=== PATIENT | female | born 1940 | race Caucasian/White ===

== ENCOUNTER 2022-08-25 04:50 | Outpatient (CLI) | payer MEDICARE, BC, SELFPAY | END 2022-08-25 04:51 | disposition home or self-care (01) | LOC: AMB 08-26 11:23 | PROVIDERS: PCP Family Medicine; Visit Provider Family Medicine | DX: R42 Dizziness and giddiness (principal) | CPT/HCPCS: A0425; A0429 ==

== ENCOUNTER 2022-08-25 05:11 | Emergency (ER) | payer MEDICARE, BC, SELFPAY ==
[2022-08-25 05:18] VITALS: BP 188/80; PULSE 89; RESP 18; TEMP 36.7; O2SAT 99; BMI 33.3
--- NOTE | 2022-08-25 05:45 | ED.GENADULT ---
HPI - General Adult General Chief complaint: Anxiety Stated complaint: Dizziness Time Seen by Provider: 08/25/22 05:18 Source: patient and EMS Mode of arrival: EMS History of Present Illness HPI narrative: 82-year-old female that lives in the [facility] area presents to the emergency department via EMS for nonspecific reasons. She reports that she had a tooth pulled on the 3rd which is 2 weeks ago. Since that time, she has been using ibuprofen 2-3 times per day per their instructions for dental pain. She is worried that because of this she could be dehydrated. For unknown reasons, this evening she started drinking lots of fluid, worried that she could be dehydrated. She has been having urinary frequency since that time and did notice a little spot of blood in her urine. She is confident that this is not vaginal nor rectal. As notes some burning on urination specifically when I asked but had not really thought about a bladder infection prior to this. There is no nausea, no vomiting, no back or abdominal pain. She says that she did feel slightly lightheaded at 1 point this evening but that has flea did. There was no chest pain, palpitations or other systemic symptoms. Certainly no fever. She does admit that she was very worried when seeing the little bit of blood in her urine and called 911. She does admit that she has memory issues though she denies being diagnosed with dementia or having this formally worked up. She has a lot of difficulty remembering names. She did not want to call her family as they have to work in the morning and that would be inconvenient for them. She did not try calling a nurse triage line or any other type of advice before calling EMS. Eyes any falls, injury or trauma. No syncope, no chest pain. She admits to me that she has really issues, has never brought this up with her primary care doctor. It sounds like she does not go into the doctor regularly. She denies taking any medications but I do see that she has been prescribed lisinopril at some point though I cannot follow the rationale as to why patient is either not taking it or it was discontinued. I suspect that she ran out and never refilled it, therefore not treating ongoing hypertension. She states that she has no long-term health problems and takes no prescription medications. She denies any allergies. Socially, she states that she lives at the [facility] and has no alcohol or illicit drug use. Her son lives in [place] and she has a nephew that works at the facility as well that can help her run errands from time to time. Denies any sick contacts. ROS is notable for the generalized and urinary symptoms as above, otherwise denies times 12 systems. Related Data Home Medications Medication Instructions Recorded Confirmed lisinopril 20 mg tablet 20 mg PO DAILY 08/25/22 08/25/22 Previous Rx's Medication Instructions Recorded ciprofloxacin HCl 250 mg tablet 250 mg PO BID #10 tabs 08/25/22 (Cipro) Allergies Allergy/AdvReac Type Severity Reaction Status Date / Time sertraline AdvReac Intermediate Nightmares Verified 08/25/22 05:47 PFSH COUNTS INCLUDE 234 BEDS AT THE [facility] Medical History (Updated 08/25/22 @ 06:08 by Kathryn Poe MD) Diverticulosis of colon (without mention of hemorrhage) GERD with esophagitis Hemorrhoids Iron deficiency anemia due to chronic blood loss Osteopenia Rotator cuff injury Vitamin D deficiency Surgical History History of colonoscopy History of esophagogastroduodenoscopy Social History Smoking Status: Never smoker Do you use any of these nicotine containing products: None Second hand tobacco smoke exposure: No How often do you have a drink containing alcohol: never How often do you have six or more drinks on one occasion: Never AUDIT-C Alcohol total score: 0 Non-prescribed substance use: denies use Exam Const: Vital Signs, click to edit/add: Vital Signs - 24 hr 08/25/22 05:18 Temperature 98.0 F Pulse Rate [Right Pulse Oximeter] 89 Respiratory Rate 18 Blood Pressure [Ri ght Upper Arm] 188/80 H Pulse Oximetry 99 Oxygen Delivery Me thod Room Air Documenting provider has reviewed patient's vital signs: yes Common normals: no apparent distress General appearance: well kempt Other: Anxious with mild cognitive impairment. HENMT: Common normals: normocephalic Head and scalp: normocephalic Mouth: oral and palatal mucosa normal Throat: posterior oropharynx normal Eye: Common normals: PERRL and conjunctivae normal Conjunctiva: conjunctiva(e) normal Pupil: PERRL Neck & C-Spine: Common normals: full ROM and no lymphadenopathy Resp: Common normals: normal respiratory effort, no use of accessory muscles and clear to auscultation bilaterally Effort & inspection: able to speak in complete sentences Auscultation: clear to auscultation bilaterally Cardio: Common normals: regular rate, regular rhythm, S1 normal heart sound, S2 normal heart sound and no murmurs Rate: regular rate Rhythm: regular rhythm Heart sounds: S1 normal and S2 normal GI: Common normals: Normal to inspection, nondistended, normoactive bowel sounds present, soft to palpation, non-tender, no hepatosplenomegaly and no masses Palpation: soft and no hepatosplenomegaly Extremity: Common normals: normal to inspection, full ROM, normal capillary refill and no pedal edema Neuro: Speech: speech normal Motor exam: strength 5/5 throughout, no tremor noted and no movement abnormalities noted Psych: Appearance: well kempt Activity/motor behavior: appropriate eye contact and disorganized Mood and affect: anxious Insight: fair Judgement: fair Other: Mild memory impairment noted. Cannot remember primary care provider name, other details that would typically be in the realm of normal for an 82-year-old Skin: Common normals: no rashes or lesions noted Narrative: No bruising, signs of any trauma General skin exam: no rashes or lesions noted Course Vital Signs Vital signs: Initial Vital Signs Temperature 98.0 F 08/25/22 05:18 Temperature Source Temporal Artery Scan 08/25/22 05:18 Pulse Rate 89 08/25/22 05:18 Respiratory Rate 18 08/25/22 05:18 Respiratory Effort Spontaneous 08/25/22 05:18 Respiratory Depth Normal 08/25/22 05:18 Respiratory Pattern 08/25/22 05:18 Blood Pressure 188/80 H 08/25/22 05:18 Blood Pressure Mean 116 08/25/22 05:18 Blood Pressure Position Sitting 08/25/22 05:18 Pulse Oximetry 99 08/25/22 05:18 Oxygen Delivery Method 08/25/22 05:18 Vital Signs Temperature 98.0 F 08/25/22 05:18 Pulse Rate 89 08/25/22 05:18 Respiratory Rate 18 08/25/22 05:18 Blood Pressure 188/80 H 08/25/22 05:18 Pulse Oximetry 99 08/25/22 05:18 Oxygen Delivery Method 08/25/22 05:18 Temperature 98.0 F 08/25/22 05:18 Pulse Rate 89 08/25/22 05:18 Respiratory Rate 18 08/25/22 05:18 Blood Pressure 188/80 H 08/25/22 05:18 Pulse Oximetry 99 08/25/22 05:18 Oxygen Delivery Method 08/25/22 05:18 Medical Decision Making MDM Narrative Medical decision making narrative: Vital signs are stable, no localizing severe threats to health. I do suspect that her cognitive impairment and anxiety are the main root of her issues today. Concerns there could be an underlying bladder infection and this made her feel overwhelmed contributing to anxiety in the setting of underlying cognitive impairment and will check a UA. Based on this single episode of fleeting dizziness, I would like to check an EKG is I do not trust her memory and insight appropriately. Awaiting these results. Do not recommend significant further workup as her exam is completely benign. Update: UA reviewed, suspicious for infection. EKG performed there were some very mild subtle anteriorly changes but these are completely unchanged from 12/06/2020. No signs of any arrhythmia or other underlying cardiac disease. Discussed the bladder infection with patient. Spent some time also discussing my concerns for ongoing memory impairment especially since it was so difficult for her to figure out what to do in the setting of a mild illness. She does agree that she should look into this further. Alarm symptoms reviewed with her regarding her bladder infection. Cipro and Pyridium given in ED. additional Cipro sent to [facility] Lab Data Lab results reviewed: Yes I reviewed the patient's lab results Labs: Lab Results 08/25/22 Range/Units 05:35 Urine Color Yellow (Yellow) Urine Appearance Cloudy A (Clear) Urine pH 6.5 (5.0-8.5) Ur Specific [place] 1.010 (1.000-1.030) Urine Protein Trace A (Negative) Urine Glucose (UA) Negative (Negative) Urine Ketones Negative (Negative) Urine Blood 3+ A (Negative) Urine Nitrite Negative (Negative) Urine Bilirubin Negative (Negative) Urine Urobilinogen 0.2 (0.2-1.0) Ur Leukocyte Esterase 3+ A (Negative) Urine RBC 10-25 A (0-2) Urine WBC 25-50 A (0-5) Ur Squamous Epith Cells Few (None-Few) Urine Bacteria Moderate A (None) ECG Data Attestation: I personally reviewed and interpreted this ECG as follows: Prior ECG tracings: available for review Interpretation: Normal sinus rhythm, rate of 76. Reviewed from 12/06/2020 also showing no changes from that date. There are some nonspecific inferior and anterior leads changes which are consistent with this previous value. Normal axis, no LVH. Discharge Plan Discharge Clinical Impression: Urinary tract infection, Impaired memory Patient Disposition: Home w/ Parent or Adult Condition: Improved Instructions: Urinary Tract Infection in Women (DC) Additional Instructions: As we discussed, your urine shows signs of a bladder infection. We have started you on an antibiotic for this. He will need to molded goods spot picker the additional supply of antibiotic at your local pharmacy. I have sent a prescription. You were also given a medication in the emergency room to help with the bladder tenderness, please remember that it will turn your urine dark orange. This is not blood. It is common to have blood in your urine with a bladder infection but this should clear within a few days. If it does not, make a follow-up appointment to discuss that with your primary care doctor. I do have concerns about your memory based on how hard it was for you to figure out what to do when you had some mild burning in your bladder. These are typically not reasons someone would call 911. I think that this is a sign that your memory might be failing to the point where it needs more attention. I would recommend that you specifically make an appointment with your primary care doctor to discuss memory testing. You should also have your blood pressure rechecked as it was high in the emergency department. It looks like right medications for this in the past though you deny use of any of these. There are treatment options including medications that may be right for you that can help slow the progression of dementia. Please bring this paperwork to your follow-up visit. Activity Level: No Restrictions Discharge Diet: Regular Prescriptions: New ciprofloxacin HCl [Cipro] 250 mg tablet 250 mg PO BID Qty: 10 0RF No Action lisinopril 20 mg tablet 20 mg PO DAILY Label Comments: Take 1 Tablet (20 mg) by mouth once daily. Follow Up/Referrals: Emmy Harley MD [Primary Care Provider] - 7 Days Stand Alone Forms: [employer] Info Instructions
[2022-08-25 05:46] LABS: Appearance Urine Cloudy (Clear); Bilirubin Urine Negative (Negative); Blood Urine 3+ (Negative); Color Urine Yellow (Yellow); Glucose Urine Negative (Negative); Ketones Urine Negative (Negative); Leukocyte Esterase Urine 3+ (Negative); Nitrite Urine Negative (Negative); Protein Urine Trace (Negative); Urobilinogen Urine 0.2 (0.2-1.0); pH Urine 6.5 (5.0-8.5)
[2022-08-25 05:56] LABS: Bacteria Urine Moderate; Squamous Epithelial Cell Urine Few (None-Few); WBC Urine 25-50 (0-5)
[2022-08-25] MEDS: CIPROFLOXACIN 500 MG TABLET PO (06:15)
[2022-08-25] MEDS: PHENAZOPYRIDINE HCL 200 MG TABLET PO (06:15)
[2022-08-25 06:22] VITALS: BP 174/78; PULSE 84; RESP 18; TEMP 36.9; O2SAT 99
[2022-08-25 06:24] VITALS: BP 174/78; PULSE 84; RESP 18; TEMP 36.9
== END 2022-08-25 06:24 | disposition home or self-care (01) ==
PROVIDERS: Emergency Provider Family Medicine; PCP Family Medicine
DX: R41.82 Altered mental status, unspecified (principal)
CPT/HCPCS: 81003; 81015; 87086; 87186; 93005; 99283; A9270

== ENCOUNTER 2022-08-25 14:03 | Outpatient (CLI) | payer MEDICARE, BC, SELFPAY | END 2022-08-25 14:04 | disposition home or self-care (01) | LOC: AMB 08-26 12:44 | PROVIDERS: PCP Family Medicine; Visit Provider Family Medicine | DX: R41.82 Altered mental status, unspecified (principal) | CPT/HCPCS: A0425; A0427; A0429 ==

== ENCOUNTER 2022-08-25 14:36 | Emergency (ER) | payer MEDICARE, BC, SELFPAY ==
--- NOTE | 2022-08-25 14:43 | CRLHL7_ITS ---
For Patients: As a result of the Century Cures Act, medical imaging exams and procedure reports are released immediately into your electronic medical record. You may view this report before your referring provider. If you have questions, please contact your health care provider. INDICATION: Confusion. TECHNIQUE: CT of the head without contrast. Coronal and sagittal reformats are included. COMPARISON: Brain MRI from 12/06/2020. Head CT from 11/30/2020. FINDINGS: No CT evidence of acute cortical infarct. Moderately extensive hypoattenuation throughout the supratentorial white matter, typical for chronic microvascular ischemic changes. No hyperdense vessels to suggest intracranial thrombus. No acute intracranial hemorrhage. No mass effect or midline shift. No hydrocephalus or extra-axial collections. Vascular calcifications carotid siphons. No acute osseous abnormalities. Mastoid air cells and paranasal sinuses are clear. Normal soft tissues. IMPRESSION: IMPRESSION:1. No CT evidence of acute cortical infarct. No acute intracranial hemorrhage. No other acute intracranial findings. Moderately extensive chronic microvascular ischemic changes, also present on comparison exams. Please note that all CT scans at this facility use dose modulation, iterative reconstruction, and/or weight-based dosing when appropriate to reduce radiation dose to as low as reasonably achievable. Dictated by Rafael Morris MD @ 08/25/2022 3:46:05 PM (Electronically Signed)
[2022-08-25 14:50] VITALS: BP 183/87; PULSE 93; RESP 18; TEMP 36.5; O2SAT 100
[2022-08-25 15:14] LABS: Lactate* 0.8 mmol/L (0.5-1.9)
[2022-08-25 15:23] LABS: Troponin, Point-of-Care* 0.02 ng/ml (0.01-0.04)
[2022-08-25 15:27] LABS: Basophils Absolute Auto 0.03 K/uL (0.00-0.30); Basophils Percent Auto 0.3 % (0.0-3.0); Hematocrit 32.9 % (33.0-51.0); Immature Granulocytes Abs Auto 0.01 K/uL (0.00-0.30); Immature Granulocytes Pct Auto 0.1 %; Lymphocytes Percent Auto 7.3 % (20-44); Mean Corpuscular HGB Conc 33 gm/dL (32-36); Mean Corpuscular Hemoglobin 31 pg (26-34); Mean Corpuscular Volume 91 fL (80-100); Monocytes Percent Auto 9.5 % (0.0-11.0); Neutrophils Percent Auto 81.8 % (42.0-72.0); Platelet Count* 261 K/uL (140-440); RDW Coefficient of Variation % 14.2 % (11.5-15.5)
[2022-08-25 15:32] LABS: Slide Review Reflex No
[2022-08-25 15:36] LABS: Amphetamine Screen Urine Negative (Negative); Barbiturate Screen Urine Negative (Negative); Benzodiazepines Screen Urine Negative (Negative); Cannabinoid Screen Urine Negative (Negative); Cocaine Screen Urine Negative (Negative); Methadone Screen Urine Negative (Negative); Methamphetamines Screen Urine Negative (Negative); Opiate Screen Urine Negative (Negative); Oxycodone Screen Urine Negative (Negative); Phencyclidine Screen Urine Negative (Negative); Tricyclic Antidepressant Urine Negative (Negative)
[2022-08-25 15:39] LABS: Albumin* 3.9 g/dL (3.3-5.0); Chloride* 103 mmol/L (96-114)
[2022-08-25 15:40] LABS: Potassium* 4.3 mmol/L (3.6-5.1); Sodium* 131 mmol/L (135-149)
[2022-08-25 15:42] LABS: Alkaline Phosphatase* 76 U/L (40-150); Aspartate Amino Transferase* 20 U/L (12-35); Bilirubin Direct* 0.1 mg/dL (0.0-0.5); Bilirubin Total* 0.3 mg/dL (0.1-1.5); Carbon Dioxide* 23 mmol/L (20-32); Creatinine* 0.6 mg/dL (0.5-1.5); Estimated Glomerular Filt Rate 89 ml/min; Total Protein* 6.8 g/dL (6.0-8.3)
[2022-08-25 15:43] LABS: Alanine Aminotransferase* 17 U/L (4-35); Blood Urea Nitrogen* 14 mg/dL (7-30); Calcium* 9.1 mg/dL (8.4-10.6); Glucose* 109 mg/dL (60-115)
[2022-08-25 15:45] LABS: Ethanol* < 0.01 % (0.01-0.03)
--- NOTE | 2022-08-25 18:15 | ED.NURSE ---
pt's son is talking with Dr. Austin
[2022-08-25 18:19] VITALS: BP 180/80; PULSE 75; RESP 18; O2SAT 98
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
== END 2022-08-25 18:46 | disposition home or self-care (01) ==
PROVIDERS: Emergency Provider Emergency Medicine; PCP Family Medicine
DX: R41.3 Other amnesia (principal); N39.0 Urinary tract infection, site not specified
CPT/HCPCS: 36415; 70450; 80048; 80076; 80306; 81003; 81015; 82077; 83605; 84484; 85025; 86140; 87086; 87186; 93005; 99283; 99284; 99285; A9270

== ENCOUNTER 2024-03-14 04:43 | Outpatient (CLI) | payer MEDICARE, BC, SELFPAY ==
--- OUTSIDE RECORDS SUMMARY | 2024-03-17 17:41 | XMS_ITS | Clinical Summary ---
Author Organization [employer] [facility] Address [place], [place] [address] Care Team Providers Care Window Machine Operator Name Role Phone Chitra Manuel DO Primary Care Provider [phone] Allergies Active Allergy Reactions Criticality Noted Date Comments Sertraline Nightmares 10/22/2021 may be dose dependant ok on 50mg. 100mg more dreams. Medications Medication Sig Dispensed Refills Start Date End Date Status multivitamin (MVI) tablet Take 1 tablet by mouth once daily. 0 07/23/2017 Active vit C,U-Cu-uvhxb-lutein-z eaxan (PreserVision AREDS-2) capsule Take 1 Capsule [...] Description 02/21/2024 11:05 AM CDT Office Visit [facility] [address] [place] [address] Chitra Manuel, Blood Pressure; Dizziness (gets dizzy [...] st Contact Info) Description 09/13/2024 8:30 AM BLADE ALIGNER Office Visit [facility] [address] [facility] [address] [place] [address] Edwin Oviedo, PhD, [address] [place] [address] Health Maintenance Due Date Last Done Comments [...] Completed 12/24/2015 Medical Devices Implanted Type Area Hydrogen Treater Device Identifier Shelf Expiration Date Model / Serial / Lot Eye Intraocular Lens - [id number] Implanted:Qty: 1 on 05/13/2017 [facility] Right: Eye 08/08/2019 / [id number] / Eye Intraocular Lens - [id number] Implanted:Qty: 1 on 06/10/2017 [facility] Left: Eye [employer] 10/07/2019 250 / [id number] / Procedures Procedure Name Priority Date/Time Associated [...] mineral density study was performed using the [employer]. The results of the study expressed as [...] 12:50 PM 04/04/2015 3:34 PM Care Teams Window Machine Operator Relationship Specialty Start Date End Date Chitra Manuel DO [address] [place] [address] PCP - General Family Practice 12/09/20
== END 2024-03-14 04:44 | disposition home or self-care (01) ==
LOC: AMB 03-17 17:39
PROVIDERS: PCP Family Medicine; Visit Provider Family Medicine
DX: R06.09 Other forms of dyspnea (principal); R42 Dizziness and giddiness
CPT/HCPCS: A0425; A0429

== ENCOUNTER 2024-03-14 04:55 | Emergency (ER) | payer MEDICARE, BC, SELFPAY ==
[2024-03-14 05:03] VITALS: BP 171/80; PULSE 78; RESP 16; TEMP 36.8; O2SAT 96; BMI 29.2
--- NOTE | 2024-03-14 05:33 | ED_ITS ---
HPI - General Adult General Chief complaint: Anxiety Stated complaint: Panic attack Time Seen by Provider: 03/14/24 05:16 Source: patient and EMS Mode of arrival: EMS History of Present Illness HPI narrative: 84-year-old female reports that she was in her assisted living facility this morning when she started to feel a little dizzy and anxious. Reports that dizziness is common for her but intermittent. She has been evaluated in our ED for this about a year and half ago and reports that she has also had several evaluations in her primary care office for this as well. She reports that no cause has been found but it sounds as though instead there was no reversible cause or dangerous etiology found. She has not had any fainting or falls. She notes no chest pain or significant shortness of breath. She denies any recent myalgias, fevers or illness. She says that she took her blood pressure medicine this morning as prescribed. She states that the symptoms are not terribly out of character for her and that her symptoms had fully resolved by the time of EMS arrival. EMS confirming this story. They noticed a few PACs but no significant other abnormalities. They did check a blood sugar and it was 116. They brought her in for further evaluation. Here in the ED, she continues to be asymptomatic. She denies any recent stroke-like symptoms, neurological changes, falls, signs of illness, vomiting, diarrhea, skin injuries, dysuria. She reports that her appetite has been good. She does admit to some memory impairment which is ongoing. She continues to use her walker. She no longer drives. She has family in the [place] area that she speaks with frequently. Past medical history is notable for hypertension. It sounds like she has been prescribed an anti anxiety medicine in the past but it caused side effects, reports a sertraline allergy. Only home medication is lisinopril 20 mg once daily. Did denies alcohol or illicit drug use. No prior stroke or heart attack. ROS is notable for the anxiety as above and some chronic intermittent ongoing dizziness which is not currently present. Otherwise denies times 12 systems. Related Data Home Medications ?Medication ?Instructions ?Recorded ?Confirmed lisinopril 20 mg tablet 20 mg PO DAILY 08/25/22 08/25/22 Previous Rx's ?Medication ?Instructions ?Recorded ciprofloxacin HCl 250 mg tablet 250 mg PO BID #10 tabs 08/25/22 (Cipro) Allergies Allergy/AdvReac Type Severity Reaction Status Date / Time sertraline AdvReac Intermediate Nightmares Verified 08/25/22 05:47 [facility] Medical History Rotator cuff injury ?S46.009A - Unspecified injury of muscle(s) and tendon(s) of the rotator cuff of unspecified shoulder, initial encounter (ICD-10) Vitamin D deficiency ?E55.9 - Vitamin D deficiency, unspecified (ICD-10) GERD with esophagitis ?K21.00 - Gastro-esophageal reflux disease with esophagitis, without bleeding (ICD-10) 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.0 - Iron deficiency anemia secondary to blood loss (chronic) (ICD-10) Hemorrhoids ?K64.9 - Unspecified hemorrhoids (ICD-10) Osteopenia ?M85.80 - Other specified disorders of bone density and structure, unspecified site (ICD-10) Diverticulosis of colon (without mention of hemorrhage) ?K57.30 - Diverticulosis of large intestine without perforation or abscess without bleeding (ICD-10) Surgical History History of colonoscopy ?Z98.890 - Other specified postprocedural states (ICD-10) History of esophagogastroduodenoscopy ?Z98.890 - Other specified postprocedural states (ICD-10) Social History Smoking Status: Never smoker Do you use any of these nicotine containing products: None Second hand tobacco smoke exposure: No How often do you have a drink containing alcohol: never How often do you have six or more drinks on one occasion: Never AUDIT-C Alcohol total score: 0 Non-prescribed substance use: denies use Exam Const: Vital Signs, click to edit/add: Vital Signs - 24 hr 03/14/24 05:03 Temperature 98.3 F Pulse Rate [Pulse Oximeter] 78 Respiratory Rate 16 Blood Pressure [Ri ght Upper Arm] 171/80 H Pulse Oximetry 96 Oxygen Delivery Me thod Room Air Documenting provider has reviewed patient's vital signs: yes Common normals: no apparent distress, oriented x3 and alert Orientation/consciousness: Yes awake Other: Mild memory impairment but appropriate for medical decision making. Alert, cooperative, conversational, very well groomed. Answers questions appropriately . HENMT: Common normals: normocephalic, head/scalp atraumatic and oropharynx normal Head and scalp: normocephalic and atraumatic Face and sinus: normal facial exam Mouth: oral and palatal mucosa normal Eye: Common normals: PERRL, EOMs intact bilaterally and conjunctivae normal General eye: normal appearance of both eyes Conjunctiva: conjunctiva(e) normal Pupil: PERRL Neck & C-Spine: Common normals: full ROM and no lymphadenopathy Resp: Common normals: normal respiratory effort, no use of accessory muscles and clear to auscultation bilaterally Effort & inspection: able to speak in complete sentences Auscultation: clear to auscultation bilaterally Cardio: Common normals: regular rate, regular rhythm, S1 normal heart sound, S2 normal heart sound and no murmurs Rate: regular rate Rhythm: regular rhythm Heart sounds: S1 normal and S2 normal GI: Common normals: Normal to inspection, nondistended, normoactive bowel sounds present, soft to palpation, non-tender, no hepatosplenomegaly and no masses Palpation: soft and no hepatosplenomegaly Extremity: Common normals: normal to inspection, normal capillary refill and no pedal edema Neuro: Common normals: oriented x3, CN's II-XII intact bilaterally, moves all extremities and no focal motor deficits Sensorium/orientation: awake and alert Speech: speech normal Psych: Other: Mildly anxious with very mild memory impairment. Skin: Common normals: no rashes or lesions noted General skin exam: no rashes or lesions noted Course Course ED Course: Records reviewed from early , signs of similar mild cognitive impairment present then. It looks like family alludes that this is normal for her based on Dr. Austin note. Patient was symptomatic for only a brief period of time and asymptomatic at the time of EMS arrival and here in the emergency department. I offered more comprehensive blood work and urinalysis to look for underlying medical etiology, she does not believe that this is necessary today. She feels reassured that her blood sugar was normal, her vitals are reasonable, her oxygen levels are good. I do not see any strong indication to go against her wishes and perform a more thorough workup. We will call her son and confirmed that there have not been any major changes recently and if he is in agreement, we will have him take her back to her assisted living. Reevaluation(s) Reevaluation #1: Update: Nursing team reports that they spoke with the patient's son and he had no additional concerns. Patient started to feel little anxious again, stated that she would like to wait for her son out in the lobby where she could see out the window and read the paper. This is done and we continued to observe her from the check-in window and this certainly seem to help her. Family is on the way to pick her up and has no additional concerns. Vital Signs Vital signs: Initial Vital Signs Temperature 98.3 F 03/14/24 05:03 Temperature Source Temporal Artery Scan 03/14/24 05:03 Pulse Rate 78 03/14/24 05:03 Respiratory Rate 16 03/14/24 05:03 Blood Pressure 171/80 H 03/14/24 05:03 Blood Pressure Mean 110 H 03/14/24 05:03 Blood Pressure Position Sitting 03/14/24 05:03 Pulse Oximetry 96 03/14/24 05:03 Oxygen Delivery Method Room Air 03/14/24 05:03 Vital Signs Temperature 98.3 F 03/14/24 05:03 Pulse Rate 78 03/14/24 05:03 Respiratory Rate 16 03/14/24 05:03 Blood Pressure 171/80 H 03/14/24 05:03 Pulse Oximetry 96 03/14/24 05:03 Oxygen Delivery Method Room Air 03/14/24 05:03 Temperature 98.3 F 03/14/24 05:03 Pulse Rate 78 03/14/24 05:03 Respiratory Rate 16 03/14/24 05:03 Blood Pressure 171/80 H 03/14/24 05:03 Pulse Oximetry 96 03/14/24 05:03 Oxygen Delivery Method Room Air 03/14/24 05:03 Discharge Plan Discharge Clinical Impression: Acute anxiety Patient Disposition: Home w/ Parent or Adult Condition: Improved Instructions: Anxiety (ED) Additional Instructions: As we discussed, your breathing and heart seem fine today. Dizzy spells are very common at your age in it sounds like you have had a very thorough workup regarding this. You have been evaluated in our emergency department about a year and a half ago for similar complaints as well. I do think that you do have some underlying lifelong anxiety and this got the best view tonight. As our Brain ages, it is not uncommon for those that struggle with some anxiety to have difficulty sorting out mild verses worrisome physical symptoms. Since her symptoms resolved even prior to the ambulance coming, this is good news. Your physical exam here is reassuring. Your oxygen and blood sugar levels are normal. You declined further blood work and urine tests which is of course reasonable. Continue taking your medications as prescribed and follow up with her primary care provider if you continue to struggle with anxiety to discuss more long-term management. As we discussed, the dizziness is likely to continue to come and go, especially when you are feeling anxious. Activity Level: No Restrictions Discharge Diet: Regular Prescriptions: No Action lisinopril 20 mg tablet 20 mg PO DAILY Patient Comments: Take 1 Tablet (20 mg) by mouth once daily. ciprofloxacin HCl [Cipro] 250 mg tablet 250 mg PO BID Qty: 10 0RF Follow Up/Referrals: Emmy Harley MD [Primary Care Provider] - Stand Alone Forms: [employer] Info Instructions
[2024-03-14 06:01] VITALS: BP 164/90; RESP 16
--- OUTSIDE RECORDS SUMMARY | 2024-03-14 06:02 | XMS_ITS | Clinical Summary ---
Author Organization [facility] [facility] Address [place], [place] [address] Care Team Providers Care Portrait Photographer Name Role Phone Chitra Manuel DO Primary Care Provider Allergies Active Allergy Reactions Criticality Noted Date Comments Sertraline Nightmares 10/22/2021 may be dose dependant ok on 50mg. 100mg more dreams. Medications Medication Sig Dispensed Refills Start Date End Date Status multivitamin (MVI) tablet Take 1 tablet by mouth once daily. 0 07/23/2017 Active vit C,H-Ly-elsme-lutein-z eaxan (PreserVision AREDS-2) capsule Take 1 Capsule by mouth two times daily. 0 02/08/2023 Active lisinopriL (PRINIVIL; ZESTRIL) 20 mg tabletIndications:Hyp ertension, unspecified type Take 1 Tablet (20 mg) by mouth once daily. 90 Tablet 2 08/20/2023 Active Active Problems Problem Noted Date Diagnosed Date Iron deficiency anemia due to chronic blood loss 07/23/2017 Overview: Likely d/t Gastric erosions noted on EGD 2014. Responds very well to IV iron replacement. Gastroesophageal reflux disease with esophagitis 07/23/2017 Primary insomnia 01/11/2017 Osteopenia 12/08/2015 Overview: hip % 3.9, fosamax encouraged via letter Rotator cuff injury 12/24/2011 Vitamin D deficiency 07/24/2010 Resolved Problems Problem Noted Date Diagnosed Date Resolved Date Guaiac + stool 04/04/2015 05/09/2015 Fecal occult blood test positive 03/26/2015 12/22/2015 Anxiety state, unspecified 07/14/2010 1 Encounters Date Type Department Care Team Description 02/21/2024 11:05 AM CDT Office Visit [facility] [address] [place] [address] Chitra Manuel, Blood Pressure; Dizziness (gets dizzy when hungry, eats, then gets better) 02/21/2024 Travel from Last 3 Months Immunizations Name Administration Dates Next Due COVID-19 vaccine (Moderna 100mcg/0.5mL) PF, MDV 10/02/2020,09/04/2020 DTaP 04/28/2006 Pneumococcal Poly,23-Valent (Pneumovax) 04/28/20 06 Family History Medical History Relation Name Comments Cancer-breast Sister 50's Relation Name Status Comments Sister Social History Tobacco Use Types Packs/Day Years Used Date Smoking Tobacco: Former Cigarettes 0.5 45 0 08/09/1944 - 08/09/1988 Smokeless Tobacco: Never Tobacco Cessation:Counseling Given: Yes Alcohol Use Standard Drinks/Week Comments Not Currently 0 (1 standard drink = 0.6 oz pur e alcohol) rare 1 beer a year PHQ-2 Answer Date Recorded PHQ-2 TOTAL SCORE 0 02/08/2023 Social Connections Answer Date Recorded Frequency of Communication with Friends and Fami ly Not on file 11/25/2022 Financial Resource Strain Answer Date R ecorded Difficulty of Paying Living Expenses 3 11/24/2021 Difficulty of Paying Living Expenses Not on file 11/24/2021 Food Insecurity Answer Date Recorded Worried About Running Out of Food in the Last Ye ar 1 11/24/2021 Transportation Needs Answer Date Record ed Lack of Transportation (Medical) 1 11/24/2021 Housing Stability Answer Date Recorded Unable to Pay for Housing in the Last Year 1 11/24/2021 Sex and Gender Information Value Date Recorded Sex Assigned at Not on file Gender Identity Not on file Sexual Orientation Not on file Obstetrics History Para Term AB IAB SAB Ectopic Multiple Livin g Live Births 2 2 2 2 Date Outcome GA Total Labor Labor/2nd/3rd Weight Sex Type Anes PTL Monet A1 A5 Name Clin Term Term Last Filed Vital Signs Vital Sign Reading Time Taken Comments Blood Pressure 136/66 02/21/2024 11:30 AM CDT Pulse 68 02/21/2024 11:09 AM CDT Temperature 37.2 ??C (99 ??F) 12/22/2021 11:10 AM CDT Respiratory Rate 16 04/02/2018 11:52 AM CDT Oxygen Saturation 98% 02/21/2024 11:09 AM CDT Inhaled Oxygen Concentration - - Weight 76.7 kg (169 lb) 02/21/2024 11:09 AM CDT Height 154.9 cm (5' 1) 02/08/2023 4:05 PM CDT Body Mass Index 31.93 02/08/2023 4:05 PM CDT Plan of Treatment Upcoming Encounters Date Type Department Care Team (Late st Contact Info) Description 09/13/2024 8:30 AM LOAN SERVICING REPRESENTATIVE Office Visit [facility] [address] [facility] [address] [place] [address] Edwin Oviedo, PhD, [address] [place] [address] Health Maintenance Due Date Last Done Comments Tdap 1950 Zoster (shingles) series for age 50+ (1 of 2) 1989 Pneumococcal series for age 65+ (2 of 2 - PCV) 04/28/2007 04/28/2006 Tetanus booster 04/28/2016 04/28/2006 COVID-19 vaccine series ( season) 2023 12/08/2021, 07/10/2021, 10/02/2020, Additional history exists BMI (ht and wt on same day) for age 18+ 02/09/2024 02/08/2023, 08/31/2022, 10/22/2021, Additional history exists Medicare Wellness for age 65+ 02/09/2024, 10/22/2021, 06/08/2018, Additional history exists Depression screening for age 12+ 02/11/2024 02/10/2023, 02/10/2023, 02/08/2023, Additional history exists Influenza for age 65+ 04/09/2024 DEXA/DXA scan for age 65+ Completed 12/24/2015 Medical Devices Implanted Type Area Core Composer Machine Tender Device Identifier Shelf Expiration Date Model / Serial / Lot Eye Intraocular Lens - [id number] Implanted:Qty: 1 [facility]13/[facility] Right: Eye 08/08/2019 / [id number] / Eye Intraocular Lens - [id number] Implanted:Qty: 1 on 06/10/2017 [facility] Left: Eye [employer] 10/07/2019 250 / [id number] / Procedures Procedure Name Priority Date/Time Associated Diagnosis Comments XR DXA BONE DENSITY 2 SITES AXIAL Routine 12/24/2015 2:26 PM CDT Other specified menopausal and perimenopausal disorders At risk for bone density loss from Last 3 Months or Most Recently Relevant to Health Maintenance Results * XR DXA BONE DENSITY 2 SITES AXIAL (12/24/2015 2:26 PM CDT) Anatomical Region Laterality Modality Spine, HIPS, HIPL, HIPR Bone Den sitometry Narrative 12/30/2015 6:25 PM CDT DXA BONE MINERAL DENSITY STUDY CLINICAL INDICATIONS: The patient is a 75-year-old female with Other Screening - V82.81 FINDINGS Bone mineral density study was performed using the wripl. The results of the study expressed as bone mineral density (BMD) are as follows: ??BMD T-Score Z-Score Lumbar Spine (L1 to L3) ??1.124 g/cm2 ??-0.4 ?? 1.4 ?? Hip ?? 0.737 g/cm2 ??-2.2 ?? -0.2 ?? Radius ??g/cm2 ?? DEFINITION OF TERMS AND VALUES Values according to the World Health Organization (1994): Normal: T-score greater than or equal to -1.0 LOW BONE MASS: T-score between -1.1 and -2.49 OSTEOPOROSIS: T-score -2.5 or below, OR a fragility fracture present SEVERE OSTEOPOROSIS: ??T-score -2.5 or below, WITH a fragility fracture present CONCLUSIONS 1. Findings are consistent with Low bone mass by WHO criteria. 2. FRAX scores reveal a 10 year risk of major osteoporotic fracture of 14.0 % and 3.9 % for the hip. 3. Recommend optimizing calcium and vitamin D. Miranda Vu NP DEXA from Last 3 Months or Most Recently Relevant to Health Maintenance Advance Directives * Full Code (Latest Code Status on File) Date Activated Date Inactivated Comments 06/10/2017 8:51 AM 06/10/2017 1:39 PM * Full Code Date Activated Date Inactivated Comments 06/10/2017 6:55 AM 06/10/2017 8:51 AM * Full Code Date Activated Date Inactivated Comments 05/13/2017 9:24 AM 05/13/2017 1:37 PM * Full Code Date Activated Date Inactivated Comments 04/04/2015 12:50 PM 04/04/2015 3:34 PM Care Teams Portrait Photographer Relationship Specialty Start Date End Date Chitra Manuel DO [address] [place] [address] PCP - General Family Practice 12/09/20
== END 2024-03-14 06:40 | disposition home or self-care (01) ==
LOC: ED 06:00
PROVIDERS: Emergency Provider Family Medicine; PCP Family Medicine
DX: F41.9 Anxiety disorder, unspecified (principal)
CPT/HCPCS: 99282; 99283

== ENCOUNTER 2024-07-17 07:29 | Emergency (ER) | payer MEDICARE, BC, SELFPAY ==
[2024-07-17] VITALS (12 sets, daily range): BP systolic 113–183; BP diastolic 77–92; PULSE 71–86; RESP 24; TEMP 36.6; O2SAT 88–99; BMI 28.3
--- NOTE | 2024-07-17 07:57 | ED.SOB ---
HPI - SOB/Dyspnea General Time Seen by Provider: 07:58 Date Seen: 07/17/24 Chief Complaint: Shortness of Breath/Dyspnea Stated Complaint: SOB and dizziness Time Seen by Provider: 07/17/24 08:16 Source: patient Mode of arrival: ambulatory Limitations: no limitations History of Present Illness HPI Narrative: Audra is a very pleasant 84-year-old female with a remote history of tobacco use stating that she only currently takes a blood pressure medicine and is otherwise healthy comes to the [facility] with dizziness and shortness of breath. Patient notes that she has had dizziness for quite some time. She states that she often wakes in the morning with dizziness that is described as unsteadiness and a fullness in her head. She notes resolution of the symptoms if she eats. She states that she eats quite healthy. Unfortunately the dizziness will recur if she does not eat every 2 hours. Today she stated that she experience this dizziness and it made her scared and then she got very short of breath. At this very moment in the ER she has none of the symptoms. She has not been ill with cough cold or congestion. She denies weight loss or weight gain. She has not had any heart problems in the past. She currently resides at [facility] and states that she does not have a very good memory because she is old but then tells me that she has no dementia. Audra states that she uses a walker because she is so afraid of falling. She does not have any knee hip or leg pain. She has not had a recent fall or trauma. No ear pain or neck pain. Audra states that she has been here in the ER for this in the past but never had any blood work done. I do note a recent note from our night physician who states that patient did come in and did declined any further blood work after she found out that her blood sugar was okay. I do ask her about visits to her primary and she states that it is hard to get in to see her primary. She normally goes to the [facility]. Related Data Home Medications ?Medication ?Instructions ?Recorded ?Confirmed lisinopril 20 mg tablet 20 mg PO DAILY 08/25/22 07/17/24 Previous Rx's ?Medication ?Instructions ?Recorded amoxicillin 500 mg tablet 500 mg PO TID #21 tabs 07/17/24 azithromycin 250 mg tablet See Rx Instructions PO .COMPLEX #6 07/17/24 (Zithromax Z-Ignacio) tabs omeprazole 40 mg capsule,delayed 40 mg PO DAILY #14 caps 07/17/24 release Allergies Allergy/AdvReac Type Severity Reaction Status Date / Time sertraline AdvReac Intermediate Nightmares Verified 07/17/24 07:43 Review of Systems Status of ROS: Reports: 10 or more systems reviewed and unremarkable except as noted in History and below Const: Denies: fever, chills, change in weight or fatigue Eyes: Reports: other (eye pressure when she is dizzy); Denies: change in vision ENMT: Denies: throat pain, neck pain, throat swelling, nasal congestion or nose bleeds Cardio: Reports: shortness of breath with exertion; Denies: chest pain, palpitations, edema or swelling of feet/ankles Resp: Reports: shortness of breath; Denies: cough GI: Denies: abdominal pain, nausea, vomiting, diarrhea, constipation or blood in stool : Denies: painful urination, urinary frequency or urinary urgency Musculo: Denies: back pain, neck pain or extremity pain Neuro: Denies: headache or numbness in extremities Psych: Denies: anxiety Endo: Denies: fatigue Allergy/Immuno: Denies: throat swelling [facility] Medical History Rotator cuff injury ?S46.009A - Unspecified injury of muscle(s) and tendon(s) of the rotator cuff of unspecified shoulder, initial encounter (ICD-10) Vitamin D deficiency ?E55.9 - Vitamin D deficiency, unspecified (ICD-10) GERD with esophagitis ?K21.00 - Gastro-esophageal reflux disease with esophagitis, without bleeding (ICD-10) 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.0 - Iron deficiency anemia secondary to blood loss (chronic) (ICD-10) Hemorrhoids ?K64.9 - Unspecified hemorrhoids (ICD-10) Osteopenia ?M85.80 - Other specified disorders of bone density and structure, unspecified site (ICD-10) Diverticulosis of colon (without mention of hemorrhage) ?K57.30 - Diverticulosis of large intestine without perforation or abscess without bleeding (ICD-10) Surgical History History of colonoscopy ?Z98.890 - Other specified postprocedural states (ICD-10) History of esophagogastroduodenoscopy ?Z98.890 - Other specified postprocedural states (ICD-10) Social History Smoking Status: Never smoker Do you use any of these nicotine containing products: None Second hand tobacco smoke exposure: No How often do you have a drink containing alcohol: never How often do you have six or more drinks on one occasion: Never AUDIT-C Alcohol total score: 0 Non-prescribed substance use: denies use Exam Narrative: Exam Narrative: Audra is alert and oriented. No acute distress. I do sense element of anxiety with mildly pressured speech. EOM is full and pupils are equal round and reactive. Head is atraumatic normocephalic. Neck is supple. Eyebrow raise smile all intact. Tongue is midline. Upper extremity strength and motor is intact as is lower extremity. Heart with regular rate and rhythm and lungs are clear bilaterally. Abdomen soft nontender. Lower extremity show 1+ peripheral edema. Moving all extremities without difficulty. No carotid bruits were auscultated. Const: Vital Signs, click to edit/add: Vital Signs - 24 hr 07/17/24 07:33 07/17/24 08:48 07/17/24 08:49 Temperature 97.8 F Pulse Rate 84 86 Pulse Rate [Pulse Oximeter] 81 Respiratory Rate 24 Blood Pressure 183/88 H Blood Pressure [Ri ght Upper Arm] 160/92 H Pulse Oximetry 99 96 95 Oxygen Delivery Me thod Room Air 07/17/24 09:00 07/17/24 09:03 07/17/24 09:04 Temperature Pulse Rate 84 78 81 Pulse Rate [Pulse Oximeter] Respiratory Rate Blood Pressure 179/89 H Blood Pressure [Ri ght Upper Arm] Pulse Oximetry 98 97 96 Oxygen Delivery Me thod 07/17/24 09:15 07/17/24 09:30 07/17/24 09:33 Temperature Pulse Rate 72 85 Pulse Rate [Pulse Oximeter] Respiratory Rate Blood Pressure 113/77 Blood Pressure [Ri ght Upper Arm] Pulse Oximetry 95 96 Oxygen Delivery Me thod 07/17/24 09:45 07/17/24 10:04 07/17/24 10:15 Temperature Pulse Rate 71 83 77 Pulse Rate [Pulse Oximeter] Respiratory Rate Blood Pressure Blood Pressure [Ri ght Upper Arm] Pulse Oximetry 96 88 96 Oxygen Delivery Me thod Documenting provider has reviewed patient's vital signs: yes Course Course ED Course: Differential diagnosis includes but is not limited to orthostatic hypotension, cardiac arrhythmia, urinary tract infection, thyroid dysregulation, electrolyte imbalance, vitamin deficiency, anxiety. At this time I do speak to 1 need a about her previous visit at which time she had declined further blood draw but told her I am happy to do that today. I did state that I may not be able to accurately diagnose what she is feeling but we should be able to ensure there are no immediate threats to life with her situation. Therefore will order EKG, troponin, assistant press operator, IV placement, CBC, comprehensive panel, CRP, urinalysis, vitamin-D, magnesium, troponin. Will also check a proBNP, chest x-ray, COVID swab. Patient seems happy with this plan. Ultimately however we will need to get her in to see her primary MD for further evaluation. Orthostatic vital signs have also been ordered at this time. Vital Signs Vital signs: Initial Vital Signs Temperature 97.8 F 07/17/24 07:33 Temperature Source Temporal Artery Scan 07/17/24 07:33 Pulse Rate 81 07/17/24 07:33 Respiratory Rate 24 07/17/24 07:33 Blood Pressure 160/92 H 07/17/24 07:33 Blood Pressure Mean 114 H 07/17/24 07:33 Blood Pressure Position Sitting 07/17/24 07:33 Pulse Oximetry 99 07/17/24 07:33 Oxygen Delivery Method Room Air 07/17/24 07:33 Vital Signs Temperature 97.8 F 07/17/24 07:33 Pulse Rate 81 07/17/24 07:33 Respiratory Rate 24 07/17/24 07:33 Blood Pressure 160/92 H 07/17/24 07:33 Pulse Oximetry 99 07/17/24 07:33 Oxygen Delivery Method Room Air 07/17/24 07:33 Temperature 97.8 F 07/17/24 07:33 Pulse Rate 77 07/17/24 10:15 Respiratory Rate 24 07/17/24 07:33 Blood Pressure 113/77 07/17/24 09:33 Pulse Oximetry 96 07/17/24 10:15 Oxygen Delivery Method Room Air 07/17/24 07:33 Medications Administered Medications: Discontinued Medications Generic Name Dose Route Start Last Admin Trade Name Yuliet VENTURA Reason Stop Dose Admin Omeprazole 40 mg 07/17/24 11:34 07/17/24 11:50 Omeprazole [address] PO 07/17/24 11:35 40 mg ONCE ONE Administration MDM - SOB/Dyspnea MDM Narrative Medical decision making narrative: 1. Pneumonia-patient will be treated with amoxicillin 500 t.i.d. for 7 days and a Z-Ignacio. O2 sats reassuring and patient has tested negative for COVID influenza and RSV. Prescription sent to pharmacy. 2. Anemia-hemoglobin 9.3 today which is a change from 11 earlier in the year. Patient denies any abdominal pain or noting blood in her stool but she did have a positive fecal occult test today. She is not orthostatic and I do not think her dizziness is related to this particular finding but will need to be worked up. We are making an appointment with her primary clinic for further evaluation. She does note colonoscopy many years ago that was normal. Patient given omeprazole 40 mg today in the ED. will have her continue this medication for the next 2 weeks. 3. Hypo natremia-sodium today is 127. Patient is advised to salt 2 out of her 3 meals in the day. Recheck with primary MD. 4. Intermittent dizziness-this appears to be a chronic and ongoing problem that is improved with eating. I asked patient to actually plan on eating 3 normal meals but snacks in between meals so that she has something in her stomach every 2 hours. No evidence of cardiac arrhythmia. Troponin is negative x2 an EKG is reassuring. 4. Disposition-home at this time. Follow-up with primary clinic for workup of anemia. Patient had no symptoms of dizziness or shortness of breath well in the ED. vital signs were reassuring. Patient res is anxious to go home. Medical Records Attestation: I reviewed the patient's medical records. Lab Data Attestation: I reviewed the patient's lab results. Labs: Lab Results 07/17/24 07/17/24 07/17/24 Range/Units 08:16 08:31 08:55 WBC 5.73 (4.50-11.00) K/uL RBC 3.87 L (4.00-5.20) m/uL Hgb 9.3 L (12.0-16.0) gm/dL Hct 30.0 L (33.0-51.0) % MCV 78 L (80-100) fL MCH 24 L (26-34) pg MCHC 31 L (32-36) gm/dL RDW Coeff of Afua 18.4 H (11.5-15.5) % Plt Count 241 (140-440) K/uL Neut % (Auto) 71.6 (42.0-72.0) % Lymph % (Auto) 9.8 L (20-44) % Elliott % (Auto) 13.6 H (0.0-11.0) % Eos % (Auto) 3.8 (0.0-7.0) % Baso % (Auto) 1.0 (0.0-3.0) % Neut # (Auto) 4.10 (1.7-7.0) K/uL Lymph # (Auto) 0.60 L (0.90-2.90) K/uL Elliott # (Auto) 0.80 (0.00-0.90) K/UL Eos # (Auto) 0.22 (0.00-0.50) K/uL Baso # (Auto) 0.06 (0.00-0.30) K/uL Abs Immat Gran (auto) 0.01 (0.00-0.30) K/uL Imm/Tot Granulo (auto) 0.2 % Sodium 127 L (135-149) mmol/L Potassium 4.6 (3.6-5.1) mmol/L Chloride 102 (96-114) mmol/L Carbon Dioxide 21 (20-32) mmol/L Anion Gap 4 L (7-15) mEq/L BUN 22 (7-30) mg/dL Creatinine 0.5 (0.5-1.5) mg/dL Estimated Creat Clear 35.52 Estimated GFR 92 ml/min Glucose 95 (60-115) mg/dL Calcium 8.9 (8.4-10.6) mg/dL Magnesium 2.1 (1.5-2.6) mg/dL Total Bilirubin < 0.1 L (0.1-1.5) mg/dL AST 18 (12-35) U/L ALT 12 (4-35) U/L Alkaline Phosphatase 93 (40-150) U/L C-Reactive Protein < 0.5 L (0.5-1.0) mg/dL NT-Pro-B Natriuret Pep 98 pg/mL Total Protein 6.2 (6.0-8.3) g/dL Albumin 3.7 (3.3-5.0) g/dL 25-OH Vitamin D Total 42 (30-80) ng/mL TSH 2.230 (0.270-4.200) uIU/mL Urine Color Yellow (Yellow) Urine Appearance Clear (Clear) Urine pH 7.0 (5.0-8.5) Ur Specific Richmond 1.015 (1.000-1.030) Urine Protein Negative (Negative) Urine Glucose (UA) Negative (Negative) Urine Ketones Negative (Negative) Urine Blood Negative (Negative) Urine Nitrite Negative (Negative) Urine Bilirubin Negative (Negative) Urine Urobilinogen 0.2 (0.2-1.0) Ur Leukocyte Esterase 1+ A (Negative) Urine RBC 0-2 (0-2) Urine WBC 2-5 (0-5) Ur Squamous Epith Cells None (None-Few) Urine Bacteria Few A (None) Stool Occult Blood (Negative) SARS-CoV-2 (PCR) Negative SARS-CoV-2 (Negative) Influenza Type A (PCR) Negative PCR FLU A (Negative) Influenza Type B (PCR) Negative PCR FLU B (Negative) RSV (PCR) Negative PCR RSV (Negative) POC Troponin I 0.00 L (0.01-0.04) ng/ml 07/17/24 07/17/24 Range/Units 09:45 10:40 WBC (4.50-11.00) K/uL RBC (4.00-5.20) m/uL Hgb (12.0-16.0) gm/dL Hct (33.0-51.0) % MCV (80-100) fL MCH (26-34) pg MCHC (32-36) gm/dL RDW Coeff of Afua (11.5-15.5) % Plt Count (140-440) K/uL Neut % (Auto) (42.0-72.0) % Lymph % (Auto) (20-44) % Elliott % (Auto) (0.0-11.0) % Eos % (Auto) (0.0-7.0) % Baso % (Auto) (0.0-3.0) % Neut # (Auto) (1.7-7.0) K/uL Lymph # (Auto) (0.90-2.90) K/uL Elliott # (Auto) (0.00-0.90) K/UL Eos # (Auto) (0.00-0.50) K/uL Baso # (Auto) (0.00-0.30) K/uL Abs Immat Gran (auto) (0.00-0.30) K/uL Imm/Tot Granulo (auto) % Sodium (135-149) mmol/L Potassium (3.6-5.1) mmol/L Chloride (96-114) mmol/L Carbon Dioxide (20-32) mmol/L Anion Gap (7-15) mEq/L BUN (7-30) mg/dL Creatinine (0.5-1.5) mg/dL Estimated Creat Clear Estimated GFR ml/min Glucose (60-115) mg/dL Calcium (8.4-10.6) mg/dL Magnesium (1.5-2.6) mg/dL Total Bilirubin (0.1-1.5) mg/dL AST (12-35) U/L ALT (4-35) U/L Alkaline Phosphatase (40-150) U/L C-Reactive Protein (0.5-1.0) mg/dL NT-Pro-B Natriuret Pep pg/mL Total Protein (6.0-8.3) g/dL Albumin (3.3-5.0) g/dL 25-OH Vitamin D Total (30-80) ng/mL TSH (0.270-4.200) uIU/mL Urine Color (Yellow) Urine Appearance (Clear) Urine pH (5.0-8.5) Ur Specific Richmond (1.000-1.030) Urine Protein (Negative) Urine Glucose (UA) (Negative) Urine Ketones (Negative) Urine Blood (Negative) Urine Nitrite (Negative) Urine Bilirubin (Negative) Urine Urobilinogen (0.2-1.0) Ur Leukocyte Esterase (Negative) Urine RBC (0-2) Urine WBC (0-5) Ur Squamous Epith Cells (None-Few) Urine Bacteria (None) Stool Occult Blood Positive A (Negative) SARS-CoV-2 (PCR) (Negative) Influenza Type A (PCR) (Negative) Influenza Type B (PCR) (Negative) RSV (PCR) (Negative) POC Troponin I 0.01 (0.01-0.04) ng/ml Imaging Data Chest x-ray: Attestation: I have reviewed the pertinent imaging results. My impression: Increased lung markings throughout but in the right lower lobe agree of a small pneumonia Radiologist's impression: NDICATION: Shortness of breath TECHNIQUE: 1 view chest radiograph COMPARISON: 12/06/2020 FINDINGS: Devices: None. Lung volumes are good. Increased opacification in the right inferior parahilar lung. Diffuse peribronchial thickening and interstitial opacities. No pleural effusion. No pneumothorax. Heart size is large but similar to prior. Atherosclerotic vascular calcifications. IMPRESSION: Appearance suggests a focal bronchopneumonia in the right lower lobe on a background of bronchitis or infectious airways disease. ECG Data Attestation: I personally reviewed and interpreted this ECG as follows: ECG interpretation date: 07/17/24 Interpretation: EKG by my read shows sinus rhythm at a rate of 79. I do not note any acute ST or T-wave changes. P.r.n. QT intervals within normal limits. Discharge Plan Discharge Clinical Impression: Fecal occult blood test positive Pneumonia Qualifiers: Pneumonia type: due to unspecified organism Laterality: right Lung location: lower lobe of lung Qualified Code(s): J18.9 - Pneumonia, unspecified organism Anemia Qualifiers: Anemia type: unspecified type Qualified Code(s): D64.9 - Anemia, unspecified Patient Disposition: Home, Self-Care Condition: Unchanged Additional Instructions: 1. There is a small pneumonia on your x-ray. We will treat this with amoxicillin and Zithromax. These are too antibiotics. Amoxicillin will be 500 mg 3 times a day for 7 days and Zithromax is 500 mg on day 1 and 250 mg on days 2 through 5. 2. Your hemoglobin is 9.3 and this is a drop since August. Your stool although not looking like it has blood in it has tested positive for red blood cells. You received omeprazole today which protect your stomach from acid production. I would like you to continue mm saw for the next 2 weeks. A prescription was sent to your pharmacy. Your next dose of omeprazole is tomorrow. We will need to follow-up with your regular doctor for a workup in trying to find out where the blood is coming from in your GI system. Please return to the emergency room for blood in your stool, abdominal pain and as needed. 3. Your sodium is slightly low at 127. Salt your meals 2 times a day. Your thyroid studies and vitamin-D and heart studies were all within normal limits. Your urine sample did not show a bladder infection but will be sent for urine culture. Follow up appointment is scheduled at the [facility] on 07/19 with a 10:40am appointment time. Please check in at 10:30am to complete paperwork. If you have any questions or need to reschedule, please call [phone]. Prescriptions: New amoxicillin 500 mg tablet 500 mg PO TID Qty: 21 0RF azithromycin [Zithromax Z-Ignacio] 250 mg tablet See Rx Instructions .ROUTE .COMPLEX Qty: 6 0RF Rx Instructions: For 250 mg dose pack: take 500 mg today (day 1), then 250 mg for 4 days (days 2-5) omeprazole 40 mg capsule,delayed release(DR/EC) 40 mg PO DAILY Qty: 14 0RF No Action lisinopril 20 mg tablet 20 mg PO DAILY Patient Comments: Take 1 Tablet (20 mg) by mouth once daily. Follow Up/Referrals: Emmy Harley MD [Primary Care Provider] - Stand Alone Forms: MEETiiN Info Instructions
--- NOTE | 2024-07-17 08:29 | CRLHL7_ITS ---
For Patients: As a result of the Century Cures Act, medical imaging exams and procedure reports are released immediately into your electronic medical record. You may view this report before your referring provider. If you have questions, please contact your health care provider. INDICATION: Shortness of breath TECHNIQUE: 1 view chest radiograph COMPARISON: 12/06/2020 FINDINGS: Devices: None. Lung volumes are good. Increased opacification in the right inferior parahilar lung. Diffuse peribronchial thickening and interstitial opacities. No pleural effusion. No pneumothorax. Heart size is large but similar to prior. Atherosclerotic vascular calcifications. IMPRESSION: Appearance suggests a focal bronchopneumonia in the right lower lobe on a background of bronchitis or infectious airways disease. Dictated by Edie Gallardo MD @ 07/17/2024 9:03:42 AM (Electronically Signed)
--- OUTSIDE RECORDS SUMMARY | 2024-07-17 08:33 | XMS_ITS | Clinical Summary ---
Author Organization [facility] Address [place], [place] [address] Care Team Providers Care Sheet Pile Hammer Operator Name Role Phone Chitra Manuel DO Primary Care Provider Allergies Active Allergy Reactions Criticality Noted Date Comments Sertraline Nightmares 10/22/2021 may be dose dependant ok on 50mg. 100mg more dreams. Medications multivitamin (MVI) tablet Take 1 tablet by mouth once daily. 0 07/23/2017 Active vit C,X-Er-hehhf-lut ein-zeaxan (PreserVision AREDS-2) capsule Take 1 Capsule by mouth two times daily. 0 02/08/2023 Active lisinopriL (PRINIVIL; ZESTRIL) 20 mg tabletIndication s:Hypertension, unspecified type Take 1 Tablet (20 mg) by mouth once daily. 90 Tablet 05/17/2024 Active Active Problems Problem Noted Date Diagnosed Date Iron deficiency anemia due to chronic blood loss 07/23/2017 Overview (07/23/2017): Likely d/t Gastric erosions noted on EGD 2014. Responds very well to IV iron replacement. Gastroesophageal reflux disease with esophagitis 07/23/2017 Primary insomnia 01/11/2017 Osteopenia 12/08/2015 Overview (01/03/2016): hip % 3.9, fosamax encouraged via letter Rotator cuff injury 12/24/2011 Vitamin D deficiency 07/24/2010 Resolved Problems Problem Noted Date Diagnosed Date Resolved Date Guaiac + stool 04/04/2015 05/09/2015 Fecal occult blood test positive 03/26/2015 12/22/2015 Anxiety state, unspecified 07/14/2010 1 Encounters Date Type Department Care Team Description 05/12/2024 Refill [facility] [address] [place] [address] Chitra Manuel DO Refill Request (Lisinopril) from Last 3 Months Immunizations Name Administration [...] Housing in the Last Year 1 11/24/2021 Comments No Sex and Gender Information Value Date Recorded Sex Assigned at Not on file Legal Sex Female 5:23 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 Gender Identity Not on file Sexual Orientation Not on file 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 file Not on file Not on file Obstetrics History Para Term AB IAB SAB Ectopic Multiple Livin g Live Births 2 2 2 2 Date Outcome GA Total Labor Labor/2nd/3rd Weight Sex Type Anes PTL Monet A1 A5 Name Clin Term Term Last Filed Vital Signs Vital Sign Reading Time Taken Comments Blood Pressure 136/66 02/21/2024 11:30 AM CDT Pulse 68 02/21/2024 11:09 AM CDT Temperature 37.2 C (99 F) 12/22/2021 11:10 AM CDT Respiratory Rate 16 [...] Care Team (Late st Contact Info) Description 08/16/2024 1:00 PM SAFETY RELIEF VALVE TECHNICIAN Office Visit [facility] [address] [place] [address] Chitra Manuel DO [address] [place] [address] 09/13/2024 8:30 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 Office Visit [facility] [address] [facility] [address] [place] [address] Edwin Oviedo, PhD, [address] [place] [address] Health Maintenance Due Date Last Done Comments Tdap 1951 Zoster (shingles) series for age 50+ (1 of 2) 1989 Pneumococcal series for age 65+ (2 of 2 - PCV) 04/28/2007 04/28/2006 RSV vaccine for adults or (1 - 1-dose 75+ series) 2014 Tetanus booster 04/28/2016 04/28/2006 BMI (ht and wt on same day) for age 18+ 02/09/2024 02/08/2023, 08/31/2022, 10/22/2021, Additional history exists Medicare Wellness for age 65+ 02/09/2024, 10/22/2021, 06/08/2018, Additional history exists Depression screening for age 12+ 02/11/2024 02/10/2023, 02/10/2023, 02/08/2023, Additional history exists COVID-19 vaccine series ( season) 2024 12/08/2021, 07/10/2021, 10/02/2020, Additional history exists Influenza for age 65+ 04/09/2024 DEXA/DXA scan for age 65+ Completed 12/24/2015 Medical Devices Implanted Type Area Carbonation Tester Device Identifier Shelf Expiration Date Model / Serial / Lot Eye Intraocular Lens - [id number] Implanted:Qty: 1 on 05/13/2017 [facility] Right: Eye 08/08/2019 / [id number] / Eye Intraocular Lens - [id number] Implanted:Qty: 1 on 06/10/2017 by [facility] Left: Eye [employer] 10/07/2019 250 / [id number] / Procedures Procedure Name Priority Date/Time Associated [...] mineral density study was performed using the [employer]). The results of the study expressed as bone mineral density (BMD) are as follows: BMD T-Score Z-Score Lumbar Spine (L1 to L3) 1.124 g/cm2 -0.4 1.4 Hip 0.737 g/cm2 -2.2 -0.2 Radius g/cm2 DEFINITION OF TERMS AND VALUES Values according to the World Health Organization (1994): Normal: T-score greater than or equal to -1.0 LOW BONE MASS: T-score between -1.1 and -2.49 OSTEOPOROSIS: T-score -2.5 or below, OR a fragility fracture present SEVERE OSTEOPOROSIS: T-score -2.5 or below, WITH a fragility fracture present CONCLUSIONS 1. Findings are consistent with Low bone mass by WHO criteria. 2. FRAX scores reveal a 10 year risk of major osteoporotic fracture of 14.0 % and 3.9 % for the hip. 3. Recommend optimizing calcium and vitamin D. Miranda Vu NP DEXA Final Result from Last 3 Months or Most Recently Relevant to Health Maintenance Insurance MEDICARE PROVIDER BASED MR GUTIÉRREZ LYTTON MEDICARE PROVIDER BASED BLUE CROSS L[place] BLUE PB ONLY MEDICARE PB ONLY BLUE CROSS OF NON-[employer]-ITS WORKERS COMP MEDICARE PROVIDER BASED Advance Directives * Full Code (Latest Code [...] 12:50 PM 04/04/2015 3:34 PM Care Teams Sheet Pile Hammer Operator Relationship Specialty Start Date End Date Chitra Manuel [place] [address] [address] PCP - General Family Practice 12/09/20
[2024-07-17 08:43] LABS: Basophils Absolute Auto 0.06 K/uL (0.00-0.30); Eosinophils Absolute Auto 0.22 K/uL (0.00-0.50); Eosinophils Percent Auto 3.8 % (0.0-7.0); Hemoglobin* 9.3 gm/dL (12.0-16.0); Immature Granulocytes Abs Auto 0.01 K/uL (0.00-0.30); Immature Granulocytes Pct Auto 0.2 %; Lymphocytes Percent Auto 9.8 % (20-44); Mean Corpuscular HGB Conc 31 gm/dL (32-36); Mean Corpuscular Hemoglobin 24 pg (26-34); Mean Corpuscular Volume 78 fL (80-100); Monocytes Percent Auto 13.6 % (0.0-11.0); Neutrophils Percent Auto 71.6 % (42.0-72.0); Platelet Count* 241 K/uL (140-440); RDW Coefficient of Variation % 18.4 % (11.5-15.5); Red Blood Count 3.87 m/uL (4.00-5.20); White Blood Count* 5.73 K/uL (4.50-11.00)
[2024-07-17 08:45] LABS: Slide Review Reflex No
[2024-07-17 09:02] LABS: Albumin* 3.7 g/dL (3.3-5.0); Chloride* 102 mmol/L (96-114)
[2024-07-17 09:03] LABS: Potassium* 4.6 mmol/L (3.6-5.1); Sodium* 127 mmol/L (135-149)
[2024-07-17 09:05] LABS: Alkaline Phosphatase* 93 U/L (40-150); Anion Gap 4 mEq/L (7-15); Aspartate Amino Transferase* 18 U/L (12-35); Blood Urea Nitrogen* 22 mg/dL (7-30); Carbon Dioxide* 21 mmol/L (20-32); Creatinine* 0.5 mg/dL (0.5-1.5); Est. Creatinine Clearance* 35.52; Estimated Glomerular Filt Rate 92 ml/min; Glucose* 95 mg/dL (60-115); Total Protein* 6.2 g/dL (6.0-8.3)
[2024-07-17 09:06] LABS: Alanine Aminotransferase* 12 U/L (4-35); Calcium* 8.9 mg/dL (8.4-10.6); Magnesium* 2.1 mg/dL (1.5-2.6)
[2024-07-17 09:18] LABS: Bilirubin Total* < 0.1 mg/dL (0.1-1.5)
[2024-07-17 09:19] LABS: C Reactive Protein* < 0.5 mg/dL (0.5-1.0)
[2024-07-17 09:21] LABS: PCR FLU A Negative PCR FLU A (Negative); PCR FLU B Negative PCR FLU B (Negative); PCR RSV Negative PCR RSV (Negative); SARS PCR* Negative SARS-CoV-2 (Negative)
[2024-07-17 09:26] LABS: NT Pro B Type NatriureticPept* 98 pg/mL
[2024-07-17 09:37] LABS: Vitamin D 25 Hydroxy* 42 ng/mL (30-80)
[2024-07-17 09:38] LABS: Appearance Urine Clear (Clear); Bilirubin Urine Negative (Negative); Blood Urine Negative (Negative); Color Urine Yellow (Yellow); Glucose Urine Negative (Negative); Ketones Urine Negative (Negative); Leukocyte Esterase Urine 1+ (Negative); Nitrite Urine Negative (Negative); Protein Urine Negative (Negative); Specific Gravity Urine 1.015 (1.000-1.030); Urobilinogen Urine 0.2 (0.2-1.0)
[2024-07-17 09:56] LABS: RBC Urine 0-2 (0-2)
[2024-07-17 09:57] LABS: Bacteria Urine Few
[2024-07-17 10:55] LABS: Troponin, Point-of-Care* 0.01 ng/ml (0.01-0.04)
[2024-07-17 11:00] LABS: Fecal Occult Blood* Positive (Negative)
[2024-07-17] MEDS: OMEPRAZOLE 20 MG CAPSULE DR 40 MG PO (11:50)
== END 2024-07-17 11:55 | disposition home or self-care (01) ==
PROVIDERS: Emergency Provider Family Medicine; PCP Family Medicine
DX: J18.9 Pneumonia, unspecified organism (principal); D64.9 Anemia, unspecified; R19.5 Other fecal abnormalities
CPT/HCPCS: 36415; 71045; 80053; 81001; 82270; 82306; 82652; 83735; 83880; 84443; 84484; 85025; 86140; 87086; 87631; 93005; 99284; A9270

== ENCOUNTER 2024-09-01 06:36 | Outpatient (CLI) | payer MEDICARE, BC, SELFPAY | END 2024-09-01 06:37 | disposition home or self-care (01) | LOC: AMB 09-10 05:37 | PROVIDERS: PCP Family Medicine; Visit Provider Internal Medicine | DX: R06.02 Shortness of breath (principal) | CPT/HCPCS: A0425; A0427 ==

== ENCOUNTER 2024-09-01 06:57 | Emergency (ER) | payer MEDICARE, BC, SELFPAY ==
--- OUTSIDE RECORDS SUMMARY | 2024-09-01 07:00 | XMS_ITS | Continuity of Care Document ---
Author Organization [facility] Address [address] [place] [address] Phone Care Team Providers Care Account Clerk Name Role Phone Unavailable Unavailable Unavailable Medications Medication Instructions Dosage Effective Dates (start - stop) Status Comments Percocet 5 mg-325 mg Tab Take 1 tablet by mouth up to twice a dayuse only as needed - No Longer Active Naprosyn 500 mg Tab Take one tablet by mouth every twelve hours - No Longer Active Procedures Procedure Date Offic Cons New/estab Mod 40 Mi 05 Advance Directives Directive Yes / No Effective Date File Name No Information Encounters Encounter Description Practice Location Reason(s) For Visit Diagnoses Date Provider Providers Copied on Encounter Offic Cons New/estab Mod 40 Mi [facility], [address], [place], [place], [id number], [place] tel:[phone] [facility] No Information 5 No Information Referring Provider: Clarisa Hoang MD, [address], [address]. tel:[phone] Family History Family Member Type Diagnosis Age At Onset No Information Payers Payer name Insurance type Covered democrat ID Authoriza tigemini(s) Blue Plus BL [id number] Social History Type Description Quantity Date Captured Comments Sex Female Smoking Status No Information Chief Complaint And Reason For Visit No Information Reason For Referral Reason For Referral No Information History Of Present Illness Encounter Date Complaint History Of Prese nt Illness No Information Functional Status Date Functional Assessmen t No Information Instructions Date Instruction Additional Infor mation No Information Assessments Type Assessment Date No Information Patient Care Teams Name Effective Dates (start - stop) Status Members No Information
--- OUTSIDE RECORDS SUMMARY | 2024-09-01 07:00 | XMS_ITS | Clinical Summary ---
Author Organization [facility] Address [place], [place] [address] Care Team Providers Care Surveying Technician Name Role Phone Chitra Manuel DO Primary Care Provider Allergies Active Allergy Reactions Criticality Noted Date Comments Sertraline Nightmares 10/22/2021 may be dose dependant ok on 50mg. 100mg more dreams. Medications multivitamin (MVI) tablet Take 1 tablet by mouth once daily. 0 07/23/20 17 Active vit C,B-Dj-mvwtj-heena tein-zeaxan (PreserVision AREDS-2) capsule Take 1 Capsule by mouth two times daily. 0 02/09/20 23 Active amoxicillin 500 mg capsule Take 1 Tablet by mouth every 8 hours. 07/17/20 24 Active azithromycin (ZITHROMAX) 250 mg tablet TAKE 2 TABLETS BY MOUTH ON DAY 1, THEN 1 TABLET DAILY ON DAYS 2-5.* 07/17/20 24 Active omeprazole (PRILOSEC) 40 mg Delayed-Release capsule Take 1 Capsule by mouth once daily. 07/17/20 24 Active polyethylene glycol-electrol yte (GOLYTELY) 236-22.74-6.74 -5.86 gram suspensionIndic ations:Encounte r for screening colonoscopy Drink 2 liters the day before the procedure and 2 liters 6 hours prior to procedure. 4000 mL 07/28/20 24 Active lisinopriL (PRINIVIL; ZESTRIL) 20 mg tabletIndicatio ns:Hypertension , unspecified type TAKE ONE TABLET BY MOUTH ONE TIME DAILY 90 Tablet 08/16/19 25 Active polyethylene glycol-electrol yte (GOLYTELY) 236-22.74-6.74 -5.86 gram suspensionIndic ations:Encounte r for screening colonoscopy Drink 2 liters the day before the procedure and 2 liters 6 hours prior to procedure. 4000 mL 08/21/19 25 Active lisinopriL (PRINIVIL; ZESTRIL) 20 mg tabletIndicatio ns:Hypertension , unspecified type Take 1 Tablet (20 mg) by mouth once daily. 90 Tablet 05/17/20 24 025 Discontinued Active Problems Problem Noted Date Diagnosed Date [...] Encounters Date Type Department Care Team Description 08/21/[address] [address] Maxwell Salgado MD Appointment (Scheduled at [facility] Colonoscopy ) 08/12/[address] [address] Chitra Manuel DO Refill Request (Lisinopril) 07/19/2024 10:40 AM CERTIFIED RESPIRATORY THERAPIST Office Visit [facility] [address] [place] [address] Chitra Manuel DO Hospital F/U (spot on lung) 07/19/[address] [place] [address] Maxwell Salgado MD 07/19/2024 Travel 07/17/2024 Orders Only [facility] Scanner 1 scan: (1-Ord) [facility], LABS RESULT, 07/17/2024 07/17/2024 Orders Only [facility] Scanner 1 scan: (1-Ord) SINUS RHYTHM W/PREMATURE ATRIAL COMPLEXES and PREMATURE VENTRICULAR COMPLEXES, 07/17/2024 07/17/2024 Orders Only [facility] Scanner 1 scan: (1-Ord) [place] [facility], XR CHEST 1V PORTABLE, 07/17/2024 from Last 3 Months Immunizations Name Administration Dates Next Due COVID-19 vaccine (Moderna 100mcg/0.5mL) LIMA ZARATE 10/02/2020,09/04/2020 DTaP 04/28/2006 Pneumococcal Poly,23-Valent (Pneumovax) 04/28/20 [...] 0 02/08/2023 Social Connections Answer Date Recorded Do you often feel lonely or isolated from those around you? 0 07/19/2024 Financial Resource Strain Answer Date R ecorded Difficulty of Paying Living Expenses 3 07/19/2024 Difficulty of Paying Living Expenses Not on file 07/19/2024 Food Insecurity Answer Date Recorded Do you worry your food will run out before you are able to buy more? 1 07/19/2024 Transportation Needs Answer Date Record ed Does lack of transportation keep you from medica l appointments? 1 07/19/2024 Does lack of transportation keep you from work, meetings or getting things that you need? 1 07/19/2024 Housing Stability Answer Date Recorded What is your housing situation today? 1 07/19/2024 Utilities Answer Date Recorded Do you have trouble paying f or utilities (for example, heat, electricity, water, phone)? 1 07/19/2024 Comments No Sex and Gender Information Value Date Recorded Sex Assigned at Not on file Legal Sex Female 5:23 AM CERTIFIED RESPIRATORY THERAPIST Gender Identity Not on file Sexual Orientation [...] Sign Reading Time Taken Comments Blood Pressure 151/54 07/19/2024 10:43 AM CERTIFIED RESPIRATORY THERAPIST Pulse 92 07/19/2024 10:43 AM CERTIFIED RESPIRATORY THERAPIST Temperature 37.2 C (99 F) 12/22/2021 11:10 AM CDT Respiratory Rate 16 04/02/2018 11:52 AM CDT Oxygen Saturation 98% 07/19/2024 10:43 AM CERTIFIED RESPIRATORY THERAPIST Inhaled Oxygen Concentration - - Weight 83 kg (183 lb) 07/19/2024 10:43 AM CERTIFIED RESPIRATORY THERAPIST Height 154.9 cm (5' 1) 02/08/2023 4:05 PM CDT Body Mass Index 34.58 02/08/2023 4:05 PM CDT Plan of Treatment Upcoming Encounters Date Type Department Care Team (Late st Contact Info) Description 09/11/2024 9:00 AM CERTIFIED RESPIRATORY THERAPIST Office Visit [facility] [address] [place] [address] Chitra Manuel DO [address] [place] [address] 09/13/2024 8:30 AM CERTIFIED RESPIRATORY THERAPIST Office Visit [facility] [address] [place] [address] Edwin Oviedo, PhD, [address] [place] [address] 09/29/2024 12:15 PM CERTIFIED RESPIRATORY THERAPIST Office Visit [facility] at [facility] [address] [place] [address] Maxwell Salgado MD [address] [place] [address] Health Maintenance Due Date Last Done Comments Tdap 1950 Zoster (shingles) series for age 50+ (1 of 2) 1989 Pneumococcal series for age 50+ (2 of 2 - PCV) 04/28/2007 04/28/2006 [...] Completed 12/24/2015 Medical Devices Implanted Type Area Export Coordinator Device Identifier Shelf Expiration Date Model / Serial / Lot Eye Intraocular Lens - [id number] Implanted:Qty: 1 on 05/13/2017 by Michael Peters MD at [facility] Right: Eye 08/08/2019 / [id number] / Eye Intraocular Lens - [id number] Implanted:Qty: 1 on 06/10/2017 by Michael Peters MD at [facility] Left: Eye [employer] 10/07/2019 250 / [id number] / Procedures Procedure Name Priority Date/Time Associated Diagnosis Comments COLONOSCOPY DIAGNOSTIC MENA 8:04 AM CERTIFIED RESPIRATORY THERAPIST Anemia of unknown etiology Positive fecal occult blood test ESOPHAGOGASTRODUODENOSCOPY MENA 08/18 8:04 AM CERTIFIED RESPIRATORY THERAPIST Anemia of unknown etiology Positive fecal occult blood test BASIC METABOLIC PANEL Routine 07/19/2024 11:27 AM CERTIFIED RESPIRATORY THERAPIST Hyponatremia CBC WITH AUTO DIFFERENTIAL Routine 07/19 11:27 AM CERTIFIED RESPIRATORY THERAPIST Anemia of unknown etiology SCAN-ELECTROCARDIOGRAM EKG 07/17 12:00 AM CERTIFIED RESPIRATORY THERAPIST SCAN-LABORATORY REPORT 12:00 AM CERTIFIED RESPIRATORY THERAPIST SCAN-RADIOLOGY REPORT 07/17/2024 12:00 AM CERTIFIED RESPIRATORY THERAPIST XR DXA BONE DENSITY 2 SITES AXIAL Routine 12/24/2015 2:26 PM CDT Other specified menopausal and perimenopausal disorders At risk for bone density loss from Last 3 Months or Most Recently Relevant to Health Maintenance Results * (ABNORMAL) CBC AND DIFFERENTIAL (07/19/2024 11:27 AM CERTIFIED RESPIRATORY THERAPIST) Pathologist [facility] WHITE BLOOD CELL COUNT 5.3 3.8 - 10.8 Thousand/u L [facility] RED BLOOD CELL COUNT 4.04 3.80 - 5.10 Million/uL [facility] HEMOGLOBIN 9.8(L) 11.7 - 15.5 g/dL [facility] HEMATOCRIT 32.1(L) 35.0 - 45.0 % [facility] MCV 79.5(L) 80.0 - 100.0 fL [facility] MCH 24.3(L) 27.0 - 33.0 pg [facility] MCHC 30.5(L) 32.0 - 36.0 g/dL [facility] Comment: For adults, a slight decrease in the calculated MCHC value (in the range of 30 to 32 g/dL) is most likely not clinically significant; however, it should be interpreted with caution in correlation with other red cell parameters and the patient's clinical condition. RDW 16.4(H) 11.0 - 15.0 % [facility] PLATELET COUNT 295 140 - 400 Thousand/u L [facility] MPV 11.1 7.5 - 12.5 fL [facility] ABSOLUTE NEUTROPHILS 3,318 1,500 - 7,800 cells/uL [facility] ABSOLUTE LYMPHOCYTES 827(L) 850 - 3,900 cells/uL [facility] ABSOLUTE MONOCYTES 816 200 - 950 cells/uL [facility] ABSOLUTE EOSINOPHILS 249 15 - 500 cells/uL [facility] ABSOLUTE BASOPHILS 90 0 - 200 cells/uL [facility] NEUTROPHILS 62.6 % [facility] LYMPHOCYTES 15.6 % [facility] MONOCYTES 15.4 % [facility] EOSINOPHILS 4.7 % [facility] BASOPHILS 1.7 % [facility] Blood BLOOD SPECIMEN / Unknown 07/19/2024 11:27 AM CERTIFIED RESPIRATORY THERAPIST 07/19/2024 11:28 AM CERTIFIED RESPIRATORY THERAPIST Chitra Howellt DO HEMATOLOGY Final Resul t [employer] [facility] [address] [place] [address], [address] [address] * (ABNORMAL) BASIC METABOLIC PANEL (07/19/2024 11:27 AM CERTIFIED RESPIRATORY THERAPIST) [facility] GLUCOSE 96 65 - 99 mg/dL [facility] Comment: Fasting reference interval UREA NITROGEN (BUN) 26(H) 7 - 25 mg/dL [facility] CREATININE 0.69 0.60 - 0.95 mg/dL [facility] EGFR 85 > OR = 60 mL/min/1.7 3m2 [facility] BUN/CREATININE RATIO 38(H) 6 - 22 (calc) [facility] SODIUM 132(L) 135 - 146 mmol/L [facility] POTASSIUM 4.6 3.5 - 5.3 mmol/L [facility] CHLORIDE 101 98 - 110 mmol/L [facility] CARBON DIOXIDE 23 20 - 32 mmol/L [facility] ELECTROLYTE BALANCE 8 7 - 17 mmol/L (calc) [facility] CALCIUM 9.2 8.6 - 10.4 mg/dL [facility] Blood BLOOD SPECIMEN / Unknown 07/19/2024 11:27 AM CERTIFIED RESPIRATORY THERAPIST 07/19/2024 11:28 AM CERTIFIED RESPIRATORY THERAPIST us Chitrapriscilla Howellt DO CHEMISTRY Final Resul t [employer] [facility] [address] [place] [address], [facility] [address] [place] [address] * SCAN-RADIOLOGY REPORT (07/17/2024 12:00 AM CERTIFIED RESPIRATORY THERAPIST) Anatomical Region Laterality Modality Other us Scanner OTHER Final Result * SCAN-LABORATORY REPORT (07/17/2024 12:00 AM CERTIFIED RESPIRATORY THERAPIST) us Scanner OTHER Final Result * SCAN-ELECTROCARDIOGRAM EKG (07/17/2024 12:00 AM CERTIFIED RESPIRATORY THERAPIST) us Scanner OTHER Final Result * XR DXA BONE DENSITY 2 SITES AXIAL (12/24/2015 2:26 PM CDT) Anatomical Region Laterality Modality Spine, HIPS, HIPL, HIPR Bone Den sitometry Narrative 12/30/2015 6:25 PM CDT DXA BONE MINERAL DENSITY STUDY CLINICAL INDICATIONS: The patient is a 75-year-old female with Other Screening - V82.81 FINDINGS Bone mineral density study was performed using the [employer]. The results of the study expressed as [...] Maintenance Insurance MEDICARE PROVIDER BASED MR [place] [employer] MEDICARE PROVIDER BASED BLUE [employer]OSS [employer] BLUE PB ONLY MEDICARE [place] ONLY [place] MEDICARE PROVIDER BASED Advance Directives [...] 12:50 PM 04/04/2015 3:34 PM Care Teams Surveying Technician Relationship Specialty Start Date End Date Chitra Manuel [place] [address] PCP - General Family Practice 12/09/20
[2024-09-01 07:01] VITALS: BP 193/76; PULSE 87; RESP 20; TEMP 36.4; O2SAT 97
--- NOTE | 2024-09-01 07:28 | CRLHL7_ITS ---
For Patients: As a result of the Century Cures Act, medical imaging exams and procedure reports are released immediately into your electronic medical record. You may view this report before your referring provider. If you have questions, please contact your health care provider. INDICATION: Shortness of breath. TECHNIQUE: Chest 2 views. COMPARISON: X-ray chest July 17, 2024 FINDINGS/ IMPRESSION: No focal consolidation, effusion or pneumothorax. Stable mild cardiomegaly without pulmonary edema. Dictated by Brett Paul MD @ 09/01/2024 8:03:59 AM (Electronically Signed)
--- NOTE | 2024-09-01 07:30 | ED.GENADULT ---
HPI - General Adult General Chief complaint: Shortness of Breath/Dyspnea <Danis Blair MD - Last Filed: 09/01/24 07:32> Stated complaint: Shortness of breath <Danis Blair MD - Last Filed: 09/01/24 07:32> Time Seen by Provider: 09/01/24 07:10 <Danis Blair MD - Last Filed: 09/01/24 07:32> History of Present Illness HPI narrative: Patient awoke early this morning with shortness of breath. Shortness of breath was often on for several hours before she came in. Patient describes no chest pain no orthopnea no PND no nausea no vomiting. Patient states she has come in it in the past for shortness of breath she is an anxious person. She now feels fine and after calling EMS was found to have oxygen saturation 97% on room air. Patient otherwise has been her usual state of health no recent symptoms and she has otherwise been feeling fine. Patient has no signs of infection such as fevers or chills. She has no cough no sputum production no rashes no stiff neck no headache no change in her vision or hearing. Patient otherwise feels well now again although she does state repeatedly that she is an anxious person. <Danis Blair MD - Last Filed: 09/01/24 07:32> Related Data Home medications: Home Medications ?Medication ?Instructions ?Recorded ?Confirmed lisinopril 20 mg tablet 20 mg PO DAILY 08/25/22 09/01/24 Previous Rx's ?Medication ?Instructions ?Recorded amoxicillin 500 mg tablet 500 mg PO TID #21 tabs 07/17/24 azithromycin 250 mg tablet See Rx Instructions PO .COMPLEX #6 07/17/24 (Zithromax Z-Ignacio) tabs omeprazole 40 mg capsule,delayed 40 mg PO DAILY #14 caps 07/17/24 release iron,carbonyl 65 mg-vitamin C 125 1 tab PO BID #60 tabs 09/01/24 mg tablet,delayed release (Vitron-C) <Danis Blair MD - Last Filed: 09/01/24 07:32> Allergies/adverse reactions: Allergies Allergy/AdvReac Type Severity Reaction Status Date / Time sertraline AdvReac Intermediate Nightmares Verified 07/17/24 07:43 <Danis Blair MD - Last Filed: 09/01/24 07:32> Review of Systems Status of ROS: Reports: 10 or more systems reviewed and unremarkable except as noted in History and below <Danis Blair MD - Last Filed: 09/01/24 07:32> [facility] Medical History: Medical History Rotator cuff injury ?S46.009A - Unspecified injury of muscle(s) and tendon(s) of the rotator cuff of unspecified shoulder, initial encounter (ICD-10) Vitamin D deficiency ?E55.9 - Vitamin D deficiency, unspecified (ICD-10) GERD with esophagitis ?K21.00 - Gastro-esophageal reflux disease with esophagitis, without bleeding (ICD-10) 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.0 - Iron deficiency anemia secondary to blood loss (chronic) (ICD-10) Hemorrhoids ?K64.9 - Unspecified hemorrhoids (ICD-10) Osteopenia ?M85.80 - Other specified disorders of bone density and structure, unspecified site (ICD-10) Diverticulosis of colon (without mention of hemorrhage) ?K57.30 - Diverticulosis of large intestine without perforation or abscess without bleeding (ICD-10) <Danis Blair MD - Last Filed: 09/01/24 07:32> Surgical History: Surgical History History of colonoscopy ?Z98.890 - Other specified postprocedural states (ICD-10) History of esophagogastroduodenoscopy ?Z98.890 - Other specified postprocedural states (ICD-10) <Danis Blair MD - Last Filed: 09/01/24 07:32> Social History: Social History Smoking Status: Never smoker Do you use any of these nicotine containing products: None Second hand tobacco smoke exposure: No How often do you have a drink containing alcohol: never How often do you have six or more drinks on one occasion: Never AUDIT-C Alcohol total score: 0 Non-prescribed substance use: denies use <Danis Blair MD - Last Filed: 09/01/24 07:32> Exam Narrative: Exam Narrative: EXAM GENERAL: Patient appears comfortable and well. EYES: No scleral icterus. LYMPH: No supraclavicular or cervical lymphadenopathy. SKIN: Visible skin seen during exam normal or with benign process only. EXT: No dependent lower extremity pedal edema. HEART: Regular rate and rhythm with no murmurs, rubs, or gallops. LUNGS: Clear to auscultation bilaterally with no crackles or wheezes. ABD: Soft, non tender, non distended. PSYCH: Good eye contact, speech is not pressured. <Danis Blair MD - Last Filed: 09/01/24 07:32> Const: Vital Signs, click to edit/add: Vital Signs - 24 hr 09/01/24 07:01 09/01/24 08:31 09/01/24 10:51 Temperature 97.6 F 96.6 F L Pulse Rate 80 90 Pulse Rate [Pulse Oximeter] 87 Respiratory Rate 20 18 18 Blood Pressure 146/51 H 178/77 H Blood Pressure [Ri ght Upper Arm] 193/76 H Pulse Oximetry 97 97 93 Oxygen Delivery Me thod Room Air Room Air 09/01/24 11:16 09/01/24 11:46 Temperature 97.4 F L 97.2 F L Pulse Rate 87 88 Pulse Rate [Pulse Oximeter] Respiratory Rate 18 20 Blood Pressure 158/67 H 175/73 H Blood Pressure [Ri ght Upper Arm] Pulse Oximetry 98 97 Oxygen Delivery Me thod <Danis Blair MD - Last Filed: 09/01/24 07:32> Vital Signs, click to edit/add: Vital Signs - 24 hr 09/01/24 07:01 09/01/24 08:31 09/01/24 10:51 Temperature 97.6 F 96.6 F L Pulse Rate 80 90 Pulse Rate [Pulse Oximeter] 87 Respiratory Rate 20 18 18 Blood Pressure 146/51 H 178/77 H Blood Pressure [Ri ght Upper Arm] 193/76 H Pulse Oximetry 97 97 93 Oxygen Delivery Me thod Room Air Room Air 09/01/24 11:16 09/01/24 11:46 Temperature 97.4 F L 97.2 F L Pulse Rate 87 88 Pulse Rate [Pulse Oximeter] Respiratory Rate 18 20 Blood Pressure 158/67 H 175/73 H Blood Pressure [Ri ght Upper Arm] Pulse Oximetry 98 97 Oxygen Delivery Me thod <Edwin Cortes DO - Last Filed: 09/01/24 12:37> Course Course ED Course: Patient seen and examined. Chest x-ray D-dimer troponin CBC basic metabolic panel COVID flu and RSV swab collected. <Danis Blair MD - Last Filed: 09/01/24 07:32> Vital Signs Vital signs: Initial Vital Signs Temperature 97.6 F 09/01/24 07:01 Temperature Source Temporal Artery Scan 09/01/24 07:01 Pulse Rate 87 09/01/24 07:01 Respiratory Rate 20 09/01/24 07:01 Blood Pressure 193/76 H 09/01/24 07:01 Blood Pressure Mean 115 H 09/01/24 07:01 Blood Pressure Position Supine 09/01/24 07:01 Pulse Oximetry 97 09/01/24 07:01 Oxygen Delivery Method Room Air 09/01/24 07:01 Vital Signs Temperature 97.6 F 09/01/24 07:01 Pulse Rate 87 09/01/24 07:01 Respiratory Rate 20 09/01/24 07:01 Blood Pressure 193/76 H 09/01/24 07:01 Pulse Oximetry 97 09/01/24 07:01 Oxygen Delivery Method Room Air 09/01/24 07:01 Temperature 97.2 F L 09/01/24 11:46 Pulse Rate 88 09/01/24 11:46 Respiratory Rate 20 09/01/24 11:46 Blood Pressure 175/73 H 09/01/24 11:46 Pulse Oximetry 97 09/01/24 11:46 Oxygen Delivery Method Room Air 09/01/24 08:31 <Danis Blair MD - Last Filed: 09/01/24 07:32> Initial Vital Signs Temperature 97.6 F 09/01/24 07:01 Temperature Source Temporal Artery Scan 09/01/24 07:01 Pulse Rate 87 09/01/24 07:01 Respiratory Rate 20 09/01/24 07:01 Blood Pressure 193/76 H 09/01/24 07:01 Blood Pressure Mean 115 H 09/01/24 07:01 Blood Pressure Position Supine 09/01/24 07:01 Pulse Oximetry 97 09/01/24 07:01 Oxygen Delivery Method Room Air 09/01/24 07:01 Vital Signs Temperature 97.6 F 09/01/24 07:01 Pulse Rate 87 09/01/24 07:01 Respiratory Rate 20 09/01/24 07:01 Blood Pressure 193/76 H 09/01/24 07:01 Pulse Oximetry 97 09/01/24 07:01 Oxygen Delivery Method Room Air 09/01/24 07:01 Temperature 97.2 F L 09/01/24 11:46 Pulse Rate 88 09/01/24 11:46 Respiratory Rate 20 09/01/24 11:46 Blood Pressure 175/73 H 09/01/24 11:46 Pulse Oximetry 97 09/01/24 11:46 Oxygen Delivery Method Room Air 09/01/24 08:31 <Edwin Cortes DO - Last Filed: 09/01/24 12:37> Medical Decision Making MDM Narrative Medical decision making narrative: Patient is a 84-year-old woman who wakes up short of breath but is now feeling fine. She has history of anxiety. Patient underwent thorough workup for etiologies of shortness of breath. <Danis Blair MD - Last Filed: 09/01/24 07:32> This patient was signed out to me pending lab work results. Chest x-ray reviewed by myself and the radiologist shows no acute concerning abnormalities. Lab work shows a hemoglobin of 7.9 and microcytic. Will order iron studies. She is previously known guaiac-positive stool and anemia. Was supposed to get a colonoscopy with getting of this month but was unable to do the prep as when she does not eat for extended period of time she states she gets very dizzy. She did states about 30 minutes after she eats the dizziness resolves. She tried to do the colonoscopy prep been despite taking the sugary Gatorade she continued to have dizziness take only last 13 hours before she quit tried the prep. Initially for his dizziness I concerned maybe should get hypoglycemic episodes but considering the drink she was using for the colonoscopy did not help with symptoms this seems less likely. For her anemia I will give her unit packed red blood cells in his she does not have the colonoscopy until next month. Iron studies show iron deficiency anemia and I will start her on iron pills. She continues to be stool occult positive. I ended up speaking to her primary care provider, Dr. Manuel, and explained to her the situation to make sure she has good follow-up. She states she is agreeable to this plan we talked about maybe starting her on anxiety medication just for the day of the colonoscopy prep. Patient will be discharged now on the iron pills. I spoke to her son who is agreeable to this plan. Patient is asymptomatic and she has been for most of her time in the emergency department. She has been able to ambulate without issues. She will be discharged. <Edwin Cortes, DO - Last Filed: 09/01/24 12:37> Lab Data Labs: Lab Results 09/01/24 09/01/24 09/01/24 Range/Units 07:05 07:43 07:43 WBC 5.31 (4.50-11.00) K/uL RBC 3.73 L (4.00-5.20) m/uL Hgb 7.9 L* (12.0-16.0) gm/dL Hct 26.6 L (33.0-51.0) % MCV 71 L (80-100) fL MCH 21 L (26-34) pg MCHC 30 L (32-36) gm/dL RDW Coeff of Afua 17.3 H (11.5-15.5) % Plt Count 341 (140-440) K/uL Neut % (Auto) 76.5 H (42.0-72.0) % Lymph % (Auto) 8.7 L (20-44) % [place] % (Auto) 12.2 H (0.0-11.0) % Eos % (Auto) 1.5 (0.0-7.0) % Baso % (Auto) 0.9 (0.0-3.0) % Neut # (Auto) 4.10 (1.7-7.0) K/uL Lymph # (Auto) 0.50 L (0.90-2.90) K/uL [place] # (Auto) 0.60 (0.00-0.90) K/UL Eos # (Auto) 0.08 (0.00-0.50) K/uL Baso # (Auto) 0.05 (0.00-0.30) K/uL Abs Immat Gran (auto) 0.01 (0.00-0.30) K/uL Imm/Tot Granulo (auto) 0.2 % Diff Slide Review Acceptable Review (Acceptable) D-Dimer Quant (PE/DVT) 0.57 H (0.00-0.50) ug/ml Sodium 129 L (135-149) mmol/L Potassium 4.4 (3.6-5.1) mmol/L Chloride 98 (96-114) mmol/L Carbon Dioxide 23 (20-32) mmol/L Anion Gap 8 (7-15) mEq/L BUN 21 (7-30) mg/dL Creatinine 0.6 (0.5-1.5) mg/dL Estimated GFR 88 ml/min Glucose 100 (60-115) mg/dL Calcium 9.0 (8.4-10.6) mg/dL Iron 14 L (37-170) ug/dL TIBC 466 (265-497) ug/dL % Saturation 3 L (20-50) % Troponin I < 0.01 L Cancelled (0.01-0.04) ng/mL Stool Occult Blood (Negative) SARS-CoV-2 (PCR) Negative SARS-CoV-2 (Negative) Influenza Type A (PCR) Negative PCR FLU A (Negative) Influenza Type B (PCR) Negative PCR FLU B (Negative) RSV (PCR) Negative PCR RSV (Negative) Lab Acknowledgement Blood Type O Positive Antibody Screen NEGATIVE Crossmatch (AHG) See Detail 09/01/24 09/01/24 Range/Units 08:52 09:15 WBC (4.50-11.00) K/uL RBC (4.00-5.20) m/uL Hgb (12.0-16.0) gm/dL Hct (33.0-51.0) % MCV (80-100) fL MCH (26-34) pg MCHC (32-36) gm/dL RDW Coeff of Afua (11.5-15.5) % Plt Count (140-440) K/uL Neut % (Auto) (42.0-72.0) % Lymph % (Auto) (20-44) % [place] % (Auto) (0.0-11.0) % Eos % (Auto) (0.0-7.0) % Baso % (Auto) (0.0-3.0) % Neut # (Auto) (1.7-7.0) K/uL Lymph # (Auto) (0.90-2.90) K/uL [place] # (Auto) (0.00-0.90) K/UL Eos # (Auto) (0.00-0.50) K/uL Baso # (Auto) (0.00-0.30) K/uL Abs Immat Gran (auto) (0.00-0.30) K/uL Imm/Tot Granulo (auto) % Diff Slide Review (Acceptable) D-Dimer Quant (PE/DVT) (0.00-0.50) ug/ml Sodium (135-149) mmol/L Potassium (3.6-5.1) mmol/L Chloride (96-114) mmol/L Carbon Dioxide (20-32) mmol/L Anion Gap (7-15) mEq/L BUN (7-30) mg/dL Creatinine (0.5-1.5) mg/dL Estimated GFR ml/min Glucose (60-115) mg/dL Calcium (8.4-10.6) mg/dL Iron (37-170) ug/dL TIBC (265-497) ug/dL % Saturation (20-50) % Troponin I (0.01-0.04) ng/mL Stool Occult Blood Positive A (Negative) SARS-CoV-2 (PCR) (Negative) Influenza Type A (PCR) (Negative) Influenza Type B (PCR) (Negative) RSV (PCR) (Negative) Lab Acknowledgement Test Added Blood Type Antibody Screen Crossmatch (AHG) <Danis Blair MD - Last Filed: 09/01/24 07:32> Lab Results 09/01/24 09/01/24 09/01/24 Range/Units 07:05 07:43 07:43 WBC 5.31 (4.50-11.00) K/uL RBC 3.73 L (4.00-5.20) m/uL Hgb 7.9 L* (12.0-16.0) gm/dL Hct 26.6 L (33.0-51.0) % MCV 71 L (80-100) fL MCH 21 L (26-34) pg MCHC 30 L (32-36) gm/dL RDW Coeff of Afua 17.3 H (11.5-15.5) % Plt Count 341 (140-440) K/uL Neut % (Auto) 76.5 H (42.0-72.0) % Lymph % (Auto) 8.7 L (20-44) % [place] % (Auto) 12.2 H (0.0-11.0) % Eos % (Auto) 1.5 (0.0-7.0) % Baso % (Auto) 0.9 (0.0-3.0) % Neut # (Auto) 4.10 (1.7-7.0) K/uL Lymph # (Auto) 0.50 L (0.90-2.90) K/uL [place] # (Auto) 0.60 (0.00-0.90) K/UL Eos # (Auto) 0.08 (0.00-0.50) K/uL Baso # (Auto) 0.05 (0.00-0.30) K/uL Abs Immat Gran (auto) 0.01 (0.00-0.30) K/uL Imm/Tot Granulo (auto) 0.2 % Diff Slide Review Acceptable Review (Acceptable) D-Dimer Quant (PE/DVT) 0.57 H (0.00-0.50) ug/ml Sodium 129 L (135-149) mmol/L Potassium 4.4 (3.6-5.1) mmol/L Chloride 98 (96-114) mmol/L Carbon Dioxide 23 (20-32) mmol/L Anion Gap 8 (7-15) mEq/L BUN 21 (7-30) mg/dL Creatinine 0.6 (0.5-1.5) mg/dL Estimated GFR 88 ml/min Glucose 100 (60-115) mg/dL Calcium 9.0 (8.4-10.6) mg/dL Iron 14 L (37-170) ug/dL TIBC 466 (265-497) ug/dL % Saturation 3 L (20-50) % Troponin I < 0.01 L Cancelled (0.01-0.04) ng/mL Stool Occult Blood (Negative) SARS-CoV-2 (PCR) Negative SARS-CoV-2 (Negative) Influenza Type A (PCR) Negative PCR FLU A (Negative) Influenza Type B (PCR) Negative PCR FLU B (Negative) RSV (PCR) Negative PCR RSV (Negative) Lab Acknowledgement Blood Type O Positive Antibody Screen NEGATIVE Crossmatch (AHG) See Detail 09/01/24 09/01/24 Range/Units 08:52 09:15 WBC (4.50-11.00) K/uL RBC (4.00-5.20) m/uL Hgb (12.0-16.0) gm/dL Hct (33.0-51.0) % MCV (80-100) fL MCH (26-34) pg MCHC (32-36) gm/dL RDW Coeff of Afua (11.5-15.5) % Plt Count (140-440) K/uL Neut % (Auto) (42.0-72.0) % Lymph % (Auto) (20-44) % [place] % (Auto) (0.0-11.0) % Eos % (Auto) (0.0-7.0) % Baso % (Auto) (0.0-3.0) % Neut # (Auto) (1.7-7.0) K/uL Lymph # (Auto) (0.90-2.90) K/uL [place] # (Auto) (0.00-0.90) K/UL Eos # (Auto) (0.00-0.50) K/uL Baso # (Auto) (0.00-0.30) K/uL Abs Immat Gran (auto) (0.00-0.30) K/uL Imm/Tot Granulo (auto) % Diff Slide Review (Acceptable) D-Dimer Quant (PE/DVT) (0.00-0.50) ug/ml Sodium (135-149) mmol/L Potassium (3.6-5.1) mmol/L Chloride (96-114) mmol/L Carbon Dioxide (20-32) mmol/L Anion Gap (7-15) mEq/L BUN (7-30) mg/dL Creatinine (0.5-1.5) mg/dL Estimated GFR ml/min Glucose (60-115) mg/dL Calcium (8.4-10.6) mg/dL Iron (37-170) ug/dL TIBC (265-497) ug/dL % Saturation (20-50) % Troponin I (0.01-0.04) ng/mL Stool Occult Blood Positive A (Negative) SARS-CoV-2 (PCR) (Negative) Influenza Type A (PCR) (Negative) Influenza Type B (PCR) (Negative) RSV (PCR) (Negative) Lab Acknowledgement Test Added Blood Type Antibody Screen Crossmatch (AHG) <Edwin Cortes DO - Last Filed: 09/01/24 12:37> Imaging Data Chest x-ray: Attestation: I have reviewed the pertinent imaging results. <Edwin Cortes DO - Last Filed: 09/01/24 12:37> Radiologist's impression: No focal consolidation, effusion or pneumothorax. Stable mild cardiomegaly without pulmonary edema. Dictated by Brett Paul MD @ 09/01/2024 8:03:59 AM <Edwin Cortes DO - Last Filed: 09/01/24 12:37> ECG Data Prior ECG tracings: available for review <Edwin Cortes DO - Last Filed: 09/01/24 12:37> Interpretation: Normal sinus rhythm with rate 95 beats per minute, normal intervals, normal axis, no ST or T-wave abnormalities. Appears similar to previous EKGs on file. <Edwin Cortes DO - Last Filed: 09/01/24 12:37> Discharge Plan Discharge Clinical Impression: Anemia Qualifiers: Anemia type: unspecified type Qualified Code(s): D64.9 - Anemia, unspecified GI bleed Qualifiers: GI bleed type/associated pathology: unspecified gastrointestinal hemorrhage type Qualified Code(s): K92.2 - Gastrointestinal hemorrhage, unspecified <Danis Blair MD - Last Filed: 09/01/24 07:32> Patient Disposition: Home, Self-Care <Danis Blair MD - Last Filed: 09/01/24 07:32> Condition: Stable <Danis Blair MD - Last Filed: 09/01/24 07:32> Instructions: Anemia (ED) <Danis Blair MD - Last Filed: 09/01/24 07:32> Additional Instructions: Start taking the iron supplements and have close follow-up with your primary care provider. Return to emergency department for new or worsening symptoms. <Danis Blair MD - Last Filed: 09/01/24 07:32> Prescriptions: New Vitron-C 65 mg iron- 125 mg tablet,delayed release (DR/EC) 1 tab PO BID Qty: 60 0RF No Action amoxicillin 500 mg tablet 500 mg PO TID Qty: 21 0RF azithromycin [Zithromax Z-Ignacio] 250 mg tablet See Rx Instructions .ROUTE .COMPLEX Qty: 6 0RF Rx Instructions: For 250 mg dose pack: take 500 mg today (day 1), then 250 mg for 4 days (days 2-5) omeprazole 40 mg capsule,delayed release(DR/EC) 40 mg PO DAILY Qty: 14 0RF lisinopril 20 mg tablet 20 mg PO DAILY Patient Comments: Take 1 Tablet (20 mg) by mouth once daily. <Danis Blair MD - Last Filed: 09/01/24 07:32> Follow Up/Referrals: Emmy Harley MD [Primary Care Provider] - <Danis Blair MD - Last Filed: 09/01/24 07:32> Stand Alone Forms: [facility] Info Instructions <Danis Blair MD - Last Filed: 09/01/24 07:32>
[2024-09-01 07:47] LABS: PCR FLU A Negative PCR FLU A (Negative); PCR FLU B Negative PCR FLU B (Negative); PCR RSV Negative PCR RSV (Negative); SARS PCR* Negative SARS-CoV-2 (Negative)
[2024-09-01 07:57] LABS: Basophils Absolute Auto 0.05 K/uL (0.00-0.30); Basophils Percent Auto 0.9 % (0.0-3.0); Eosinophils Absolute Auto 0.08 K/uL (0.00-0.50); Eosinophils Percent Auto 1.5 % (0.0-7.0); Hematocrit 26.6 % (33.0-51.0); Immature Granulocytes Abs Auto 0.01 K/uL (0.00-0.30); Immature Granulocytes Pct Auto 0.2 %; Lymphocytes Percent Auto 8.7 % (20-44); Mean Corpuscular HGB Conc 30 gm/dL (32-36); Mean Corpuscular Hemoglobin 21 pg (26-34); Mean Corpuscular Volume 71 fL (80-100); Monocytes Percent Auto 12.2 % (0.0-11.0); Neutrophils Percent Auto 76.5 % (42.0-72.0); Platelet Count* 341 K/uL (140-440); RDW Coefficient of Variation % 17.3 % (11.5-15.5); Red Blood Count 3.73 m/uL (4.00-5.20); White Blood Count* 5.31 K/uL (4.50-11.00)
[2024-09-01 08:03] LABS: Hemoglobin* 7.9 gm/dL (12.0-16.0); Slide Review Reflex Yes
[2024-09-01 08:09] LABS: Chloride* 98 mmol/L (96-114); Potassium* 4.4 mmol/L (3.6-5.1); Sodium* 129 mmol/L (135-149)
[2024-09-01 08:12] LABS: Anion Gap 8 mEq/L (7-15); Blood Urea Nitrogen* 21 mg/dL (7-30); Carbon Dioxide* 23 mmol/L (20-32); Creatinine* 0.6 mg/dL (0.5-1.5); Estimated Glomerular Filt Rate 88 ml/min; Glucose* 100 mg/dL (60-115)
[2024-09-01 08:14] LABS: D Dimer Quantitative* 0.57 ug/ml (0.00-0.50)
[2024-09-01 08:31] VITALS: BP 146/51; PULSE 80; RESP 18; O2SAT 97
[2024-09-01 08:34] LABS: Slide Review Acceptable Review (Acceptable); Troponin I* < 0.01 ng/mL (0.01-0.04)
[2024-09-01 09:27] LABS: Iron* 14 ug/dL (37-170)
[2024-09-01 09:32] LABS: Fecal Occult Blood* Positive (Negative)
[2024-09-01 09:37] LABS: Percent Iron Saturation 3 % (20-50); Total Iron Binding Capacity 466 ug/dL (265-497)
[2024-09-01 10:51] VITALS: BP 178/77; PULSE 90; RESP 18; TEMP 35.9; O2SAT 93
[2024-09-01 11:16] VITALS: BP 158/67; PULSE 87; RESP 18; TEMP 36.3; O2SAT 98
[2024-09-01 11:46] VITALS: BP 175/73; PULSE 88; RESP 20; TEMP 36.2; O2SAT 97
[2024-09-01 12:16] VITALS: BP 163/65; PULSE 90; RESP 18; TEMP 36.6; O2SAT 97
== END 2024-09-01 13:34 | disposition home or self-care (01) ==
PROVIDERS: Internal Medicine; Emergency Provider Student in an Organized Health Care Education/Training Program; PCP Family Medicine
DX: K92.2 Gastrointestinal hemorrhage, unspecified (principal); D64.9 Anemia, unspecified
CPT/HCPCS: 36415; 36430; 71046; 80048; 82270; 83540; 83550; 84484; 85025; 85379; 86850; 86900; 86901; 86922; 87631; 93005; 99284; 99285; P9016

== ENCOUNTER 2024-09-02 03:08 | Outpatient (CLI) | payer MEDICARE, BC, SELFPAY | END 2024-09-02 03:09 | disposition home or self-care (01) | LOC: AMB 09-10 07:33 | PROVIDERS: PCP Family Medicine; Visit Provider Family Medicine | DX: R51.9 Headache, unspecified (principal) | CPT/HCPCS: A0425; A0429 ==

== ENCOUNTER 2024-09-02 03:25 | Emergency (ER) | payer MEDICARE, BC, SELFPAY ==
--- OUTSIDE RECORDS SUMMARY | 2024-09-02 03:28 | XMS_ITS | Clinical Summary ---
Author Organization [facility] [facility] Address [place], [place] [address] Care Team Providers Care Fruit Shipper Name Role Phone Chitra Manuel DO Primary Care Provider Allergies Active Allergy Reactions Criticality Noted Date Comments Sertraline Nightmares 10/22/2021 may be dose dependant ok on 50mg. 100mg more dreams. Medications multivitamin (MVI) tablet Take 1 tablet by mouth once daily. 0 07/23/20 17 Active vit C,C-Ba-icfyr-heena tein-zeaxan (PreserVision AREDS-2) capsule Take 1 Capsule [...] Encounters Date Type Department Care Team Description 09/01/2024 Telephone [facility] [address] [place] [address] Chitra Manuel, callback (Call the provider) 09/01/2024 Telephone [facility] [address] [place] [address] Emmy Harley MD Sob ([facility] ) 08/21/2024 Telephone [facility] [address] [place] [address] Maxwell Salgado MD Appointment (Scheduled at [facility] Colonoscopy ) 08/12/2024 Refill [facility] [address] [place] [address] Chitra Manuel DO Refill Request (Lisinopril) 07/19/2024 10:40 AM TELEGRAPH MECHANIC Office Visit [facility] [address] [place] [address] Chitra Manuel DO Hospital F/U (spot on lung) 07/19/2024 Telephone [facility] [address] [place] [address] Maxwell Salgado MD 07/19/2024 Travel 07/17/2024 Orders Only [facility] Scanner 1 scan: (1-Ord) [facility], LABS RESULT, 07/17/2024 07/17/2024 Orders Only [facility] Scanner 1 scan: (1-Ord) SINUS RHYTHM W/PREMATURE ATRIAL COMPLEXES and PREMATURE VENTRICULAR COMPLEXES, 07/17/2024 07/17/2024 Orders Only [facility] Scanner 1 scan: (1-Ord) [place] [facility], XR CHEST 1V PORTABLE, 07/17/2024 from [...] on file Legal Sex Female 5:23 AM TELEGRAPH MECHANIC Gender Identity Not on file Sexual Orientation [...] Comments Blood Pressure 151/54 07/19/2024 10:43 AM TELEGRAPH MECHANIC Pulse 92 07/19/2024 10:43 AM TELEGRAPH MECHANIC Temperature 37.2 C (99 F) 12/22/2021 11:10 AM CDT Respiratory Rate 16 04/02/2018 11:52 AM CDT Oxygen Saturation 98% 07/19/2024 10:43 AM TELEGRAPH MECHANIC Inhaled Oxygen Concentration - - Weight 83 kg (183 lb) 07/19/2024 10:43 AM TELEGRAPH MECHANIC Height 154.9 cm (5' 1) 02/08/2023 4:05 PM CDT Body Mass Index 34.58 02/08/2023 4:05 PM CDT Plan of Treatment Upcoming Encounters Date Type Department Care Team (Late st Contact Info) Description 09/11/2024 9:00 AM TELEGRAPH MECHANIC Office Visit [facility] [address] [place] [address] Chitra Manuel DO [address] [place] [address] 09/13/2024 8:30 AM TELEGRAPH MECHANIC [facility] [address] [facility] [address] [place] [address] Edwin Oviedo, PhD, LP [address] [facility] [address] [place] [address] 09/29/2024 12:15 PM TELEGRAPH MECHANIC Office Visit [facility] at [facility] [address] [facility] [place] [id number] Maxwell Salgado MD [address] [place] [address] Health Maintenance Due Date Last Done Comments [...] Completed 12/24/2015 Medical Devices Implanted Type Area Workers Compensation Administrator Device Identifier Shelf Expiration Date Model / Serial / Lot Eye Intraocular Lens - [id number] Implanted:Qty: 1 on 05/13/2017 by Michael Peters MD at [facility] Right: Eye 08/08/2019 / [id number] / Eye Intraocular Lens - [id number] Implanted:Qty: 1 on 06/10/2017 by Michael Peters MD at [facility] Left: Eye [employer] 10/07/2019 250 / [id number] / Procedures Procedure Name Priority Date/Time Associated Diagnosis Comments COLONOSCOPY DIAGNOSTIC MENA 8:04 AM TELEGRAPH MECHANIC Anemia of unknown etiology Positive fecal occult blood test ESOPHAGOGASTRODUODENOSCOPY MENA 08/18 8:04 AM TELEGRAPH MECHANIC Anemia of unknown etiology Positive fecal occult blood test BASIC METABOLIC PANEL Routine 07/19/2024 11:27 AM TELEGRAPH MECHANIC Hyponatremia CBC WITH AUTO DIFFERENTIAL Routine 07/19 11:27 AM TELEGRAPH MECHANIC Anemia of unknown etiology SCAN-ELECTROCARDIOGRAM EKG 07/17 12:00 AM TELEGRAPH MECHANIC SCAN-LABORATORY REPORT 12:00 AM TELEGRAPH MECHANIC SCAN-RADIOLOGY REPORT 07/17/2024 12:00 AM TELEGRAPH MECHANIC XR DXA BONE DENSITY 2 SITES AXIAL Routine 12/24/2015 2:26 PM CDT Other specified menopausal and perimenopausal disorders At risk for bone density loss from Last 3 Months or Most Recently Relevant to Health Maintenance Results * (ABNORMAL) CBC AND DIFFERENTIAL (07/19/2024 11:27 AM TELEGRAPH MECHANIC) WHITE BLOOD CELL COUNT 5.3 3.8 - [...] BLOOD SPECIMEN / Unknown 07/19/2024 11:27 AM TELEGRAPH MECHANIC 07/19/2024 11:28 AM TELEGRAPH MECHANIC us Chitra Michelle Detert DO HEMATOLOGY Final Resul t [facility] [facility] [address] [place] [address], [facility] [address] [place] [address] * (ABNORMAL) BASIC METABOLIC PANEL (07/19/2024 11:27 AM TELEGRAPH MECHANIC) [facility] GLUCOSE 96 65 - 99 mg/dL [facility] Comment: Fasting reference interval UREA [...] BLOOD SPECIMEN / Unknown 07/19/2024 11:27 AM TELEGRAPH MECHANIC 07/19/2024 11:28 AM TELEGRAPH MECHANIC us Chitrapriscilla Michelle Detert DO CHEMISTRY Final Resul t [facility] [place] [facility] [address] [place] [address], [facility] [address] [place] [address] * SCAN-RADIOLOGY REPORT (07/17/2024 12:00 AM TELEGRAPH MECHANIC) Anatomical Region Laterality Modality Other us Scanner OTHER Final Result * SCAN-LABORATORY REPORT (07/17/2024 12:00 AM TELEGRAPH MECHANIC) us Scanner OTHER Final Result * SCAN-ELECTROCARDIOGRAM EKG (07/17/2024 12:00 AM TELEGRAPH MECHANIC) us Scanner OTHER Final Result * XR DXA BONE DENSITY 2 SITES AXIAL (12/24/2015 2:26 PM CDT) Anatomical Region Laterality Modality Spine, HIPS, HIPL, HIPR Bone Den sitometry Narrative 12/30/2015 6:25 PM CDT DXA BONE MINERAL DENSITY STUDY CLINICAL INDICATIONS: The patient is a 75-year-old female with Other Screening - V82.81 FINDINGS Bone mineral density study was performed using the [employer]. The results of the study expressed as [...] Health Maintenance Insurance MEDICARE PROVIDER BASED MR BROCK ROBLERO MEDICARE PROVIDER BASED BLUE [place]OSS [place] BLUE MR PB ONLY MEDICARE PB ONLY BLUE CROSS OF NON-[place]-ITS WORKERS COMP MEDICARE PROVIDER BASED Advance Directives [...] 12:50 PM 04/04/2015 3:34 PM Care Teams Fruit Shipper Relationship Specialty Start Date End Date Chitra Manuel DO [address] [place] [address] PCP - General Family Practice 12/09/20
--- OUTSIDE RECORDS SUMMARY | 2024-09-02 03:28 | XMS_ITS | Continuity of Care Document ---
Author Organization [facility] Address [address] [place] [address] Phone Care Team Providers Care Brake Operator Sheet Metal Name Role Phone Unavailable Unavailable Unavailable Medications Medication Instructions Dosage Effective Dates (start - stop) Status Comments Naprosyn 500 mg Tab Take one tablet by mouth every twelve hours - No Longer Active Percocet 5 mg-325 mg Tab Take 1 tablet by mouth up to twice a dayuse only as needed - No Longer Active Procedures Procedure Date Offic Cons New/estab Mod 40 Mi 05 Advance Directives Directive Yes / No Effective Date File Name No Information Encounters Encounter Description Practice Location Reason(s) For Visit Diagnoses Date Provider Providers Copied on Encounter Offic Cons New/estab Mod 40 Mi [facility], [address], [place], [place], [id number], [place] tel:[phone] [facility] No Information 5 No Information Referring Provider: Clarisa Hoang MD, [address], [address]. tel:[phone] Family History Family Member Type Diagnosis Age At Onset No Information Payers Payer name Insurance type Covered libertarian ID Authoriza tigemini(s) Blue Plus BL [id number] Social History Type Description Quantity Date Captured [...]
[2024-09-02 03:31] VITALS: BP 178/104; PULSE 101; RESP 18; TEMP 36.8; O2SAT 98; BMI 28.3
--- NOTE | 2024-09-02 03:37 | ED_ITS ---
HPI - General Adult General Chief complaint: Headache/Migraine Stated complaint: Headache Time Seen by Provider: 09/02/24 03:36 History of Present Illness HPI narrative: headache overnight, states worsened . pt states her headache improves when she eats. pt denies other complaints. pt here yesterday, anemia and received blood transfusion r/t gi bleed. denies CP or SOB, currently denies dizziness. no medications given by EMS. 84-year-old woman presenting to the emergency department with concern of just not feeling good. Was here earlier in the day today where was found to be anemic and was given packed red cells. Also noted to be struggling with anxiety . Received 1 unit of packed red cells for hemoglobin of 7.9. Pending colonoscopy about a month from now. She called EMS tonight because she did not feel well. Apparently had eaten and she says that when food leaves for stomach than she feels like her head is big. Sometimes can feel like for her ears are full. She is not really having any pain she says. She has intermittently short of breath but this is nothing new. Admits herself to be excitable. Is not having chest pain. After calling EMS the believe she quickly had some milk and a little something is worried that she will feel like this again once what she just ate leaves her stomach. Related Data Home Medications ?Medication ?Instructions ?Recorded ?Confirmed lisinopril 20 mg tablet 20 mg PO DAILY 08/25/22 09/01/24 Previous Rx's ?Medication ?Instructions ?Recorded amoxicillin 500 mg tablet 500 mg PO TID #21 tabs 07/17/24 azithromycin 250 mg tablet See Rx Instructions PO .COMPLEX #6 07/17/24 (Zithromax Z-Ignacio) tabs omeprazole 40 mg capsule,delayed 40 mg PO DAILY #14 caps 07/17/24 release iron,carbonyl 65 mg-vitamin C 125 1 tab PO BID #60 tabs 09/01/24 mg tablet,delayed release (Vitron-C) Allergies Allergy/AdvReac Type Severity Reaction Status Date / Time sertraline AdvReac Intermediate Nightmares Verified 07/17/24 07:43 Review of Systems Status of ROS: Reports: 6 or more systems reviewed and unremarkable except as noted in History and below [facility] Medical History Rotator cuff injury ?S46.009A - Unspecified injury of muscle(s) and tendon(s) of the rotator cuff of unspecified shoulder, initial encounter (ICD-10) Vitamin D deficiency ?E55.9 - Vitamin D deficiency, unspecified (ICD-10) GERD with esophagitis ?K21.00 - Gastro-esophageal reflux disease with esophagitis, without bleeding (ICD-10) 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.0 - Iron deficiency anemia secondary to blood loss (chronic) (ICD-10) Hemorrhoids ?K64.9 - Unspecified hemorrhoids (ICD-10) Osteopenia ?M85.80 - Other specified disorders of bone density and structure, unspecified site (ICD-10) Diverticulosis of colon (without mention of hemorrhage) ?K57.30 - Diverticulosis of large intestine without perforation or abscess without bleeding (ICD-10) Surgical History History of colonoscopy ?Z98.890 - Other specified postprocedural states (ICD-10) History of esophagogastroduodenoscopy ?Z98.890 - Other specified postprocedural states (ICD-10) Social History Smoking Status: Never smoker Do you use any of these nicotine containing products: None Second hand tobacco smoke exposure: No How often do you have a drink containing alcohol: never How often do you have six or more drinks on one occasion: Never AUDIT-C Alcohol total score: 0 Non-prescribed substance use: denies use Exam Narrative: Exam Narrative: Very pleasant. Little hard of hearing. Intermittently somewhat breathless. Satting 98% on room air. Lungs clear. Heart in elevated rate and regular rhythm. TMs are clear. Small amount of non-impacted cerumen in the left ear canal. 1+ pitting soft edema in the lower extremities. Cranial nerves 2-12 in tact. Eyes are bright consistent with lens implantation Const: Vital Signs, click to edit/add: Vital Signs - 24 hr 09/02/24 03:31 09/02/24 04:00 09/02/24 05:40 Temperature 98.2 F 98.2 F Pulse Rate [Pulse Oximeter] 101 H 90 Respiratory Rate 18 18 Blood Pressure [Ri ght Upper Arm] 178/104 H 155/78 H Pulse Oximetry 98 98 98 Oxygen Delivery Me thod Room Air Room Air 09/02/24 05:40 Temperature 98.2 F Pulse Rate [Pulse Oximeter] 90 Respiratory Rate 18 Blood Pressure [Ri ght Upper Arm] 155/78 H Pulse Oximetry Oxygen Delivery Me thod Documenting provider has reviewed patient's vital signs: yes Course Vital Signs Vital signs: Initial Vital Signs Temperature 98.2 F 09/02/24 03:31 Temperature Source Temporal Artery Scan 09/02/24 03:31 Pulse Rate 101 H 09/02/24 03:31 Respiratory Rate 18 09/02/24 03:31 Blood Pressure 178/104 H 09/02/24 03:31 Blood Pressure Mean 128 H 09/02/24 03:31 Blood Pressure Position Sitting 09/02/24 03:31 Pulse Oximetry 98 09/02/24 03:31 Oxygen Delivery Method Room Air 09/02/24 03:31 Vital Signs Temperature 98.2 F 09/02/24 03:31 Pulse Rate 101 H 09/02/24 03:31 Respiratory Rate 18 09/02/24 03:31 Blood Pressure 178/104 H 09/02/24 03:31 Pulse Oximetry 98 09/02/24 03:31 Oxygen Delivery Method Room Air 09/02/24 03:31 Temperature 98.2 F 09/02/24 05:40 Pulse Rate 90 09/02/24 05:40 Respiratory Rate 18 09/02/24 05:40 Blood Pressure 155/78 H 09/02/24 05:40 Pulse Oximetry 98 09/02/24 05:40 Oxygen Delivery Method Room Air 09/02/24 05:40 Medications Administered Medications: Discontinued Medications Generic Name Dose Route Start Last Admin Trade Name Freq PRN Reason Stop Dose Admin Lorazepam 0.5 mg 09/02/24 03:51 09/02/24 03:55 Lorazepam 0.5 Mg Tablet PO 09/02/24 03:52 0.5 mg ONCE ONE Administration Medical Decision Making MDM Narrative Medical decision making narrative: Frankly not quite sure what to do with this. Does not really appear to be a headache. Orthostatic hypotension/hypoperfusion? Could recheck labs from this morning. Coming up on 20 hours since last visit. Brisk rebleed and anemia? I think anxiety is the primary issue here. Suppose this could be an arrhythmia of some sort. Will monitor for a time watching for recurrence. I think some cognitive difficulties might be playing a role here as well. Did receive a dose of lorazepam in the emergency department. No further events. She notes just subtle lightheadedness when she went to sit for a bit in the chair for her back. Overall improved Labs are reassuring as is EKG. No further events. See patient discharge plan for further discussion. Colonoscopy pending Medical Records Medical records reviewed: Yes I reviewed the patient's medical records Lab Data Lab results reviewed: Yes I reviewed the patient's lab results Labs: Lab Results 09/02/24 Range/Units 04:10 WBC 6.65 (4.50-11.00) K/uL RBC 3.72 L (4.00-5.20) m/uL Hgb 8.4 L (12.0-16.0) gm/dL Hct 26.9 L (33.0-51.0) % MCV 72 L (80-100) fL MCH 23 L (26-34) pg MCHC 31 L (32-36) gm/dL RDW Coeff of Afua 17.5 H (11.5-15.5) % Plt Count 309 (140-440) K/uL Neut % (Auto) 70.3 (42.0-72.0) % Lymph % (Auto) 11.0 L (20-44) % [place] % (Auto) 15.8 H (0.0-11.0) % Eos % (Auto) 1.8 (0.0-7.0) % Baso % (Auto) 0.9 (0.0-3.0) % Neut # (Auto) 4.68 (1.7-7.0) K/uL Lymph # (Auto) 0.70 L (0.90-2.90) K/uL [place] # (Auto) 1.10 H (0.00-0.90) K/UL Eos # (Auto) 0.12 (0.00-0.50) K/uL Baso # (Auto) 0.06 (0.00-0.30) K/uL Abs Immat Gran (auto) 0.01 (0.00-0.30) K/uL Imm/Tot Granulo (auto) 0.2 % ECG Data Attestation: I personally reviewed and interpreted this ECG as follows: (Sinus rhythm. PVC is noted. Rate of 93) Discharge Plan Discharge Clinical Impression: Anxiety, Malaise Patient Disposition: Home w/ Parent or Adult Condition: Improved Additional Instructions: You seem generally well. Take care in transitions. Be sure to follow-up for that colonoscopy. Prescriptions: No Action amoxicillin 500 mg tablet 500 mg PO TID Qty: 21 0RF azithromycin [Zithromax Z-Ignacio] 250 mg tablet See Rx Instructions .ROUTE .COMPLEX Qty: 6 0RF Rx Instructions: For 250 mg dose pack: take 500 mg today (day 1), then 250 mg for 4 days (days 2-5) omeprazole 40 mg capsule,delayed release(DR/EC) 40 mg PO DAILY Qty: 14 0RF Vitron-C 65 mg iron- 125 mg tablet,delayed release (DR/EC) 1 tab PO BID Qty: 60 0RF lisinopril 20 mg tablet 20 mg PO DAILY Patient Comments: Take 1 Tablet (20 mg) by mouth once daily. Follow Up/Referrals: Emmy Harley MD [Primary Care Provider] - Stand Alone Forms: Electron Database Info Instructions
[2024-09-02] MEDS: LORazepam 0.5 MG TABLET PO (03:55)
[2024-09-02 04:00] VITALS: O2SAT 98
[2024-09-02 04:18] LABS: Basophils Absolute Auto 0.06 K/uL (0.00-0.30); Basophils Percent Auto 0.9 % (0.0-3.0); Eosinophils Absolute Auto 0.12 K/uL (0.00-0.50); Eosinophils Percent Auto 1.8 % (0.0-7.0); Hematocrit 26.9 % (33.0-51.0); Hemoglobin* 8.4 gm/dL (12.0-16.0); Immature Granulocytes Abs Auto 0.01 K/uL (0.00-0.30); Immature Granulocytes Pct Auto 0.2 %; Mean Corpuscular HGB Conc 31 gm/dL (32-36); Mean Corpuscular Hemoglobin 23 pg (26-34); Mean Corpuscular Volume 72 fL (80-100); Monocytes Percent Auto 15.8 % (0.0-11.0); Neutrophils Absolute Auto 4.68 K/uL (1.7-7.0); Neutrophils Percent Auto 70.3 % (42.0-72.0); Platelet Count* 309 K/uL (140-440); RDW Coefficient of Variation % 17.5 % (11.5-15.5); Red Blood Count 3.72 m/uL (4.00-5.20); White Blood Count* 6.65 K/uL (4.50-11.00)
[2024-09-02 04:25] LABS: Slide Review Reflex No
--- OUTSIDE RECORDS SUMMARY | 2024-09-02 04:26 | XMS_ITS | Continuity of Care Document ---
Author Organization [facility] L[facility] Address [address] [place] [address] Phone Care Team Providers Care Numerical Control Tool Programmer Name Role Phone Unavailable Unavailable Unavailable Medications [...] New/estab Mod 40 Mi ANKUSH L[facility]pez, [address], [place], [place], [id number], [place] tel:[phone] [facility] No Information 5 No Information Referring Provider: Clarisa Hoang MD, [address], [address]. tel:[phone] Family History Family Member Type Diagnosis Age At Onset No Information Payers Payer name Insurance type Covered democrat ID Authoriza tigemini(s) Blue Plus BL [id number] Social History Type Description Quantity Date Captured [...]
--- OUTSIDE RECORDS SUMMARY | 2024-09-02 04:26 | XMS_ITS | Clinical Summary ---
Author Organization [employer] [facility] Address [place], [place] [address] Care Team Providers Care Childcare Aide Name Role Phone Chitra Manuel DO Primary Care Provider Allergies Active Allergy Reactions Criticality Noted Date Comments Sertraline Nightmares 10/22/2021 may be dose dependant ok on 50mg. 100mg more dreams. Medications multivitamin (MVI) tablet Take 1 tablet by mouth once daily. 0 07/23/20 17 Active vit C,Y-Zq-zkrlp-heena tein-zeaxan (PreserVision AREDS-2) capsule Take 1 Capsule [...] Type Department Care Team Description 09/01/2024 Telephone [facility] [address] [place] [address] Chitra Manuel, callback (Call the provider) 09/01/2024 Telephone [facility] [address] [place] [address] Emmy Harley MD Sob ([facility] ) 08/21/2024 Telephone [facility] [address] [place] [address] Maxwell Salgado MD Appointment (Scheduled at [facility] Colonoscopy ) 08/12/2024 Refill [facility] [address] [place] [address] Chitra Manuel DO Refill Request (Lisinopril) 07/19/2024 10:40 AM BANKING REPRESENTATIVE Office Visit [facility] [address] [place] [address] Chitra Manuel DO Hospital F/U (spot on lung) 07/19/2024 Telephone [facility] [address] [place] [address] Maxwell Salgado MD 07/19/2024 Travel 07/17/2024 Orders Only [facility] Scanner 1 scan: (1-Ord) [facility], LABS RESULT, 07/17/2024 07/17/2024 Orders Only [facility] Scanner 1 scan: (1-Ord) SINUS RHYTHM W/PREMATURE ATRIAL COMPLEXES and PREMATURE VENTRICULAR COMPLEXES, 07/17/2024 07/17/2024 Orders Only [facility] Scanner 1 scan: (1-Ord) [place] [facility], XR CHEST 1V PORTABLE, 07/17/2024 from [...] on file Legal Sex Female 5:23 AM BANKING REPRESENTATIVE Gender Identity Not on file Sexual Orientation [...] Comments Blood Pressure 151/54 07/19/2024 10:43 AM BANKING REPRESENTATIVE Pulse 92 07/19/2024 10:43 AM BANKING REPRESENTATIVE Temperature 37.2 C (99 F) 12/22/2021 11:10 AM CDT Respiratory Rate 16 04/02/2018 11:52 AM CDT Oxygen Saturation 98% 07/19/2024 10:43 AM BANKING REPRESENTATIVE Inhaled Oxygen Concentration - - Weight 83 kg (183 lb) 07/19/2024 10:43 AM BANKING REPRESENTATIVE Height 154.9 cm (5' 1) 02/08/2023 4:05 PM CDT Body Mass Index 34.58 02/08/2023 4:05 PM CDT Plan of Treatment Upcoming Encounters Date Type Department Care Team (Late st Contact Info) Description 09/11/2024 9:00 AM BANKING REPRESENTATIVE Office Visit [facility] [address] [place] [address] Chitra Manuel DO [address] [place] [address] 09/13/2024 8:30 AM BANKING REPRESENTATIVE [facility] [address] [address] [place] [address] Edwin Oviedo, PhD, LP [address] [facility] [address] [place] [address] 09/29/2024 12:15 PM BANKING REPRESENTATIVE Office Visit [facility] at [facility] [address] [place] [address] Maxwell Salgado MD [address] [place] [address] Health Maintenance Due Date Last Done Comments [...] Completed 12/24/2015 Medical Devices Implanted Type Area Renewals Representative Device Identifier Shelf Expiration Date Model / Serial / Lot Eye Intraocular Lens - [id number] Implanted:Qty: 1 on 05/13/2017 by Michael Peters MD at [facility] Right: Eye 08/08/2019 / [id number] / Eye Intraocular Lens - [id number] Implanted:Qty: 1 on 06/10/2017 by Michael Peters MD at [facility] Left: Eye [employer] 10/07/2019 250 / [id number] / Procedures Procedure Name Priority Date/Time Associated Diagnosis Comments COLONOSCOPY DIAGNOSTIC MENA 8:04 AM BANKING REPRESENTATIVE Anemia of unknown etiology Positive fecal occult blood test ESOPHAGOGASTRODUODENOSCOPY MENA 08/18 8:04 AM BANKING REPRESENTATIVE Anemia of unknown etiology Positive fecal occult blood test BASIC METABOLIC PANEL Routine 07/19/2024 11:27 AM BANKING REPRESENTATIVE Hyponatremia CBC WITH AUTO DIFFERENTIAL Routine 07/19 11:27 AM BANKING REPRESENTATIVE Anemia of unknown etiology SCAN-ELECTROCARDIOGRAM EKG 07/17 12:00 AM BANKING REPRESENTATIVE SCAN-LABORATORY REPORT 12:00 AM BANKING REPRESENTATIVE SCAN-RADIOLOGY REPORT 07/17/2024 12:00 AM BANKING REPRESENTATIVE XR DXA BONE DENSITY 2 SITES AXIAL Routine 12/24/2015 2:26 PM CDT Other specified menopausal and perimenopausal disorders At risk for bone density loss from Last 3 Months or Most Recently Relevant to Health Maintenance Results * (ABNORMAL) CBC AND DIFFERENTIAL (07/19/2024 11:27 AM BANKING REPRESENTATIVE) WHITE BLOOD CELL COUNT 5.3 3.8 - [...] BLOOD SPECIMEN / Unknown 07/19/2024 11:27 AM BANKING REPRESENTATIVE 07/19/2024 11:28 AM BANKING REPRESENTATIVE us Chitra Michelle Detert DO HEMATOLOGY Final Resul t [employer] [facility] [address] [place] [address], [facility] [address] [place] [address] * (ABNORMAL) BASIC METABOLIC PANEL (07/19/2024 11:27 AM BANKING REPRESENTATIVE) [facility] GLUCOSE 96 65 - 99 mg/dL [facility] [...] BLOOD SPECIMEN / Unknown 07/19/2024 11:27 AM BANKING REPRESENTATIVE 07/19/2024 11:28 AM BANKING REPRESENTATIVE us Chitrapriscilla Michelle Detert DO CHEMISTRY Final Resul t [facility] [employer] [facility] [address] [place] [address], [employer] [facility] [address] [place] [address] * SCAN-RADIOLOGY REPORT (07/17/2024 12:00 AM BANKING REPRESENTATIVE) Anatomical Region Laterality Modality Other us Scanner OTHER Final Result * SCAN-LABORATORY REPORT (07/17/2024 12:00 AM BANKING REPRESENTATIVE) us Scanner OTHER Final Result * SCAN-ELECTROCARDIOGRAM EKG (07/17/2024 12:00 AM BANKING REPRESENTATIVE) us Scanner OTHER Final Result * XR DXA BONE DENSITY 2 SITES AXIAL (12/24/2015 2:26 PM CDT) Anatomical Region Laterality Modality Spine, HIPS, HIPL, HIPR Bone Den sitometry Narrative 12/30/2015 6:25 PM CDT DXA BONE MINERAL DENSITY STUDY CLINICAL INDICATIONS: The patient is a 75-year-old female with Other Screening - V82.81 FINDINGS Bone mineral density study was performed using the [employer]. The results of the study expressed as [...] BROCK ROBLERO MEDICARE PROVIDER BASED BLUE CROSS [place] BLUE MR PB ONLY MEDICARE PB ONLY BLUE [place]OSS OF [place] WORKERS COMP MEDICARE PROVIDER BASED Advance Directives [...] 12:50 PM 04/04/2015 3:34 PM Care Teams Childcare Aide Relationship Specialty Start Date End Date Chitra Manuel DO [address] [place] [address] PCP - General Family Practice 12/09/20
[2024-09-02 05:40] VITALS: BP 155/78; PULSE 90; RESP 18; TEMP 36.8; O2SAT 98
== END 2024-09-02 05:40 | disposition home or self-care (01) ==
PROVIDERS: Emergency Provider Family Medicine; PCP Family Medicine
DX: F41.9 Anxiety disorder, unspecified (principal); R53.81 Other malaise
CPT/HCPCS: 36415; 85025; 93005; 94761; 99284; 99285; A9270

== ENCOUNTER 2024-09-07 05:00 | Outpatient (CLI) | payer MEDICARE, BC, SELFPAY | END 2024-09-07 05:01 | disposition home or self-care (01) | LOC: AMB 09-11 19:42 | PROVIDERS: PCP Family Medicine; Visit Provider Family Medicine | DX: R55 Syncope and collapse (principal); R53.1 Weakness | CPT/HCPCS: A0425; A0429 ==

== ENCOUNTER 2024-09-07 05:17 | Inpatient (IN) | payer MEDICARE, BC, SELFPAY ==
[2024-09-07] VITALS (13 sets, daily range): BP systolic 104–183; BP diastolic 40–101; PULSE 77–95; RESP 16–20; TEMP 36.6–36.9; O2SAT 96–100; BMI 30.2; BMI 33.6
--- OUTSIDE RECORDS SUMMARY | 2024-09-07 05:20 | XMS_ITS | Clinical Summary ---
Author Organization [facility] Address [place], [place] [address] Care Team Providers Care Final Inspector Balance Wheel Name Role Phone Chitra Manuel DO Primary Care Provider [phone] Allergies Active Allergy Reactions Criticality Noted Date Comments Sertraline Nightmares 10/22/2021 may be dose dependant ok on 50mg. 100mg more dreams. Medications multivitamin (MVI) tablet Take 1 tablet by mouth once daily. 0 07/23/20 17 Active vit C,C-Wh-lsjhc-heena tein-zeaxan (PreserVision AREDS-2) capsule Take 1 Capsule [...] to procedure. 4000 mL 08/21/19 25 Active LORazepam (ATIVAN) 0.5 mg tabIndications: Anxiety Take 1 Tablet (0.5 mg) by mouth every 8 hours if needed for Anxiety. Take during prep day of colonoscopy as needed. 3 Tablet 09/04/19 25 Active lisinopriL (PRINIVIL; ZESTRIL) 20 mg [...] Date Type Department Care Team Description 09/01/2024 Orders Only [facility] Scanner 1 scan: (1-Ord) [facility], CHEST 2 V, 09/01/2024 09/01/2024 Telephone [facility] [address] [place] [address] Chitra Manuel, callback (Call the provider) 09/01/2024 Telephone [facility] [address] [place] [address] Emmy Harley MD Sob ([facility] ER ) 08/21/2024 Telephone [facility] [address] [place] [address] Maxwell Salgado MD Appointment (Scheduled at [facility] Colonoscopy ) 08/12/2024 Refill [facility] [address] [place] [address] Chitra Manuel DO Refill Request (Lisinopril) 07/19/2024 10:40 AM PASSENGER TRAIN BRAKER Office Visit [facility] [address] [place] [address] Chitra Manuel DO Hospital F/U (spot on lung) 07/19/2024 Telephone [facility] [address] [place] [address] Maxwell Salgado MD 07/19/2024 Travel 07/17/2024 Orders Only [facility] Scanner 1 scan: (1-Ord) [facility], LABS RESULT, 07/17/2024 07/17/2024 Orders Only [facility] Scanner 1 scan: (1-Ord) SINUS RHYTHM W/PREMATURE ATRIAL COMPLEXES and PREMATURE VENTRICULAR COMPLEXES, 07/17/2024 07/17/2024 Orders Only [facility] Scanner 1 scan: (1-Ord) [facility], XR CHEST 1V PORTABLE, 07/17/2024 from [...] on file Legal Sex Female 5:23 AM PASSENGER TRAIN BRAKER Gender Identity Not on file Sexual Orientation [...] Comments Blood Pressure 151/54 07/19/2024 10:43 AM PASSENGER TRAIN BRAKER Pulse 92 07/19/2024 10:43 AM PASSENGER TRAIN BRAKER Temperature 37.2 C (99 F) 12/22/2021 11:10 AM CDT Respiratory Rate 16 04/02/2018 11:52 AM CDT Oxygen Saturation 98% 07/19/2024 10:43 AM PASSENGER TRAIN BRAKER Inhaled Oxygen Concentration - - Weight 83 kg (183 lb) 07/19/2024 10:43 AM PASSENGER TRAIN BRAKER Height 154.9 cm (5' 1) 02/08/2023 4:05 PM CDT Body Mass Index 34.58 02/08/2023 4:05 PM CDT Plan of Treatment Upcoming Encounters Date Type Department Care Team (Late st Contact Info) Description 09/11/2024 9:00 AM PASSENGER TRAIN BRAKER Office Visit [facility] [address] Chitra Manuel DO [address] [place] [address] 09/29/2024 12:15 PM PASSENGER TRAIN BRAKER Office Visit [facility] at [facility] [address] [place] [address] Maxwell Salgado MD [address] [place] [address] Health Maintenance Due Date Last Done Comments [...] Completed 12/24/2015 Medical Devices Implanted Type Area Desktop Support Consultant Device Identifier Shelf Expiration Date Model / Serial / Lot Eye Intraocular Lens - [id number] Implanted:Qty: 1 on 05/13/2017 by Michael Peters MD at [facility] Right: Eye 08/08/2019 / [id number] / Eye Intraocular Lens - [id number] Implanted:Qty: 1 on 06/10/2017 by Michael Peters MD at [facility] Left: Eye [employer] 10/07/2019 250 / [id number] / Procedures Procedure Name Priority Date/Time Associated Diagnosis Comments SCAN-RADIOLOGY REPORT 09/01/2024 12:00 AM PASSENGER TRAIN BRAKER COLONOSCOPY DIAGNOSTIC MENA 5 8:04 AM PASSENGER TRAIN BRAKER Anemia of unknown etiology Positive fecal occult blood test ESOPHAGOGASTRODUODENOSCOPY MENA 08/18 8:04 AM PASSENGER TRAIN BRAKER Anemia of unknown etiology Positive fecal occult blood test BASIC METABOLIC PANEL Routine 07/19/2024 11:27 AM PASSENGER TRAIN BRAKER Hyponatremia CBC WITH AUTO DIFFERENTIAL Routine 07/19 11:27 AM PASSENGER TRAIN BRAKER Anemia of unknown etiology SCAN-ELECTROCARDIOGRAM EKG 07/17 12:00 AM PASSENGER TRAIN BRAKER SCAN-LABORATORY REPORT 12:00 AM PASSENGER TRAIN BRAKER SCAN-RADIOLOGY REPORT 07/17/2024 12:00 AM PASSENGER TRAIN BRAKER XR DXA BONE DENSITY 2 SITES AXIAL Routine 12/24/2015 2:26 PM CDT Other specified menopausal and perimenopausal disorders At risk for bone density loss from Last 3 Months or Most Recently Relevant to Health Maintenance Results * SCAN-RADIOLOGY REPORT (09/01/2024 12:00 AM PASSENGER TRAIN BRAKER) Only the most recent of2 resultswithin the time period is included. Anatomical Region Laterality Modality Other us Scanner OTHER Final Result * (ABNORMAL) CBC AND DIFFERENTIAL (07/19/2024 11:27 AM PASSENGER TRAIN BRAKER) WHITE BLOOD CELL COUNT 5.3 3.8 - [...] BLOOD SPECIMEN / Unknown 07/19/2024 11:27 AM PASSENGER TRAIN BRAKER 07/19/2024 11:28 AM PASSENGER TRAIN BRAKER us Chitra Michelle Detert DO HEMATOLOGY Final Resul t [employer] [facility] [address] [place] [address], [place] [phone] [facility] [address] [place] [address] * (ABNORMAL) BASIC METABOLIC PANEL (07/19/2024 11:27 AM PASSENGER TRAIN BRAKER) GLUCOSE 96 65 - 99 mg/dL [facility] Comment: Fasting reference interval UREA NITROGEN (BUN) 26(H) 7 - 25 mg/dL [facility] CREATININE 0.69 0.60 - 0.95 mg/dL [facility] EGFR 85 > OR = 60 mL/min/1.7 3m2 [employer] [facility] BUN/CREATININE RATIO 38(H) 6 - 22 (calc) [facility] SODIUM 132(L) 135 - 146 mmol/L [facility] POTASSIUM 4.6 3.5 - 5.3 mmol/L [employer] [facility] CHLORIDE 101 98 - 110 mmol/L [employer] CARBON DIOXIDE 23 20 - 32 mmol/L [facility] ELECTROLYTE BALANCE 8 7 - 17 mmol/L (calc) [facility] CALCIUM 9.2 8.6 - 10.4 mg/dL [facility] Blood BLOOD SPECIMEN / Unknown 07/19/2024 11:27 AM PASSENGER TRAIN BRAKER 07/19/2024 11:28 AM PASSENGER TRAIN BRAKER us Chitra Manuel DO CHEMISTRY Final Resul t [employer] [facility] [address] [place] [address], [facility] [address] [place] [address] * SCAN-LABORATORY REPORT (07/17/2024 12:00 AM PASSENGER TRAIN BRAKER) us Scanner OTHER Final Result * SCAN-ELECTROCARDIOGRAM EKG (07/17/2024 12:00 AM PASSENGER TRAIN BRAKER) us Scanner OTHER Final Result * XR DXA BONE DENSITY 2 SITES AXIAL (12/24/2015 2:26 PM CDT) Anatomical Region Laterality Modality Spine, HIPS, HIPL, HIPR Bone Den sitometry Narrative 12/30/2015 6:25 PM CDT DXA BONE MINERAL DENSITY STUDY CLINICAL INDICATIONS: The patient is a 75-year-old female with Other Screening - V82.81 FINDINGS Bone mineral density study was performed using the [employer]. The results of the study expressed as [...] Most Recently Relevant to Health Maintenance Insurance [phone] [facility] [address] MEDICARE PROVIDER [place] MEDICARE PROVIDER [place]ED [place] BLUE [place] ONLY MEDICARE [place] ONLY [...] 12:50 PM 04/04/2015 3:34 PM Care Teams Final Inspector Balance Wheel Relationship Specialty Start Date End Date Chitra Manuel DO [address] [place] [address] PCP - General Family Practice 12/09/20
--- NOTE | 2024-09-07 05:45 | ED.GENADULT ---
HPI - General Adult General Chief complaint: Dizziness/Vertigo Stated complaint: Dizziness Time Seen by Provider: 09/07/24 05:29 Source: patient Mode of arrival: EMS History of Present Illness HPI narrative: 84-year-old female presents to the emergency department for evaluation of dizziness. Who she is not much of a historian but from what I can gather she is describing weakness rather than dizziness. It is not lightheadedness, it is not a sensation of the room spinning. She also reports a feeling of a head pounding but it is not a headache. It is more so a throbbing with exertion. There are no focal neurological changes. She gives a very strange convoluted story about her throbbing head being connected to needing a colonoscopy and how hard that has been to get set up. As I am getting more confused, excuse myself in see that she has been in the emergency department several times recently for symptomatic anemia from what is suspected to be a GI bleed. She received a blood transfusion about a week ago and is still noticing weakness. She has followed up with her primary care provider and reports that a colonoscopy has been recommended when I asked specifically about when this is scheduled, she is unable to answer me. She admits that her memory is slipping and she seems confused at times but assures me that this is her baseline. She has a son that lives in [place] even though she lives independently. He is going to come with her to the next doctor visit to help her better understand the treatment plans. When I asked specifically about what caused her to cub back to the ED in the middle of the night, she just says that she still feels weak and did not know what to do. Past medical history is reviewed, ED notes from last week reviewed. It looks as though she does not have any long-term medical problems besides hypertension. She is prescribed lisinopril regularly. She tells me that she is not taking any medications however. She has also been started on omeprazole 40 mg once daily and iron supplement. Denies prior history of coronary artery disease, GI surgeries or blood thinners. Allergies sertraline which reportedly caused nightmares. She has several visits for anxiety. Former smoker, no alcohol or marijuana use. ROS is a bit difficult to follow but seems pertinent for fatigue, lightheadedness and weakness, dizziness not perceived as neurological. Denies gynecological bleeding or bloody stools to me. Reports that her last colonoscopy was ?many years ago? Related Data Home Medications ?Medication ?Instructions ?Recorded ?Confirmed lisinopril 20 mg tablet 20 mg PO DAILY 08/25/22 09/07/24 Previous Rx's ?Medication ?Instructions ?Recorded omeprazole 40 mg capsule,delayed 40 mg PO DAILY #14 caps 07/17/24 release iron,carbonyl 65 mg-vitamin C 125 1 tab PO BID #60 tabs 09/01/24 mg tablet,delayed release (Vitron-C) Allergies Allergy/AdvReac Type Severity Reaction Status Date / Time sertraline AdvReac Intermediate Nightmares Verified 09/07/24 05:25 [facility] Medical History Rotator cuff injury ?S46.009A - Unspecified injury of muscle(s) and tendon(s) of the rotator cuff of unspecified shoulder, initial encounter (ICD-10) Vitamin D deficiency ?E55.9 - Vitamin D deficiency, unspecified (ICD-10) GERD with esophagitis ?K21.00 - Gastro-esophageal reflux disease with esophagitis, without bleeding (ICD-10) 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.0 - Iron deficiency anemia secondary to blood loss (chronic) (ICD-10) Hemorrhoids ?K64.9 - Unspecified hemorrhoids (ICD-10) Osteopenia ?M85.80 - Other specified disorders of bone density and structure, unspecified site (ICD-10) Diverticulosis of colon (without mention of hemorrhage) ?K57.30 - Diverticulosis of large intestine without perforation or abscess without bleeding (ICD-10) Surgical History History of colonoscopy ?Z98.890 - Other specified postprocedural states (ICD-10) History of esophagogastroduodenoscopy ?Z98.890 - Other specified postprocedural states (ICD-10) Social History Smoking Status: Never smoker Do you use any of these nicotine containing products: None Second hand tobacco smoke exposure: No How often do you have a drink containing alcohol: never How often do you have six or more drinks on one occasion: Never AUDIT-C Alcohol total score: 0 Non-prescribed substance use: denies use Exam Const: Vital Signs, click to edit/add: Vital Signs - 24 hr 09/07/24 05:23 09/07/24 05:55 Temperature 98.2 F Pulse Rate [Right Pulse Oximeter] 89 Respiratory Rate 20 Blood Pressure [Ri ght Upper Arm] 183/78 H Pulse Oximetry 98 98 Oxygen Delivery Me thod Room Air Documenting provider has reviewed patient's vital signs: yes Common normals: no apparent distress and alert Other: Poor historian but friendly, cooperates with exam. Follows commands without difficulty. HENMT: Common normals: normocephalic, moist oral mucous membranes and oropharynx normal Head and scalp: normocephalic Face and sinus: normal facial exam Mouth: oral and palatal mucosa normal Eye: Common normals: PERRL, EOMs intact bilaterally, conjunctivae normal and no scleral icterus Conjunctiva: conjunctiva(e) normal Pupil: PERRL Neck & C-Spine: Common normals: full ROM and no lymphadenopathy Resp: Common normals: normal respiratory effort, no use of accessory muscles and clear to auscultation bilaterally Effort & inspection: able to speak in complete sentences Auscultation: clear to auscultation bilaterally Cardio: Common normals: regular rate, regular rhythm, S1 normal heart sound, S2 normal heart sound and no murmurs Rate: regular rate Rhythm: regular rhythm Heart sounds: S1 normal and S2 normal GI: Common normals: Normal to inspection, nondistended, normoactive bowel sounds present, soft to palpation, non-tender, no hepatosplenomegaly and no masses Palpation: soft and no hepatosplenomegaly Back & Pelvis: Common normals: thoracic and lumbar spine normal to inspection Extremity: Other: Dry skin with 1+ edema to upper tibia, appears chronic. Neuro: Common normals: CN's II-XII intact bilaterally and moves all extremities Sensorium/orientation: alert Speech: speech normal Motor exam: strength 5/5 throughout, no tremor noted and no movement abnormalities noted Psych: Common normals: thought process normal Appearance: grossly normal Attitude: calm Thought process: normal thought process Insight: limited Judgement: fair Skin: Common normals: no rashes or lesions noted General skin exam: no rashes or lesions noted Course Course ED Course: 84-year-old female presenting with what I be proceeding as weakness with recent history of what seems like worsening iron deficiency anemia from suspected occult GI bleed. Fecal occult blood test recently positive. I suspect that she has continued to bleed and is now more anemic again. She is having significant difficulty managing and coordinating this outpatient, I think that she may need to be hospitalized for blood transfusion, management of weakness, PT assessment and ultimately colonoscopy. Will obtain labs including a type and screen, consider additional transfusion if warranted. Proton pump inhibitor, typical GI and cardiac labs, consider CT. At this time she is not hypotensive or tachycardic, I do not think that she is having an acute hemorrhage. Reevaluation(s) Time of Reevaluation #1: 07:26 Reevaluation #1: Counseled patient on findings. Hemoglobin is stable which is great but I do think she may be a little volume overloaded as witnessed by the dropping sodium level and swelling in her legs. We need more tests and I think that she really could benefit from a cognitive and PT assessment prior to determining if she is safe to live at home still. I counseled patient that will actually take a couple of months for her to regrow enough blood to where she does not feel short of breath and she was very disheartened by this stating that she cannot manage currently. I agreed with her, citing the fact that she has been to the emergency department 3 times in the past week. Has spoken with the hospitalist who is accepting of admission for further workup. I do think we need to further investigate potential other etiologies for her hyponatremia as well as consider arranging colonoscopy and/or endoscopy while inpatient. We can also consider CT of the abdomen and pelvis to further look for GI pathology. Will hand over care to hospitalist team Vital Signs Vital signs: Initial Vital Signs Temperature 98.2 F 09/07/24 05:23 Temperature Source Temporal Artery Scan 09/07/24 05:23 Pulse Rate 89 09/07/24 05:23 Respiratory Rate 20 09/07/24 05:23 Blood Pressure 183/78 H 09/07/24 05:23 Blood Pressure Mean 113 H 09/07/24 05:23 Blood Pressure Position Sitting 09/07/24 05:23 Pulse Oximetry 98 09/07/24 05:23 Oxygen Delivery Method Room Air 09/07/24 05:23 Vital Signs Temperature 98.2 F 09/07/24 05:23 Pulse Rate 89 09/07/24 05:23 Respiratory Rate 20 09/07/24 05:23 Blood Pressure 183/78 H 09/07/24 05:23 Pulse Oximetry 98 09/07/24 05:23 Oxygen Delivery Method Room Air 09/07/24 05:23 Temperature 98.2 F 09/07/24 05:23 Pulse Rate 89 09/07/24 05:23 Respiratory Rate 20 09/07/24 05:23 Blood Pressure 183/78 H 09/07/24 05:23 Pulse Oximetry 98 09/07/24 05:55 Oxygen Delivery Method Room Air 09/07/24 05:23 Medical Decision Making Lab Data Lab results reviewed: Yes I reviewed the patient's lab results Lab results narrative: Hemoglobin is more or less stable which is good but I actually do think that she may be a little volume overloaded with her sinking sodium of 127. Her kidney function is otherwise stable, liver enzymes are reassuring. I do not think that there is a new acute illness. Labs: Lab Results 09/07/24 09/07/24 Range/Units 05:42 05:56 WBC 5.08 (4.50-11.00) K/uL RBC 3.93 L (4.00-5.20) m/uL Hgb 8.6 L (12.0-16.0) gm/dL Hct 28.1 L (33.0-51.0) % MCV 72 L (80-100) fL MCH 22 L (26-34) pg MCHC 31 L (32-36) gm/dL RDW Coeff of Afua 18.6 H (11.5-15.5) % Plt Count 325 (140-440) K/uL Neut % (Auto) 68.1 (42.0-72.0) % Lymph % (Auto) 10.8 L (20-44) % [place] % (Auto) 17.1 H (0.0-11.0) % Eos % (Auto) 2.6 (0.0-7.0) % Baso % (Auto) 1.2 (0.0-3.0) % Neut # (Auto) 3.46 (1.7-7.0) K/uL Lymph # (Auto) 0.50 L (0.90-2.90) K/uL [place] # (Auto) 0.90 (0.00-0.90) K/UL Eos # (Auto) 0.13 (0.00-0.50) K/uL Baso # (Auto) 0.06 (0.00-0.30) K/uL Abs Immat Gran (auto) 0.01 (0.00-0.30) K/uL Imm/Tot Granulo (auto) 0.2 % Sodium 127 L (135-149) mmol/L Potassium 4.9 (3.6-5.1) mmol/L Chloride 99 (96-114) mmol/L Carbon Dioxide 21 (20-32) mmol/L Anion Gap 7 (7-15) mEq/L BUN 26 (7-30) mg/dL Creatinine 0.5 (0.5-1.5) mg/dL Estimated Creat Clear 32.53 Estimated GFR 92 ml/min Glucose 104 (60-115) mg/dL Lactate 0.7 (0.5-1.9) mmol/L Calcium 9.0 (8.4-10.6) mg/dL Total Bilirubin 0.5 (0.1-1.5) mg/dL AST 37 H (12-35) U/L ALT 17 (4-35) U/L Alkaline Phosphatase 67 (40-150) U/L Troponin I < 0.01 L (0.01-0.04) ng/mL C-Reactive Protein < 0.5 L (0.5-1.0) mg/dL Total Protein 7.0 (6.0-8.3) g/dL Albumin 4.2 (3.3-5.0) g/dL SARS-CoV-2 (PCR) Negative SARS-CoV-2 (Negative) Influenza Type A (PCR) Negative PCR FLU A (Negative) Influenza Type B (PCR) Negative PCR FLU B (Negative) RSV (PCR) Negative PCR RSV (Negative) Blood Type O Positive Antibody Screen NEGATIVE Discharge Plan Discharge Clinical Impression: Acute hyponatremia, Anemia due to GI blood loss, Weakness Patient Disposition: Admitted As Inpatient
[2024-09-07 05:54] LABS: Lactate* 0.7 mmol/L (0.5-1.9)
[2024-09-07 05:55] LABS: Basophils Absolute Auto 0.06 K/uL (0.00-0.30); Basophils Percent Auto 1.2 % (0.0-3.0); Eosinophils Absolute Auto 0.13 K/uL (0.00-0.50); Eosinophils Percent Auto 2.6 % (0.0-7.0); Hematocrit 28.1 % (33.0-51.0); Hemoglobin* 8.6 gm/dL (12.0-16.0); Immature Granulocytes Abs Auto 0.01 K/uL (0.00-0.30); Immature Granulocytes Pct Auto 0.2 %; Lymphocytes Percent Auto 10.8 % (20-44); Mean Corpuscular HGB Conc 31 gm/dL (32-36); Mean Corpuscular Hemoglobin 22 pg (26-34); Mean Corpuscular Volume 72 fL (80-100); Monocytes Percent Auto 17.1 % (0.0-11.0); Neutrophils Absolute Auto 3.46 K/uL (1.7-7.0); Neutrophils Percent Auto 68.1 % (42.0-72.0); Platelet Count* 325 K/uL (140-440); RDW Coefficient of Variation % 18.6 % (11.5-15.5); Red Blood Count 3.93 m/uL (4.00-5.20); White Blood Count* 5.08 K/uL (4.50-11.00)
[2024-09-07 05:56] LABS: Slide Review Reflex No
--- OUTSIDE RECORDS SUMMARY | 2024-09-07 06:02 | XMS_ITS | Continuity of Care Document ---
Author Organization [facility] Address [address] [place] [address] Phone Care Team Providers Care Wheel Braider Name Role Phone Unavailable Unavailable Unavailable Medications [...] New/estab Mod 40 Mi [facility], [address], [place], [place], [id number], [place] tel:[phone] [facility] No Information 5 No Information Referring Provider: Clarisa Hoang MD, [address], [address]. tel:[phone] Family History Family Member Type Diagnosis Age At Onset No Information Payers Payer name Insurance type Covered constitution party ID Authoriza tigemini(s) [employer] [id number] Social History Type Description Quantity Date Captured [...]
--- OUTSIDE RECORDS SUMMARY | 2024-09-07 06:02 | XMS_ITS | Clinical Summary ---
Author Organization [facility] Address [place], [place] [address] Care Team Providers Care Vertical Boring Mill Operator Name Role Phone Chitra Manuel DO Primary Care Provider Allergies Active Allergy Reactions Criticality Noted Date Comments Sertraline Nightmares 10/22/2021 may be dose dependant ok on 50mg. 100mg more dreams. Medications multivitamin (MVI) tablet Take 1 tablet by mouth once daily. 0 07/23/20 17 Active vit C,K-Iv-eemrj-heena tein-zeaxan (PreserVision AREDS-2) capsule Take 1 Capsule [...] Department Care Team Description 09/01/2024 Orders Only [facility] Scanner 1 scan: (1-Ord) [facility], CHEST 2 V, 09/01/2024 09/01/2024 Telephone [facility] [address] [place] [address] Chitra Manuel, callback (Call the provider) 09/01/2024 Telephone [facility] [address] [place] [address] Emmy Harley MD Sob ([facility] ) 08/21/2024 Telephone [facility] [address] [place] [address] Maxwell Salgado MD Appointment (Scheduled at [facility] Colonoscopy ) 08/12/2024 Refill [facility] [address] [place] [address] Chitra Manuel DO Refill Request (Lisinopril) 07/19/2024 10:40 AM [facility] Office Visit [facility] [address] [place] [address] Chitra Manuel DO Hospital F/U (spot on lung) 07/19/2024 Telephone [facility] [address] [place] [address] Maxwell Salgado MD 07/19/2024 Travel 07/17/2024 Orders Only [facility] Scanner 1 scan: (1-Ord) [facility], LABS RESULT, 07/17/2024 07/17/2024 Orders Only [facility] Scanner 1 scan: (1-Ord) SINUS RHYTHM W/PREMATURE ATRIAL COMPLEXES and PREMATURE VENTRICULAR COMPLEXES, 07/17/2024 07/17/2024 Orders Only [facility] Scanner 1 scan: (1-Ord) [facility], XR CHEST 1V PORTABLE, 07/17/2024 from [...] on file Legal Sex Female 5:23 AM [facility] Gender Identity Not on file Sexual Orientation [...] Comments Blood Pressure 151/54 07/19/2024 10:43 AM [facility] Pulse 92 07/19/2024 10:43 AM [facility] Temperature 37.2 C (99 F) 12/22/2021 11:10 AM CDT Respiratory Rate 16 04/02/2018 11:52 AM CDT Oxygen Saturation 98% 07/19/2024 10:43 AM [facility] Inhaled Oxygen Concentration - - Weight 83 kg (183 lb) 07/19/2024 10:43 AM [facility] Height 154.9 cm (5' 1) 02/08/2023 4:05 PM CDT Body Mass Index 34.58 02/08/2023 4:05 PM CDT Plan of Treatment Upcoming Encounters Date Type Department Care Team (Late st Contact Info) Description 09/11/2024 9:00 AM [facility] Office Visit [facility] [place] [address] Chitra Manuel DO [address] [place] [address] 09/29/2024 12:15 PM [facility] Office Visit [facility] at [facility] [address] [place] [address] Maxwell Salgado MD [address] [place] [address] Health Maintenance Due Date Last Done Comments [...] Completed 12/24/2015 Medical Devices Implanted Type Area Adhesive Bandage Making Operator Device Identifier Shelf Expiration Date Model / Serial / Lot Eye Intraocular Lens - [id number] Implanted:Qty: 1 on 05/13/2017 by Michael Peters MD at [facility] Right: Eye 08/08/2019 / [id number] / Eye Intraocular Lens - [id number] Implanted:Qty: 1 on 06/10/2017 by Michael Peters MD at [facility] Left: Eye [employer] 10/07/2019 250 / [id number] / Procedures Procedure Name Priority Date/Time Associated Diagnosis Comments SCAN-RADIOLOGY REPORT 09/01/2024 12:00 AM [facility] COLONOSCOPY DIAGNOSTIC MENA 5 8:04 AM [facility] Anemia of unknown etiology Positive fecal occult blood test ESOPHAGOGASTRODUODENOSCOPY MENA 08/18 8:04 AM [facility] Anemia of unknown etiology Positive fecal occult blood test BASIC METABOLIC PANEL Routine 07/19/2024 11:27 AM [facility] Hyponatremia CBC WITH AUTO DIFFERENTIAL Routine 07/19 11:27 AM [facility] Anemia of unknown etiology SCAN-ELECTROCARDIOGRAM EKG 07/17 12:00 AM [facility] SCAN-LABORATORY REPORT 12:00 AM [facility] SCAN-RADIOLOGY REPORT 07/17/2024 12:00 AM [facility] XR DXA BONE DENSITY 2 SITES AXIAL Routine 12/24/2015 2:26 PM CDT Other specified menopausal and perimenopausal disorders At risk for bone density loss from Last 3 Months or Most Recently Relevant to Health Maintenance Results * SCAN-RADIOLOGY REPORT (09/01/2024 12:00 AM [facility]) Only the most recent of2 resultswithin the time period is included. Anatomical Region Laterality Modality Other us Scanner OTHER Final Result * (ABNORMAL) CBC AND DIFFERENTIAL (07/19/2024 11:27 AM [facility]) WHITE BLOOD CELL COUNT 5.3 3.8 - [...] BLOOD SPECIMEN / Unknown 07/19/2024 11:27 AM [facility] 07/19/2024 11:28 AM [facility] us Chitra Michelle Detert DO HEMATOLOGY Final Resul t [employer] [facility] [address] [place] [address], [place] [phone] [facility] [address] [place] [address] * (ABNORMAL) BASIC METABOLIC PANEL (07/19/2024 11:27 AM [facility]) GLUCOSE 96 65 - 99 mg/dL [facility] Comment: Fasting reference interval UREA NITROGEN (BUN) 26(H) 7 - 25 mg/dL [facility] CREATININE 0.69 0.60 - 0.95 mg/dL [facility] EGFR 85 > OR = 60 mL/min/1.7 3m2 [facility] BUN/CREATININE RATIO 38(H) 6 - 22 (calc) [employer] ojyane iVvar SODIUM 132(L) 135 - 146 mmol/L [employer] ojayne Seaye POTASSIUM 4.6 3.5 - 5.3 mmol/L [employer] CHLORIDE 101 98 - 110 mmol/L [facility] CARBON DIOXIDE 23 20 - 32 mmol/L [facility] ELECTROLYTE BALANCE 8 7 - 17 mmol/L (calc) [facility] CALCIUM 9.2 8.6 - 10.4 mg/dL [facility] Blood BLOOD SPECIMEN / Unknown 07/19/2024 11:27 AM [facility] 07/19/2024 11:28 AM [facility] us Chitra Manuel DO CHEMISTRY Final Resul t [employer] [facility] [address] [place] [address], [facility] [address] [place] [address] * SCAN-LABORATORY REPORT (07/17/2024 12:00 AM [facility]) us Scanner OTHER Final Result * SCAN-ELECTROCARDIOGRAM EKG (07/17/2024 12:00 AM [facility]) us Scanner OTHER Final Result * XR DXA BONE DENSITY 2 SITES AXIAL (12/24/2015 2:26 PM CDT) Anatomical Region Laterality Modality Spine, HIPS, HIPL, HIPR Bone Den sitometry Narrative 12/30/2015 6:25 PM CDT DXA BONE MINERAL DENSITY STUDY CLINICAL INDICATIONS: The patient is a 75-year-old female with Other Screening - V82.81 FINDINGS Bone mineral density study was performed using the [email or web address]. The results of the study expressed as [...] Relevant to Health Maintenance Insurance [phone] [place] [facility] [place] [address] MEDICARE PROVIDER BASED [employer] MEDICARE PROVIDER BASED BLUE CROSS [employer] BLUE MR PB ONLY MEDICARE PB ONLY [...] 12:50 PM 04/04/2015 3:34 PM Care Teams Vertical Boring Mill Operator Relationship Specialty Start Date End Date Chitra Manuel DO [address] [place] [address] PCP - General Family Practice 12/09/20
[2024-09-07 06:11] LABS: Albumin* 4.2 g/dL (3.3-5.0); Chloride* 99 mmol/L (96-114); Potassium* 4.9 mmol/L (3.6-5.1); Sodium* 127 mmol/L (135-149)
[2024-09-07 06:13] LABS: Creatinine* 0.5 mg/dL (0.5-1.5); Est. Creatinine Clearance* 32.53; Estimated Glomerular Filt Rate 92 ml/min
[2024-09-07 06:14] LABS: Alanine Aminotransferase* 17 U/L (4-35); Alkaline Phosphatase* 67 U/L (40-150); Anion Gap 7 mEq/L (7-15); Aspartate Amino Transferase* 37 U/L (12-35); Bilirubin Total* 0.5 mg/dL (0.1-1.5); Blood Urea Nitrogen* 26 mg/dL (7-30); Carbon Dioxide* 21 mmol/L (20-32); Glucose* 104 mg/dL (60-115)
[2024-09-07 06:32] LABS: PCR FLU A Negative PCR FLU A (Negative); PCR FLU B Negative PCR FLU B (Negative); PCR RSV Negative PCR RSV (Negative); SARS PCR* Negative SARS-CoV-2 (Negative)
[2024-09-07 06:37] LABS: Troponin I* < 0.01 ng/mL (0.01-0.04)
[2024-09-07 06:37] LABS: C Reactive Protein* < 0.5 mg/dL (0.5-1.0)
[2024-09-07 07:16] LABS: Appearance Urine Clear (Clear); Bilirubin Urine Negative (Negative); Blood Urine Negative (Negative); Color Urine Yellow (Yellow); Glucose Urine Negative (Negative); Ketones Urine Negative (Negative); Leukocyte Esterase Urine Negative (Negative); Nitrite Urine Negative (Negative); Protein Urine Negative (Negative); Urobilinogen Urine 0.2 (0.2-1.0)
[2024-09-07 07:29] LABS: RBC Urine 0-2 (0-2); WBC Urine 0-2 (0-5)
[2024-09-07] MEDS: LORazepam 0.5 MG TABLET PO (08:03)
--- NOTE | 2024-09-07 08:28 | PM.IMHP1 ---
Hospitalist- H&P: HPI History of Present Illness Date Seen: 09/07/24 Chief complaint: Dizziness Narrative: Audra Araujo is a 84 year old female who presented to our emergency room this evening for persistent weakness and dizziness. She has been seen in the ER thrice this week; during 1st visit on 09/01/2024, she was noted to have a hemoglobin of 7.9 and + FOBT, received 1 unit of blood and referral for colonoscopy through PCP. Previous Hgb 11.0 (08/2022; hadn't had a Hgb prior to that for the past 4-5 years). Seen again for persistent symptoms with stable labs on 09/02, then again early this morning for persistent weakness and dizziness. Patient is a poor historian and does seem to have some short-term memory loss. She specifically denies any nausea or vomiting, denies melena or hematochezia. Denies constipation, but is unable to stool without using a suppository (it is unclear if she is having daily BMs). Last colonoscopy and EGD were in 2014. Unable to characterize her dizziness; comes and goes. No obvious alleviating or aggravating factors, no syncope. No falls. ER course: - hemoglobin 8.6, MCV 72 - sodium 127 - reassuring UA - elevated blood pressure, rest of vital signs within normal limits Given patient's persistent symptomatic state (presumably secondary to iron deficiency anemia from GI blood loss), she was admitted for evaluation and further workup. Histories updated below, PCP is Dr. Manuel at [facility]. Review of Systems Status of ROS: Reports: 10 or more systems reviewed and unremarkable except as noted in History and below [facility] Medical History (Updated 09/07/24 @ 13:19 by Nicole Alamo MD) Mild cognitive impairment ?G31.84 - Mild cognitive impairment of uncertain or unknown etiology (ICD-10) Rotator cuff injury ?S46.009A - Unspecified injury of muscle(s) and tendon(s) of the rotator cuff of unspecified shoulder, initial encounter (ICD-10) Vitamin D deficiency ?E55.9 - Vitamin D deficiency, unspecified (ICD-10) GERD with esophagitis ?K21.00 - Gastro-esophageal reflux disease with esophagitis, without bleeding (ICD-10) 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.0 - Iron deficiency anemia secondary to blood loss (chronic) (ICD-10) Hemorrhoids ?K64.9 - Unspecified hemorrhoids (ICD-10) Osteopenia ?M85.80 - Other specified disorders of bone density and structure, unspecified site (ICD-10) Diverticulosis of colon (without mention of hemorrhage) ?K57.30 - Diverticulosis of large intestine without perforation or abscess without bleeding (ICD-10) Surgical History History of colonoscopy ?Z98.890 - Other specified postprocedural states (ICD-10) History of esophagogastroduodenoscopy ?Z98.890 - Other specified postprocedural states (ICD-10) Social History (Updated 09/07/24 @ 13:15 by Nicole Alamo MD) Narrative: Independent apartment at [facility], no current services. Son Anisha would be medical decision maker if needed, he lives in [place]. Nonsmoker, rare ETOH. Full code. What is your current living situation?: I presently have a place to live Problems where you live: no known problems Problems where you live details: n/a In the past 12 months, utilities in danger of being shut off: no In past 12 months, lack of transportation kept you from medical appts, meetings, work, or getting things needed for daily living: no In the past 12 mos, have been you worried that your food would run out before you had money to buy more?: never true In the past 12 mos, the food you bought just didn't last and you didn't have money to buy more?: never true Smoking Status: Never smoker Do you use any of these nicotine containing products: None Second hand tobacco smoke exposure: No How often do you have a drink containing alcohol: never How often do you have six or more drinks on one occasion: Never AUDIT-C Alcohol total score: 0 Non-prescribed substance use: denies use Caffeine: No How often does anyone, including family, friends and others, physically hurt you: never How often does anyone, including family, friends and others, insult or talk down to you: never How often does anyone, including family, friends and others, threaten you with harm: never How often does anyone, including family, friends and others, scream or curse at you: never Meds Home Medications and Allergies Home Medications ?Medication ?Instructions ?Recorded ?Confirmed ?Type lisinopril 20 mg tablet 20 mg PO DAILY 08/25/22 09/07/24 History lorazepam 0.5 mg tablet 0.5 mg PO Q8H PRN anxiety 09/07/24 09/07/24 History multivitamin 1 tab PO DAILY 09/07/24 09/07/24 History vit C 250 mg-vit E 90 mg-zinc 40 1 tab PO BID 09/07/24 09/07/24 History mg-copper 1 [id number] capsule (PreserVision AREDS-2) Home Medication Comments: Takes Lisinopril daily Allergies Allergy/AdvReac Type Severity Reaction Status Date / Time sertraline AdvReac Intermediate Nightmares Verified 09/07/24 05:25 Exam Narrative: Exam Narrative: GEN: Alert and talkative, appears nontoxic HEENT: Ptosis on the right, EOMIs bilaterally, no scleral icterus, tongue protrudes midline CV: RRR, early systolic murmur heard across precordium R: LCTA bilaterally without concerning wheezing, rales, or rhonchi Ab: Soft and nontender, no masses Back: Scattered SKs, normal contours Ext: 2+ bilateral lower extremity edema (per patient, she is typically not edematous) Skin: No concerning skin lesions or rashes on exposed skin Neuro: No focal deficits besides right ptosis Psych: Appears to have MCI, no agitation Const: Vital Signs, click to edit/add: Vital Signs - 24 hr 09/07/24 05:23 09/07/24 05:55 09/07/24 07:15 Temperature 98.2 F Pulse Rate [Right Pulse Oximeter] 89 81 Respiratory Rate 20 16 Blood Pressure [Ri ght Upper Arm] 183/78 H 173/62 H Pulse Oximetry 98 98 98 Oxygen Delivery Me thod Room Air Room Air Hospitalist - H&P: Result Labs Labs: Short CBC 09/07/24 Range/Units 05:42 WBC 5.08 (4.50-11.00) K/uL Hgb 8.6 L (12.0-16.0) gm/dL Hct 28.1 L (33.0-51.0) % Plt Count 325 (140-440) K/uL BMP 09/07/24 05:42 Sodium 127 L Potassium 4.9 Chloride 99 Carbon Dioxide 21 BUN 26 Creatinine 0.5 Glucose 104 Calcium 9.0 Cardiac Enzymes 09/07/24 Range/Units 05:56 Troponin I < 0.01 L (0.01-0.04) ng/mL Liver Function 09/07/24 Range/Units 05:42 Total Bilirubin 0.5 (0.1-1.5) mg/dL AST 37 H (12-35) U/L ALT 17 (4-35) U/L Alkaline Phosphatase 67 (40-150) U/L Albumin 4.2 (3.3-5.0) g/dL Urine 09/07/24 Range/Units 05:42 Urine Color Yellow (Yellow) Urine Appearance Clear (Clear) Urine pH 7.0 (5.0-8.5) Ur Specific Mounds 1.010 (1.000-1.030) Urine Protein Negative (Negative) Urine Glucose (UA) Negative (Negative) Assessment and Plan Assessment and plan (1) Anemia due to GI blood loss: Problem comment: - lux of 7.9 on 09/01/24, status post 1U PRBCs - + FOBT 09/01/24 - Endoscopy ordered, will likely need to do colonoscopy as an outpatient - PPI Status: Acute (2) Dizziness: Problem comment: - ddx: anemia, atypical CVA, aortic stenosis/CHF given murmur and LE edema, orthostasis - MRI brain, TTE, therapies, orthostatic VS, follow Hgb and lytes Status: Acute (3) Hyponatremia: Problem comment: - sodium on admission 127 - per chart review, outpatient baseline 132-139 - encourage protein supplementation, will not place patient on fluid restriction given cognitive impairment and mild abnormality - follow electrolytes Status: Acute (4) Weakness: Problem comment: - therapies ordered Status: Acute (5) Mild cognitive impairment: Problem comment: - appears to have MCI on admission, will request screening through our therapy department Status: Acute Plan - per above - patient's son updated by phone, questions answered
[2024-09-07] MEDS: PANTOPRAZOLE SODIUM 40 MG INJ IVP (12:14)
--- NOTE | 2024-09-07 16:26 | PC.SOCIAL ---
Addendum entered by DEEPALI Perkins 09/08/24 09:10: Discharge planning: Pt will be in the hospital through the weekend. [facility] does not have a female short-term rehab bed for Wednesday. burlap worker will update the pt and her son and ask them for a preferred second location. Social work to follow-up as needed. Original Note: Discharge planning: burlap worker met with pt and her son to start early discharge planning. Pt is being recommended for short-term rehab by physical and occupational therapy. Pt would like this worker to look at [facility] in [place] for openings. burlap worker left a message with Michael Coe in Admissions at [facility] to inquire about openings. Social work to follow-up as needed.
--- NOTE | 2024-09-07 18:42 | PC.NURSE ---
End of shift [id number] - Pt arrived from ED at approximately 0815. Pt alert, oriented to self, situation, place. Difficulty noted with orientation to time and some recent impairment noted. Up with standby assistance and walker. RN provided frequent education regarding use of call light, pt verbally reported understanding but needed reinforcement. Pt denied pain, n/v, dizziness, and SOB. Appeared to be tearful when stating that she felt like her memory had changed in recent weeks. Stated that the test I took made me worse referring to the MRI imaging ordered by . RN provided education to pt regarding imaging and provided reassurance to the pt. RN transferred care to next RN at approximately 1500.
--- NOTE | 2024-09-07 19:52 | PC.NURSE ---
End of shift-- Very pleasant and cooperative patient. Alert and oriented this afternoon, but very forgetful. VSS and pt is afebrile. SPO2 maintained >90% on RA. She denied any pain or dizziness. LS CTA. Telemetry shows a sinus arrhythmia. She denied nausea and ate 50% of her dinner without difficulty. She was up to BR and ambulated in hallway with SBA and tolerated it well. Son was at bedside and appears loving and supportive. Report to RANDY Irizarry.
[2024-09-07] MEDS: SODIUM CHLORIDE 0.9 % (FLUSH) 10 ML SYRINGE 5 ML IVF (20:45)
[2024-09-07] MEDS: MELATONIN 3 MG TABLET PO (21:08)
[2024-09-08] VITALS (11 sets, daily range): BP systolic 136–155; BP diastolic 56–119; PULSE 64–95; RESP 18–20; TEMP 36.6–36.9; O2SAT 96–100
[2024-09-08] MEDS: ACETAMINOPHEN 325 MG TABLET 650 MG PO (02:36)
--- NOTE | 2024-09-08 06:42 | PC.NURSE ---
End of shift note [id number]: Pt A&O to person, place and time upon assessment though has intermittent confusion and needs frequent reorientation/reassurance. Pt NPO since midnight in prep for EGD scheduled for today. Pt requested to sleep in recliner and wear pants and sweater to bed including gown as well. PRN Tylenol administered for pt c/o bilateral leg cramps. Pt transferring/ambulating in room and hallway with SBA using 4WW and gait belt. Pt continent of bladder. She has been afebrile and on RA throughout the shift with no c/o CP or N/V. Tele in place with sinus arrhythmia noted. Pt noted to have poor sleep due to baseline anxiety and refusing to have light in room turned off for most of shift. Pt was given PRN Melatonin at HS last evening to promote sleep, along with providing aromatherapy patch. Chair alarm on and call light within reach. ?
[2024-09-08 06:56] LABS: Basophils Absolute Auto 0.06 K/uL (0.00-0.30); Basophils Percent Auto 1.2 % (0.0-3.0); Eosinophils Absolute Auto 0.16 K/uL (0.00-0.50); Eosinophils Percent Auto 3.3 % (0.0-7.0); Hemoglobin* 8.2 gm/dL (12.0-16.0); Immature Granulocytes Abs Auto 0.02 K/uL (0.00-0.30); Immature Granulocytes Pct Auto 0.4 %; Lymphocytes Percent Auto 13.5 % (20-44); Mean Corpuscular HGB Conc 30 gm/dL (32-36); Mean Corpuscular Hemoglobin 22 pg (26-34); Mean Corpuscular Volume 72 fL (80-100); Monocytes Percent Auto 14.5 % (0.0-11.0); Neutrophils Absolute Auto 3.27 K/uL (1.7-7.0); Neutrophils Percent Auto 67.1 % (42.0-72.0); Platelet Count* 319 K/uL (140-440); RDW Coefficient of Variation % 18.8 % (11.5-15.5); Red Blood Count 3.75 m/uL (4.00-5.20); White Blood Count* 4.88 K/uL (4.50-11.00)
[2024-09-08 07:06] LABS: Slide Review Reflex No
[2024-09-08 07:27] LABS: Albumin* 3.6 g/dL (3.3-5.0); Chloride* 102 mmol/L (96-114); Potassium* 4.5 mmol/L (3.6-5.1); Sodium* 131 mmol/L (135-149)
[2024-09-08 07:29] LABS: Anion Gap 7 mEq/L (7-15); Aspartate Amino Transferase* 19 U/L (12-35); Bilirubin Total* 0.4 mg/dL (0.1-1.5); Carbon Dioxide* 22 mmol/L (20-32); Creatinine* 0.6 mg/dL (0.5-1.5); Est. Creatinine Clearance* 35.52; Estimated Glomerular Filt Rate 88 ml/min; Total Protein* 6.1 g/dL (6.0-8.3)
[2024-09-08 07:30] LABS: Alanine Aminotransferase* 15 U/L (4-35); Alkaline Phosphatase* 70 U/L (40-150); Blood Urea Nitrogen* 26 mg/dL (7-30); Calcium* 8.9 mg/dL (8.4-10.6); Glucose* 105 mg/dL (60-115)
--- NOTE | 2024-09-08 09:15 | PC.SOCIAL ---
Addendum entered by DEEPALI Perkins 09/08/24 15:43: Discharge planning: Pt was accepted to [facility] for admission on Wednesday. Family will accept the bed. [facility] in [place] said that they would not be able to accept the pt until later in the week next week. Pt will not be able to stay in the hospital that long. Family were pleased with the plan for pt to go to [place]. Family will be to the hospital around 11am to pick the pt up to transport to [place]. Discharge orders need to be to [place] two hours before pt arrives, which would be around 10am. Social work to follow-up as needed. Addendum entered by DEEPALI Perkins 09/08/24 13:14: Discharge planning: Received a call back from Emmy at [facility] in [place] stating that she has some discharges early next week and she could review the referral to see if she has an appropriate bed, but shared that she most likely would not have a bed on Wednesday. lease out worker faxed the referral to Emmy at fax number #[phone]. Social work to follow-up as needed. Addendum entered by DEEPALI Perkins 09/08/24 12:57: Discharge planning: lease out worker met with pt's son and granddaughter again early this afternoon. Pt's granddaughter wanted this worker to cancel the referral for [facility] due to their rating with the [place] Department of Health and Human Services. Pt's family would like this worker to contact [facility] in [place] for placement. lease out worker left a message with Emmy #[phone] in Admissions at [facility] in [place] and asked if they had any female short-term rehab beds available on Wednesday09/11/24. lease out worker asked for a call back either way. Pt's granddaughter also said that this worker could send a referral to [facility], as they do have current rehab openings right now and they have a 5/5 rating. lease out worker secure emailed the referral to Kimi at [facility] at [email or web address]. Social work to follow-up as needed. Addendum entered by DEEPALI Perkins 09/08/24 11:07: Discharge planning: Grant shared that [facility] in [place] does not have openings for short-term rehab. Pt's referral will be reviewed for placement at [facility]. [facility] in [place], [place] also does not currently have any openings for female short-term rehab placement. Social work to follow-up as needed. Addendum entered by DEEPALI Perkins 09/08/24 11:03: Discharge planning: lease out worker spoke to pt's son, Anisha, this morning and explained that [facility] would not have any female TCU openings on Wednesday and [facility] in [place] is also saying that they don't have any TCU openings until 09/18/2024. Pt's son lives in [place] and said it would be fine for this worker to send pt's referral to [facility] in [place] and [facility] in [place]. lease out worker secure emailed the referral to Grant Bangura with [facility] who oversees Admissions for [facility] and [facility] at [email or web address]. Social work to follow-up as needed. Original Note: Discharge planning: Pt will be in the hospital through the weekend. [facility] does not have a female short-term rehab bed for Wednesday. lease out worker will update the pt and her son and ask them for a preferred second location. Social work to follow-up as needed.
--- NOTE | 2024-09-08 09:35 | P.ANES_ITS ---
Anesthesia Charges Start Date/Time Anesthesia Start Date: 09/08/24 Anesthesia Start Time: 09:17 Stop Date/Time Anesthesia Stop Date: 09/08/24 Anesthesia Stop Time: 09:31 Summary Extremes of Age - Over 70 or under 1: INSPECTOR SHELLS Coding CPT Codes CPT Codes: ANES UPR GI NDSC PX NOS - 94270 ([id number]) P3 - PATIENT W/SEVERE SYS DISEASE, QK - BUDGET EXAMINER 2-4 CNCRNT ANES PROC, QX - INSPECTOR SHELLS SVC W/ MD MED DIRECTION Additional Codes: Summary - Extremes of Age - Over 70 or under 1: INSPECTOR SHELLS ([id number])
--- NOTE | 2024-09-08 09:35 | W.ANESCHARGE ---
Anesthesia Charges Start Date/Time Anesthesia Start Date: 09/08/24 Anesthesia Start Time: 09:17 Stop Date/Time Anesthesia Stop Date: 09/08/24 Anesthesia Stop Time: 09:31 Summary Extremes of Age - Over 70 or under 1: RECORDS MANAGEMENT ENGINEER Coding CPT Codes CPT Codes: ANES UPR GI NDSC PX NOS - 62800 ([id number]) P3 - PATIENT W/SEVERE SYS DISEASE, QK - GOLD LEAF ROLLER 2-4 CNCRNT ANES PROC, QX - RECORDS MANAGEMENT ENGINEER SVC W/ MD MED DIRECTION Additional Codes: Summary - Extremes of Age - Over 70 or under 1: RECORDS MANAGEMENT ENGINEER ([id number])
--- NOTE | 2024-09-08 09:41 | W.ANESCHARGE ---
Anesthesia Charges Start Date/Time Anesthesia Start Date: 09/08/24 Anesthesia Start Time: 09:17 Stop Date/Time Anesthesia Stop Date: 09/08/24 Anesthesia Stop Time: : Summary Extremes of Age - Over 70 or under 1: MDA Coding CPT Codes CPT Codes: ANES UPR GI NDSC PX NOS - 92038 ([id number]) QK - SENIOR CENTER MANAGER 2-4 CNCRNT ANES PROC, P3 - PATIENT W/SEVERE SYS DISEASE Additional Codes: Summary - Extremes of Age - Over 70 or under 1: MDA ([id number])
--- NOTE | 2024-09-08 10:26 | PM.IMPN1 ---
Progress Note: A&P Assessment and plan (1) Anemia due to GI blood loss: Problem details: - lux of 7.9 on 09/01/24, status post 1U PRBCs - + FOBT 09/01/24 - Endoscopy reassuring without evidence of acute bleed - will need outpatient colonoscopy - PPI Status: Acute (2) Dizziness: Problem details: - ddx: anemia, atypical CVA, aortic stenosis/CHF given murmur and LE edema, orthostasis - MRI brain reassuring (recommend outpatient CTA to assess for possible aneurysm) - TTE, therapies, orthostatic VS, follow Hgb and lytes Status: Acute (3) Hyponatremia: Problem details: - sodium on admission 127, 09/08: 131 - per chart review, outpatient baseline 132-139 - encourage protein supplementation, will not place patient on fluid restriction given cognitive impairment and mild abnormality - follow electrolytes Status: Acute (4) Weakness: Problem details: - therapies ordered Status: Acute (5) Mild cognitive impairment: Problem details: - therapies following Status: Acute Plan - per above, likely d/c to TCU when bed available - SILVESTREs and Nathanael zapata for ppx (lovenox deferred given concern for GI bleed) Subjective Date Seen: 09/08/24 Interval history: Audra was admitted to the hospital on 09/07/24 for dizziness in the setting of new anemia, + cognitive impairment. Hgb noted to be 7.9 during ER visit 09/01/24, received 1U of PRBCs at that time. Was scheduled to see PCP to discuss outpatient colonoscopy, but dizziness/weakness persisted and she was seen again in ER on 09/02 and 09/07 (admitted after 09/07 visit). Since admission - no acute abnormalities on MRI (possible aneurysm, needs CTA for evaluation) - EGD 09/08 without acute bleeding - Hgb stable at 8.2, no evidence of melena or hematochezia - TTE pending 09/08 - therapies following, MOCA low, recommend TCU stay. Patient and son agreeable to TCU Audra has no concerns for hospitalist team this morning. VSS, Sodium improved at 131, Hgb stable at 8.2, renal function normal. Exam Narrative: Exam Narrative: GEN: Alert HEENT: + R ptosis, EOMIs bilaterally, no scleral icterus CV: RRR, + soft systolic murmur R: LCTA bilaterally without concerning wheezing Ext: 2+ edema BLE Skin: No concerning skin lesions or rashes on exposed skin Neuro: No focal deficits Psych: Cognitive impairment evident, no agitation Const: Vital Signs, click to edit/add: Vital Signs - 24 hr 09/07/24 12:49 09/07/24 12:49 09/07/24 13:11 Temperature 97.8 F 97.8 F Pulse Rate Pulse Rate [Pulse Oximeter] 95 87 Respiratory Rate 20 20 20 Blood Pressure [Ri ght Arm] Blood Pressure [Ri ght Radial Artery] 173/91 H 150/51 H Pulse Oximetry 99 99 98 Oxygen Delivery Me thod Room Air Room Air Room Air 09/07/24 15:00 09/07/24 15:11 09/07/24 15:43 Temperature Pulse Rate 91 Pulse Rate [Pulse Oximeter] 82 85 Respiratory Rate 16 20 Blood Pressure [Ri ght Arm] Blood Pressure [Ri ght Radial Artery] 104/50 L Pulse Oximetry 99 Oxygen Delivery Me thod Room Air 09/07/24 16:19 09/07/24 19:00 09/07/24 22:34 Temperature 98.4 F 98.2 F Pulse Rate 77 Pulse Rate [Pulse Oximeter] 82 90 Respiratory Rate 16 18 Blood Pressure [Ri ght Arm] 147/68 H Blood Pressure [Ri ght Radial Artery] 131/101 H Pulse Oximetry 98 96 Oxygen Delivery Me thod Room Air Room Air 09/07/24 22:47 09/07/24 23:00 09/08/24 02:54 Temperature 98.2 F 97.9 F Pulse Rate Pulse Rate [Pulse Oximeter] 90 90 69 Respiratory Rate 18 18 18 Blood Pressure [Ri ght Arm] 110/40 L 155/56 H Blood Pressure [Ri ght Radial Artery] Pulse Oximetry 100 100 Oxygen Delivery Me thod Room Air Room Air 09/08/24 07:30 Temperature 98.1 F Pulse Rate Pulse Rate [Pulse Oximeter] 64 Respiratory Rate 18 Blood Pressure [Ri ght Arm] 145/62 H Blood Pressure [Ri ght Radial Artery] Pulse Oximetry 99 Oxygen Delivery Me thod Room Air Labs Labs: Laboratory Results - last 24 hr 09/08/24 06:46 WBC 4.88 RBC 3.75 L Hgb 8.2 L Hct 27.0 L MCV 72 L MCH 22 L MCHC 30 L RDW Coeff of Afau 18.8 H Plt Count 319 Neut % (Auto) 67.1 Lymph % (Auto) 13.5 L [place] % (Auto) 14.5 H Eos % (Auto) 3.3 Baso % (Auto) 1.2 Neut # (Auto) 3.27 Lymph # (Auto) 0.70 L [place] # (Auto) 0.70 Eos # (Auto) 0.16 Baso # (Auto) 0.06 Abs Immat Gran (auto) 0.02 Imm/Tot Granulo (auto) 0.4 Sodium 131 L Potassium 4.5 Chloride 102 Carbon Dioxide 22 Anion Gap 7 BUN 26 Creatinine 0.6 Estimated Creat Clear 35.52 Estimated GFR 88 Glucose 105 Calcium 8.9 Total Bilirubin 0.4 AST 19 ALT 15 Alkaline Phosphatase 70 Total Protein 6.1 Albumin 3.6
[2024-09-08] MEDS: OMEPRAZOLE 20 MG CAPSULE DR 40 MG PO (10:48)
[2024-09-08] MEDS: lisinopriL 20 MG TABLET PO (10:48)
[2024-09-08] MEDS: SODIUM CHLORIDE 0.9 % (FLUSH) 10 ML SYRINGE 5 ML IVF ×2 (10:49→20:03)
--- NOTE | 2024-09-08 19:22 | PC.NURSE ---
End of Shift: Patient pleasant and cooperative. VSS, afebrile. SpO2 maintained above 90% on RA. Patient denies pain this shift. Regular diet. 1A with walker and gait belt. ?
[2024-09-09] VITALS (8 sets, daily range): BP systolic 131–180; BP diastolic 56–78; PULSE 71–91; RESP 16–22; TEMP 36.4–36.9; O2SAT 96–99
--- NOTE | 2024-09-09 06:34 | PC.NURSE ---
Addendum entered by Edie Morales RN 09/09/24 06:36: Pt compliant with wearing TEDs to BLEs most of shift though requested to have removed this morning despite education and encouragement. Original Note: End of shift note [id number]: Pt A&O to person, place and time though has intermittent confusion noted and needs a lot of reassurance due to baseline anxiety and upcoming tentative discharge to [facility] on 09/11/24. Pt transfers/ambulates with SBA using 4WW and gait belt. She has been denying pain when asked. No c/o CP or N/V noted. VSS- pt has been afebrile and on RA throughout the shift. Pt tolerating regular diet. Tele in place with sinus arrhythmia noted. She has been continent of bladder and requested to sleep in recliner again. Chair alarm on, call light within reach.
[2024-09-09 06:41] LABS: Basophils Absolute Auto 0.05 K/uL (0.00-0.30); Eosinophils Absolute Auto 0.12 K/uL (0.00-0.50); Eosinophils Percent Auto 2.4 % (0.0-7.0); Hematocrit 28.9 % (33.0-51.0); Hemoglobin* 8.8 gm/dL (12.0-16.0); Immature Granulocytes Abs Auto 0.01 K/uL (0.00-0.30); Immature Granulocytes Pct Auto 0.2 %; Lymphocytes Percent Auto 9.6 % (20-44); Mean Corpuscular HGB Conc 30 gm/dL (32-36); Mean Corpuscular Hemoglobin 22 pg (26-34); Mean Corpuscular Volume 72 fL (80-100); Monocytes Percent Auto 11.2 % (0.0-11.0); Neutrophils Percent Auto 75.6 % (42.0-72.0); Platelet Count* 335 K/uL (140-440); RDW Coefficient of Variation % 18.7 % (11.5-15.5); Red Blood Count 4.03 m/uL (4.00-5.20); White Blood Count* 4.98 K/uL (4.50-11.00)
[2024-09-09 06:55] LABS: Slide Review Reflex No
[2024-09-09 07:03] LABS: Chloride* 101 mmol/L (96-114); Potassium* 4.2 mmol/L (3.6-5.1); Sodium* 132 mmol/L (135-149)
[2024-09-09 07:06] LABS: Anion Gap 11 mEq/L (7-15); Blood Urea Nitrogen* 15 mg/dL (7-30); Carbon Dioxide* 20 mmol/L (20-32); Creatinine* 0.5 mg/dL (0.5-1.5); Est. Creatinine Clearance* 35.52; Estimated Glomerular Filt Rate 92 ml/min
[2024-09-09 07:07] LABS: Calcium* 9.1 mg/dL (8.4-10.6); Glucose* 110 mg/dL (60-115)
[2024-09-09] MEDS: lisinopriL 20 MG TABLET PO (08:35)
[2024-09-09] MEDS: OMEPRAZOLE 20 MG CAPSULE DR 40 MG PO (08:36)
[2024-09-09] MEDS: SODIUM CHLORIDE 0.9 % (FLUSH) 10 ML SYRINGE 5 ML IVF (08:36)
--- NOTE | 2024-09-09 14:43 | PM.IMPN1 ---
Progress Note: A&P Assessment and plan (1) Anemia due to GI blood loss: Problem details: - stable hb 8.8, status post PRBCs transfusion. - + FOBT 09/01/24 - Endoscopy reassuring without evidence of acute bleed - will need outpatient colonoscopy - PPI Status: Acute (2) Dizziness: Problem details: - ddx: anemia, atypical CVA (unlikely s/p MRI), aortic stenosis/CHF given murmur and LE edema, orthostasis - MRI brain reassuring (recommend outpatient CTA to assess for possible aneurysm) - TTE, therapies, orthostatic VS, follow Hgb and lytes Status: Acute (3) Hyponatremia: Problem details: - sodium on admission 127 -> 131 -> 132. - per chart review, outpatient baseline 132-139 - encourage protein supplementation, will not place patient on fluid restriction given cognitive impairment and mild abnormality - follow electrolytes Status: Acute (4) Weakness: Problem details: - therapies ordered Status: Acute (5) Mild cognitive impairment: Problem details: - therapies following Status: Acute Plan -[facility] on Wednesday/family transport at 11am Time Spent With Patient Total time spent: Today I spent 50 minutes seeing the patient, reviewing Expanse and EPIC notes/diagnostics, discussing the care plan with our care time that includes social work, PT/OT, pharmacy, RT, jail and documenting my impressions and plan in the medical record. Subjective Date Seen: 09/09/24 Interval history: No acute events overnight. Pt seen at bedside, no new complaints. Hb stable this AM at 8.8. Pending placement on Wednesday. Exam Narrative: Exam Narrative: Physical exam GENERAL: Comfortable, no acute distress. HEAD AND NECK: Atraumatic, normocephalic CARDIOVASCULAR: RRR. Normal S1, S2. NEUROLOGY: Alert, awake. Normal speech. PSYCH: Normal mood, normal affect. Const: Vital Signs, click to edit/add: Vital Signs - 24 hr 09/08/24 15:00 09/08/24 16:23 09/08/24 16:28 Temperature 98.2 F Pulse Rate 95 Pulse Rate [Apical ] Pulse Rate [Pulse Oximeter] 90 90 Respiratory Rate 18 18 Blood Pressure [Ri ght Arm] 136/58 L Pulse Oximetry 98 Oxygen Delivery Me thod Room Air 09/08/24 20:01 09/08/24 22:55 09/08/24 23:00 Temperature 98.2 F 98.5 F Pulse Rate Pulse Rate [Apical ] Pulse Rate [Pulse Oximeter] 80 88 88 Respiratory Rate 18 20 20 Blood Pressure [Ri ght Arm] 150/60 H 142/57 H Pulse Oximetry 96 96 Oxygen Delivery Me thod Room Air Room Air 09/08/24 23:12 09/09/24 03:00 09/09/24 07:47 Temperature 98.0 F Pulse Rate 71 71 Pulse Rate [Apical ] Pulse Rate [Pulse Oximeter] 71 Respiratory Rate 18 Blood Pressure [Ri ght Arm] 149/63 H Pulse Oximetry 97 Oxygen Delivery Me thod Room Air 09/09/24 08:34 09/09/24 12:17 Temperature 98.1 F 97.6 F Pulse Rate Pulse Rate [Apical ] 85 Pulse Rate [Pulse Oximeter] 91 Respiratory Rate 18 16 Blood Pressure [Ri ght Arm] 180/64 H 131/56 L Pulse Oximetry 97 99 Oxygen Delivery Me thod Room Air Room Air Labs Labs: Laboratory Results - last 24 hr 09/09/24 06:05 WBC 4.98 RBC 4.03 Hgb 8.8 L Hct 28.9 L MCV 72 L MCH 22 L MCHC 30 L RDW Coeff of Afua 18.7 H Plt Count 335 Neut % (Auto) 75.6 H Lymph % (Auto) 9.[address] [place] % (Auto) 11.2 H Eos % (Auto) 2.4 Baso % (Auto) 1.0 Neut # (Auto) 3.80 Lymph # (Auto) 0.[address] [place] # (Auto) 0.60 Eos # (Auto) 0.12 Baso # (Auto) 0.05 Abs Immat Gran (auto) 0.01 Imm/Tot Granulo (auto) 0.2 Sodium 132 L Potassium 4.2 Chloride 101 Carbon Dioxide 20 Anion Gap 11 BUN 15 Creatinine 0.5 Estimated Creat Clear 35.52 Estimated GFR 92 Glucose 110 Calcium 9.1
[2024-09-10 03:00] VITALS: RESP 18
--- NOTE | 2024-09-10 06:11 | PC.NURSE ---
[id number] Pt slept in recliner, up to BR frequently with walker, GB, SBA, tolerating activity well.
[2024-09-10 06:32] LABS: Hemoglobin* 8.3 gm/dL (12.0-16.0)
[2024-09-10 07:00] VITALS: BP 135/57; PULSE 87; RESP 20; TEMP 36.8; O2SAT 97
[2024-09-10] MEDS: OMEPRAZOLE 20 MG CAPSULE DR 40 MG PO (09:15)
[2024-09-10] MEDS: FERROUS SULFATE 325 MG TABLET PO (09:15)
[2024-09-10] MEDS: lisinopriL 20 MG TABLET PO (09:15)
[2024-09-10 11:00] VITALS: BP 157/60; PULSE 85; RESP 18; TEMP 37.2; O2SAT 97
--- NOTE | 2024-09-10 13:03 | PM.IMPN1 ---
Progress Note: A&P Assessment and plan (1) Anemia due to GI blood loss: Problem details: - stable hb, status post PRBCs transfusion. - + FOBT 09/01/24 - Endoscopy reassuring without evidence of acute bleed - will need outpatient colonoscopy - PPI Status: Acute (2) Dizziness: Problem details: - dizziness resolved status post packed RBC transfusion. - MRI brain reassuring (recommend outpatient CTA to assess for possible aneurysm) - TTE, therapies, orthostatic VS, follow Hgb and lytes Status: Resolved (3) Hyponatremia: Problem details: - sodium on admission 127 -> 131 -> 132. - per chart review, outpatient baseline 132-139 - encourage protein supplementation, will not place patient on fluid restriction given cognitive impairment and mild abnormality - follow electrolytes Status: Acute (4) Weakness: Problem details: - therapies ordered Status: Acute (5) Mild cognitive impairment: Problem details: - therapies following Status: Acute Plan -[facility] Wednesday/family transport at 11am Time Spent With Patient Total time spent: Today I spent 50 minutes seeing the patient, reviewing Expanse and EPIC notes/diagnostics, discussing the care plan with our care time that includes social work, PT/OT, pharmacy, RT, [facility] and documenting my impressions and plan in the medical record. Subjective Date Seen: 09/10/24 Interval history: No acute events overnight. Pt seen at bedside, patient states that she feels well and she is not dizzy or lightheaded anymore, patient denies any pain or discomfort, she is tolerating food, only able to have normal bowel movements. Hb stable this AM at 8.3. Pending placement on Wednesday. Exam Narrative: Exam Narrative: Physical exam GENERAL: Comfortable, no acute distress. HEAD AND NECK: Atraumatic, normocephalic CARDIOVASCULAR: RRR. Normal S1, S2. No murmurs. RESPIRATORY: Clear to auscultation B/L. Good air entry B/L. No wheezes or rhonchi. GASTROINTESTINAL: Not distended, not tender to palpation. NEUROLOGY: Alert, awake. Normal speech. PSYCH: Normal mood, normal affect. Const: Vital Signs, click to edit/add: Vital Signs - 24 hr 09/09/24 16:20 09/09/24 18:05 09/09/24 20:00 Temperature 97.9 F 98.5 F Pulse Rate 81 Pulse Rate [Apical ] 89 Pulse Rate [Pulse Oximeter] 83 Respiratory Rate 16 22 Blood Pressure [Ri ght Arm] 174/70 H 157/67 H Pulse Oximetry 96 97 Oxygen Delivery [place] thod Room Air Room Air 09/09/24 23:00 09/10/24 03:00 09/10/24 07:00 Temperature 97.9 F Pulse Rate Pulse Rate [Apical ] Pulse Rate [Pulse Oximeter] 90 87 Respiratory Rate 18 18 20 Blood Pressure [Ri ght Arm] 146/78 H Pulse Oximetry 96 Oxygen Delivery [place] thod Room Air 09/10/24 07:00 09/10/24 11:00 Temperature 98.3 F 98.9 F Pulse Rate Pulse Rate [Apical ] Pulse Rate [Pulse Oximeter] 87 85 Respiratory Rate 20 18 Blood Pressure [Ri ght Arm] 135/57 L 157/60 H Pulse Oximetry 97 97 [facility] Labs Labs: Laboratory Results - last 24 hr 09/10/24 06:00 Hgb 8.3 L
[2024-09-10 15:00] VITALS: BP 142/75; PULSE 84; RESP 18; TEMP 36.7; O2SAT 96
[2024-09-10 19:00] VITALS: BP 134/59; PULSE 86; RESP 18; TEMP 36.9; O2SAT 98
--- NOTE | 2024-09-10 19:42 | PC.NURSE ---
End of Shift: Patient pleasant and cooperative. Afebrile. Denies pain. Up to chair, bathroom and for walks in hallway with SBA, walker and gait belt. Denies any lightheadedness or dizziness. Tolerating regular diet with no nausea.
[2024-09-10 22:54] VITALS: BP 150/58; PULSE 80; RESP 18; TEMP 36.9; O2SAT 97
[2024-09-10] MEDS: ACETAMINOPHEN 325 MG TABLET 650 MG PO (23:55)
[2024-09-10] MEDS: MELATONIN 3 MG TABLET PO (23:56)
[2024-09-11 03:00] VITALS: BP 137/55; PULSE 78; RESP 18; TEMP 37.1; O2SAT 97
--- NOTE | 2024-09-11 05:02 | PC.NURSE ---
Shift note: Pt is doing well as no GI bleed noted this shift. Ambulated with A1, walker and GB. At 2330, pt was confused and constantly said I am scared. Pt reported to have had nightmare which got her scared. Coloplast dressing to the coccyx intact and clean. Vitally stable. Pt has been in recliner throughout the night. She said, normally, she get back pain when she sleep in bed.
[2024-09-11 07:40] VITALS: BP 142/71; PULSE 85; RESP 18; TEMP 36.8; O2SAT 99
--- NOTE | 2024-09-11 09:20 | P.DS_ITS ---
DS: Providers Provider Date Seen: 09/11/24 Date of admission: 09/07/24 08:23 Primary care physician: Emmy Harley MD Admitting Clinician: Nicole Alamo MD Consults: 09/07/24 09:13 Consult to Physical Therapy [CONS] Routine Comment: Reason(s) for PT Consult:: Evaluate and Treat Any Restrictions?:: No Restrictions Consult to Graphic Designer [CONS] Routine Comment: Reason for Consult:: Discharge Planning Needs 09/07/24 09:15 Consult to Occupational Therapy [CONS] Routine Comment: Reason(s) for OT Consult:: Evaluate and Treat Any Restrictions?:: No Restrictions Attending Physician on discharge: FOREIGN RAE MD DS: Diagnosis Discharge Diagnosis (1) Anemia due to GI blood loss: Status: Acute Problem details: - stable hb, status post PRBCs transfusion. - + FOBT 09/01/24 - Endoscopy reassuring without evidence of acute bleed - will need outpatient colonoscopy - PPI (2) Dizziness: Status: Resolved Problem details: - dizziness resolved status post packed RBC transfusion. - MRI brain reassuring (recommend outpatient CTA to assess for possible aneurysm) - TTE, therapies, orthostatic VS, follow Hgb and lytes (3) Hyponatremia: Status: Acute Problem details: - sodium on admission 127 -> 131 -> 132. - per chart review, outpatient baseline 132-139 - encourage protein supplementation, will not place patient on fluid restriction given cognitive impairment and mild abnormality - follow electrolytes (4) Weakness: Status: Acute Problem details: - therapies ordered (5) Mild cognitive impairment: Status: Acute Problem details: - therapies following DS: Summary Hospital Course Hospital Course: Audra Araujo is a 84 year old female who presented to our emergency room this evening for persistent weakness and dizziness. She has been seen in the ER thrice this week; during 1st visit on 09/01/2024, she was noted to have a hemoglobin of 7.9 and + FOBT, received 1 unit of blood and referral for colonoscopy through PCP. Previous Hgb 11.0 (08/2022; hadn't had a Hgb prior to that for the past 4-5 years). Seen again for persistent symptoms with stable labs on 09/02, then again early this morning for persistent weakness and dizziness. During this admission Brain MRI was w/out acute changes, ECHO and EGD were unrenmarkable, no active bleeding. Stable hb, status post PRBCs transfusion & will need outpatient colonoscopy. Pt improved and was not Dizzy anymore on DC to SNF. Time Spent with Patient Time attestation: Total time spent providing and/or coordinating discharge services: 40 min Exam 2 Narrative: Exam Narrative: Physical exam GENERAL: Comfortable, no acute distress. HEAD AND NECK: Atraumatic, normocephalic CARDIOVASCULAR: RRR. Normal S1, S2. No murmurs. RESPIRATORY: Clear to auscultation B/L. Good air entry B/L. No wheezes or rhonchi. GASTROINTESTINAL: Not distended, not tender to palpation. NEUROLOGY: Alert, awake, oriented X 3. Normal speech. PSYCH: Normal mood, normal affect. Const: Vital Signs, click to edit/add: Vital Signs - 24 hr 09/10/24 11:00 09/10/24 15:00 09/10/24 15:00 Temperature 98.9 F 98.1 F Pulse Rate [Pulse Oximeter] 85 84 84 Respiratory Rate 18 18 18 Blood Pressure [Ri ght Arm] 157/60 H 142/75 H Pulse Oximetry 97 96 Oxygen Delivery Me thod Room Air Room Air 09/10/24 19:00 09/10/24 22:54 09/10/24 22:54 Temperature 98.4 F 98.4 F Pulse Rate [Pulse Oximeter] 86 80 Respiratory Rate 18 18 18 Blood Pressure [Ri ght Arm] 134/59 L 150/58 H Pulse Oximetry 98 97 Oxygen Delivery Me thod Room Air Room Air 09/11/24 03:00 09/11/24 07:40 09/11/24 07:40 Temperature 98.8 F 98.2 F Pulse Rate [Pulse Oximeter] 78 85 85 Respiratory Rate 18 18 18 Blood Pressure [Ri ght Arm] 137/55 L 142/71 H Pulse Oximetry 97 99 Oxygen Delivery Me thod Room Air Room Air Discharge Plan Discharge Disposition: [facility] Date of Admission: 09/07/24 08:23 Attending Provider on Discharge: Foreign Rae Primary Care Provider: Emmy Harley Discharge Medications: Continued omeprazole 40 mg capsule,delayed release(DR/EC) 40 mg PO DAILY Qty: 14 0RF Vitron-C 65 mg iron- 125 mg tablet,delayed release (DR/EC) 1 tab PO BID Qty: 60 0RF lisinopril 20 mg tablet 20 mg PO DAILY multivitamin Tablet 1 tab PO DAILY PreserVision AREDS-2 250-90-40-1 mg capsule 1 tab PO BID Discontinued lorazepam 0.5 mg tablet 0.5 mg PO Q8H PRN (Reason: anxiety) Discharge Orders: Discharge Order (Routine); Ordered 09/11/24 Ordered By: Foreign Rae Additional Instructions: You need to follow-up with your primary care physician within 1-2 weeks Discuss with your primary care physician if there is any need for referral to a GI doctor due to history of anemia. Activity Level: Activity as Tolerated Discharge Diet: Regular Follow Up Appointments: Emmy Harley MD [Primary Care Provider] - Forms: [facility] Info Instructions Admit to: SNF Discharge Potential: Good Length of Stay: <30 days Can use facility standing orders?: Yes Code Status: Full Code TEDs: Bilateral Knee Rehab Potential: Fair Therapy: Physical Therapy and Occupational Therapy Therapy Orders: Evaluate and Treat Oxygen: No Urinary Catheter: No
[2024-09-11] MEDS: lisinopriL 20 MG TABLET PO (09:38)
[2024-09-11] MEDS: FERROUS SULFATE 325 MG TABLET PO (09:38)
[2024-09-11] MEDS: OMEPRAZOLE 20 MG CAPSULE DR 40 MG PO (09:38)
--- NOTE | 2024-09-11 11:09 | PC.SOCIAL ---
Discharge planning: Pt will discharge to [facility] for short-term rehab today. Discharge orders were secure emailed to Kimi at [facility], [email or web address]. Pre-admission screening was also completed and sent to Kimi via secure email. [id number]. Pt was provided with a copy of The Important Message from Medicare form. Pt does not plan to appeal her discharge and is pleased with her discharge plan. Pt's son will transport her to [place]. Social work to follow-up as needed.
--- NOTE | 2024-09-11 11:37 | PC.NURSE ---
PATIENT DENIES ABDOMINAL PAIN OR NAUSEA/VOMITING. TOLERATING REGULAR DIET. ORIENTED TO PLACE AND SELF BUT NOT ALWAYS SITUATION. FORGETFUL AT TIMES AND REQUIRES REDIRECTION. UP WITH SBA AND WALKER. DENIES FEELING DIZZY OR LIGHTHEADED. REPORT GIVEN TO NURSE AT [facility] TCU AND PATIENT TRANSFERRED VIA SON.
== END 2024-09-11 11:05 | DRG 812 ==
LOC: ED 07:29 → MEDSURG 08:21
PROVIDERS: Student in an Organized Health Care Education/Training Program; Admitting Provider Family Medicine; Emergency Provider Family Medicine; PCP Family Medicine; Visit Provider Family Medicine
DX: D62 Acute posthemorrhagic anemia (principal); K92.2 Gastrointestinal hemorrhage, unspecified; E87.1 Hypo-osmolality and hyponatremia; K31.819 Angiodysplasia of stomach and duodenum without bleeding; D50.9 Iron deficiency anemia, unspecified; R42 Dizziness and giddiness; R60.0 Localized edema; I10 Essential (primary) hypertension; G31.84 Mild cognitive impairment of uncertain or unknown etiology; K21.00 Gastro-esophageal reflux disease with esophagitis, without bleeding
CPT/HCPCS: 00731; 36415; 43235; 70551; 80048; 80053; 81001; 83605; 84484; 85018; 85025; 86140; 86850; 86900; 86901; 87631; 93005; 93306; 94761; 97110; 97112; 97116; 97161; 97165; 97535; 97542; 99100; 99284; 99285; A9270; J2470; J2704; J3010

== ENCOUNTER 2024-10-06 09:26 | Outpatient (CLI) | payer MEDICARE, BC, SELFPAY ==
--- NOTE | 2024-10-06 11:13 | W.ANESCHARGE ---
Anesthesia Charges Start Date/Time Anesthesia Start Date: 10/06/24 Anesthesia Start Time: 10:50 Stop Date/Time Anesthesia Stop Date: 10/06/24 Anesthesia Stop Time: 11:17 Summary Extremes of Age - Over 70 or under 1: STATE WILDLIFE OFFICER Coding CPT Codes CPT Codes: JOSE LWR INTST NDSC NOS - 89735 ([id number]) P2 - PATIENT W/MILD SYST DISEASE, QX - STATE WILDLIFE OFFICER SVC W/ MD MED DIRECTION, QK - POOL LIFEGUARD 2-4 CNCRNT ANES PROC Additional Codes: Summary - Extremes of Age - Over 70 or under 1: STATE WILDLIFE OFFICER ([id number])
--- NOTE | 2024-10-06 11:19 | W.ANESCHARGE ---
Anesthesia Charges Start Date/Time Anesthesia Start Date: 10/06/24 Anesthesia Start Time: 10:50 Stop Date/Time Anesthesia Stop Date: 10/06/24 Anesthesia Stop Time: 11:17 Summary Extremes of Age - Over 70 or under 1: MDA Coding CPT Codes CPT Codes: ANES LWR INTST NDSC NOS - 50641 ([id number]) P2 - PATIENT W/MILD SYST DISEASE, QK - LUMBER SALES SUPERVISOR 2-4 CNCRNT ANES PROC, QX - LINING STAMPER SVC W/ MD MED DIRECTION Additional Codes: Summary - Extremes of Age - Over 70 or under 1: MDA ([id number])
== END 2024-10-06 09:27 | disposition home or self-care (01) ==
LOC: OP CLINIC 09:27
PROVIDERS: PCP Family Medicine; Visit Provider Internal Medicine Gastroenterology
DX: D50.9 Iron deficiency anemia, unspecified (principal); D12.0 Benign neoplasm of cecum; K64.8 Other hemorrhoids
CPT/HCPCS: 00811; 45385; 88305; 99100; J2405; J2704

== ENCOUNTER 2024-10-16 12:54 | Outpatient (CLI) | payer MEDICARE, BC, SELFPAY | END 2024-10-16 12:55 | disposition home or self-care (01) | LOC: AMB 10-18 15:30 | PROVIDERS: PCP Family Medicine; Visit Provider Family Medicine | DX: R10.9 Unspecified abdominal pain (principal) | CPT/HCPCS: A0425; A0427 ==

== ENCOUNTER 2024-10-16 13:11 | Inpatient (IN) | payer MEDICARE, BC, SELFPAY ==
[2024-10-16 13:18] VITALS: BP 180/71; PULSE 86; RESP 20; TEMP 36.8; O2SAT 96
--- NOTE | 2024-10-16 13:38 | ED.ABDPAIN ---
HPI - Abdominal Pain General Date Seen: 10/16/24 Chief Complaint: Abdominal Pain Stated Complaint: Abdominal Pain Time Seen by Provider: 10/16/24 13:13 Source: patient, EMS, RN notes reviewed and old records reviewed Mode of arrival: EMS Limitations: no limitations History of Present Illness HPI narrative: 84-year-old female presents here by EMS with abdominal pain. She comes in from [facility], she describes abdominal pain for the last 2-4 hours, there is a limitation of her memory, as she tends to ramble about issues. I notice this in her recent visits that there were describing mild cognitive impairment. She is able to tell me that she ate breakfast this morning, did not eat lunch because there were some abdominal pain with this has not vomited did not feel any nausea associated with this she describes her abdominal pain is generalized. She has recently undergone a colonoscopy for anemia, does not think she is constipated in fact she tells me only yesterday did she start having bowel movements. Denies any dysuria frequency associated with this, she says currently she has no abdominal pain at all. She did get up and walk around outside, to see if this would help the discomfort History of colonoscopy, history of EGD MD elicited complaint: abdominal pain Related Data Home Medications ?Medication ?Instructions ?Recorded ?Confirmed lisinopril 20 mg tablet 20 mg PO DAILY 08/25/22 09/07/24 multivitamin 1 tab PO DAILY 09/07/24 09/07/24 vit C 250 mg-vit E 90 mg-zinc 40 1 tab PO BID 09/07/24 09/07/24 mg-copper 1 mw-uaekko-gpkzgk capsule (PreserVision AREDS-2) Previous Rx's ?Medication ?Instructions ?Recorded omeprazole 40 mg capsule,delayed 40 mg PO DAILY #14 caps 07/17/24 release iron,carbonyl 65 mg-vitamin C 125 1 tab PO BID #60 tabs 09/01/24 mg tablet,delayed release (Vitron-C) Allergies Allergy/AdvReac Type Severity Reaction Status Date / Time sertraline AdvReac Intermediate Nightmares Verified 09/07/24 05:25 Review of Systems Status of ROS Reports: 10 or more systems reviewed and unremarkable except as noted in History and below PFSH PFS Medical History Mild cognitive impairment ?G31.84 - Mild cognitive impairment of uncertain or unknown etiology (ICD-10) Rotator cuff injury ?S46.009A - Unspecified injury of muscle(s) and tendon(s) of the rotator cuff of unspecified shoulder, initial encounter (ICD-10) Vitamin D deficiency ?E55.9 - Vitamin D deficiency, unspecified (ICD-10) GERD with esophagitis ?K21.00 - Gastro-esophageal reflux disease with esophagitis, without bleeding (ICD-10) 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.0 - Iron deficiency anemia secondary to blood loss (chronic) (ICD-10) Hemorrhoids ?K64.9 - Unspecified hemorrhoids (ICD-10) Osteopenia ?M85.80 - Other specified disorders of bone density and structure, unspecified site (ICD-10) Diverticulosis of colon (without mention of hemorrhage) ?K57.30 - Diverticulosis of large intestine without perforation or abscess without bleeding (ICD-10) Surgical History History of colonoscopy ?Z98.890 - Other specified postprocedural states (ICD-10) History of esophagogastroduodenoscopy ?Z98.890 - Other specified postprocedural states (ICD-10) Social History Narrative: Independent apartment at [facility], no current services. Son Anisha would be medical decision maker if needed, he lives in [place]. Nonsmoker, rare ETOH. Full code. What is your current living situation?: I presently have a place to live Problems where you live: no known problems Problems where you live details: n/a In the past 12 months, utilities in danger of being shut off: no In past 12 months, lack of transportation kept you from medical appts, meetings, work, or getting things needed for daily living: no In the past 12 mos, have been you worried that your food would run out before you had money to buy more?: never true In the past 12 mos, the food you bought just didn't last and you didn't have money to buy more?: never true Smoking Status: Never smoker Do you use any of these nicotine containing products: None Second hand tobacco smoke exposure: No How often do you have a drink containing alcohol: never How often do you have six or more drinks on one occasion: Never AUDIT-C Alcohol total score: 0 Non-prescribed substance use: denies use Caffeine: No How often does anyone, including family, friends and others, physically hurt you: never How often does anyone, including family, friends and others, insult or talk down to you: never How often does anyone, including family, friends and others, threaten you with harm: never How often does anyone, including family, friends and others, scream or curse at you: never Exam Narrative: Exam Narrative: on examination room 5 she is in absolutely no distress she is able to get up walk from the ambulance gurney to the bed, her pupils are equal round reactive to light there is no scleral icterus redness or TMs are normal oropharynx is normal her chest is good air entry bilateral with no wheezing crackles noted her heart sounds are normal no clicks murmurs or gallops, her abdomen is soft there is no guarding no organomegaly, bowel sounds are normal throughout all quadrants, and there is no tenderness to palpation, no CVA tenderness is noted, she moves all extremities independently and well, neurologically intact in her upper lower extremities, skin reveals no petechiae rashes. Const: Vital Signs, click to edit/add: Vital Signs - 24 hr 10/16/24 13:18 10/16/24 13:18 Temperature 98.2 F Pulse Rate [Pulse Oximeter] 86 Respiratory Rate 20 Blood Pressure [Ri ght Forearm] 180/71 H Pulse Oximetry 96 96 Oxygen Delivery Me thod Room Air Documenting provider has reviewed patient's vital signs: yes Course Course ED Course: Patient continued to have no abdominal pain, her sodium came back at 123 which she was in low 130s a month previous. I suspect that this is some of the cause of her chronic dizziness, although she does have the cognitive issues, nevertheless she has no abdominal pain review of her flat and upright x-ray shows nonspecific gas pattern I am waiting for Radiology to review this. I did speak to Dr. Bergeron from [facility] who agreed to admit her, we will put on 150 mL an hour normal saline. To slowly bring up her sodium level. He Her flat and upright read by Radiology showing moderate stool burden, this could be some of her cause of her abdominal discomfort, along with normal sodium. Vital Signs Vital signs: Initial Vital Signs Temperature 98.2 F 10/16/24 13:18 Temperature Source Temporal Artery Scan 10/16/24 13:18 Pulse Rate 86 10/16/24 13:18 Respiratory Rate 20 10/16/24 13:18 Blood Pressure 180/71 H 10/16/24 13:18 Blood Pressure Mean 107 H 10/16/24 13:18 Pulse Oximetry 96 10/16/24 13:18 Oxygen Delivery Method Room Air 10/16/24 13:18 Vital Signs Temperature 98.2 F 10/16/24 13:18 Pulse Rate 86 10/16/24 13:18 Respiratory Rate 20 10/16/24 13:18 Blood Pressure 180/71 H 10/16/24 13:18 Pulse Oximetry 96 10/16/24 13:18 Oxygen Delivery Method Room Air 10/16/24 13:18 Temperature 98.2 F 10/16/24 13:18 Pulse Rate 86 10/16/24 13:18 Respiratory Rate 20 10/16/24 13:18 Blood Pressure 180/71 H 10/16/24 13:18 Pulse Oximetry 96 10/16/24 13:18 Oxygen Delivery Method Room Air 10/16/24 13:18 Medications Administered Medications: Generic Name Dose Route Start Last Admin Trade Name Freq PRN Reason Stop Dose Admin Sodium Chloride 1,000 mls @ 150 mls/hr 10/16/24 14:30 10/16/24 14:39 0.9 % Sodium Chloride 1000 Ml IV 150 mls/hr .[id number] JUAN Administration MDM - Abdominal Pain MDM Narrative Medical decision making narrative: During the evaluation of this patient I considered multiple differential diagnosis including life-threatening differentials which are appendicitis, aortic aneurysm, mesenteric ischemia, bowel perforation, ectopic , volvulus and bowel obstruction, other differential diagnosis include but are not limited to inflammatory bowel disease, cholecystitis, pancreatitis, hepatitis, gastritis, GERD, diverticulitis, peptic ulcer disease, pyelonephritis/UTI, renal colic/stone, pelvic inflammatory disease, cervicitis, endometritis, intrauterine , dysfunctional uterine bleeding, ovarian cyst/torsion, spontaneous as well as other etiologies I do think that there is likely a component of anxiety here, given what she has recently been through and her other issues such as mild cognitive impairment. We will however do some laboratory tests and the flat and upright, if this is all negative and she is feeling well and I think we can reassure her let her go home. Medical Records Attestation: I reviewed the patient's medical records. Lab Data Attestation: I reviewed the patient's lab results. Labs: Lab Results 10/16/24 10/16/24 Range/Units 13:17 13:33 WBC 7.67 (4.50-11.00) K/uL RBC 4.54 (4.00-5.20) m/uL Hgb 10.9 L (12.0-16.0) gm/dL Hct 34.6 (33.0-51.0) % MCV 76 L (80-100) fL MCH 24 L (26-34) pg MCHC 32 (32-36) gm/dL RDW Coeff of Afua 25.2 H (11.5-15.5) % Plt Count 355 (140-440) K/uL Neut % (Auto) 81.8 H (42.0-72.0) % Lymph % (Auto) 7.3 L (20-44) % [place] % (Auto) 9.8 (0.0-11.0) % Eos % (Auto) 0.5 (0.0-7.0) % Baso % (Auto) 0.5 (0.0-3.0) % Neut # (Auto) 6.30 (1.7-7.0) K/uL Lymph # (Auto) 0.60 L (0.90-2.90) K/uL [place] # (Auto) 0.80 (0.00-0.90) K/UL Eos # (Auto) 0.04 (0.00-0.50) K/uL Baso # (Auto) 0.04 (0.00-0.30) K/uL Abs Immat Gran (auto) 0.01 (0.00-0.30) K/uL Imm/Tot Granulo (auto) 0.1 % INR 1.00 (0.91-1.10) APTT 28 (23-33) Seconds D-Dimer Quant (PE/DVT) 0.78 H (0.00-0.50) ug/ml Sodium 123 L* (135-149) mmol/L Potassium 4.3 (3.6-5.1) mmol/L Chloride 93 L (96-114) mmol/L Carbon Dioxide 20 (20-32) mmol/L Anion Gap 10 (7-15) mEq/L BUN 16 (7-30) mg/dL Creatinine 0.5 (0.5-1.5) mg/dL Estimated GFR 92 ml/min Glucose 100 (60-115) mg/dL Lactate 0.9 (0.5-1.9) mmol/L Calcium 9.4 (8.4-10.6) mg/dL Total Bilirubin 0.4 (0.1-1.5) mg/dL Direct Bilirubin 0.2 (0.0-0.5) mg/dL AST 19 (12-35) U/L ALT 15 (4-35) U/L Alkaline Phosphatase 76 (40-150) U/L C-Reactive Protein < 0.5 L (0.5-1.0) mg/dL Total Protein 7.1 (6.0-8.3) g/dL Albumin 4.3 (3.3-5.0) g/dL Amylase 65 (18-89) U/L Lipase 94 (23-300) U/L Procalcitonin 0.06 (<0.50) ng/mL Imaging Data Abdominal x-ray: Attestation: I have reviewed the pertinent imaging results. My impression: nonspecific gas pattern, no free air. Radiologist's impression: [place] [address] Diagnostic Imaging Report Patient: Audra Araujo MR#: [id number] : 1940 Acct:[id number] Loc: ED Service Date: 10/16/[address]: Ordering Physician: Harry Pino M.D. Date of Service: 10/16/24 Procedure(s): XR abdomen min 2V Accession Number(s): [id number] cc: Harry Pino M.D.; Emmy Harley M.D.~ For Patients: As a result of the Cures Act, medical imaging exams and procedure reports are released immediately into your electronic medical record. You may view this report before your referring provider. If you have questions, please contact your health care provider. Indication: Abdomen pain Technique: Abdomen 2 view Comparison: None Findings/Impression: Bowel: No definite evidence of obstruction with a moderate amount of stool within the colon. Soft tissues: Mild discoid atelectasis lung bases. Bones: Degenerative disc disease lumbar spine. Dictated by Stiven Polo MD @ 10/16/2024 2:42:33 PM (Electronically ECG Data Attestation: I personally reviewed and interpreted this ECG as follows: ECG interpretation date: 10/16/24 Interpretation: EKG is reviewed from today, this is compared with EKG from 09/07/2024, sinus rhythm with occasional PACs are noted. No acute ST wave changes, flipped T-waves noted in lead 3 that was not apparent before likely this is from lead placement. Discharge Plan Discharge Clinical Impression: Acute hyponatremia, Anemia, Abdominal pain, Dizziness Patient Disposition: Admitted As Observation Condition: Stable Activity Level: Up with assist
[2024-10-16 13:46] LABS: Lactate* 0.9 mmol/L (0.5-1.9)
[2024-10-16 13:49] LABS: Basophils Absolute Auto 0.04 K/uL (0.00-0.30); Basophils Percent Auto 0.5 % (0.0-3.0); Eosinophils Absolute Auto 0.04 K/uL (0.00-0.50); Eosinophils Percent Auto 0.5 % (0.0-7.0); Hematocrit 34.6 % (33.0-51.0); Hemoglobin* 10.9 gm/dL (12.0-16.0); Immature Granulocytes Abs Auto 0.01 K/uL (0.00-0.30); Immature Granulocytes Pct Auto 0.1 %; Lymphocytes Percent Auto 7.3 % (20-44); Mean Corpuscular HGB Conc 32 gm/dL (32-36); Mean Corpuscular Hemoglobin 24 pg (26-34); Mean Corpuscular Volume 76 fL (80-100); Monocytes Percent Auto 9.8 % (0.0-11.0); Neutrophils Percent Auto 81.8 % (42.0-72.0); Platelet Count* 355 K/uL (140-440); RDW Coefficient of Variation % 25.2 % (11.5-15.5); Red Blood Count 4.54 m/uL (4.00-5.20); White Blood Count* 7.67 K/uL (4.50-11.00)
[2024-10-16 13:58] LABS: Slide Review Reflex No
[2024-10-16 14:09] LABS: Albumin* 4.3 g/dL (3.3-5.0); Chloride* 93 mmol/L (96-114)
[2024-10-16 14:10] LABS: Potassium* 4.3 mmol/L (3.6-5.1)
[2024-10-16 14:12] LABS: Amylase* 65 U/L (18-89); Aspartate Amino Transferase* 19 U/L (12-35); Bilirubin Direct* 0.2 mg/dL (0.0-0.5); Bilirubin Total* 0.4 mg/dL (0.1-1.5); Blood Urea Nitrogen* 16 mg/dL (7-30); Carbon Dioxide* 20 mmol/L (20-32); Creatinine* 0.5 mg/dL (0.5-1.5); Estimated Glomerular Filt Rate 92 ml/min; Total Protein* 7.1 g/dL (6.0-8.3)
[2024-10-16 14:13] LABS: Alanine Aminotransferase* 15 U/L (4-35); Alkaline Phosphatase* 76 U/L (40-150); Anion Gap 10 mEq/L (7-15); Calcium* 9.4 mg/dL (8.4-10.6); Glucose* 100 mg/dL (60-115); Lipase* 94 U/L (23-300)
[2024-10-16 14:15] LABS: D Dimer Quantitative* 0.78 ug/ml (0.00-0.50); Partial Thromboplastin Time* 28 Seconds (23-33)
[2024-10-16 14:16] LABS: C Reactive Protein* < 0.5 mg/dL (0.5-1.0)
[2024-10-16 14:17] LABS: Sodium* 123 mmol/L (135-149)
[2024-10-16 14:29] LABS: Procalcitonin* 0.06 ng/mL (<0.50)
[2024-10-16] MEDS: 0.9 % SODIUM CHLORIDE 1000 ml 1,000 ML 150 ML IV (14:39)
[2024-10-16 15:21] VITALS: BP 144/100; PULSE 80; RESP 16; TEMP 36.2; O2SAT 98; BMI 30.3
--- NOTE | 2024-10-16 15:22 | PM.IMHP1 ---
Hospitalist- H&P: HPI History of Present Illness Date Seen: 10/16/24 Chief complaint: Abdominal Pain Narrative: ADMISSION HISTORY AND PHYSICAL - HOSPITALIST Chief Complaint: Abdominal pain and chronic dizziness HPI: This is an 84-year-old who lives independently in some senior apartments locally. She presents today with acute abdominal pain and ongoing dizziness. She was on her service just about 1 month ago for a GI bleed, requiring blood transfusion and inpatient endoscopy. She stabilized and was discharged. However, during that hospitalization she was noted to have a mild hyponatremia. The lux was 127. Today she presents with a sodium level of 123. Her abdominal pain was gone by the time she was in the emergency room. It seem like it only lasted for 2-3 hours today. I flat and upright x-ray did show some constipation. She did have a colonoscopy just a couple weeks ago as a follow-up from her GI bleed admission at the end of August. This was negative for any concerning findings. Also because she has been feeling dizzy, she has been drinking a lot of water. In addition to her admission at the end of August for this anemia and hyponatremia she was return to her full dose of lisinopril at 20 mg. And she has been taking that daily. ER COURSE: Labs, small fluid bolus, xrays CODE STATUS: Pt requests Full Code; this should be addressed by the day team EMERGENCY CONTACT PLAN: Anisha Araujo Rel To Pat Son Cell I've updated the PFSH, medications and allergies in the Expanse tabs. INVESTIGATIONS: LABS/MICRO/ECG/IMAGING Afebrile Hypertensive ranging from 180-144/71-100 Pulses in the 80s and regular Respiratory rate is 16 and unlabored. Room air saturations are 96-90% Weight is 83 kilos CBC reveals that her previous anemia from GI blood loss has resolved. Today's hemoglobin is 10.9. There is no elevated white blood cell count. And her platelets are normal. INR is 1.0 Her sodium is 123, at last check just over 1 month ago it was 132. She had been admitted for hyponatremia at the end of August 2024 and the lux was 127. Renal function is normal Her potassium is normal, her lactate is normal, her glucose is normal, lipase, inflammatory markers, liver enzymes are all normal. -awaiting a urine Abdominal x-ray Constipated but no other acute findings noted Normal Cscope on 10/06 Tubular adenoma without high risk features . REVIEW OF SYSTEMS: 12-point ROS completed with patient and negative unless otherwise stated in HPI or below. PHYSICAL EXAM: CONSTITUTIONAL: Conversive - jumps around a bit - some mild pressured speech, repeats herself. GENERAL: Well-developed and above ideal body weight, in no respiratory distress. VITAL SIGNS: see record. HEENT: Sclerae are anicteric. No petechiae. CARDIAC: rhythm is regular. There is no S3 or rub. No harsh murmurs. Extremities show trace edema with symmetrical pulses. Abdomen: soft. obese. no reaction with palpation. PULM: good air entry with no wheeze. NEURO: Speech is fluent. A brief neurologic exam is negative. SKIN: No rashes, petechiae, concerning changes PSYCHIATRIC: Euthymic. ADMIT TO MEDSURG: FLOOR CARE DVT: Lovenox GI: PO intake Time spent: Today I spent 75 minutes seeing the patient, discussing the patient with ER staff, reviewing Expanse and EPIC notes/diagnostics, discussing the care plan with our care time that includes social work, PT/OT, pharmacy, RT, shelter and documenting my impressions and plan in the medical record. MEDICAL NECESSITY FOR HOSPITALIZATION Anticipated midnights in the hospital: 2 Admitting diagnosis: hyponatremia Risk of morbidity and mortality: moderate Acuity is characterized as high and reflected in: recent GI bleed requiring transfusion, fall risk with her dizziness, cognitive decline evident. This patient will require hospital services as outlined in the assessment and plan in order to stabilize and be safely discharged to a lower level of care. Because of the risk and acuity as described above, this patient cannot be managed at a lower level of care. LENGTH OF STAY: 2 IP ? Anticipated LOS>2 midnights due to acuity of clinical presentation requiring inpatient level of care [facility] Medical History (Updated 10/16/24 @ 16:20 by Evon Bergeron MD) HTN (hypertension) ?I10 - Essential (primary) hypertension (ICD-10) Anemia due to GI blood loss ?D50.0 - Iron deficiency anemia secondary to blood loss (chronic) (ICD-10) Mild cognitive impairment ?G31.84 - Mild cognitive impairment of uncertain or unknown etiology (ICD-10) Rotator cuff injury ?S46.009A - Unspecified injury of muscle(s) and tendon(s) of the rotator cuff of unspecified shoulder, initial encounter (ICD-10) Vitamin D deficiency ?E55.9 - Vitamin D deficiency, unspecified (ICD-10) GERD with esophagitis ?K21.00 - Gastro-esophageal reflux disease with esophagitis, without bleeding (ICD-10) 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.0 - Iron deficiency anemia secondary to blood loss (chronic) (ICD-10) Hemorrhoids ?K64.9 - Unspecified hemorrhoids (ICD-10) Osteopenia ?M85.80 - Other specified disorders of bone density and structure, unspecified site (ICD-10) Diverticulosis of colon (without mention of hemorrhage) ?K57.30 - Diverticulosis of large intestine without perforation or abscess without bleeding (ICD-10) Surgical History History of colonoscopy ?Z98.890 - Other specified postprocedural states (ICD-10) History of esophagogastroduodenoscopy ?Z98.890 - Other specified postprocedural states (ICD-10) Social History Narrative: Independent apartment at the [facility], no current services. Son Anisha would be medical decision maker if needed, he lives in [place]. Nonsmoker, rare ETOH. Full code. What is your current living situation?: I presently have a place to live Problems where you live: no known problems Problems where you live details: none In the past 12 months, utilities in danger of being shut off: no In past 12 months, lack of transportation kept you from medical appts, meetings, work, or getting things needed for daily living: no In the past 12 mos, have been you worried that your food would run out before you had money to buy more?: never true In the past 12 mos, the food you bought just didn't last and you didn't have money to buy more?: never true Highest level of school completed/degree received: high school graduate Smoking Status: Former smoker What tobacco products do you use: cigarettes Smoking quit date/years: >15 years ago Do you use any of these nicotine containing products: None Second hand tobacco smoke exposure: No How often do you have a drink containing alcohol: never How often do you have six or more drinks on one occasion: Never AUDIT-C Alcohol total score: 0 Non-prescribed substance use: denies use Caffeine: No How often does anyone, including family, friends and others, physically hurt you: never How often does anyone, including family, friends and others, insult or talk down to you: never How often does anyone, including family, friends and others, threaten you with harm: never How often does anyone, including family, friends and others, scream or curse at you: never service: No Meds Home Medications and Allergies Home Medications ?Medication ?Instructions ?Recorded ?Confirmed ?Type lisinopril 20 mg tablet 20 mg PO DAILY 08/25/22 09/07/24 History multivitamin 1 tab PO DAILY 09/07/24 09/07/24 History vit C 250 mg-vit E 90 mg-zinc 40 1 tab PO BID 09/07/24 09/07/24 History mg-copper 1 co-tpifyx-vtewak capsule (PreserVision AREDS-2) sertraline 50 mg tablet 50 mg PO QAM 10/16/24 10/16/24 History Allergies Allergy/AdvReac Type Severity Reaction Status Date / Time sertraline AdvReac Intermediate Nightmares Verified 09/07/24 05:25 Exam Const: Vital Signs, click to edit/add: Vital Signs - 24 hr 10/16/24 13:18 10/16/24 13:18 Temperature 98.2 F Pulse Rate [Pulse Oximeter] 86 Respiratory Rate 20 Blood Pressure [Ri ght Forearm] 180/71 H Pulse Oximetry 96 96 Oxygen Delivery Me thod Room Air Hospitalist - H&P: Result Labs Labs: Short CBC 10/16/24 Range/Units 13:33 WBC 7.67 (4.50-11.00) K/uL Hgb 10.9 L (12.0-16.0) gm/dL Hct 34.6 (33.0-51.0) % Plt Count 355 (140-440) K/uL BMP 10/16/24 13:17 Sodium 123 L* Potassium 4.3 Chloride 93 L Carbon Dioxide 20 BUN 16 Creatinine 0.5 Glucose 100 Calcium 9.4 Liver Function 10/16/24 Range/Units 13:17 Total Bilirubin 0.4 (0.1-1.5) mg/dL Direct Bilirubin 0.2 (0.0-0.5) mg/dL AST 19 (12-35) U/L ALT 15 (4-35) U/L Alkaline Phosphatase 76 (40-150) U/L Albumin 4.3 (3.3-5.0) g/dL Assessment and Plan Assessment and plan (1) Hyponatremia: Problem comment: - sodium on admission 123 - per chart review, outpatient baseline 132-139 - encourage protein supplementation + sodium tabs, will not place patient on fluid restriction given cognitive impairment - Normal saline - reviewed echo - stop lisinopril completely, consider alternative options. - follow electrolytes Status: Acute (2) Weakness: Problem comment: - likely from the hyponatremia - therapies ordered Status: Acute (3) Mild cognitive impairment: Problem comment: - MOCA on 09/07/24 was 12. - therapies following Status: Acute (4) HTN (hypertension): Problem comment: -Lisinopril 20mg; recommend stopping completely d/t repeated hyponatremia -consider amlodipine or other agent. Status: Acute (5) GERD (gastroesophageal reflux disease): Problem comment: -PPI to continue. Recent GI bleed, anemia and workup Status: Acute
[2024-10-16] MEDS: 0.9 % SODIUM CHLORIDE 1000 ml 1,000 ML 100 ML IV (15:56)
[2024-10-16] MEDS: 0.9 % SODIUM CHLORIDE 250 ml 250 ML IV (15:56)
[2024-10-16 16:31] LABS: Ethanol* < 0.01 % (0.01-0.03)
[2024-10-16 16:47] LABS: Appearance Urine Clear (Clear); Bilirubin Urine Negative (Negative); Blood Urine Trace-intact (Negative); Color Urine Yellow (Yellow); Glucose Urine Negative (Negative); Ketones Urine 1+ (Negative); Leukocyte Esterase Urine Negative (Negative); Nitrite Urine Negative (Negative); Protein Urine Negative (Negative); Specific Gravity Urine 1.015 (1.000-1.030); Urobilinogen Urine 0.2 (0.2-1.0); pH Urine 6.5 (5.0-8.5)
[2024-10-16 16:58] LABS: RBC Urine 0-2 (0-2); WBC Urine 0-2 (0-5)
[2024-10-16 17:07] LABS: Sodium Urine Random* 61
[2024-10-16] MEDS: SODIUM CHLORIDE 1 GM TABLET PO (18:12)
[2024-10-16 19:00] VITALS: BP 169/69; RESP 16; TEMP 37.2; O2SAT 98
--- NOTE | 2024-10-16 19:29 | PC.NURSE ---
End of Shift: Patient pleasant and cooperative, VSS. Only A&O to self. 1A with walker and gait belt.
[2024-10-16 19:32] LABS: Chloride* 95 mmol/L (96-114)
[2024-10-16 19:33] LABS: Potassium* 3.9 mmol/L (3.6-5.1); Sodium* 126 mmol/L (135-149)
[2024-10-16 19:36] LABS: Anion Gap 9 mEq/L (7-15); Blood Urea Nitrogen* 13 mg/dL (7-30); Carbon Dioxide* 22 mmol/L (20-32); Creatinine* 0.6 mg/dL (0.5-1.5); Est. Creatinine Clearance* 37.01; Estimated Glomerular Filt Rate 88 ml/min; Glucose* 96 mg/dL (60-115)
[2024-10-16] MEDS: SODIUM CHLORIDE 0.9 % (FLUSH) 10 ML SYRINGE 5 ML IVF (20:06)
[2024-10-16] MEDS: ENOXAPARIN 40 MG/0.4 ML INJ SUBCUT (20:07)
[2024-10-16] MEDS: SENNOSIDES/DOCUSATE TABLET 1 TAB PO (20:15)
[2024-10-16] MEDS: ACETAMINOPHEN 325 MG TABLET 650 MG PO (21:41)
[2024-10-16 23:00] VITALS: BP 165/71; PULSE 76; RESP 20; TEMP 36.4; O2SAT 97
[2024-10-17] MEDS: 0.9 % SODIUM CHLORIDE 1000 ml 1,000 ML 100 ML IV (00:23)
[2024-10-17] MEDS: ACETAMINOPHEN 325 MG TABLET 650 MG PO (02:55)
[2024-10-17 03:00] VITALS: BP 172/71; PULSE 78; RESP 20; TEMP 36.6; O2SAT 96
[2024-10-17 06:39] LABS: Chloride* 99 mmol/L (96-114); Potassium* 4.2 mmol/L (3.6-5.1); Sodium* 127 mmol/L (135-149)
[2024-10-17 06:42] LABS: Anion Gap 6 mEq/L (7-15); Blood Urea Nitrogen* 9 mg/dL (7-30); Calcium* 8.5 mg/dL (8.4-10.6); Carbon Dioxide* 22 mmol/L (20-32); Creatinine* 0.5 mg/dL (0.5-1.5); Est. Creatinine Clearance* 37.01; Estimated Glomerular Filt Rate 92 ml/min; Glucose* 87 mg/dL (60-115); Magnesium* 1.9 mg/dL (1.5-2.6)
[2024-10-17 07:00] VITALS: BP 146/81; PULSE 67; PULSE 76; RESP 26; TEMP 36.2; O2SAT 96
--- NOTE | 2024-10-17 07:11 | PC.NURSE ---
End of shift summary: Pt has been alert and oriented to self only. VSS and afebrile. C/o lower back pain in the middle of the night, requesting to sit up in the chair and PRN Tylenol given @ 0255. She is SBA with 2ww to the BR. Continent of B&B overnight, no BM. PIV in right FA infusing NS @ 100 mL/hr. BLE 2+ in the ankles; refused compression garments. Denied nausea or dizziness. ?
[2024-10-17] MEDS: OMEPRAZOLE 20 MG CAPSULE DR 40 MG PO (09:38)
--- NOTE | 2024-10-17 10:11 | PM.DS1 ---
DS: Providers Provider Time Seen by Provider: 09:30 Date Seen: 10/17/24 Date of admission: 10/16/24 15:25 Primary care physician: Emmy Harley MD Admitting Clinician: Evon Bergeron MD Consults: 10/16/24 15:53 Consult to Marine Diesel Mechanic [CONS] Routine Comment: Reason for Consult:: Social Service Consult Attending Physician on discharge: Nicole Gutierrez MD Date of Discharge: 10/17/24 DS: Diagnosis Discharge Diagnosis (1) Hyponatremia: Status: Acute Problem details: - sodium on admission 123 - per chart review, outpatient baseline 132-139 - encourage protein supplementation + sodium tabs, will not place patient on fluid restriction given cognitive impairment - Normal saline - reviewed echo - stop lisinopril completely, consider alternative options. - follow electrolytes - 10/17 Symptoms of abdominal pain and dizziness resolved. Na up to 127, which is at baseline of 127-131. Continue salt tabs and Nutritional supplements at home. (2) Weakness: Status: Resolved Problem details: - likely from the hyponatremia - Resolved. SBA with 2ww overnight. (3) Mild cognitive impairment: Status: Chronic Problem details: - MOCA on 09/07/24 was 12. - therapies following - 10/17/24 I spoke with her son, Anisha. He checks in on her by phone 2-3 times a day and in person at least once a week. (4) HTN (hypertension): Status: Chronic Problem details: -Lisinopril 20mg; decreasing d/t repeated hyponatremia (5) GERD (gastroesophageal reflux disease): Status: Chronic Problem details: -PPI to continue. Recent GI bleed, anemia and workup DS: Summary Hospital Course Hospital Course: Per H&P: This is an 84-year-old who lives independently in some senior apartments locally. She presents today with acute abdominal pain and ongoing dizziness. She was on her service just about 1 month ago for a GI bleed, requiring blood transfusion and inpatient endoscopy. She stabilized and was discharged. However, during that hospitalization she was noted to have a mild hyponatremia. The lux was 127. Today she presents with a sodium level of 123. Her abdominal pain was gone by the time she was in the emergency room. It seem like it only lasted for 2-3 hours today. I flat and upright x-ray did show some constipation. She did have a colonoscopy just a couple weeks ago as a follow-up from her GI bleed admission at the end of August. This was negative for any concerning findings. Also because she has been feeling dizzy, she has been drinking a lot of water. In addition to her admission at the end of August for this anemia and hyponatremia she was return to her full dose of lisinopril at 20 mg. And she has been taking that daily. Time Spent with Patient Time attestation: Total time spent providing and/or coordinating discharge services: Today I spent 40 minutes discharging the patient, talking with the patient's son over the phone, reviewing [facility] and [facility] notes/diagnostics/labs, discussing the care plan with our care team that includes social work, PT/OT, pharmacy, RT, residential and documenting my impressions and plan in the medical record. Exam Narrative: Exam Narrative: General: No acute distress. Awake, alert, oriented to self, place, and situation. No pallor. No jaundice. Oropharynx: Clear. Mucous membranes moist. Cardiovascular: Regular rate and rhythm. No murmurs, gallops, or rubs. Respiratory: Clear to auscultation bilaterally. No wheezes or crackles. Abdomen: Bowel sounds present. Soft, nondistended, nontender. Extremities: No lower extremity edema. Const: Vital Signs, click to edit/add: Vital Signs - 24 hr 10/16/24 13:18 10/16/24 13:18 10/16/24 15:21 Temperature 98.2 F 97.2 F L Pulse Rate [Pulse Oximeter] 86 80 Respiratory Rate 20 16 Blood Pressure [Le ft Arm] Blood Pressure [Le ft Radial Artery] 144/100 H Blood Pressure [Ri ght Forearm] 180/71 H Pulse Oximetry 96 96 98 Oxygen Delivery Me thod Room Air Room Air 10/16/24 19:00 10/16/24 23:00 10/16/24 23:00 Temperature 98.9 F 97.5 F L Pulse Rate [Pulse Oximeter] 76 Respiratory Rate 16 20 20 Blood Pressure [Le ft Arm] Blood Pressure [Le ft Radial Artery] 169/69 H 165/71 H Blood Pressure [Ri ght Forearm] Pulse Oximetry 98 97 Oxygen Delivery Me thod Room Air Room Air 10/17/24 03:00 10/17/24 07:00 10/17/24 07:00 Temperature 97.9 F 97.1 F L Pulse Rate [Pulse Oximeter] 78 76 67 Respiratory Rate 20 26 H 26 H Blood Pressure [Le ft Arm] 172/71 H 146/81 H Blood Pressure [Le ft Radial Artery] Blood Pressure [Ri ght Forearm] Pulse Oximetry 96 96 Oxygen Delivery Me thod Room Air Room Air DS: Data Data Completed and Pending Completed studies during hospitalization: 10/16/2024 EKG: Sinus rhythm with premature atrial complexes, 70 beats per minute, rightward axis, cannot rule out anterior infarct, age undetermined. Ordering Physician: Harry Pino M.D. Date of Service: 10/16/24 Procedure(s): XR abdomen min 2V Accession Number(s): [id number] cc: Harry Pino M.D.; Emmy Harley M.D.~ For Patients: As a result of the Cures Act, medical imaging exams and procedure reports are released immediately into your electronic medical record. You may view this report before your referring provider. If you have questions, please contact your health care provider. Indication: Abdomen pain Technique: Abdomen 2 view Comparison: None Findings/Impression: Bowel: No definite evidence of obstruction with a moderate amount of stool within the colon. Soft tissues: Mild discoid atelectasis lung bases. Bones: Degenerative disc disease lumbar spine. Dictated by Stiven Polo MD @ 10/16/2024 2:42:33 PM (Electronically Signed) Labs on day of discharge: Labs from last 24 hours 10/17/24 10/16/24 10/16/24 05:58 18:58 16:30 WBC RBC Hgb Hct MCV MCH MCHC RDW Coeff of Afua Plt Count Neut % (Auto) Lymph % (Auto) Douglas % (Auto) Eos % (Auto) Baso % (Auto) Neut # (Auto) Lymph # (Auto) Douglas # (Auto) Eos # (Auto) Baso # (Auto) Abs Immat Gran (auto) Imm/Tot Granulo (auto) INR APTT D-Dimer Quant (PE/DVT) Sodium 127 L 126 L Potassium 4.2 3.9 Chloride 99 95 L Carbon Dioxide 22 22 Anion Gap 6 L 9 BUN 9 13 Creatinine 0.5 0.6 Estimated Creat Clear 37.01 37.01 Estimated GFR 92 88 Glucose 87 96 Lactate Calcium 8.5 9.0 Magnesium 1.9 Total Bilirubin Direct Bilirubin AST ALT Alkaline Phosphatase C-Reactive Protein Total Protein Albumin Amylase Lipase Procalcitonin Urine Color Yellow Urine Appearance Clear Urine pH 6.5 Ur Specific Bode 1.015 Urine Protein Negative Urine Glucose (UA) Negative Urine Ketones 1+ A Urine Blood Trace-intact A Urine Nitrite Negative Urine Bilirubin Negative Urine Urobilinogen 0.2 Ur Leukocyte Esterase Negative Urine RBC 0-2 Urine WBC 0-2 Ur Squamous Epith Cells None Urine Bacteria None Ur Random Sodium 61 Ethyl Alcohol Lab Acknowledgement 10/16/24 10/16/24 10/16/24 15:25 13:33 13:17 WBC 7.67 RBC 4.54 Hgb 10.9 L Hct 34.6 MCV 76 L MCH 24 L MCHC 32 RDW Coeff of Afua 25.2 H Plt Count 355 Neut % (Auto) 81.8 H Lymph % (Auto) 7.3 L Douglas % (Auto) 9.8 Eos % (Auto) 0.5 Baso % (Auto) 0.5 Neut # (Auto) 6.30 Lymph # (Auto) 0.60 L Douglas # (Auto) 0.80 Eos # (Auto) 0.04 Baso # (Auto) 0.04 Abs Immat Gran (auto) 0.01 Imm/Tot Granulo (auto) 0.1 INR 1.00 APTT 28 D-Dimer Quant (PE/DVT) 0.78 H Sodium 123 L* Potassium 4.3 Chloride 93 L Carbon Dioxide 20 Anion Gap 10 BUN 16 Creatinine 0.5 Estimated Creat Clear Estimated GFR 92 Glucose 100 Lactate 0.9 Calcium 9.4 Magnesium Total Bilirubin 0.4 Direct Bilirubin 0.2 AST 19 ALT 15 Alkaline Phosphatase 76 C-Reactive Protein < 0.5 L Total Protein 7.1 Albumin 4.3 Amylase 65 Lipase 94 Procalcitonin 0.06 Urine Color Urine Appearance Urine pH Ur Specific Bode Urine Protein Urine Glucose (UA) Urine Ketones Urine Blood Urine Nitrite Urine Bilirubin Urine Urobilinogen Ur Leukocyte Esterase Urine RBC Urine WBC Ur Squamous Epith Cells Urine Bacteria Ur Random Sodium Ethyl Alcohol < 0.01 L Lab Acknowledgement Test Added Discharge Plan Discharge Disposition: Home, Self-Care Date of Admission: 10/16/24 15:25 Attending Provider on Discharge: Nicole Gutierrez Primary Care Provider: Zant,Emmy J Condition: Stable Anticipated Discharge Date/Time: 10/17/24 11:40 Discharge Medications: New sennosides-docusate sodium [Stool Softener-Laxative] 8.6-50 mg Tablet 1 tab PO DAILY PRNQty: 30 0RF sodium chloride 1,000 mg Tablet,Soluble 1,000 mg PO TIDWM Qty: 90 0RF lisinopril 10 mg tablet 10 mg PO DAILY Qty: 30 0RF Continued omeprazole 40 mg capsule,delayed release(DR/EC) 40 mg PO DAILY Qty: 14 0RF Vitron-C 65 mg iron- 125 mg tablet,delayed release (DR/EC) 1 tab PO BID Qty: 60 0RF multivitamin Tablet 1 tab PO DAILY PreserVision AREDS-2 250-90-40-1 mg capsule 1 tab PO BID sertraline 50 mg tablet 50 mg PO QAM Discontinued lisinopril 20 mg tablet 20 mg PO DAILY Discharge Orders: Discharge Order (Routine); Ordered 10/17/24 Ordered By: Nicole Gutierrez Activity Level: Up with assist Discharge Diet: Regular Diet Detail: Nutritional supplements three times a day Follow Up Appointments: Emmy Harley MD [Primary Care Provider] - (Wednesday, ) [facility]
[2024-10-17 11:00] VITALS: BP 130/109; PULSE 71; RESP 24; O2SAT 97
[2024-10-17] MEDS: MAG HYDROX/ALUMINUM HYD/SIMETH 30 ML ORAL.SUSP 15 ML PO (11:42)
--- NOTE | 2024-10-17 13:03 | PC.NURSE ---
Nursing Care Hours: [id number] Pt this shift cooperative, alert and oriented. Constant anxiety about POC and discharge planning, relieved with communication and reinforcement. HTN noted without new symptoms. Pt stated feeling dizzy in side framer and resolved after breakfast. Pt went for a walk SB assist with walker, gait steady. Med BM on toilet after walk. After bathroom pt started c/o upper gastric pain and began belching. Shortly after symptoms started then pt began c/o dizziness again. Pt becoming anxious about symptoms and felt she needed to stay another night. PRN meds given for indigestion. Road Manager updated hospitalist and no change of plan occurred. Road Manager recommended to pt that at follow up appt, to mention possible referral to GI specialist if appropriate. Discharge instructions went over with pt and adult nephew. IV removed. Pt walked to [facility] with stable gait to w/c. Assisted in vehicle in stable condition.
--- NOTE | 2024-10-19 12:04 | PC.SOCIAL ---
Discharge planning/late entry: sanitation worker cleaning machinery met with the pt and assisted her with arranging transportation home. No other social work needs identified. Social work to follow-up as needed.
== END 2024-10-17 12:43 | disposition home or self-care (01) | DRG 641 ==
LOC: ED 14:39 → MEDSURG 14:53
PROVIDERS: Admitting Provider Family Medicine; Emergency Provider Family Medicine; PCP Family Medicine; Visit Provider Family Medicine
DX: E87.1 Hypo-osmolality and hyponatremia (principal); R42 Dizziness and giddiness; G31.84 Mild cognitive impairment of uncertain or unknown etiology; R10.84 Generalized abdominal pain; D50.0 Iron deficiency anemia secondary to blood loss (chronic); I10 Essential (primary) hypertension; K21.9 Gastro-esophageal reflux disease without esophagitis
CPT/HCPCS: 36415; 74019; 80048; 80076; 81001; 82077; 82150; 83605; 83690; 83735; 84145; 84300; 84484; 85025; 85379; 85610; 85730; 86140; 93005; 94761; 99284; 99285; A9270; J1650; J7030; J7050

== ENCOUNTER 2024-10-23 09:41 | Outpatient (CLI) | payer MEDICARE, BC, SELFPAY | END 2024-10-23 09:42 | disposition home or self-care (01) | LOC: AMB 10-24 10:33 | PROVIDERS: PCP Family Medicine; Visit Provider Family Medicine | DX: R42 Dizziness and giddiness (principal) | CPT/HCPCS: A0425; A0427 ==

== ENCOUNTER 2024-10-23 10:26 | Inpatient (IN) | payer MEDICARE, BC, SELFPAY ==
[2024-10-23] VITALS (12 sets, daily range): BP systolic 138–181; BP diastolic 73–116; PULSE 72–94; RESP 16–40; TEMP 36.2–36.3; O2SAT 90–99; BMI 32.2
--- OUTSIDE RECORDS SUMMARY | 2024-10-23 10:22 | XMS_ITS | Clinical Summary ---
Author Organization [facility] Address [address] [place] [address] Care Team Providers Care Alodize Machine Operator Name Role Phone Chitra Manuel DO Primary Care Provider Allergies Active Allergy Reactions Criticality Noted Date Comments Sertraline Nightmares 10/22/2021 may be dose dependant ok on 50mg. 100mg more dreams. Medications multivitamin (MVI) tablet Take 1 tablet by mouth once daily. 0 7 Active vit C,M-Pb-dzypm-lut ein-zeaxan (PreserVision AREDS-2) capsule Take 1 Capsule by mouth two times daily. 0 3 Active omeprazole (PRILOSEC) 40 mg Delayed-Release capsule Take 1 Capsule by mouth once daily. 4 Active lisinopriL (PRINIVIL; ZESTRIL) 20 mg tabletIndication s:Hypertension, unspecified type TAKE ONE TABLET BY MOUTH ONE TIME DAILY 90 Tablet 5 Active iron,carbonyl-vi tamin C (Vitron-C) 65 mg iron- 125 mg Delayed-Release tablet Take 1 Tablet by mouth two times daily with meals. 5 Active sertraline (ZOLOFT) 50 mg tabletIndication s:Anxiety Take 1 Tablet (50 mg) by mouth once daily in the morning. 60 Tablet 5 Active LORazepam (ATIVAN) 0.5 mg tabIndications:A nxiety Take 1 Tablet (0.5 mg) by mouth every 6 hours if needed for Anxiety. Take during day of colon preparation . 4 Tablet 5 10/14/19 25 Discontinue d(*Med complete/Re gimen complete/Le emilia of care change) amoxicillin-clav ulanate (Augmentin) 875-125 mg tabletIndication s:Acute non-recurrent maxillary sinusitis Take 1 Tablet by mouth two times daily with meals for 7 days. 14 Tablet 5 10/03/19 25 Active Problems Problem Noted Date Diagnosed Date Colon polyp 10/11/2024 Overview (10/11/2024): Colonoscopy 10/2024 TA, no follow up given age Iron deficiency anemia due to chronic blood [...] Encounters Date Type Department Care Team Description 10/19/2024 Telephone [facility] [address] [place] [address] Chitra Manuel, Results 10/16/2024 Orders Only [facility] Scanner 1 scan: (1-Ord) [facility], ABDOMEN MIN 2V, 10/16/2024 10/13/2024 1:00 PM ROUGHING MILL OPERATOR Office Visit [facility] [address] [place] [address] Chitra Manuel DO Screening (colonoscopy results/); memory 10/13/2024 Travel 10/07/2024 Lab Requisition [facility] [phone] Maxwell Salgado MD 10/06/2024 9:45 AM ROUGHING MILL OPERATOR Office Visit [facility] at [facility] [address] [place] [address] Maxwell Salgado MD 10/06/2024 Orders Only [facility] Scanner 1 scan: (1-Ord) [facility] 10/06/2024 Orders Only [facility] Scanner 1 scan: (1-Ord) [place] 09/26/2024 3:25 PM ROUGHING MILL OPERATOR Office Visit [facility] [address] [place] [address] Sandee Ibarra PA Cough 09/26/2024 Telephone [facility] [address] [place] [address] Maxwell Salgado MD 09/26/2024 Travel 09/26/2024 Telephone [facility] [address] [place] [address] Chitra Manuel DO Questions (Requesting call back from PCP/Dr. Manuel) 09/22/2024 1:00 PM ROUGHING MILL OPERATOR Office Visit [facility] [address] [place] [address] Chitra Manuel DO Hospital F/U 09/22/2024 Travel 09/19/2024 Orders Only [facility] Scanner 1 scan: (1-Ord) [facility], MULTIPLE LABS, 09/19/2024 09/19/2024 Nurse Triage [address] [address] Miryam Nj NP Abnormal Lab Results 09/19/2024 Patient Outreach [facility] [address] [place] [address] Ursula Camarillo RN Primary RN Care Management; Hospital F/U (TCU DC 09/20/24) 09/18/2024 7:30 AM ROUGHING MILL OPERATOR [facility] [address] [address] Miryam Nj NP Transitional Care Visit (TURN DOWN WORKER dc visit) 09/18/2024 Travel 09/15/2024 7:30 AM ROUGHING MILL OPERATOR [facility] [address] [address] Alicia Leslie MD Transitional Care Visit (MD admit) 09/15/2024 Orders Only [address] [address] Alicia Leslie MD <No scans attached> 09/15/2024 Travel 09/14/2024 Orders Only [facility] Scanner 1 scan: (1-Ord) [facility] , MULTIPLE LABS, 09/14/2024 09/14/2024 Nurse Triage [address] [address] Miryam Nj NP Abnormal Lab Results (CBC & BMP) 09/13/2024 7:30 AM ROUGHING MILL OPERATOR [facility] [address] [address] Miryam Nj NP Transitional Care Visit (TURN DOWN WORKER admit) 09/13/2024 Travel 09/08/2024 11:00 AM ROUGHING MILL OPERATOR Ancillary Procedure [facility] at [facility] [address] [place] [address] 09/08/2024 8:30 AM ROUGHING MILL OPERATOR Office Visit [facility] at [facility] [address] [place] [address] Maxwell Salgado MD 09/08/2024 Orders Only [facility] Scanner 1 scan: [facility]Ord[facility], 09/08/2024 09/07/2024 Orders Only [facility] Scanner 1 scan: (1-Ord) [facility], MR HEAD/BRAIN W/O CONTRAST, 09/07/2024 09/01/2024 Orders Only [facility] Scanner 1 scan: (1-Ord) [facility], CHEST 2 V, 09/01/2024 09/01/[address] [address] Chitra Manuel, DO callback (Call the provider) 09/01/2024 Telephone [facility] [address] [place] [address] Emmy Harley MD Sob ([facility] ) 08/21/2024 Telephone [facility] [address] [place] [address] Maxwell Salgado MD Appointment (Scheduled at [facility] Colonoscopy ) 08/12/2024 Refill [facility] [address] [place] [address] Chitra Manuel, Refill Request (Lisinopril) from Last 3 Months Immunizations Immunization Administration Dates Next Due COVID-19 vaccine (Moderna 100mcg/0.5mL) LIMA ZARATE 12/08/2021,12/08/2021,07/10/2021,2020,10/02/2020,10/02/2020,09/04/2020,0 09/04/2020 DTaP 04/28/2006 Pneumococcal Poly,23-Valent (Pneumovax) 04/28/2006 Family History Medical History Relation Name Comments No Known Problems Father No Known Problems Mother Cancer-breast Sister 50's Relation Name Status Comments Father Mother Sister Social History Tobacco Use Types Packs/Day [...] on file Legal Sex Female 5:23 AM ROUGHING MILL OPERATOR Gender Identity Not on file Sexual Orientation Not on file 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 Not on file Not on file Not on file Obstetrics History Para Term AB IAB SAB Ectopic Multiple Livin g Live Births 2 2 2 2 Date Outcome GA Total Labor Labor/2nd/3rd Weight Sex Type Anes PTL Monet A1 A5 Name Clin Term Term Last Filed Vital Signs Vital Sign Reading Time Taken Comments Blood Pressure 169/74 10/13/2024 1:00 PM ROUGHING MILL OPERATOR Pulse 88 10/13/2024 1:00 PM ROUGHING MILL OPERATOR Temperature 36.4 C (97.5 F) 09/26/2024 2:00 PM ROUGHING MILL OPERATOR Respiratory Rate 16 04/02/2018 11:52 AM CDT Oxygen Saturation 97% 10/13/2024 1:00 PM ROUGHING MILL OPERATOR Inhaled Oxygen Concentration - - Weight 90.3 kg (199 lb) 10/13/2024 1:00 PM ROUGHING MILL OPERATOR Height 154.9 cm (5' 1) 02/08/2023 4:05 PM CDT Body Mass Index 37.6 02/08/2023 4:05 PM CDT Plan of Treatment Upcoming Encounters Date Type Department Care Team (Late st Contact Info) Description 10/23/2024 1:50 PM CDT Office Visit [facility] [address] [place] [address] Chitra Manuel DO [address] [place] [address] 11/15/2024 2:15 PM CDT Office Visit [facility] [address] [place] [address] Chitra Manuel DO [address] [place] [address] 01/31/2025 8:00 AM CDT Office Visit [facility] [address] [place] [address] Ailyn Eaton, PhD, LP [address] [place] [address] Health Maintenance Due Date Last Done Comments [...] COVID-19 vaccine series ( season) 2024 12/08/2021, 12/08/2021, 07/10/2021, Additional history exists Influenza Vaccine (#1) 2024 DEXA/DXA scan for age 65+ Completed 12/24/2015 Medical Devices Implanted Type Area Small Engine Mechanic Device Identifier Shelf Expiration Date Model / Serial / Lot Eye Intraocular Lens - [id number] Implanted:Qty: 1 on 05/13/2017 by Michael Peters MD at [facility] Right: Eye 08/08/2019 / [id number] / Eye Intraocular Lens - [id number] Implanted:Qty: 1 on 06/10/2017 by Michael Peters MD at [employer] Left: Eye [employer] 10/07/2019 250 / [id number] / Procedures Procedure Name Priority Date/Time Associated Diagnosis Comments SCAN-RADIOLOGY REPORT 10/16/2024 12:00 AM CDT CBC WITH AUTO DIFFERENTIAL Routine 10/13 2:13 PM ROUGHING MILL OPERATOR Iron deficiency anemia due to chronic blood loss FERRITIN Routine 10/13/2024 2:13 PM ROUGHING MILL OPERATOR Iron deficiency anemia due to chronic blood loss LAB TRACKING EVENT Routine 10/06/2024 11:00 AM ROUGHING MILL OPERATOR PATH TISSUE EXAM Routine 10/06/2024 11:00 AM ROUGHING MILL OPERATOR SCAN-COLONOSCOPY 10/06/2024 12:00 AM ROUGHING MILL OPERATOR SCAN-COLONOSCOPY 10/06/2024 12:00 AM ROUGHING MILL OPERATOR SCAN-LABORATORY REPORT 12:00 AM ROUGHING MILL OPERATOR SCAN-LABORATORY REPORT 12:00 AM ROUGHING MILL OPERATOR ECHO TTE COMPLETE WO CONTRAST Routine 12:05 PM ROUGHING MILL OPERATOR Lower extremity edema SCAN-ENDOSCOPY 09/08/2024 12:00 AM ROUGHING MILL OPERATOR SCAN-MRI INTERPRETATION 09/07/19 12:00 AM ROUGHING MILL OPERATOR SCAN-RADIOLOGY REPORT 09/01/2024 12:00 AM ROUGHING MILL OPERATOR COLONOSCOPY DIAGNOSTIC MENA 8:04 AM ROUGHING MILL OPERATOR Anemia of unknown etiology Positive fecal occult blood test ESOPHAGOGASTRODUODENOSCOPY MENA 08/18 8:04 AM ROUGHING MILL OPERATOR Anemia of unknown etiology Positive fecal occult blood test XR DXA BONE DENSITY 2 SITES AXIAL Routine 12/24/2015 2:26 PM CDT Other specified menopausal and perimenopausal disorders At risk for bone density loss from Last 3 Months or Most Recently Relevant to Health Maintenance Results * SCAN-RADIOLOGY REPORT (10/16/2024 12:00 AM CDT) Only the most recent of2 resultswithin the time period is included. Anatomical Region Laterality Modality Other us Scanner OTHER Final Result * (ABNORMAL) CBC AND DIFFERENTIAL (10/13/2024 2:13 PM ROUGHING MILL OPERATOR) WHITE BLOOD CELL COUNT 7.8 3.8 - 10.8 Thousand/u L [facility] RED BLOOD CELL COUNT 4.44 3.80 - 5.10 Million/uL [facility] HEMOGLOBIN 10.4(L) 11.7 - 15.5 g/dL [facility] HEMATOCRIT 35.0 35.0 - 45.0 % [facility] MCV 78.8(L) 80.0 - 100.0 fL [facility] MCH 23.4(L) 27.0 - 33.0 pg [facility] MCHC 29.7(L) 32.0 - 36.0 g/dL [facility] Comment: For adults, a slight decrease in the calculated MCHC value (in the range of 30 to 32 g/dL) is most likely not clinically significant; however, it should be interpreted with caution in correlation with other red cell parameters and the patient's clinical condition. RDW 22.9(H) 11.0 - 15.0 % [facility] PLATELET COUNT 344 140 - 400 Thousand/u L [facility] MPV 10.4 7.5 - 12.5 fL [facility] ABSOLUTE NEUTROPHILS 6,263 1,500 - 7,800 cells/uL [facility] ABSOLUTE LYMPHOCYTES 632(L) 850 - 3,900 cells/uL [facility] ABSOLUTE MONOCYTES 741 200 - 950 cells/uL [facility] ABSOLUTE EOSINOPHILS 117 15 - 500 cells/uL [facility] ABSOLUTE BASOPHILS 47 0 - 200 cells/uL [facility] NEUTROPHILS 80.3 % [facility] LYMPHOCYTES 8.1 % [facility] MONOCYTES 9.5 % [facility] EOSINOPHILS 1.5 % [facility] BASOPHILS 0.6 % [facility] CBC (INCLUDES DIFF/PLT) COMMENTS [facility] Comment: Review of peripheral smear confirms automated results. Blood BLOOD SPECIMEN / Unknown 10/13/2024 2:13 PM ROUGHING MILL OPERATOR 10/13/2024 2:13 PM ROUGHING MILL OPERATOR us Chitra Viviana Detert DO HEMATOLOGY Final Resul t [facility] [address] [place] [address], [place] [phone] [facility] [address] [place] [address] * FERRITIN (10/13/2024 2:13 PM ROUGHING MILL OPERATOR) FERRITIN 26 16 - 288 ng/mL [facility] Blood BLOOD SPECIMEN / Unknown 10/13/2024 2:13 PM ROUGHING MILL OPERATOR 10/13/2024 2:13 PM ROUGHING MILL OPERATOR us Chitra Howellt DO CHEMISTRY Final Resul t Performing Organization Address City/[facility]/ZIP Co de Phone Number [employer] [facility] [address] [place] [address], [place] [phone] [facility] [address] [facility] [place] [address] * LAB TRACKING EVENT (10/06/2024 11:00 AM ROUGHING MILL OPERATOR) Other (Other) Client Collect / Unknown 10/06/2024 11:00 AM ROUGHING MILL OPERATOR 10/07/2024 6:24 AM ROUGHING MILL OPERATOR us Maxwell Salgado MD LAB BILL ONLY Final Res ult [facility] [address] [place] [address], * PATH TISSUE EXAM (10/06/2024 11:00 AM ROUGHING MILL OPERATOR) Case Report Pathology Report Case: [id number] Authorizing Provider: Maxwell Salgado MD Collected: 10/06/2024 1100 Ordering Location: [facility] Received: 10/07/2024 1013 Pathologist: Logan Ochoa MD Specimen: Cecum Biopsy 10/09/2024 2:41 PM ROUGHING MILL OPERATOR [facility] Final Diagnosis A) COLON, CECUM, POLYPECTOMY: 1. Tubular adenoma 2. Negative for high grade dysplasia 3. Per the colonoscopy report: a. Polyp size: 4 mm b. Resection: Complete c. Retrieval: Complete 10/09/2024 2:41 PM ROUGHING MILL OPERATOR [facility] Clinical Information Ms. Araujo is a 84 y.o. who undergoes screening colonoscopy. This is the patient's first colonoscopy. 10/09/2024 2:41 PM ROUGHING MILL OPERATOR [facility] Gross Description A) Received in formalin are 4 pina mucosal fragments averaging 3 mm in greatest dimension, which are entirely submitted in one cassette. It is labeled with the patient's name and designated cecum. RICK Garcia 10/07/2024 10:40 AM 10/09/2024 2:41 PM ROUGHING MILL OPERATOR [facility] Microscopic Description The final diagnosis is based on microscopic examination of appropriate sections of all specimens. 10/09/2024 2:41 PM ROUGHING MILL OPERATOR [facility] Additional Information Interpreted at [facility] - [address], [place] [address] 10/09/2024 2:41 PM ROUGHING MILL OPERATOR [facility] Other (Cecum Biopsy) 10/06/2024 11:00 AM ROUGHING MILL OPERATOR 10/07/2024 10:13 AM ROUGHING MILL OPERATOR us Maxwell Salgado MD PATHOLOGY/CYTOLOGY Final Result [facility] [address] [place] [address], [place] * SCAN-COLONOSCOPY (10/06/2024 12:00 AM ROUGHING MILL OPERATOR) us Scanner OTHER Final Result * SCAN-COLONOSCOPY (10/06/2024 12:00 AM ROUGHING MILL OPERATOR) us Scanner OTHER Final Result * SCAN-LABORATORY REPORT (09/19/2024 12:00 AM ROUGHING MILL OPERATOR) Only the most recent of2 resultswithin the time period is included. us Scanner OTHER Final Result * ECHO TTE COMPLETE WO CONTRAST (09/08/2024 12:05 PM ROUGHING MILL OPERATOR) AORTIC VALVE MEAN PG 6 mmHg EJECTION FRACTION 79 % PEAK TR VELOCITY 2.6 m/s LVEDD 4.7 cm EJECTION FRACTION 70 - 75% Anatomical Region Laterality Modality Ultrasound 09/08/2024 11:2 2 AM ROUGHING MILL OPERATOR Narrative 09/08/2024 3:40 PM ROUGHING MILL OPERATOR ECHOCARDIOGRAM AJCOB ARAUJO : 1940 84 years Study Date: 09/08/2024 11:22:01 AM Gender: F BP: 145/62 mmHg Height: 163.00 cm BSA: 1.95 m Weight: 90.00 kg Tech: SEAN Referring MD: NICOLE WHITE Site: [facility] Reading Location: [facility] Patient Location: Inpatient. Procedure: 2D, Color Doppler and Spectral Doppler. Indication for study: Lower extremity edema Cardiac Rhythm: Irregular.Study quality: Fair. Final Impressions: 1. Normal LV size, normal wall thickness, hyperdynamic global systolic function with an estimated EF of 70 - 75%. 2. Right ventricular cavity size is normal, global systolic RV function is normal. 3. No significant valve disease detected. 4. Normal estimated RA pressure and PASP. Comparison There are no prior studies on this patient for comparison purposes. Chamber Sizes and Function Normal left ventricular size, normal wall thickness, hyperdynamic global systolic function with an estimated EF of 70 - 75%. No resting regional wall motion abnormality visualized. Left atrial size is normal. Left atrial pressure is normal. Right ventricular cavity size is normal, global systolic RV function is normal. RV wall thickness is normal. The right atrium is normal. Right atrial area is 13 cm . The pulmonary artery is of normal size and origin. The sinus of Valsalva is normal sized. The ascending aorta is normal sized. Valves, RV Pressures and Diastolic Function The aortic valve is trileaflet and sclerotic, no stenosis and no regurgitation. The mitral valve is normal in structure, no mitral regurgitation. Normal diastolic function. The tricuspid valve is normal in structure. Tricuspid regurgitation is mild regurgitation. The tricuspid regurgitant velocity is 2.6 m/s, the estimated right ventricular systolic pressure is 28 mmHg plus right atrial pressure. The pulmonic valve is normal. Trace pulmonary regurgitation. Masses, Effusion, Shunts There is no pericardial effusion. The inferior vena cava is normal sized, respiratory size variation greater than 50%. No left to right shunting was detected by limited color flow Doppler interrogation of the interatrial septum. MEASUREMENTS AND CALCULATIONS 2-D Measurements and LV Function: LVID (d) 4.7 cm LV FS% (2D) 59 % LVID (s) 1.9 cm LVOT diameter 2.1 cm IVS (d) 0.9 cm HR 83 bpm LVPW (d) 1.2 cm LA Vol index 23 ml/m2 Ao Sinus 3.1 cm RA area 13 cm Asc Ao 3.7 cm LA 3.8 cm Diastology: Mitral Tissue Doppler Pulmonary veins E Peak 0.9 m/s e', Septum 0.09 m/s Pulm s 94.5 cm/s A Peak 0.9 m/s e', Lateral 0.11 m/s Pulm d 68.6 cm/s E/A 1.0 E/e' Average 9.30 Pulm s/d ratio 1.38 DT 243 msec Aortic Valve: Vmax 1.7 m/s ELISA (V) 2.40 cm VTI 0.32 m ELISA (I) 2.62 cm LVOT V max 1.2 m/s Max PG 12 mmHg LVOT VTI 0.25 m Mean PG 6 mmHg SV 84 ml Dim Index 0.78 SV index 43 ml/m CO 7.0 l/min CI 3.6 l/min/m Mitral Valve: MVA 3.1 cm MV P 1/2 70 msec MV Mean G 2 mmHg MV VTI 0.26 m Tricuspid Valve and estimated PA pressures: TR Vmax 2.6 m/s TAPSE 2.6 cm TR maxG 28 mmHg . This study was interpreted by an [facility] accredited facility. CC: HIM (med records) [facility], Med/Surg - IP [facility]. Final Procedure Note Justin Singh MD - 09/08/2024 ECHOCARDIOGRAM JACOB ARAUJO : 1940 84 years Study Date: 09/08/2024 11:22:01 AM Gender: F BP: 145/62 mmHg Height: 163.00 cm BSA: 1.95 m Weight: 90.00 kg Tech: SEAN Referring MD: NICOLE WHITE Site: [facility] Reading Location: [place]- Patient Location: Inpatient. Procedure: 2D, Color Doppler and Spectral Doppler. Indication for study: Lower extremity edema Cardiac Rhythm: Irregular.Study quality: Fair. Final Impressions: 1. Normal LV size, normal wall thickness, hyperdynamic global systolicfunction with an estimated EF of 70 - 75%. 2. Right ventricular cavity size is normal, global systolic RV functionis normal. 3. No significant valve disease detected. 4. Normal estimated RA pressure and PASP. Comparison There are no prior studies on this patient for comparison purposes. Chamber Sizes and Function Normal left ventricular size, normal wall thickness, hyperdynamic globalsystolic function with an estimated EF of 70 - 75%. No resting regionalwall motion abnormality visualized. Left atrial size is normal. Leftatrial pressure is normal. Right ventricular cavity size is normal, globalsystolic RV function is normal. RV wall thickness is normal. The rightatrium is normal. Right atrial area is 13 cm . The pulmonary artery is ofnormal size and origin. The sinus of Valsalva is normal sized. Theascending aorta is normal sized. Valves, RV Pressures and Diastolic Function The aortic valve is trileaflet and sclerotic, no stenosis and noregurgitation. The mitral valve is normal in structure, no mitralregurgitation. Normal diastolic function. The tricuspid valve is normal instructure. Tricuspid regurgitation is mild regurgitation. The tricuspidregurgitant velocity is 2.6 m/s, the estimated right ventricular systolicpressure is 28 mmHg plus right atrial pressure. The pulmonic valve isnormal. Trace pulmonary regurgitation. Masses, Effusion, Shunts There is no pericardial effusion. The inferior vena cava is normal sized,respiratory size variation greater than 50%. No left to right shunting wasdetected by limited color flow Doppler interrogation of the interatrialseptum. MEASUREMENTS AND CALCULATIONS 2-D Measurements and LV Function: LVID (d) 4.7 cm LV FS% (2D) 59 % LVID (s) 1.9 cm LVOT diameter 2.1 cm IVS (d) 0.9 cm HR 83 bpm LVPW (d) 1.2 cm LA Vol index 23 ml/m2 Ao Sinus 3.1 cm RA area 13 cm Asc Ao 3.7 cm LA 3.8 cm Diastology: Mitral Tissue Doppler Pulmonary veins E Peak 0.9 m/s e', Septum 0.09 m/s Pulm s 94.5 cm/s A Peak 0.9 m/s e', Lateral 0.11 m/s Pulm d 68.6 cm/s E/A 1.0 E/e' Average 9.30 Pulm s/d ratio 1.38 DT 243 msec Aortic Valve: Vmax 1.7 m/s ELISA (V) 2.40 cm VTI 0.32 m ELISA (I) 2.62 cm LVOT V max 1.2 m/s Max PG 12 mmHg LVOT VTI 0.25 m Mean PG 6 mmHg SV 84 ml Dim Index 0.78 SV index 43 ml/m CO 7.0 l/min CI 3.6 l/min/m Mitral Valve: MVA 3.1 cm MV P 1/2 70 msec MV Mean G 2 mmHg MV VTI 0.26 m Tricuspid Valve and estimated PA pressures: TR Vmax 2.6 m/s TAPSE 2.6 cm TR maxG 28 mmHg . This study was interpreted by an [facility] accredited facility. CC: HIM (med records) [facility], Med/Surg - IP [facility]. Final us Nicole White MD ECHO ORD Final Resu lt * SCAN-ENDOSCOPY (09/08/2024 12:00 AM ROUGHING MILL OPERATOR) us Scanner OTHER Final Result * SCAN-MRI INTERPRETATION (09/07/2024 12:00 AM ROUGHING MILL OPERATOR) Anatomical Region Laterality Modality Other us Scanner OTHER Final Result * XR DXA BONE DENSITY 2 SITES AXIAL (12/24/2015 2:26 PM CDT) Anatomical Region Laterality Modality Spine, HIPS, HIPL, HIPR Bone Den sitometry Narrative 12/30/2015 6:25 PM CDT DXA BONE MINERAL DENSITY STUDY CLINICAL INDICATIONS: The patient is a 75-year-old female with Other Screening - V82.81 FINDINGS Bone mineral density study was performed using the [employer]. The results of the study expressed as [...] 3. Recommend optimizing calcium and vitamin D. us Miranda Vu NP DEXA Final Result from Last 3 Months or Most Recently Relevant to Health Maintenance Insurance [phone] [place] [address] MEDICARE PROVIDER BASED MR BC DEER[place] MEDICARE PROVIDER BASED [phone] [place] [address] BLUE CROSS DEERING BLUE MR PB ONLY BLUE CROSS DEERING BLUE HB ONLY MEDICARE PB ONLY BLUE CROSS OF NON-NC-ITS WORKERS COMP MEDICARE PROVIDER BASED Advance Directives [...] 12:50 PM 04/04/2015 3:34 PM Care Teams Alodize Machine Operator Relationship Specialty Start Date End Date Chitra Manuel DO [address] [place] [address] PCP - General Family Practice 12/09/20
--- OUTSIDE RECORDS SUMMARY | 2024-10-23 10:24 | XMS_ITS | Continuity of Care Document ---
Author Organization [facility] Address [address] [place] [address] Phone Care Team Providers Care Qc Lab Technician Name Role Phone Unavailable Unavailable Unavailable Medications [...] Mi [facility], [address], [place], [place], [id number], [place] tel:[phone] [facility] No Information 5 No Information Referring Provider: Clarisa Hoang MD, [address], [address]. tel:[phone] Family History Family Member Type Diagnosis Age At Onset No Information Payers Payer name Insurance type Covered constitution party ID Authoriza tigemini(s) [employer] BL [id number] Social History Type Description Quantity Date Captured [...]
--- NOTE | 2024-10-23 10:46 | CRLHL7_ITS ---
For Patients: As a result of the Century Cures Act, medical imaging exams and procedure reports are released immediately into your electronic medical record. You may view this report before your referring provider. If you have questions, please contact your health care provider. INDICATION: Dizziness. TECHNIQUE: CTA neck with contrast bolus tracking, 3D angiographic rendering using maximum intensity projection (MIP) and images permanently archived. FINDINGS: There is ulcerated atherosclerotic plaque resulting in a moderate stenosis in the proximal right ICA, 60 percent by NASCET. There is a large hypodense plaque in the proximal left internal carotid artery resulting in a severe stenosis, 70 percent by NASCET. There is no significant vertebral artery stenosis or dissection. Advanced degenerative changes are noted in the cervical spine. IMPRESSION: 1. 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 2. Severe 70 percent stenosis of the proximal left ICA. Please note that all CT scans at this facility use dose modulation, iterative reconstruction, and/or weight-based dosing when appropriate to reduce radiation dose to as low as reasonably achievable. Dictated by Kota Somers MD @ 10/24/2024 6:07:45 AM (Electronically Signed)
--- NOTE | 2024-10-23 10:46 | CRLHL7_ITS ---
For Patients: As a result of the Century Cures Act, medical imaging exams and procedure reports are released immediately into your electronic medical record. You may view this report before your referring provider. If you have questions, please contact your health care provider. INDICATION: Dizziness. TECHNIQUE: CTA head with contrast bolus tracking, 3D angiographic rendering using maximum intensity projection (MIP) and images permanently archived. FINDINGS: There is irregular atherosclerotic plaque around the carotid siphons. A 7 millimeter right PCOM aneurysm is identified. There is otherwise normal opacification of intracranial vasculature. There is no large vessel occlusion or significant intracranial stenosis. IMPRESSION: Large right PCOM aneurysm. We would be happy to manage this at the [facility] neurointerventional clinic if desired. This can be arranged by calling our coordinator at [phone]. Kota Somers MD Neurointerventional Radiology [facility]: [phone] Please note that all CT scans at this facility use dose modulation, iterative reconstruction, and/or weight-based dosing when appropriate to reduce radiation dose to as low as reasonably achievable. Dictated by Kota Somers MD @ 10/24/2024 6:15:17 AM (Electronically Signed)
--- NOTE | 2024-10-23 10:46 | CRLHL7_ITS ---
For Patients: As a result of the Century Cures Act, medical imaging exams and procedure reports are released immediately into your electronic medical record. You may view this report before your referring provider. If you have questions, please contact your health care provider. TECHNIQUE: Multiplanar CT examination of the head was performed without the use of intravenous contrast. INDICATION: Dizziness. COMPARISON: MR brain 09/07/2024. FINDINGS: No loss of meyers-white differentiation to suggest recent territorial infarct. No intracranial hemorrhage, abnormal extra-axial fluid collection, hydrocephalus or midline shift. The ventricles and cerebral sulci are prominent caliber, compatible with mild generalized parenchymal volume loss. There is patchy hypoattenuation of the supratentorial white matter diffusely, nonspecific but consistent with severe chronic microvascular ischemic changes. The basal cisterns are patent. The paranasal sinuses and mastoid air cells remain clear. Status post bilateral lens removal. The orbits and calvarium are unremarkable. The cerebellar tonsils are normal position. IMPRESSION: 1. No acute intracranial findings. 2. Mild generalized parenchymal volume loss with severe chronic microvascular ischemic changes. Please note that all CT scans at this facility use dose modulation, iterative reconstruction, and/or weight-based dosing when appropriate to reduce radiation dose to as low as reasonably achievable. Dictated by Christiano Monaco MD @ 10/23/2024 1:38:06 PM (Electronically Signed)
--- NOTE | 2024-10-23 11:11 | ED.DIZZY ---
HPI - Dizziness General Date Seen: 10/23/24 Chief Complaint: Dizziness/Vertigo Stated Complaint: dizziness Source: patient Mode of arrival: ambulatory Limitations: no limitations History of Present Illness HPI Narrative: Patient is an 84-year-old female presenting to the emergency department for dizziness. She states she woke up this morning and felt dizzy. Just states she was feeling confused that was gradually getting worse. She states she was trying call 911 but instead was calling 411. The confusion has since resolved but she states she still feels slightly dizzy while lying in bed. She is having difficulty explaining how the dizziness feels and states she does not feel like the room is spinning or like she is on about. Also states she does not feel like she is going to pass out she does states she is dizzy. She has been having this dizziness on and off for quite a while now and was recently admitted in September of 2024 for the dizziness. At that time she also had anemia from acute GI bleed. Symptoms resolved after blood transfusion. She was released from this hospital 6 days ago for hyponatremia. Her son checks on her multiple times a day. She denies chest pain, shortness of breath, headache, lightheadedness, dizziness, weakness, numbness, abdominal pain. Did have a recent MRI that showed recommendations for an outpatient CTA due to an aneurysm. She has not had this CTA done yet. Related Data Home Medications ?Medication ?Instructions ?Recorded ?Confirmed multivitamin 1 tab PO DAILY 09/07/24 10/23/24 vit C 250 mg-vit E 90 mg-zinc 40 1 tab PO BID 09/07/24 10/16/24 mg-copper 1 [id number] capsule (PreserVision AREDS-2) sertraline 50 mg tablet 50 mg PO QAM 10/16/24 10/16/24 Previous Rx's ?Medication ?Instructions ?Recorded omeprazole 40 mg capsule,delayed 40 mg PO DAILY #14 caps 07/17/24 release iron,carbonyl 65 mg-vitamin C 125 1 tab PO BID #60 tabs 09/01/24 mg tablet,delayed release (Vitron-C) lisinopril 10 mg tablet 10 mg PO DAILY #30 tabs 10/17/24 sennosides 8.6 mg-docusate sodium 1 tab PO DAILY PRN #30 tabs 10/17/24 50 mg tablet (Stool Softener-Laxative) sodium chloride 1,000 mg soluble 1,000 mg PO TIDWM #90 tabs 10/17/24 tablet Allergies Allergy/AdvReac Type Severity Reaction Status Date / Time sertraline AdvReac Intermediate Nightmares Verified 10/23/24 10:25 Review of Systems Status of ROS: Reports: 10 or more systems reviewed and unremarkable except as noted in History and below [facility] Medical History HTN (hypertension) ?I10 - Essential (primary) hypertension (ICD-10) Anemia due to GI blood loss ?D50.0 - Iron deficiency anemia secondary to blood loss (chronic) (ICD-10) Mild cognitive impairment ?G31.84 - Mild cognitive impairment of uncertain or unknown etiology (ICD-10) Rotator cuff injury ?S46.009A - Unspecified injury of muscle(s) and tendon(s) of the rotator cuff of unspecified shoulder, initial encounter (ICD-10) Vitamin D deficiency ?E55.9 - Vitamin D deficiency, unspecified (ICD-10) GERD with esophagitis ?K21.00 - Gastro-esophageal reflux disease with esophagitis, without bleeding (ICD-10) 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.0 - Iron deficiency anemia secondary to blood loss (chronic) (ICD-10) Hemorrhoids ?K64.9 - Unspecified hemorrhoids (ICD-10) Osteopenia ?M85.80 - Other specified disorders of bone density and structure, unspecified site (ICD-10) Diverticulosis of colon (without mention of hemorrhage) ?K57.30 - Diverticulosis of large intestine without perforation or abscess without bleeding (ICD-10) Surgical History History of colonoscopy ?Z98.890 - Other specified postprocedural states (ICD-10) History of esophagogastroduodenoscopy ?Z98.890 - Other specified postprocedural states (ICD-10) Social History Narrative: Independent apartment at the [facility], no current services. Son Anisha would be medical decision maker if needed, he lives in [place]. Nonsmoker, rare ETOH. Full code. What is your current living situation?: I presently have a place to live Problems where you live: no known problems Problems where you live details: none In the past 12 months, utilities in danger of being shut off: no In past 12 months, lack of transportation kept you from medical appts, meetings, work, or getting things needed for daily living: no In the past 12 mos, have been you worried that your food would run out before you had money to buy more?: never true In the past 12 mos, the food you bought just didn't last and you didn't have money to buy more?: never true Highest level of school completed/degree received: high school graduate Smoking Status: Former smoker What tobacco products do you use: cigarettes Smoking quit date/years: >15 years ago Do you use any of these nicotine containing products: None Second hand tobacco smoke exposure: No How often do you have a drink containing alcohol: never How often do you have six or more drinks on one occasion: Never AUDIT-C Alcohol total score: 0 Non-prescribed substance use: denies use Caffeine: No How often does anyone, including family, friends and others, physically hurt you: never How often does anyone, including family, friends and others, insult or talk down to you: never How often does anyone, including family, friends and others, threaten you with harm: never How often does anyone, including family, friends and others, scream or curse at you: never service: No Exam Narrative: Exam Narrative: Const: Well-nourished, Well-developed, in mild distress Eyes: PERRL, no conjunctival injection, and symmetrical lids HENT: Atraumatic external nose and ears. Moist mucous membranes. Neck: Symmetric, trachea midline, No thyromegaly. CVS: RRR, No murmurs or gallops. Peripheral pulses 2+ and equal in all extremities RESP: Unlabored respiratory effort. Clear to auscultation bilaterally. GI: Nontender/Nondistended, No rebound or guarding. MSK:Extremities w/o deformity, Normal Active ROM Skin: Warm, Dry. No rashes or lesions. Neuro: Normal Muscle tone, Cranial nerves 2-12 grossly intact, normal [id number], normal tdabyy-[id number]-mosm, normal gait, normal strength 5/5 upper lower extremities bilaterally, normal sensation upper and lower extremities bilaterally, normal rapid alternating movements. Hints exam shows no sick a it is an him impulse, no nystagmus, normal test of skew Psych: Awake, Alert, & Oriented x3. Appropriate mood and affect. Const: Vital Signs, click to edit/add: Vital Signs - 24 hr 10/23/24 10:21 10/23/24 10:59 10/23/24 11:00 Temperature 97.2 F L Pulse Rate Pulse Rate [Pulse Oximeter] 92 Respiratory Rate 16 23 31 H Blood Pressure Blood Pressure [Ri ght Forearm] 181/77 H Pulse Oximetry 96 Oxygen Delivery Me thod Room Air 10/23/24 11:07 10/23/24 11:15 10/23/24 11:30 Temperature Pulse Rate 80 87 94 Pulse Rate [Pulse Oximeter] Respiratory Rate 40 H 23 20 Blood Pressure 138/116 H Blood Pressure [Ri ght Forearm] Pulse Oximetry 94 97 91 Oxygen Delivery Me thod 10/23/24 11:45 10/23/24 12:00 10/23/24 12:09 Temperature Pulse Rate 72 80 Pulse Rate [Pulse Oximeter] Respiratory Rate 24 27 H 30 H Blood Pressure 148/73 H Blood Pressure [Ri ght Forearm] Pulse Oximetry 94 90 Oxygen Delivery Me thod Course Vital Signs Vital signs: Initial Vital Signs Temperature 97.2 F L 10/23/24 10:21 Temperature Source Temporal Artery Scan 10/23/24 10:21 Pulse Rate 92 10/23/24 10:21 Respiratory Rate 16 10/23/24 10:21 Blood Pressure 181/77 H 10/23/24 10:21 Blood Pressure Mean 111 H 10/23/24 10:21 Blood Pressure Position Sitting 10/23/24 10:21 Pulse Oximetry 96 10/23/24 10:21 Oxygen Delivery Method Room Air 10/23/24 10:21 Vital Signs Temperature 97.2 F L 10/23/24 10:21 Pulse Rate 92 10/23/24 10:21 Respiratory Rate 16 10/23/24 10:21 Blood Pressure 181/77 H 10/23/24 10:21 Pulse Oximetry 96 10/23/24 10:21 Oxygen Delivery Method Room Air 10/23/24 10:21 Temperature 97.2 F L 10/23/24 10:21 Pulse Rate 80 10/23/24 12:00 Respiratory Rate 30 H 10/23/24 12:09 Blood Pressure 148/73 H 10/23/24 12:09 Pulse Oximetry 90 10/23/24 12:00 Oxygen Delivery Method Room Air 10/23/24 10:21 Medications Administered Medications: Generic Name Dose Route Start Last Admin Trade Name Yuliet PRN Reason Stop Dose Admin Sodium Chloride 1,000 mls @ 150 mls/hr 10/23/24 12:23 10/23/24 12:28 0.9 % Sodium Chloride 1000 Ml IV 150 mls/hr .[id number] JUAN Administration MDM - Dizziness MDM Narrative Medical decision making narrative: Patient is an 84-year-old female presenting for dizziness and confusion. The confusion has resolved. The differential diagnosis of vertigo is broad and includes common etiologies such as menieres disease, labyrinthitis, benign positional vertigo, otitis media, etc. More serious etiologies considered include central etiologies such as tumor, intracerebral bleed, dissection, ischemic cerebral vascular accident. Hints exam did show concern for central pore also has but also him having difficulty determining if this patient is having true dizziness or not as she is very vague about her symptoms are. At this time will do a CT and CTA head and neck. She did have her MRI done a month and half ago for her dizziness that only phone an aneurysm. Will also check electrolytes with a BMP, magnesium. CBC, COVID/flu/RSV, EKG and troponin also ordered CBC shows no concerning abnormalities. Hemoglobin is stable. BMP returns with a sodium of 121. She was recently seen here for sodium 123 and was discharged at 01:27 6 days ago. I am not sure why she is becoming routinely hyponatremic. She does have a low [place] score and does not fully no Nafisa she has been drinking or she is taking her salt tabs. Will do urine creatinine and sodium along with serum and urine osmolality. Rest of her lab work shows no concerning findings. EKG and troponin showed no concerning findings. Will start her on sodium chloride [address] imaging shows no acute concerning abnormalities care to be accepted to the hospitalist service Lab Data Labs: Lab Results 10/23/24 10/23/24 10/23/24 Range/Units 10:47 11:04 12:20 WBC 7.82 (4.50-11.00) K/uL RBC 4.31 (4.00-5.20) m/uL Hgb 10.7 L (12.0-16.0) gm/dL Hct 33.3 (33.0-51.0) % MCV 77 L (80-100) fL MCH 25 L (26-34) pg MCHC 32 (32-36) gm/dL RDW Coeff of Afua 25.1 H (11.5-15.5) % Plt Count 318 (140-440) K/uL Neut % (Auto) 86.2 H (42.0-72.0) % Lymph % (Auto) 5.1 L (20-44) % [place] % (Auto) 7.4 (0.0-11.0) % Eos % (Auto) 0.8 (0.0-7.0) % Baso % (Auto) 0.4 (0.0-3.0) % Neut # (Auto) 6.70 (1.7-7.0) K/uL Lymph # (Auto) 0.40 L (0.90-2.90) K/uL [place] # (Auto) 0.60 (0.00-0.90) K/UL Eos # (Auto) 0.06 (0.00-0.50) K/uL Baso # (Auto) 0.03 (0.00-0.30) K/uL Abs Immat Gran (auto) 0.01 (0.00-0.30) K/uL Imm/Tot Granulo (auto) 0.1 % Sodium 121 L* (135-149) mmol/L Potassium 4.0 (3.6-5.1) mmol/L Chloride 91 L (96-114) mmol/L Carbon Dioxide 22 (20-32) mmol/L Anion Gap 8 (7-15) mEq/L BUN 18 (7-30) mg/dL Creatinine 0.5 (0.5-1.5) mg/dL Estimated GFR 92 ml/min Glucose 123 H (60-115) mg/dL Calcium 8.9 (8.4-10.6) mg/dL Magnesium 1.9 (1.5-2.6) mg/dL Troponin I < 0.01 L (0.01-0.04) ng/mL Urine Color Yellow (Yellow) Urine Appearance Clear (Clear) Urine pH 6.5 (5.0-8.5) Ur Specific [place] 1.010 (1.000-1.030) Urine Protein Negative (Negative) Urine Glucose (UA) Negative (Negative) Urine Ketones Negative (Negative) Urine Blood Negative (Negative) Urine Nitrite Negative (Negative) Urine Bilirubin Negative (Negative) Urine Urobilinogen 0.2 (0.2-1.0) Ur Leukocyte Esterase Negative (Negative) Urine RBC 0-2 (0-2) Urine WBC 0-2 (0-5) Ur Squamous Epith Cells None (None-Few) Urine Bacteria None (None) SARS-CoV-2 (PCR) Negative SARS-CoV-2 (Negative) Influenza Type A (PCR) Negative PCR FLU A (Negative) Influenza Type B (PCR) Negative PCR FLU B (Negative) RSV (PCR) Negative PCR RSV (Negative) Imaging Data CT scan - head: Attestation: I have reviewed the pertinent imaging results. Radiologist's impression: 1. No acute intracranial findings. 2. Mild generalized parenchymal volume loss with severe chronic microvascular ischemic changes. Please note that all CT scans at this facility use dose modulation, iterative reconstruction, and/or weight-based dosing when appropriate to reduce radiation dose to as low as reasonably achievable. Dictated by Christiano Monaco MD @ 10/23/2024 1:38:06 PM CTA head and neck: Attestation: I have reviewed the pertinent imaging results. Radiologist's impression: The aortic arch has a conventional anatomy. The great vessels remain patent. The common carotid arteries remain patent. Mixed noncalcified atheromatous plaque of the right greater than left proximal cervical ICA segments, with a residual lumen of 2.5 mm on the right and 2.0 mm on the left, approximately 50 percent stenosis. The origins of the common carotid arteries remain patent. Right vertebral dominant system. The cervical vertebral arteries remain patent. The origins of the vertebral arteries remain patent. The visualized thyroid is unremarkable. The visualized lung wooten are clear. 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 Full final dictated report to follow. Dictated by Christiano Monaco MD @ 10/23/2024 1:49:37 PM ECG Data Attestation: I personally reviewed and interpreted this ECG as follows: Prior ECG tracings: available for review Interpretation: Normal sinus rhythm with a rate of 82 beats per minute, normal intervals, normal axis, no ST or T-wave abnormalities. Appears similar previous EKGs on file Discharge Plan Discharge Clinical Impression: Hyponatremia Patient Disposition: Admitted As Observation Condition: Stable Prescriptions: No Action omeprazole 40 mg capsule,delayed release(DR/EC) 40 mg PO DAILY Qty: 14 0RF Vitron-C 65 mg iron- 125 mg tablet,delayed release (DR/EC) 1 tab PO BID Qty: 60 0RF multivitamin Tablet 1 tab PO DAILY PreserVision AREDS-2 250-90-40-1 mg capsule 1 tab PO BID sertraline 50 mg tablet 50 mg PO QAM sennosides-docusate sodium [Stool Softener-Laxative] 8.6-50 mg Tablet 1 tab PO DAILY PRNQty: 30 0RF sodium chloride 1,000 mg Tablet,Soluble 1,000 mg PO TIDWM Qty: 90 0RF lisinopril 10 mg tablet 10 mg PO DAILY Qty: 30 0RF Follow Up/Referrals: Emmy Harley MD [Primary Care Provider] -
[2024-10-23 11:17] LABS: Basophils Absolute Auto 0.03 K/uL (0.00-0.30); Basophils Percent Auto 0.4 % (0.0-3.0); Eosinophils Absolute Auto 0.06 K/uL (0.00-0.50); Eosinophils Percent Auto 0.8 % (0.0-7.0); Hematocrit 33.3 % (33.0-51.0); Hemoglobin* 10.7 gm/dL (12.0-16.0); Immature Granulocytes Abs Auto 0.01 K/uL (0.00-0.30); Immature Granulocytes Pct Auto 0.1 %; Lymphocytes Percent Auto 5.1 % (20-44); Mean Corpuscular HGB Conc 32 gm/dL (32-36); Mean Corpuscular Hemoglobin 25 pg (26-34); Mean Corpuscular Volume 77 fL (80-100); Monocytes Percent Auto 7.4 % (0.0-11.0); Neutrophils Percent Auto 86.2 % (42.0-72.0); Platelet Count* 318 K/uL (140-440); RDW Coefficient of Variation % 25.1 % (11.5-15.5); Red Blood Count 4.31 m/uL (4.00-5.20); White Blood Count* 7.82 K/uL (4.50-11.00)
[2024-10-23 11:35] LABS: Slide Review Reflex No
[2024-10-23 11:44] LABS: Chloride* 91 mmol/L (96-114)
[2024-10-23 11:47] LABS: Anion Gap 8 mEq/L (7-15); Blood Urea Nitrogen* 18 mg/dL (7-30); Carbon Dioxide* 22 mmol/L (20-32); Creatinine* 0.5 mg/dL (0.5-1.5); Estimated Glomerular Filt Rate 92 ml/min
[2024-10-23 11:48] LABS: Calcium* 8.9 mg/dL (8.4-10.6); Glucose* 123 mg/dL (60-115); Magnesium* 1.9 mg/dL (1.5-2.6)
[2024-10-23 11:50] LABS: PCR FLU A Negative PCR FLU A (Negative); PCR FLU B Negative PCR FLU B (Negative); PCR RSV Negative PCR RSV (Negative); SARS PCR* Negative SARS-CoV-2 (Negative)
[2024-10-23 12:04] LABS: Sodium* 121 mmol/L (135-149); Troponin I* < 0.01 ng/mL (0.01-0.04)
[2024-10-23] MEDS: 0.9 % SODIUM CHLORIDE 1000 ml 1,000 ML 150 ML IV (12:28)
[2024-10-23 12:34] LABS: Appearance Urine Clear (Clear); Bilirubin Urine Negative (Negative); Blood Urine Negative (Negative); Color Urine Yellow (Yellow); Glucose Urine Negative (Negative); Ketones Urine Negative (Negative); Leukocyte Esterase Urine Negative (Negative); Nitrite Urine Negative (Negative); Protein Urine Negative (Negative); Urobilinogen Urine 0.2 (0.2-1.0); pH Urine 6.5 (5.0-8.5)
--- OUTSIDE RECORDS SUMMARY | 2024-10-23 13:04 | XMS_ITS | Clinical Summary ---
Author Organization [facility] Address [address] [place] [id number] Care Team Providers Care Ferry Hand Name Role Phone Chitra Manuel DO Primary Care Provider [phone] Allergies Active Allergy Reactions Criticality Noted Date Comments Sertraline Nightmares 10/22/2021 may be dose dependant ok on 50mg. 100mg more dreams. Medications multivitamin (MVI) tablet Take 1 tablet by mouth once daily. 0 7 Active vit C,Y-Vk-vlsum-lut ein-zeaxan (PreserVision AREDS-2) capsule Take 1 Capsule [...] Type Department Care Team Description 10/19/2024 Telephone [facility] [address] [place] [address] Chitra Manuel, Results 10/16/2024 Orders Only [facility] Scanner 1 scan: (1-Ord) [facility], ABDOMEN MIN 2V, 10/16/2024 10/13/2024 1:00 PM ELECTRIC MOTORMAN Office Visit [facility] [address] [place] [address] Chitra Manuel DO Screening (colonoscopy results/); memory 10/13/2024 Travel 10/07/2024 Lab Requisition [facility] [phone] Maxwell Salgado MD 10/06/2024 9:45 AM ELECTRIC MOTORMAN Office Visit [facility] at [facility] [address] [place] [address] Maxwell Salgado MD 10/06/2024 Orders Only [facility] Scanner 1 scan: (1-Ord) [facility] 10/06/2024 Orders Only [facility] Scanner 1 scan: (1-Ord) [facility] 09/26/2024 3:25 PM ELECTRIC MOTORMAN Office Visit [facility] [address] [place] [address] Sandee Ibarra PA Cough 09/26/2024 Telephone [facility] [address] [place] [address] Maxwell Salgado MD 09/26/2024 Travel 09/26/2024 Telephone [facility] [address] [place] [address] Chitra Manuel DO Questions (Requesting call back from PCP/Dr. Manuel) 09/22/2024 1:00 PM ELECTRIC MOTORMAN Office Visit [facility] [address] [place] [address] Chitra Manuel DO Hospital F/U 09/22/2024 Travel 09/19/2024 Orders Only [facility] Scanner 1 scan: (1-Ord) [facility], MULTIPLE LABS, 09/19/2024 09/19/2024 Nurse Triage [address] [address] Miryam Nj NP Abnormal Lab Results 09/19/2024 Patient Outreach [facility] [address] [place] [address] Ursula Camarillo RN Primary RN Care Management; Hospital F/U (TCU DC 09/20/24) 09/18/2024 7:30 AM ELECTRIC MOTORMAN Care Home [address] [address] Miryam Nj NP Transitional Care Visit (BLOW MOLDING MACHINE TENDER dc visit) 09/18/2024 Travel 09/15/2024 7:30 AM ELECTRIC MOTORMAN Care Home [address] [address] Alicia Leslie MD Transitional Care Visit (MD admit) 09/15/2024 Orders Only [address] [address] Alicia Leslie MD <No scans attached> 09/15/2024 Travel 09/14/2024 Orders Only [facility] Scanner 1 scan: (1-Ord) [facility] , MULTIPLE LABS, 09/14/2024 09/14/2024 Nurse Triage [address] [address] Miryam Nj NP Abnormal Lab Results (CBC & BMP) 09/13/2024 7:30 AM ELECTRIC MOTORMAN Care Home [address] [address] Miryam Nj NP Transitional Care Visit (BLOW MOLDING MACHINE TENDER admit) 09/13/2024 Travel 09/08/2024 11:00 AM ELECTRIC MOTORMAN Ancillary Procedure [facility] [address] [place] [address] 09/08/2024 8:30 AM ELECTRIC MOTORMAN Office Visit [facility] at [facility] [address] [place] [address] Maxwell Salgado MD 09/08/2024 Orders Only [facility] 1 [facility], 09/08/2024 09/07/2024 Orders Only [facility] Scanner 1 scan: (1-Ord) [facility], MR HEAD/BRAIN W/O CONTRAST, 09/07/2024 09/01/2024 Orders Only [facility] Scanner 1 scan: (1-Ord) [facility], CHEST 2 V, 09/01/2024 09/01/[address] [address] Chitra Manuel, DO callback (Call the provider) 09/01/2024 Telephone [facility] [address] [place] [address] Emmy Harley MD Sob ([facility] ) 08/21/2024 Telephone [facility] [address] [place] [address] Maxwell Salgado MD Appointment (Scheduled at [facility] Colonoscopy ) 08/12/2024 Refill [facility] [address] [place] [address] Chitra Manuel, Refill Request (Lisinopril) from Last [...] on file Legal Sex Female 5:23 AM ELECTRIC MOTORMAN Gender Identity Not on file Sexual Orientation [...] Comments Blood Pressure 169/74 10/13/2024 1:00 PM ELECTRIC MOTORMAN Pulse 88 10/13/2024 1:00 PM ELECTRIC MOTORMAN Temperature 36.4 C (97.5 F) 09/26/2024 2:00 PM ELECTRIC MOTORMAN Respiratory Rate 16 04/02/2018 11:52 AM CDT Oxygen Saturation 97% 10/13/2024 1:00 PM ELECTRIC MOTORMAN Inhaled Oxygen Concentration - - Weight 90.3 kg (199 lb) 10/13/2024 1:00 PM ELECTRIC MOTORMAN Height 154.9 cm (5' 1) 02/08/2023 4:05 PM CDT Body Mass Index 37.6 02/08/2023 4:05 PM CDT Plan of Treatment Upcoming Encounters Date Type Department Care Team (Late st Contact Info) Description 10/23/2024 1:50 PM CDT Office Visit [facility] [address] [place] [address] Chitra Manuel DO [address] [place] [address] 11/15/2024 2:15 PM CDT Office Visit [facility] [address] [place] [address] Chitra Manuel DO [address] [place] [address] 01/31/2025 8:00 AM CDT Office Visit [facility] [address] [place] [address] Ailyn Eaton, PhD, LP [address] [place] [address] Health Maintenance Due Date Last Done Comments [...] Completed 12/24/2015 Medical Devices Implanted Type Area Platinum Smith Device Identifier Shelf Expiration Date Model / Serial / Lot Eye Intraocular Lens - [id number] Implanted:Qty: 1 on 05/13/2017 by Michael Peters MD at [employer] [facility] Right: Eye 08/08/2019 / [id number] / Eye Intraocular Lens - [id number] Implanted:Qty: 1 on 06/10/2017 by Michael Peters MD at [employer] [facility] Left: Eye [employer] 10/07/2019 250 / [id number] / Procedures Procedure Name Priority Date/Time Associated Diagnosis Comments SCAN-RADIOLOGY REPORT 10/16/2024 12:00 AM CDT CBC WITH AUTO DIFFERENTIAL Routine 10/13 2:13 PM ELECTRIC MOTORMAN Iron deficiency anemia due to chronic blood loss FERRITIN Routine 10/13/2024 2:13 PM ELECTRIC MOTORMAN Iron deficiency anemia due to chronic blood loss LAB TRACKING EVENT Routine 10/06/2024 11:00 AM ELECTRIC MOTORMAN PATH TISSUE EXAM Routine 10/06/2024 11:00 AM ELECTRIC MOTORMAN SCAN-COLONOSCOPY 10/06/2024 12:00 AM ELECTRIC MOTORMAN SCAN-COLONOSCOPY 10/06/2024 12:00 AM ELECTRIC MOTORMAN SCAN-LABORATORY REPORT 12:00 AM ELECTRIC MOTORMAN SCAN-LABORATORY REPORT 12:00 AM ELECTRIC MOTORMAN ECHO TTE COMPLETE WO CONTRAST Routine 12:05 PM ELECTRIC MOTORMAN Lower extremity edema SCAN-ENDOSCOPY 09/08/2024 12:00 AM ELECTRIC MOTORMAN SCAN-MRI INTERPRETATION 09/07/19 12:00 AM ELECTRIC MOTORMAN SCAN-RADIOLOGY REPORT 09/01/2024 12:00 AM ELECTRIC MOTORMAN COLONOSCOPY DIAGNOSTIC MENA 8:04 AM ELECTRIC MOTORMAN Anemia of unknown etiology Positive fecal occult blood test ESOPHAGOGASTRODUODENOSCOPY MENA 08/18 8:04 AM ELECTRIC MOTORMAN Anemia of unknown etiology Positive fecal occult [...] (ABNORMAL) CBC AND DIFFERENTIAL (10/13/2024 2:13 PM ELECTRIC MOTORMAN) WHITE BLOOD CELL COUNT 7.8 3.8 - [...] BLOOD SPECIMEN / Unknown 10/13/2024 2:13 PM ELECTRIC MOTORMAN 10/13/2024 2:13 PM ELECTRIC MOTORMAN us Chitra Viviana Detert DO HEMATOLOGY Final Resul t [facility] [address] [place] [address], [place] [phone] [facility] [address] [place] [address] * FERRITIN (10/13/2024 2:13 PM ELECTRIC MOTORMAN) FERRITIN 26 16 - 288 ng/mL [facility] Blood BLOOD SPECIMEN / Unknown 10/13/2024 2:13 PM ELECTRIC MOTORMAN 10/13/2024 2:13 PM ELECTRIC MOTORMAN us Chitra Howellt DO CHEMISTRY Final Resul t Performing Organization Address City/[facility]/ZIP Co de Phone Number [facility] [address] [place] [address], [place] [phone] [facility] [address] [place] [address] * LAB TRACKING EVENT (10/06/2024 11:00 AM ELECTRIC MOTORMAN) Other (Other) Client Collect / Unknown 10/06/2024 11:00 AM ELECTRIC MOTORMAN 10/07/2024 6:24 AM ELECTRIC MOTORMAN us Maxwell Salgado MD LAB BILL ONLY Final Res ult [facility] [address] [place] [address], * PATH TISSUE EXAM (10/06/2024 11:00 AM ELECTRIC MOTORMAN) Case Report Pathology Report Case: [id number] Authorizing Provider: Maxwell Salgado MD Collected: 10/06/2024 1100 Ordering Location: [facility] Received: 10/07/2024 1013 Pathologist: Logan Ochoa MD Specimen: Cecum Biopsy 10/09/2024 2:41 PM ELECTRIC MOTORMAN [facility] Final Diagnosis A) COLON, CECUM, POLYPECTOMY: 1. Tubular adenoma 2. Negative for high grade dysplasia 3. Per the colonoscopy report: a. Polyp size: 4 mm b. Resection: Complete c. Retrieval: Complete 10/09/2024 2:41 PM ELECTRIC MOTORMAN [facility] Clinical Information Ms. Araujo is a 84 y.o. who undergoes screening colonoscopy. This is the patient's first colonoscopy. 10/09/2024 2:41 PM ELECTRIC MOTORMAN [facility] Gross Description A) Received in formalin are 4 pina mucosal fragments averaging 3 mm in greatest dimension, which are entirely submitted in one cassette. It is labeled with the patient's name and designated cecum. RICK Garcia 10/07/2024 10:40 AM 10/09/2024 2:41 PM ELECTRIC MOTORMAN [facility] Microscopic Description The final diagnosis is based on microscopic examination of appropriate sections of all specimens. 10/09/2024 2:41 PM ELECTRIC MOTORMAN [facility] Additional Information Interpreted at [facility] - [address], [place] [address] 10/09/2024 2:41 PM ELECTRIC MOTORMAN [facility] Other (Cecum Biopsy) 10/06/2024 11:00 AM ELECTRIC MOTORMAN 10/07/2024 10:13 AM ELECTRIC MOTORMAN us Maxwell Salgado MD PATHOLOGY/CYTOLOGY Final Result [facility] [address] [place] [address], [place] * SCAN-COLONOSCOPY (10/06/2024 12:00 AM ELECTRIC MOTORMAN) us Scanner OTHER Final Result * SCAN-COLONOSCOPY (10/06/2024 12:00 AM ELECTRIC MOTORMAN) us Scanner OTHER Final Result * SCAN-LABORATORY REPORT (09/19/2024 12:00 AM ELECTRIC MOTORMAN) Only the most recent of2 resultswithin the time period is included. us Scanner OTHER Final Result * ECHO TTE COMPLETE WO CONTRAST (09/08/2024 12:05 PM ELECTRIC MOTORMAN) AORTIC VALVE MEAN PG 6 mmHg EJECTION FRACTION 79 % PEAK TR VELOCITY 2.6 m/s LVEDD 4.7 cm EJECTION FRACTION 70 - 75% Anatomical Region Laterality Modality Ultrasound 09/08/2024 11:2 2 AM ELECTRIC MOTORMAN Narrative 09/08/2024 3:40 PM ELECTRIC MOTORMAN ECHOCARDIOGRAM JACOB ARAUJO : 1940 84 years Study Date: 09/08/2024 11:22:01 AM Gender: F BP: 145/62 mmHg Height: 163.00 cm BSA: 1.95 m Weight: 90.00 kg Tech: SEAN Referring MD: NICOLE WHITE Site: [facility] Reading Location: [facility] Patient Location: Inpatient. Procedure: 2D, Color Doppler [...] . This study was interpreted by an [facility] accredited facility. CC: HIM (med records) [facility], Med/Surg - IP [facility]. Final Procedure Note Justin Singh MD - 09/08/2024 ECHOCARDIOGRAM JACOB ARAUJO : 1940 84 years Study Date: 09/08/2024 11:22:01 AM Gender: F BP: 145/62 mmHg Height: 163.00 cm BSA: 1.95 m Weight: 90.00 kg Tech: SEAN Referring MD: NICOLE WHITE Site: [facility] Reading Location: [place]- Patient Location: Inpatient. Procedure: 2D, Color Doppler [...] . This study was interpreted by an [facility] accredited facility. CC: HIM (med records) [facility], Med/Surg - IP [facility]. Final us Nicole White MD ECHO ORD Final Resu lt * SCAN-ENDOSCOPY (09/08/2024 12:00 AM ELECTRIC MOTORMAN) us Scanner OTHER Final Result * SCAN-MRI INTERPRETATION (09/07/2024 12:00 AM ELECTRIC MOTORMAN) Anatomical Region Laterality Modality Other us Scanner [...] mineral density study was performed using the [employer] The results of the study expressed as [...] Recently Relevant to Health Maintenance Insurance [id number] [place] [address] MEDICARE PROVIDER BASED MR BC LUMMI MEDICARE PROVIDER BASED [phone] [place] [address] BLUE CROSS LUMMI BLUE MR PB ONLY BLUE CROSS LUMMI BLUE HB ONLY MEDICARE PB ONLY BLUE CROSS OF NON-MO-ITS WORKERS COMP MEDICARE PROVIDER BASED Advance Directives [...] 12:50 PM 04/04/2015 3:34 PM Care Teams Ferry Hand Relationship Specialty Start Date End Date Chitra Manuel DO [address] [place] [address] PCP - General Family Practice 12/09/20
--- OUTSIDE RECORDS SUMMARY | 2024-10-23 13:06 | XMS_ITS | Continuity of Care Document ---
Author Organization [facility] Address [address] [place] [address] Phone Care Team Providers Care Yardage Tufting Machine Operator Name Role Phone Unavailable Unavailable Unavailable Medications [...] New/estab Mod 40 Mi [facility], [address], [place], [place], [id number], [place] tel:[phone] [facility] No Information 5 No Information Referring Provider: Clarisa Hoang MD, [address], [address]. tel:[phone] Family History Family Member Type Diagnosis Age At Onset No Information Payers Payer name Insurance type Covered democrat ID Authoriza tigemini(s) Blue Plus BL [id number] Social History Type Description Quantity Date Captured [...]
[2024-10-23 13:14] LABS: RBC Urine 0-2 (0-2); WBC Urine 0-2 (0-5)
--- NOTE | 2024-10-23 16:07 | P.IMHP_ITS ---
Hospitalist- H&P: HPI History of Present Illness Date Seen: 10/23/24 Chief complaint: dizziness Narrative: Audra Araujo is a 84 year old woman the emergency department today with chief complaint of dizziness. She has had this chief complaint often on for danielle e time. She has had multiple visits to the emergency department. She was admitted to the hospital on 10/16/2024 and discharged on 10/17/2024 with a similar complaint. At that time her admission serum sodium is 123. With protein supplementation and normal saline IV sodium improved to 127 with her symptoms of dizziness totally resolving. Was discharged at that time on sodium chloride 1 g p.o. t.i.d.. It is unclear if patient is taking this supplement. It is unclear how much water she is drinking at home. She lives alone. Has a son who checks on her via telephone 3 times daily and in person once a week. Patient readily acknowledges her memory is declining. Recent [place] score was 12. Unclear if it is safe for her to continue to care for herself safely in her home with current level of support. Previously she had similar symptoms of dizziness and she was anemic. Hemoglobin was around 7. Was transfused with packed red blood cells. Dizziness resolved. Continues to have [id number] anemia but no active GI bleed. Has not had workup for GI bleed despite recommendations for doing so. Review of Systems Status of ROS: Reports: 6 or more systems reviewed and unremarkable except as noted in History and below Narrative: Denies angina or anginal equivalent. Denies syncope or near-syncope. Uses the were dizziness but unable to elaborate beyond that. Specifically denies vertigo, orthostasis. Denies dyspnea at rest or dyspnea with exertion. Denies cough. Denies dysuria, urgency, frequency, hematuria. Denies constipation or diarrhea. Denies dependent edema. Denies trauma or injury. Denies falls. Denies overt blood loss. Unclear she is taking her medications as prescribed. Again she is not able to qualify or quantitate amount of free water. Acknowledges she drinks water to stay hydrated however. Unclear about her oral intake. [facility] Medical History HTN (hypertension) ?I10 - Essential (primary) hypertension (ICD-10) Anemia due to GI blood loss ?D50.0 - Iron deficiency anemia secondary to blood loss (chronic) (ICD-10) Mild cognitive impairment ?G31.84 - Mild cognitive impairment of uncertain or unknown etiology (ICD-10) Rotator cuff injury ?S46.009A - Unspecified injury of muscle(s) and tendon(s) of the rotator cuff of unspecified shoulder, initial encounter (ICD-10) Vitamin D deficiency ?E55.9 - Vitamin D deficiency, unspecified (ICD-10) GERD with esophagitis ?K21.00 - Gastro-esophageal reflux disease with esophagitis, without bleeding (ICD-10) 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.0 - Iron deficiency anemia secondary to blood loss (chronic) (ICD-10) Hemorrhoids ?K64.9 - Unspecified hemorrhoids (ICD-10) Osteopenia ?M85.80 - Other specified disorders of bone density and structure, unspecified site (ICD-10) Diverticulosis of colon (without mention of hemorrhage) ?K57.30 - Diverticulosis of large intestine without perforation or abscess without bleeding (ICD-10) Surgical History History of colonoscopy ?Z98.890 - Other specified postprocedural states (ICD-10) History of esophagogastroduodenoscopy ?Z98.890 - Other specified postprocedural states (ICD-10) Social History Narrative: Independent apartment at the [facility], no current services. Son Anisha would be medical decision maker if needed, he lives in [place]. Nonsmoker, rare ETOH. Full code. What is your current living situation?: I presently have a place to live Problems where you live: no known problems Problems where you live details: none In the past 12 months, utilities in danger of being shut off: no In past 12 months, lack of transportation kept you from medical appts, meetings, work, or getting things needed for daily living: no In the past 12 mos, have been you worried that your food would run out before you had money to buy more?: never true In the past 12 mos, the food you bought just didn't last and you didn't have money to buy more?: never true Highest level of school completed/degree received: high school graduate Smoking Status: Former smoker What tobacco products do you use: cigarettes Smoking quit date/years: >15 years ago Do you use any of these nicotine containing products: None Second hand tobacco smoke exposure: No How often do you have a drink containing alcohol: never How often do you have six or more drinks on one occasion: Never AUDIT-C Alcohol total score: 0 Non-prescribed substance use: denies use Caffeine: No How often does anyone, including family, friends and others, physically hurt you : never How often does anyone, including family, friends and others, insult or talk down to you: never How often does anyone, including family, friends and others, threaten you with harm: never How often does anyone, including family, friends and others, scream or curse at you: never service: No Meds Home Medications and Allergies Home Medications ?Medication ?Instructions ?Recorded ?Confirmed ?Type multivitamin 1 tab PO DAILY 09/07/24 10/23/24 History vit C 250 mg-vit E 90 mg-zinc 40 1 tab PO BID 09/07/24 10/16/24 History mg-copper 1 [id number] capsule (PreserVision AREDS-2) sertraline 50 mg tablet 50 mg PO QAM 10/16/24 10/16/24 History Allergies Allergy/AdvReac Type Severity Reaction Status Date / Time sertraline AdvReac Intermediate Nightmares Verified 10/23/24 10:25 Exam Narrative: Exam Narrative: By the time I see her in the hospital room she appears comfortable and in no acute distress. Declines any additional dizziness. Vision and hearing are adequate. Although she is able to speak seemingly fluently, she repeats herself frequently during the course of a conversation. Alert and oriented to self, place, not so much to time or situation. Remembers that she was rather dizzy when she 1st came to the hospital. States this is totally resolved at this time. External auditory canals and tympanic membranes are normal. Midline nasal septum. Buccal mucosa is moist. Dentition fair repair. No icterus. Conjugate gaze. Cranial nerves 3-12 grossly normal. Midline trachea. Neck is supple. No head or neck lymphadenopathy. Lungs are clear to auscultation without wheezing, rhonchi, rales. Chest wall excursions are full. No CVA tenderness. Heart tones with regular rhythm, normal S1-S2. No murmur, gallop, rub. PMI not laterally displaced. Abdomen with active bowel sounds, soft, nontender. Obese abdomen. No focal motor neurologic deficits. Extremities without edema. Const: Vital Signs, click to edit/add: Vital Signs - 24 hr 10/23/24 10:21 10/23/24 10:59 10/23/24 11:00 Temperature 97.2 F L Pulse Rate Pulse Rate [Pulse Oximeter] 92 Pulse Rate [Right Pulse Oximeter] Respiratory Rate 16 23 31 H Blood Pressure Blood Pressure [Ri ght Forearm] 181/77 H Pulse Oximetry 96 Oxygen Delivery Me thod Room Air 10/23/24 11:07 10/23/24 11:15 10/23/24 11:30 Temperature Pulse Rate 80 87 94 Pulse Rate [Pulse Oximeter] Pulse Rate [Right Pulse Oximeter] Respiratory Rate 40 H 23 20 Blood Pressure 138/116 H Blood Pressure [Ri ght Forearm] Pulse Oximetry 94 97 91 Oxygen Delivery La thod 10/23/24 11:45 10/23/24 12:00 10/23/24 12:09 Temperature Pulse Rate 72 80 Pulse Rate [Pulse Oximeter] Pulse Rate [Right Pulse Oximeter] Respiratory Rate 24 27 H 30 H Blood Pressure 148/73 H Blood Pressure [Ri ght Forearm] Pulse Oximetry 94 90 Oxygen Delivery La thod 10/23/24 14:52 Temperature 97.4 F L Pulse Rate Pulse Rate [Pulse Oximeter] Pulse Rate [Right Pulse Oximeter] 80 Respiratory Rate 18 Blood Pressure Blood Pressure [Ri ght Forearm] Pulse Oximetry 99 Oxygen Delivery Me od Room Air Hospitalist - H&P: Result Labs Labs: Short CBC 10/23/24 Range/Units 11:04 WBC 7.82 (4.50-11.00) K/uL Hgb 10.7 L (12.0-16.0) gm/dL Hct 33.3 (33.0-51.0) % Plt Count 318 (140-440) K/uL BMP 10/23/24 11:04 Sodium 121 L* Potassium 4.0 Chloride 91 L Carbon Dioxide 22 BUN 18 Creatinine 0.5 Glucose 123 H Calcium 8.9 Cardiac Enzymes 10/23/24 Range/Units 11:04 Troponin I < 0.01 L (0.01-0.04) ng/mL Urine 10/23/24 Range/Units 12:20 Urine Color Yellow (Yellow) Urine Appearance Clear (Clear) Urine pH 6.5 (5.0-8.5) Ur Specific [place] 1.010 (1.000-1.030) Urine Protein Negative (Negative) Urine Glucose (UA) Negative (Negative) Imaging CT scan - head: Attestation: I have reviewed the pertinent imaging results. Radiologist's impression: IMPRESSION: 1. No acute intracranial findings. 2. Mild generalized parenchymal volume loss with severe chronic microvascular ischemic changes. CT angiogram of head and neck: Radiologist's impression: Mixed noncalcified atheromatous plaque of the right greater than left proximal cervical ICA segments with approximately 50% stenosis. Origins of carotid arteries remain patent. Other vessels intact without significant stenosis. MR Brain: Radiologist's impression: (09/07/24) Impression: 1. No acute/subacute infarct. 2. Prominent flow void in the right supraclinoid region. Aneurysm in this location should be considered and further assessment with CTA/MRA is recommended. 3. Severe chronic ischemic microvascular disease. Assessment and Plan Assessment and plan (1) Dizziness: Problem comment: - dizziness previously resolved status post packed RBC transfusion with Hg stable around 10 since. - MRI brain 09/07/24 reassuring (recommend outpatient CTA to assess for possible aneurysm), and CT head and neck angiogram appears safe. - previous dizziness with Na 123 resolved with Na 127. Unclear if patient is adhering to recommendations to address hyponatremia at home due to her inability to remember and carry out these recommendations. - Current Na 121 and again complains of dizziness when she first arrives to hospital ED, but resolved subsequently... Treat hyponatremia and stop lisinopril given possibility of this medicine causing dizziness and SIADH. Patient does not appear capable of safely able to care for self at her home with current level of support. Status: Resolved (2) Hyponatremia: Problem comment: - sodium on previous admission 123 - per chart review, outpatient baseline 132-139 - encouraged protein supplementation + sodium tabs, and did not place patient on fluid restriction given cognitive impairment - despite previous order to stop lisinopril completely, continues to take lisinopril. Will again stop the lisinopril. - for now will place on fluid restriction - will reassess with PT and OT and consider ability to safely care for self in home Status: Acute (3) HTN (hypertension): Problem comment: - previously on Lisinopril 20mg; had been stopped during previous hospita lization but is still on 10 mg daily now. Will again stop lisinopril given possibility of this medicine causing dizziness and SIADH. Status: Chronic (4) Mild cognitive impairment: Problem comment: - MOCA on 09/07/24 was 12. - therapies following - 10/17/24 I spoke with her son, Anisha. He checks in on her by phone 2-3 times a day and in person at least once a week. - I suspect her level of cognitive impairment is sufficiently low as to warrant consideration for alternative forms of additional support in the home or alternative living considerations, such as Assisted Living. OT and PT to he re- asses now Status: Chronic Plan 1. Reviewed impression and recommendations with patient 2. Will attempt to reach her son for additional discussions Total Time Spent Total Time Spent: 70 minutes
[2024-10-23] MEDS: CALCIUM CARBONATE 500 MG CHEW PO ×2 (16:56→20:32)
--- NOTE | 2024-10-23 17:15 | CRLHL7_ITS ---
For Patients: As a result of the Century Cures Act, medical imaging exams and procedure reports are released immediately into your electronic medical record. You may view this report before your referring provider. If you have questions, please contact your health care provider. INDICATION: Abdominal pain. TECHNIQUE: Abdominal radiographs, 2 views. COMPARISON: Abdominal radiographs 10/16/2024. FINDINGS: Lower chest: Unremarkable. Bowel: No bowel obstruction. Unremarkable bowel gas pattern. Moderate colonic stool burden, correlate for constipation. Soft tissues: Unremarkable. Bones: No acute osseous abnormalities. Multilevel degenerative changes of the lumbar spine. Mild levoscoliosis of the lumbar spine. IMPRESSION: Moderate colonic stool burden, compatible with constipation. No bowel obstruction. Dictated by Christiano Monaco MD @ 10/23/2024 6:48:53 PM (Electronically Signed)
[2024-10-23 17:17] LABS: Sodium Urine Random* 39
[2024-10-23 17:30] LABS: Sodium* 124 mmol/L (135-149)
[2024-10-23] MEDS: SODIUM CHLORIDE 1 GM TABLET PO (18:57)
--- NOTE | 2024-10-23 19:59 | PC.NURSE ---
End of shift [id number] - Pt alert, oriented to self and pleasant. Frequently states that she has Alzheimer's and is aware that her memory is impaired. Up with standby assistance and walker, required frequent teaching about call light use. Noted to appear anxious regarding aspects of care including medication, discomfort, and care plan. Emotional support provided by RN. Pt reported pain in abdomen, but was unable to rate on 1-10 scale. Medication given per MAR and MD made aware, orders for imaging followed. Pt appears to be resting in the chair with the call light within reach.
[2024-10-23] MEDS: SODIUM CHLORIDE 0.9 % (FLUSH) 10 ML SYRINGE 5 ML IVF (20:32)
[2024-10-23] MEDS: MAG HYDROX/ALUMINUM HYD/SIMETH 30 ML ORAL.SUSP 15 ML PO (23:00)
[2024-10-23 23:05] LABS: Creatinine Urine Random 20 mg/dL
[2024-10-23] MEDS: ACETAMINOPHEN 325 MG TABLET 650 MG PO (23:54)
[2024-10-24 03:00] VITALS: PULSE 81; RESP 18; TEMP 36.4; O2SAT 98
[2024-10-24] MEDS: ACETAMINOPHEN 325 MG TABLET 650 MG PO (06:17)
[2024-10-24] MEDS: OMEPRAZOLE 20 MG CAPSULE DR 40 MG PO (06:17)
[2024-10-24] MEDS: CALCIUM CARBONATE 500 MG CHEW PO ×2 (06:17→17:30)
--- NOTE | 2024-10-24 06:26 | PC.NURSE ---
End of shift report [id number]: Alert, oriented to name and date only. Patient reporting abdominal pain, unable to give description to pain but states its uncomfortable. Patient did report that she uses tylenol at home when she has this discomfort. PRN tylenol and prn TUMS utilized with moderate relief of symptoms. Denies any dizziness, lightheadedness or shortness of breath. Tolerating fluid restriction and patient in compliance with restriction. SBA with transfers, uses walker for ambulation. Ambulated in hallway x 3 this shift.
[2024-10-24 07:10] LABS: Hematocrit 37.1 % (33.0-51.0); Hemoglobin* 11.8 gm/dL (12.0-16.0); Mean Corpuscular HGB Conc 32 gm/dL (32-36); Mean Corpuscular Hemoglobin 25 pg (26-34); Mean Corpuscular Volume 78 fL (80-100); Platelet Count* 314 K/uL (140-440); Red Blood Count 4.78 m/uL (4.00-5.20); White Blood Count* 4.99 K/uL (4.50-11.00)
[2024-10-24 07:12] LABS: Lactate* 0.8 mmol/L (0.5-1.9)
[2024-10-24 07:17] LABS: Slide Review Reflex No
[2024-10-24 07:30] VITALS: BP 149/64; PULSE 75; RESP 16; TEMP 36.3; O2SAT 96
[2024-10-24 07:38] LABS: Chloride* 95 mmol/L (96-114)
[2024-10-24 07:39] LABS: Potassium* 4.8 mmol/L (3.6-5.1)
[2024-10-24 07:41] LABS: Anion Gap 9 mEq/L (7-15); Blood Urea Nitrogen* 14 mg/dL (7-30); Carbon Dioxide* 20 mmol/L (20-32); Creatinine* 0.5 mg/dL (0.5-1.5); Est. Creatinine Clearance* 34.02; Estimated Glomerular Filt Rate 92 ml/min
[2024-10-24 07:42] LABS: Calcium* 9.5 mg/dL (8.4-10.6); Glucose* 105 mg/dL (60-115); Magnesium* 2.1 mg/dL (1.5-2.6); Phosphorus* 4.1 mg/dL (2.5-4.5)
[2024-10-24] MEDS: SODIUM CHLORIDE 1 GM TABLET PO ×3 (07:45→17:29)
[2024-10-24] MEDS: SODIUM CHLORIDE 0.9 % (FLUSH) 10 ML SYRINGE 5 ML IVF (07:46)
[2024-10-24 07:48] LABS: Sodium* 124 mmol/L (135-149)
[2024-10-24 07:51] LABS: NT Pro B Type NatriureticPept* 87 pg/mL
--- NOTE | 2024-10-24 10:14 | NUTR.NU ---
RDN with MD consult for miscellaneous. Patient admitted for dizziness and hyponatremia. Medical history includes mild cognitive impairment. Current weight 181lb 1.6oz; height 5ft 3in; BMI 32.1 kg/m2. Per weight records, weight has been stable. Current diet is Regular with fluid restriction of 1500 mL. Meal intake this morning was adequate at 75%. RDN visited with patient whom reports drinking a lot of water recently with a low appetite because she thought this was what she was supposed to do. Encouraged patient the next time she has a low appetite, to include oral rehydration drinks such as Gatorade or Pedialyte to help replace electrolytes. She verbalized her understanding. Per IDT, patient made need placement at discharge. No nutrition interventions at this time. RDN will continue to monitor and follow-up prn.
[2024-10-24 11:00] VITALS: BP 158/79; PULSE 81; RESP 18; TEMP 36.4; O2SAT 98
--- NOTE | 2024-10-24 12:32 | P.IMPN_ITS ---
Subjective Date Seen: 10/24/24 Interval history: Daily Progress Note - Hospital Medicine #: 2 CC: hyponatremia, anxiety, cognitive decline 24 HOUR UPDATE: sodium has increased three points overnight. started at 121, now 124. On sodium tabs TID and 1500cc water restriction. Pt is very anxious this morning about being sent home and has evidence of perseveration and repeating herself; needed a lot of reassurance and repetition of plan. I did speak with Irina, neighbor of patient. She was emphatic about how poor her memory and self care has become (referencing over the last 6 months) and how anxious she is becoming. I have not yet conferred with her son. She lives in senior apartments, independent, at [facility]. Notable Labs, Micro, Rads, Interventions: urine osm pending random urine creat 20 random urine sodium 39 serum osm (calculated) plasma osmolarity = (Na x 1.86) + (Glu/18) + (BUN/2.8) = 241 Objective: anxious, pressured speech Vitals: see above Lungs: Clear. Cardiac: S1S2. Disposition/Potential discharge - 1-2 days pending sodium levels and safe discharge from a cognitive decline issue Today I spent 50minutes seeing the patient, reviewing Expanse and EPIC notes/diagnostics, discussing the care plan with our care time that includes social work, PT/OT, pharmacy, RT, halfway and documenting my impressions and plan in the medical record. Exam Const: Vital Signs, click to edit/add: Vital Signs - 24 hr 10/23/24 14:52 10/23/24 19:00 10/23/24 23:00 Temperature 97.4 F L 97.3 F L Pulse Rate [Right Pulse Oximeter] 80 80 80 Respiratory Rate 18 18 18 Blood Pressure [Ri ght Radial Artery] 140/76 H Pulse Oximetry 99 98 Oxygen Delivery Me thod Room Air Room Air 10/23/24 23:00 10/23/24 23:00 10/24/24 03:00 Temperature 97.3 F L 97.6 F Pulse Rate [Right Pulse Oximeter] 83 81 Respiratory Rate 20 20 18 Blood Pressure [Ri ght Radial Artery] 165/78 H Pulse Oximetry 97 97 98 Oxygen Delivery Me thod Room Air Room Air Room Air 10/24/24 07:30 10/24/24 07:30 10/24/24 07:30 Temperature 97.3 F L Pulse Rate [Right Pulse Oximeter] 75 75 Respiratory Rate 16 16 16 Blood Pressure [Ri t Radial Artery] 149/64 H Pulse Oximetry 96 96 Oxygen Delivery Me thod Room Air Room Air 10/24/24 11:00 Temperature 97.6 F Pulse Rate [Right Pulse Oximeter] 81 Respiratory Rate 18 Blood Pressure [Ri ght Radial Artery] 158/79 H Pulse Oximetry 98 Oxygen Delivery Me thod Room Air Labs Labs: Laboratory Results - last 24 hr 10/23/24 10/23/24 10/23/24 12:20 15:39 16:51 WBC RBC Hgb Hct MCV MCH MCHC Plt Count Sodium 124 L* Potassium Chloride Carbon Dioxide Anion Gap BUN Creatinine Estimated Creat Clear Estimated GFR Glucose Lactate Calcium Phosphorus Magnesium NT-Pro-B Natriuret Pep TSH Urine Color Yellow Urine Appearance Clear Urine pH 6.5 Ur Specific Martin 1.010 Urine Protein Negative Urine Glucose (UA) Negative Urine Ketones Negative Urine Blood Negative Urine Nitrite Negative Urine Bilirubin Negative Urine Urobilinogen 0.2 Ur Leukocyte Esterase Negative Urine RBC 0-2 Urine WBC 0-2 Ur Squamous Epith Cells None Urine Bacteria None Ur Random Creatinine 20 Ur Random Sodium 39 10/24/24 06:28 WBC 4.99 RBC 4.78 Hgb 11.8 L Hct 37.1 MCV 78 L MCH 25 L MCHC 32 Plt Count 314 Sodium 124 L* Potassium 4.8 Chloride 95 L Carbon Dioxide 20 Anion Gap 9 BUN 14 Creatinine 0.5 Estimated Creat Clear 34.02 Estimated GFR 92 Glucose 105 Lactate 0.8 Calcium 9.5 Phosphorus 4.1 Magnesium 2.1 NT-Pro-B Natriuret Pep 87 TSH 2.210 Urine Color Urine Appearance Urine pH Ur Specific Martin Urine Protein Urine Glucose (UA) Urine Ketones Urine Blood Urine Nitrite Urine Bilirubin Urine Urobilinogen Ur Leukocyte Esterase Urine RBC Urine WBC Ur Squamous Epith Cells Urine Bacteria Ur Random Creatinine Ur Random Sodium Assessment and Plan Assessment and plan (1) Cognitive decline: Problem comment: - MOCA on 09/07/24 was 12. - therapies following - 10/17/24 I spoke with her son, Anisha. He checks in on her by phone 2-3 times a day and in person at least once a week. - I suspect her level of cognitive impairment is sufficiently low as to warrant consideration for alternative forms of additional support in the home or alternative living considerations, such as Assisted Living. 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 Status: Chronic
--- NOTE | 2024-10-24 13:20 | PC.NURSE ---
End of shift report: This morning patient was AxO to person, place, and birthdate with guidance. VS WNL. Denied pain, n/v, and dizziness this shift. Tolerating 1500 fluid restriction. Tolerating regular diet. Ambulating SBA. Has ambulated halls twice this shift. IV SL, patent and intact in L AC.
[2024-10-24 14:10] LABS: Chloride* 95 mmol/L (96-114); Potassium* 4.5 mmol/L (3.6-5.1); Sodium* 125 mmol/L (135-149)
[2024-10-24 14:13] LABS: Anion Gap 10 mEq/L (7-15); Blood Urea Nitrogen* 17 mg/dL (7-30); Calcium* 9.2 mg/dL (8.4-10.6); Carbon Dioxide* 20 mmol/L (20-32); Creatinine* 0.6 mg/dL (0.5-1.5); Est. Creatinine Clearance* 34.02; Estimated Glomerular Filt Rate 88 ml/min; Glucose* 121 mg/dL (60-115)
[2024-10-24 15:00] VITALS: BP 188/89; PULSE 88; RESP 16; TEMP 36.8; O2SAT 97
--- NOTE | 2024-10-24 15:27 | PC.SOCIAL ---
Discharge Planning: SW met with patient to check-in on how things are going at home. Patient states that they are going okay. Patient reports that she makes herself breakfast and then goes to the dining [employer] for lunch. Patient explains that she eats half of the lunch and then eats the other half for dinner. Patient states that she is finding it harder to do some things at home like vacuum, but otherwise still does her own laundry. Patient reports that her son sets up her medications for the week. SW inquired about how long patient has lived at [facility] and patient responds six years, but then states when her , and then recalled since 2016. When patient tried to count from 2016 until now, she became flustered after counting to four. SW provided empathy. ? ? SW inquired if the patient has ever discussed assisted living with anyone before. Patient states she has a lot of friends in assisted living but doesn?t feel like it?s right for her yet. Patient then explained that her memory has been declining in the past couple of weeks and is starting to feel more burdensome on her family. SW talked with patient about how she would know when she?s ready for more support. Patient wasn?t sure. SW explained that it?s different for everyone and asked if it was okay if SW brought information for assisted living so that she could have that information for when she feels ready for more support. Patient agreed. ? SW received call from RN that patient would like to go to an assisted living facility. ? [place] called patient?s son to inquire about how he feels his mom is doing and to see if he knows the process for assisted living. Son states that things are going okay and doesn?t know if now the right time is for assisted living but also doesn?t know the process. Son reports that he should be at the hospital in about an hour and SW can talk with him then. SW met with patient's son to discuss assisted living and provide information about [facility] options and the phone number to contact when he feels she's ready for it. Son states he actually thinks she is likely ready for it as her memory keeps declining. SW provided the different assisted living levels at [facility] and the phone number to call. Son had questions about the cost, as patient has limited finances. SW discussed MA and waiver services. SW explained that right now we don't know the exact plan for care as we are waiting on a few assessments, but should know more tomorrow and then will be able to determine what the plan would be and talk about next steps. SW informed that she will talk with him more tomorrow after there's more information about plan.
[2024-10-24 19:00] VITALS: BP 156/67; PULSE 79; RESP 16; TEMP 36.7; O2SAT 97
[2024-10-25] VITALS (8 sets, daily range): BP systolic 133–171; BP diastolic 67–101; PULSE 75–88; RESP 16–20; TEMP 36.5–37.1; O2SAT 95–99
[2024-10-25] MEDS: ACETAMINOPHEN 325 MG TABLET 650 MG PO (02:29)
[2024-10-25] MEDS: OMEPRAZOLE 20 MG CAPSULE DR 40 MG PO (06:05)
[2024-10-25 07:25] LABS: Chloride* 95 mmol/L (96-114)
[2024-10-25 07:26] LABS: Potassium* 4.3 mmol/L (3.6-5.1); Sodium* 126 mmol/L (135-149)
[2024-10-25 07:29] LABS: Anion Gap 10 mEq/L (7-15); Blood Urea Nitrogen* 14 mg/dL (7-30); Carbon Dioxide* 21 mmol/L (20-32); Creatinine* 0.5 mg/dL (0.5-1.5); Est. Creatinine Clearance* 34.02; Estimated Glomerular Filt Rate 92 ml/min; Glucose* 99 mg/dL (60-115)
[2024-10-25 07:45] LABS: Calcium* 9.3 mg/dL (8.4-10.6)
--- NOTE | 2024-10-25 07:55 | PC.NURSE ---
Pt alert and oriented to self and place only. Pt reports 2/10 pain in back, pain managed with PRN Tylenol. Pt is up SBA with walker and gait belt, voiding, had 1 small formed BM overnight and is tolerating a 1500 fluid restriction.
[2024-10-25] MEDS: SODIUM CHLORIDE 1 GM TABLET PO ×3 (09:14→17:34)
[2024-10-25] MEDS: SODIUM CHLORIDE 0.9 % (FLUSH) 10 ML SYRINGE 5 ML IVF ×2 (09:15→21:28)
--- NOTE | 2024-10-25 11:24 | PC.SOCIAL ---
Addendum entered and electronically signed by Trish Landa LCSW 10/25/24 16:17: SW met with son who had questions about the furniture in [employer]. SW informed that she would need to bring furniture with her. Patient was very relieved to hear this as she thought she had to get rid of everything. Son said that he plans to go get clothes and bring them to her tomorrow. Son reports that he will try to have the application for MA returned to on Wednesday. Patient and son had no other concerns at this time. Addendum entered and electronically signed by Trish Landa LCSW 10/25/24 15:31: LA received call from Dayna at [employer] inquiring about an update on patient, LA provided an update. Dayna states that she is planning to stop by to see patient today. LA received a call from Dayna who states that patient would need to private pay for [employer] or have a waiver. LA thanked Dayna for information. Original Note: Discharge Planning: LA spoke with [facility] SW, Renee, to discuss [employer] Assessment process. [facility] worker states that the family needs to complete a MA-LTC application and once that is submitted they can then call to get scheduled for a [employer] Assessment. LA spoke LTC Content Manager at [facility], Chastity Walker who informed that they could likely see patient's within a couple weeks of completed MA-LTC application. Chastity explains that once the application is complete SW can call her to schedule the [employer] Assessment - [phone]. LA called patient's son Anisha to discuss the cost of [employer] and informed that for rent alone it is between $2784-5163 plus additional costs for the services and meals patient would need. Son confirmed again his mom doesn't have the finances for that. LA explained the process for MA-LTC application and [employer] Assessment. Son requested that SW email him the application so that he can start working on this and try to get it back in a couple of days. SW emailed him the application and also left a paper copy in patient's room. LA briefly discussed the potential for patient to stay with family while the application and waiver services get into place, however, son reports that he and his daughter are both gone for 12 hours a day and she would be alone so doesn't feel that this option would work. SW to continue to support family with MA-LTC application and submit to the [facility], along with other needs that arise.
--- NOTE | 2024-10-25 14:26 | PM.IMPN1 ---
Subjective Date Seen: 10/25/24 Interval history: Daily Progress Note - Hospital Medicine #: 2 CC: hyponatremia, anxiety, cognitive decline 24 HOUR UPDATE: sodium has increased three points overnight. started at 121, now 126. On sodium tabs TID and 1500cc water restriction. Pt seems a bit calmer today; her short term recall is quite poor. ambulating with RN or PT; wouldn't be able to get back to her room. She can feed herself. I did speak with Anisha, son of patient. He is in support of [employer]/[facility]. We are now in the process of MA application; working on safe discharge plan. There is no family arrangement for safe skilled nursing care. She lives in senior apartments, independent, at [facility]. Notable Labs, Micro, Rads, Interventions: urine osm pending random urine creat 20 random urine sodium 39 serum osm (calculated) plasma osmolarity = (Na x 1.86) + (Glu/18) + (BUN/2.8) = 241 Objective: anxious, pressured speech Vitals: see above Lungs: Clear. Cardiac: S1S2. Disposition/Potential discharge - 1-2 days pending sodium levels and safe discharge from a cognitive decline issue Today I spent 50minutes seeing the patient, reviewing Expanse and EPIC notes/diagnostics, discussing the care plan with our care time that includes social work, PT/OT, pharmacy, RT, senior care and documenting my impressions and plan in the medical record. Exam Const: Vital Signs, click to edit/add: Vital Signs - 24 hr 10/24/24 15:00 10/24/24 15:00 10/24/24 15:00 Temperature 98.2 F Pulse Rate [Right Pulse Oximeter] 88 88 Respiratory Rate 16 16 16 Blood Pressure [Ri ght Radial Artery] 188/89 H Pulse Oximetry 97 97 Oxygen Delivery Me thod Room Air Room Air 10/24/24 19:00 10/25/24 00:12 10/25/24 00:12 Temperature 98.0 F Pulse Rate [Right Pulse Oximeter] 79 Respiratory Rate 16 16 20 Blood Pressure [Ri ght Radial Artery] 156/67 H Pulse Oximetry 97 98 Oxygen Delivery Me thod Room Air Room Air 10/25/24 00:12 10/25/24 02:40 10/25/24 07:00 Temperature 98.7 F 97.7 F 97.7 F Pulse Rate [Right Pulse Oximeter] 84 77 75 Respiratory Rate 20 18 16 Blood Pressure [Ri ght Radial Artery] 135/74 156/67 H 136/89 Pulse Oximetry 98 98 95 Oxygen Delivery Me thod Room Air Room Air Room Air 10/25/24 07:00 10/25/24 07:00 Temperature Pulse Rate [Right Pulse Oximeter] 75 Respiratory Rate 16 16 Blood Pressure [Ri ght Radial Artery] Pulse Oximetry 95 Oxygen Delivery Me thod Room Air Labs Labs: Laboratory Results - last 24 hr 10/25/24 06:10 Sodium 126 L Potassium 4.3 Chloride 95 L Carbon Dioxide 21 Anion Gap 10 BUN 14 Creatinine 0.5 Estimated Creat Clear 34.02 Estimated GFR 92 Glucose 99 Calcium 9.3 Assessment and Plan Assessment and plan (1) Cognitive decline: Problem comment: - MOCA on 09/07/24 was 12. It is now 9. - therapies following. - It is our team's opinion that she needs 24/ care. Her short term recall is poor and she needs help with all IADLs. 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 Status: Chronic
--- NOTE | 2024-10-25 19:28 | PC.NURSE ---
End of shift: Pleasantly confused and cooperative. SBA, walks in [place] with walker. VS WNL. Towel bath done per pts request. using call light appropriately. Denies pain, N/V. 1500 fluid restriction. Tolerating regular diet.
[2024-10-26] VITALS (7 sets, daily range): BP systolic 141–179; BP diastolic 74–110; PULSE 70–95; RESP 16–20; TEMP 36.4–37.1; O2SAT 96–98
--- NOTE | 2024-10-26 06:13 | PC.NURSE ---
[id number] Pt slept on and off during night in recliner, pleasantly confused, easily redirected. Ambulating to br and halls with walker and SBA. tolerating 1500cc FR, voiding without difficulty. denies lightheaded/dizziness, chest pain, or headache.
[2024-10-26] MEDS: OMEPRAZOLE 20 MG CAPSULE DR 40 MG PO (06:18)
[2024-10-26 07:18] LABS: Chloride* 98 mmol/L (96-114); Potassium* 4.4 mmol/L (3.6-5.1); Sodium* 128 mmol/L (135-149)
[2024-10-26 07:21] LABS: Anion Gap 9 mEq/L (7-15); Blood Urea Nitrogen* 17 mg/dL (7-30); Carbon Dioxide* 21 mmol/L (20-32); Creatinine* 0.5 mg/dL (0.5-1.5); Est. Creatinine Clearance* 34.02; Estimated Glomerular Filt Rate 92 ml/min
[2024-10-26 07:22] LABS: Calcium* 9.6 mg/dL (8.4-10.6); Glucose* 99 mg/dL (60-115)
[2024-10-26] MEDS: SODIUM CHLORIDE 1 GM TABLET PO ×3 (08:57→17:37)
[2024-10-26] MEDS: SODIUM CHLORIDE 0.9 % (FLUSH) 10 ML SYRINGE 5 ML IVF (08:58)
[2024-10-26] MEDS: AMLODIPINE 5 MG TABLET PO (10:04)
[2024-10-26] MEDS: QUETIAPINE 25 MG TABLET 12.5 MG PO ×2 (10:05→20:23)
--- NOTE | 2024-10-26 14:36 | P.IMPN_ITS ---
Assessment and Plan Assessment and plan (1) Cognitive decline: Problem comment: - MOCA on 09/07/24 was 12. It is now 9. - therapies following. - It is our team's opinion that she needs 24/7 care. Her short term recall is poor and she needs help with all IADLs. 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 - amlodipine started 10/26/24 Status: Chronic (4) GERD (gastroesophageal reflux disease): Problem comment: -PPI to continue. Status: Chronic Subjective Date Seen: 10/26/24 Interval history: Daily Progress Note - Hospital Medicine Day #: 3 CC: hyponatremia, anxiety, cognitive decline, no safe discharge plan 24 HOUR UPDATE: sodium has continued to slowly increase as planned. started at 121, now 128. On sodium tabs TID and 1500cc water restriction. Pt seems a bit calmer today; her short term recall is quite poor. ambulating with RN or PT; wouldn't be able to get back to her room. She can feed herself. I spoke with Anisha, son of patient, on 10/25/2024. He is in support of [facility]/Memory Care. We are now in the process of MA application; working on safe discharge plan. There is no family arrangement for safe long-term care. She lives in senior apartments, independent previously, at [facility]. Notable Labs, Micro, Rads, Interventions: urine osm 283 serum osm (calculated) 241 urine sodium 39 c/w SIADH Objective: mild/mod anxiety; circular conversation without much insight. Vitals: see above Lungs: Clear. Cardiac: S1S2. Disposition/Potential discharge - awaiting [facility] memory care unit or [facility] apartment with dementia level staff support Today I spent 50minutes seeing the patient, reviewing Expanse and EPIC notes/diagnostics, discussing the care plan with our care time that includes social work, PT/OT, pharmacy, RT, half-way and documenting my impressions and plan in the medical record. Exam Const: Vital Signs, click to edit/add: Vital Signs - 24 hr 10/25/24 14:48 10/25/24 14:49 10/25/24 14:49 Temperature 98.5 F Pulse Rate [Right Pulse Oximeter] 88 88 Respiratory Rate 18 18 18 Blood Pressure [Le ft Arm] Blood Pressure [Ri ght Radial Artery] 171/93 H Pulse Oximetry 98 98 Oxygen Delivery Me thod Room Air Room Air 10/25/24 19:00 10/25/24 22:37 10/25/24 22:37 Temperature 98.5 F 98.5 F Pulse Rate [Right Pulse Oximeter] 80 80 Respiratory Rate 16 16 18 Blood Pressure [Le ft Arm] 166/85 H 133/101 H Blood Pressure [Ri ght Radial Artery] Pulse Oximetry 97 99 99 Oxygen Delivery Me thod Room Air Room Air Room Air 10/26/24 03:00 10/26/24 07:00 10/26/24 07:00 Temperature 98.4 F Pulse Rate [Right Pulse Oximeter] 70 91 Respiratory Rate 16 16 16 Blood Pressure [Le ft Arm] 151/81 H Blood Pressure [Ri ght Radial Artery] Pulse Oximetry 98 97 Oxygen Delivery Me thod Room Air Room Air 10/26/24 07:50 10/26/24 11:00 Temperature 98.4 F 98.5 F Pulse Rate [Right Pulse Oximeter] 91 90 Respiratory Rate 16 18 Blood Pressure [Le ft Arm] 141/110 H 167/74 H Blood Pressure [Ri ght Radial Artery] Pulse Oximetry 97 98 Oxygen Delivery Me thod Room Air Room Air Labs Labs: Laboratory Results - last 24 hr 10/26/24 06:40 Sodium 128 L Potassium 4.4 Chloride 98 Carbon Dioxide 21 Anion Gap 9 BUN 17 Creatinine 0.5 Estimated Creat Clear 34.02 Estimated GFR 92 Glucose 99 Calcium 9.6
[2024-10-26 14:37] LABS: Urine Osmolality 283 mOsm/kg (50-800)
--- NOTE | 2024-10-26 15:08 | PC.NURSE ---
End of shift: Pt is alert and remains pleasantly confused. Had a small BM this shift. On 1500 fluid restriction. Ambulates SBA with walker. Chair alarm on. Tolerating regular diet. Walked halls 3 times. Denies pain and N/V/SOB. IV SL.
--- NOTE | 2024-10-26 15:29 | PC.SOCIAL ---
Discharge planning: [employer] worker did a quick check-in with the pt this afternoon. Pt states she is doing well, but is sleepy. Pt's son is working the MA application. Social work to follow-up as needed.
[2024-10-26] MEDS: CITALOPRAM HYDROBROMIDE 20 MG TABLET 10 MG PO (20:23)
--- NOTE | 2024-10-26 23:34 | PC.NURSE ---
End of Shift: Patient pleasant and cooperative. Alert to self and place. Afebrile. Denies pain. Up with SBA, walker and gait belt. Tolerating regular diet with no nausea.
[2024-10-27] VITALS (7 sets, daily range): BP systolic 145–186; BP diastolic 67–97; PULSE 68–92; RESP 18–24; TEMP 36.4–37.1; O2SAT 95–98
[2024-10-27] MEDS: OMEPRAZOLE 20 MG CAPSULE DR 40 MG PO (06:20)
--- NOTE | 2024-10-27 06:38 | PC.NURSE ---
End of shift [id number]: Pt oriented to self, pleasant, and cooperative with cares. SBA GB W. Continent of the bladder and bowels. Small BM this am. Pt preferred to sleep in chair. Denies pain and nausea. Call light within reach. ?
[2024-10-27 07:22] LABS: Chloride* 98 mmol/L (96-114); Sodium* 130 mmol/L (135-149)
[2024-10-27 07:23] LABS: Potassium* 4.2 mmol/L (3.6-5.1)
[2024-10-27 07:25] LABS: Blood Urea Nitrogen* 15 mg/dL (7-30); Creatinine* 0.5 mg/dL (0.5-1.5); Est. Creatinine Clearance* 34.02; Estimated Glomerular Filt Rate 92 ml/min
[2024-10-27 07:26] LABS: Anion Gap 11 mEq/L (7-15); Carbon Dioxide* 21 mmol/L (20-32); Glucose* 109 mg/dL (60-115)
[2024-10-27] MEDS: SODIUM CHLORIDE 1 GM TABLET PO ×3 (07:39→18:16)
[2024-10-27] MEDS: AMLODIPINE 5 MG TABLET PO (08:51)
[2024-10-27] MEDS: QUETIAPINE 25 MG TABLET 12.5 MG PO ×2 (08:51→20:42)
--- NOTE | 2024-10-27 10:24 | PM.IMPN1 ---
Assessment and Plan Assessment and plan (1) Cognitive decline: Problem comment: - MOCA on 09/07/24 was 12. It is now 9. - therapies following. - It is our team's opinion that she needs 24/7 care. Her short-term recall is poor, and she needs help with all IADLs. - prescription for four-wheeled walker given to family. 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 - amlodipine started 10/26/24 - metoprolol xl started 10/27 Status: Chronic (4) GERD (gastroesophageal reflux disease): Problem comment: -PPI to continue. Status: Chronic Subjective Date Seen: 10/27/24 Interval history: Daily Progress Note - Hospital Medicine Day #: 4 CC: hyponatremia, anxiety, cognitive decline, no safe discharge plan 24 HOUR UPDATE: sodium has continued to slowly increase as planned. started at 121, now 130. On sodium tabs TID and 1500cc water restriction. Pt seems a bit calmer today; her short term recall is quite poor. She is dressing herself, feeding herself and keeping busy with activities like chinmay. However, she has stream of consciousness, she repeats herself and she shows lack of discrimination between actual events, what ifs, dreams/desires ... pressured speech obvious. I spoke with Anisha, son of patient, on 10/25/2024. He is in support of [facility]/Memory Care. We are now in the process of MA application; working on safe discharge plan. There is no family arrangement for safe shelter care. Today - patient's friend reports her walker is in poor function and can not be repaired. She lives in senior apartments, independent previously, at [facility]. Notable Labs, Micro, Rads, Interventions: urine osm 283 serum osm (calculated) 241 urine sodium 39 c/w SIADH Objective: mild/mod anxiety; circular conversation without much insight. Vitals: see above Lungs: Clear. Cardiac: S1S2. Disposition/Potential discharge - awaiting [facility] memory care unit or [facility] apartment with dementia level staff support Today I spent 50minutes seeing the patient, reviewing Expanse and EPIC notes/diagnostics, discussing the care plan with our care time that includes social work, PT/OT, pharmacy, RT, detention and documenting my impressions and plan in the medical record. Exam Const: Vital Signs, click to edit/add: Vital Signs - 24 hr 10/26/24 11:00 10/26/24 15:00 10/26/24 15:00 Temperature 98.5 F 97.6 F Pulse Rate [Right Pulse Oximeter] 90 95 Respiratory Rate 18 18 Blood Pressure [Le ft Arm] 167/74 H 179/80 H Blood Pressure [Ri ght FA] Pulse Oximetry 98 97 97 Oxygen Delivery Me thod Room Air Room Air Room Air 10/26/24 15:00 10/26/24 19:00 10/26/24 23:00 Temperature 98.4 F 98.8 F Pulse Rate [Right Pulse Oximeter] 95 84 76 Respiratory Rate 18 20 16 Blood Pressure [Le ft Arm] 169/89 H 176/74 H Blood Pressure [Ri ght FA] Pulse Oximetry 97 96 Oxygen Delivery Me thod Room Air Room Air 10/26/24 23:00 10/27/24 02:00 10/27/24 02:38 Temperature 97.5 F L 97.5 F L Pulse Rate [Right Pulse Oximeter] 76 76 Respiratory Rate 16 20 20 Blood Pressure [Le ft Arm] 171/73 H 171/73 H Blood Pressure [Ri ght FA] Pulse Oximetry 96 96 96 Oxygen Delivery Me thod Room Air Room Air 10/27/24 07:44 10/27/24 07:44 10/27/24 07:44 Temperature 97.5 F L Pulse Rate [Right Pulse Oximeter] 76 76 Respiratory Rate 24 24 24 Blood Pressure [Le ft Arm] Blood Pressure [Ri ght FA] 183/75 H Pulse Oximetry 96 96 Oxygen Delivery Me thod Room Air Room Air Labs Labs: Laboratory Results - last 24 hr 10/23/24 10/27/24 15:39 06:36 Sodium 130 L Potassium 4.2 Chloride 98 Carbon Dioxide 21 Anion Gap 11 BUN 15 Creatinine 0.5 Estimated Creat Clear 34.02 Estimated GFR 92 Glucose 109 Calcium 9.0 Ur Random Osmolality 283
[2024-10-27] MEDS: METOPROLOL SUCCINATE (XL) 25 MG TAB PO (12:14)
--- NOTE | 2024-10-27 15:06 | PC.SOCIAL ---
Discharge planning: dish room worker submitted pt's MA application to [facility] this afternoon. Pt's son is still working on getting a copy of pt's pension statement for the application, but this worker still submitted the application so that the [facility] could start processing it. Pt's son is also still working on getting additional bank statements for pt's [employer] checking account. The [facility] often requires six months worth of bank statements with MA applications. Social work to follow-up as needed.
--- NOTE | 2024-10-27 18:12 | PC.NURSE ---
End of Shift: Patient pleasant and cooperative. Patient oriented to self and at times can report correctly. Patient hypertensive but stable, MD aware, lungs clear, BS WNL, NO IV. Patient denies pain, tolerating regular diet, urinating well, and has had a couple of BMs. Patient SBA with walker. Patient has been up in chair all day, napping on and off.
[2024-10-27] MEDS: CITALOPRAM HYDROBROMIDE 20 MG TABLET 10 MG PO (20:42)
[2024-10-28 03:00] VITALS: BP 174/80; PULSE 75; RESP 18; TEMP 36.7; O2SAT 97
[2024-10-28] MEDS: OMEPRAZOLE 20 MG CAPSULE DR 40 MG PO (06:13)
--- NOTE | 2024-10-28 06:27 | PC.NURSE ---
End of shift [id number]: Pt oriented to self, pleasant, and cooperative with cares. SBA GB W. Continent of the bladder, using the bathroom frequently. Tolerating 1500 FR well. Denies pain and nausea. Chair alarm in place. Using call light appropriately. Pt appears resting with call light within reach. ?
[2024-10-28 06:38] LABS: Chloride* 100 mmol/L (96-114); Sodium* 130 mmol/L (135-149)
[2024-10-28 06:41] LABS: Anion Gap 7 mEq/L (7-15); Blood Urea Nitrogen* 14 mg/dL (7-30); Calcium* 9.1 mg/dL (8.4-10.6); Carbon Dioxide* 23 mmol/L (20-32); Creatinine* 0.5 mg/dL (0.5-1.5); Est. Creatinine Clearance* 34.02; Estimated Glomerular Filt Rate 92 ml/min; Glucose* 89 mg/dL (60-115)
[2024-10-28 07:55] VITALS: BP 162/87; PULSE 75; RESP 18; O2SAT 98
[2024-10-28] MEDS: AMLODIPINE 5 MG TABLET PO (09:04)
[2024-10-28] MEDS: QUETIAPINE 25 MG TABLET 12.5 MG PO ×2 (09:04→20:54)
[2024-10-28] MEDS: SODIUM CHLORIDE 1 GM TABLET PO ×3 (09:04→18:48)
[2024-10-28] MEDS: METOPROLOL SUCCINATE (XL) 25 MG TAB PO (09:04)
--- NOTE | 2024-10-28 09:34 | PM.IMPN1 ---
Assessment and Plan Assessment and plan (1) Cognitive decline: Problem comment: - MOCA on 09/07/24 was 12. It is now 9. - therapies following. - It is our team's opinion that she needs 24/ care. Her short-term recall is poor, and she needs help with all IADLs. - prescription for four-wheeled walker given to family. 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 - amlodipine started 10/26/24 - metoprolol xl started 10/27 Status: Chronic (4) GERD (gastroesophageal reflux disease): Problem comment: -PPI to continue. Status: Chronic Plan Awaiting placement Total Time Spent Total Time Spent: Today I spent 50 minutes seeing the patient, reviewing Expanse and EPIC notes/diagnostics, discussing the care plan with our care time that includes social work, PT/OT, pharmacy, RT, longterm and documenting my impressions and plan in the medical record. Subjective Date Seen: 10/28/24 Interval history: Daily Progress Note - Hospital Medicine #: 6 CC: hyponatremia, anxiety, cognitive decline, no safe discharge plan 24 HOUR UPDATE: sodium has continued to slowly increase as planned. started at 121, stable at 130. On sodium tabs TID and 1500cc water restriction. Reports having a bowel movement so feels much better. Still anxious. Denies headache or dizziness. Denies chest pain or shortness of breath. Tolerating orals without nausea vomiting. Short term recall is quite poor. She is dressing herself, feeding herself and keeping busy with activities like chinmay. However, she has stream of consciousness, she repeats herself and she shows lack of discrimination between actual events, what ifs, dreams/desires ... pressured speech obvious. Discussion with Anisha, son of patient, on 10/25/2024. He is in support of [employer]/Memory [facility]. We are now in the process of MA application; working on safe discharge plan. There is no family arrangement for safe assisted care. Patient's friend reports her walker is in poor function and can not be repaired. She lives in senior apartments, independent previously, at [facility]. Notable Labs, Micro, Rads, Interventions: urine osm 283 serum osm (calculated) 241 urine sodium 39 c/w SIADH Disposition/Potential discharge - awaiting [facility] memory care unit or [facility] apartment with dementia level staff support. MA application process Today I spent 50minutes seeing the patient, reviewing Expanse and EPIC notes/diagnostics, discussing the care plan with our care time that includes social work, PT/OT, pharmacy, RT, longterm and documenting my impressions and plan in the medical record. Exam Narrative: Exam Narrative: PHYSICAL EXAM General: Pleasant, conversant, anxious otherwise NAD Cardiovascular: RRR, S1S2. No pitting edema Pulmonary: CTA bilaterally without rhonchi, rales, expiratory wheezes. No dyspnea on room air Neurological: Alert, answering questions appropriately this morning, cranial nerves intact, no focal findings Extremities: No gross joint deformity or swelling. AROMI. Neurovascularly intact Skin: Warm, dry. Const: Vital Signs, click to edit/add: Vital Signs - 24 hr 10/26/24 15:00 10/26/24 15:00 10/26/24 15:00 Temperature 97.6 F Pulse Rate [Right Pulse Oximeter] 95 95 Respiratory Rate 18 18 Blood Pressure [Le ft Arm] 179/80 H Blood Pressure [Ri ght FA] Pulse Oximetry 97 97 Oxygen Delivery Me thod Room Air Room Air 10/26/24 19:00 10/26/24 23:00 10/26/24 23:00 Temperature 98.4 F 98.8 F Pulse Rate [Right Pulse Oximeter] 84 76 Respiratory Rate 20 16 16 Blood Pressure [Le ft Arm] 169/89 H 176/74 H Blood Pressure [Ri ght FA] Pulse Oximetry 97 96 96 Oxygen Delivery Me thod Room Air Room Air Room Air 10/27/24 02:00 10/27/24 02:38 10/27/24 07:44 Temperature 97.5 F L 97.5 F L 97.5 F L Pulse Rate [Right Pulse Oximeter] 76 76 76 Respiratory Rate 20 20 24 Blood Pressure [Le ft Arm] 171/73 H 171/73 H Blood Pressure [Ri ght FA] 183/75 H Pulse Oximetry 96 96 96 Oxygen Delivery Me thod Room Air Room Air 10/27/24 07:44 10/27/24 07:44 10/27/24 11:05 Temperature 98.3 F Pulse Rate [Right Pulse Oximeter] 76 92 Respiratory Rate 24 24 24 Blood Pressure [Le ft Arm] Blood Pressure [Ri ght FA] 151/67 H Pulse Oximetry 96 96 Oxygen Delivery Me thod Room Air Room Air Labs Labs: Laboratory Results - last 24 hr 10/23/24 10/27/24 15:39 06:36 Sodium 130 L Potassium 4.2 Chloride 98 Carbon Dioxide 21 Anion Gap 11 BUN 15 Creatinine 0.5 Estimated Creat Clear 34.02 Estimated GFR 92 Glucose 109 Calcium 9.0 Ur Random Osmolality 283
[2024-10-28] MEDS: SENNOSIDES/DOCUSATE TABLET 1 TAB PO ×2 (09:35→20:54)
[2024-10-28 15:00] VITALS: BP 169/79; PULSE 72; PULSE 75; RESP 18; TEMP 36.4; O2SAT 97; O2SAT 98
--- NOTE | 2024-10-28 18:57 | PC.NURSE ---
Nursing Care Hours: [id number] Pt this shift calm and cooperative, alert and oriented to self. Did forget date and when waking up from naps becomes disoriented but easily reoriented. no c/o pain. VSS. Walked the armstrong x3 with SBA. Oral cares done. Denies dizziness today. Three BM, continent and soft stool.
[2024-10-28 19:00] VITALS: BP 166/73; PULSE 71; RESP 18; TEMP 37; O2SAT 97
[2024-10-28] MEDS: CITALOPRAM HYDROBROMIDE 20 MG TABLET 10 MG PO (20:54)
[2024-10-28 23:00] VITALS: BP 182/73; PULSE 66; RESP 18; TEMP 37; O2SAT 95
[2024-10-29 01:44] VITALS: BP 183/97; PULSE 68; RESP 16; TEMP 36.6; O2SAT 96
--- NOTE | 2024-10-29 05:10 | PC.NURSE ---
Shift note: Pt is doing well with SBA for transfer. Alert and oriented. Denied dizziness and pain. Patient has been sleeping in the recliner but had adequate sleep. Bp has been elevated throughout the shift. Fluid restriction of 1500ml maintained.
[2024-10-29 06:17] LABS: Chloride* 100 mmol/L (96-114)
[2024-10-29 06:18] LABS: Sodium* 129 mmol/L (135-149)
[2024-10-29 06:20] LABS: Blood Urea Nitrogen* 16 mg/dL (7-30); Creatinine* 0.5 mg/dL (0.5-1.5); Est. Creatinine Clearance* 34.02; Estimated Glomerular Filt Rate 92 ml/min; Potassium* 4.1 mmol/L (3.6-5.1)
[2024-10-29 06:21] LABS: Anion Gap 6 mEq/L (7-15); Carbon Dioxide* 23 mmol/L (20-32); Glucose* 92 mg/dL (60-115)
[2024-10-29] MEDS: OMEPRAZOLE 20 MG CAPSULE DR 40 MG PO (06:35)
--- NOTE | 2024-10-29 07:10 | P.IMPN_ITS ---
Assessment and Plan Assessment and plan (1) Cognitive decline: Problem comment: - MOCA on 09/07/24 was 12. It is now 9. - therapies following. - It is our team's opinion that she needs 24/ care. Her short-term recall is poor, and she needs help with all IADLs. - prescription for four-wheeled walker given to family. 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 - amlodipine started 10/26/24 - metoprolol xl started 10/27 Status: Chronic (4) GERD (gastroesophageal reflux disease): Problem comment: -PPI to continue. Status: Chronic Plan Awaiting placement Total Time Spent Total Time Spent: Today I spent 30 minutes seeing the patient, reviewing Expanse and EPIC notes/diagnostics, discussing the care plan with our care time that includes social work, PT/OT, pharmacy, RT, mcfp and documenting my impressions and plan in the medical record. Subjective Date Seen: 10/29/24 Interval history: Daily Progress Note - Hospital Medicine Day #: 7 CC: hyponatremia, anxiety, cognitive decline, no safe discharge plan 24 HOUR UPDATE: sodium has continued to slowly increase as planned. started at 121, stable at 129-130. On sodium tabs TID and 1500cc water restriction. Added protein supplements t.i.d.. Remains mildly anxious, pleasantly confused. Denies headache or dizziness. Denies chest pain or shortness of breath. Tolerating orals without nausea vomiting. Short term recall is quite poor. She is dressing herself, feeding herself and keeping busy with activities like chinmay. However, she has stream of consciousness, she repeats herself and she shows lack of discrimination between actual events, what ifs, dreams/desires ... pressured speech obvious. Discussion with Anisha, son of patient, on 10/25/2024. He is in support of [facility]/Memory Care. We are now in the process of MA application; working on safe discharge plan. There is no family arrangement for safe long term care. Patient's friend reports her walker is in poor function and can not be repaired. She lives in senior apartments, independent previously, at [facility]. Notable Labs, Micro, Rads, Interventions: urine osm 283 serum osm (calculated) 241 urine sodium 39 c/w SIADH Disposition/Potential discharge - awaiting [facility] memory care unit or [facility] apartment with dementia level staff support. MA application process Today I spent 50minutes seeing the patient, reviewing Expanse and EPIC notes/di agnostics, discussing the care plan with our care time that includes social work, PT/OT, pharmacy, RT, mcfp and documenting my impressions and plan in the medical record. Exam Narrative: Exam Narrative: PHYSICAL EXAM General: Pleasant, conversant, anxious otherwise NAD Cardiovascular: RRR, S1S2. No pitting edema Pulmonary: CTA bilaterally without rhonchi, rales, expiratory wheezes. No dyspnea on room air Neurological: Alert, answering questions appropriately this morning, cranial nerves intact, no focal findings Extremities: No gross joint deformity or swelling. AROMI. Neurovascularly intact Skin: Warm, dry. Const: Vital Signs, click to edit/add: Vital Signs - 24 hr 10/28/24 07:55 10/28/24 07:55 10/28/24 07:55 Temperature Pulse Rate [Right Pulse Oximeter] 75 75 Respiratory Rate 18 18 18 Blood Pressure [Ri ght FA] 162/87 H Pulse Oximetry 98 98 Oxygen Delivery Me thod Room Air Room Air 10/28/24 15:00 10/28/24 15:00 10/28/24 15:00 Temperature 97.5 F L Pulse Rate [Right Pulse Oximeter] 72 75 Respiratory Rate 18 18 18 Blood Pressure [Ri ght FA] 169/79 H Pulse Oximetry 97 98 Oxygen Delivery Me thod Room Air Room Air 10/28/24 19:00 10/28/24 23:00 10/28/24 23:00 Temperature 98.6 F Pulse Rate [Right Pulse Oximeter] 71 66 Respiratory Rate 18 18 18 Blood Pressure [Ri ght FA] 166/73 H Pulse Oximetry 97 95 Oxygen Delivery Me thod Room Air Room Air 10/28/24 23:00 10/29/24 01:44 Temperature 98.6 F 97.8 F Pulse Rate [Right Pulse Oximeter] 66 68 Respiratory Rate 18 16 Blood Pressure [Ri ght FA] 182/73 H 183/97 H Pulse Oximetry 95 96 Oxygen Delivery Me thod Room Air Room Air Labs Labs: Laboratory Results - last 24 hr 10/29/24 05:40 Sodium 129 L Potassium 4.1 Chloride 100 Carbon Dioxide 23 Anion Gap 6 L BUN 16 Creatinine 0.5 Estimated Creat Clear 34.02 Estimated GFR 92 Glucose 92 Calcium 9.0
[2024-10-29 07:23] VITALS: BP 157/78; PULSE 88; RESP 16; TEMP 36.6; O2SAT 96
[2024-10-29] MEDS: SODIUM CHLORIDE 1 GM TABLET PO ×3 (08:24→18:19)
[2024-10-29] MEDS: METOPROLOL SUCCINATE (XL) 25 MG TAB PO (08:25)
[2024-10-29] MEDS: QUETIAPINE 25 MG TABLET 12.5 MG PO ×2 (08:25→20:28)
[2024-10-29] MEDS: SENNOSIDES/DOCUSATE TABLET 1 TAB PO ×2 (08:25→20:28)
[2024-10-29] MEDS: AMLODIPINE 5 MG TABLET PO (08:25)
[2024-10-29 15:00] VITALS: RESP 16
[2024-10-29 19:00] VITALS: BP 179/82; PULSE 77; RESP 16; TEMP 36.9; O2SAT 96
--- NOTE | 2024-10-29 19:45 | PC.NURSE ---
Nursing Care Hours: 4951-3642 Pt this shift calm and cooperative, alert and oriented to self and situation. Reports feeling dizzy this morning and found some relief after eating bananans before breakfast order. No c/o pain. VSS. VS now BID. Walked the armstrong x3. Lg BM, soft and formed. Tolerating regular diet.
[2024-10-29] MEDS: CITALOPRAM HYDROBROMIDE 20 MG TABLET 10 MG PO (20:28)
[2024-10-29 23:00] VITALS: RESP 16
[2024-10-30] MEDS: OMEPRAZOLE 20 MG CAPSULE DR 40 MG PO (06:16)
[2024-10-30 06:34] LABS: Chloride* 97 mmol/L (96-114)
[2024-10-30 06:35] LABS: Potassium* 4.2 mmol/L (3.6-5.1); Sodium* 128 mmol/L (135-149)
[2024-10-30 06:37] LABS: Blood Urea Nitrogen* 13 mg/dL (7-30); Creatinine* 0.5 mg/dL (0.5-1.5); Est. Creatinine Clearance* 34.02; Estimated Glomerular Filt Rate 92 ml/min
[2024-10-30 06:38] LABS: Anion Gap 9 mEq/L (7-15); Carbon Dioxide* 22 mmol/L (20-32); Glucose* 127 mg/dL (60-115)
[2024-10-30 07:00] VITALS: BP 165/69; PULSE 72; RESP 18; TEMP 37.1; O2SAT 95
[2024-10-30] MEDS: SODIUM CHLORIDE 1 GM TABLET PO ×3 (07:39→18:20)
[2024-10-30] MEDS: AMLODIPINE 5 MG TABLET PO (08:36)
[2024-10-30] MEDS: METOPROLOL SUCCINATE (XL) 25 MG TAB PO (08:37)
[2024-10-30] MEDS: QUETIAPINE 25 MG TABLET 12.5 MG PO ×2 (08:37→21:08)
[2024-10-30] MEDS: SENNOSIDES/DOCUSATE TABLET 1 TAB PO (08:37)
--- NOTE | 2024-10-30 09:13 | P.IMPN_ITS ---
Assessment and Plan Assessment and plan (1) Cognitive decline: Problem comment: - MOCA on 09/07/24 was 12. It is now 9. - therapies following. - It is our team's opinion that she needs / care. Her short-term recall is poor, and she needs help with all IADLs. - prescription for four-wheeled walker given to family. Awaiting placement [facility]/memory care. patient services clerk assisting with planning. 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 - amlodipine started 10/26/24 - metoprolol xl started 10/27/24 Status: Chronic (4) GERD (gastroesophageal reflux disease): Problem comment: -PPI to continue. Status: Chronic Plan Awaiting MA application process -> [facility]/memory care placement. Encourage ambulation. Monitor blood pressure as started on new meds last week. Hyponatremia, SIADH. Fluid restriction 1200cc for a couple of days. Recheck Na then (will discontinue daily labs). Vitals daily. Total Time Spent Total Time Spent: Today I spent 50 minutes seeing the patient, reviewing Expanse and EPIC notes/diagnostics, discussing the care plan with our care time that includes social work, PT/OT, pharmacy, RT, senior care and documenting my impressions and plan in the medical record. Subjective Date Seen: 10/30/24 Interval history: Daily Progress Note - Hospital Medicine Day #: 8 CC: hyponatremia, anxiety, cognitive decline, no safe discharge plan 24 HOUR UPDATE: Hyponatremia (initially 121). Stable at 128-130. On sodium tabs TID and 1200cc water restriction as sodium trended down slightly. Added protein supplements t.i.d.. Remains mildly anxious, pleasantly confused. Denies headache or dizziness. Denies chest pain or shortness of breath. Tolerating orals without nausea vomiting. Short term recall is quite poor. She is dressing herself, feeding herself and keeping busy with activities like chinmay. However, she has stream of consciousness, she repeats herself and she shows lack of discrimination between actual events, what ifs, dreams/desires ... pressured speech obvious. Fidgets. Discussion with Anisha, son of patient, on 10/25/2024. He is in support of [facility]/Memory [facility]. We are now in the process of MA application; working on safe discharge plan. There is no family arrangement for safe snf care. Patient's friend reports her walker is in poor function and can not be repaired. She lives in senior apartments, independent previously, at [facility]. Notable Labs, Micro, Rads, Interventions: urine osm 283 serum osm (calculated) 241 urine sodium 39 c/w SIADH Will check labs only as needed at this point, awaiting placement Disposition/Potential discharge - awaiting [facility] memory care unit or [facility] apartment with dementia level staff support. MA application submitted 10/27/2024 Today I spent 50 minutes seeing the patient, reviewing Expanse and EPIC notes/diagnostics, discussing the care plan with our care time that includes social work, PT/OT, pharmacy, RT, senior care and documenting my impressions and plan in the medical record. Exam Narrative: Exam Narrative: PHYSICAL EXAM General: Pleasant, conversant, anxious otherwise NAD Cardiovascular: RRR Pulmonary: CTA bilaterally. No dyspnea on room air Neurological: Alert, answering questions appropriately this morning, pleasantly confused Extremities: No gross joint deformity or swelling. AROMI Skin: Warm, dry. Const: Vital Signs, click to edit/add: Vital Signs - 24 hr 10/29/24 15:00 10/29/24 19:00 10/29/24 19:00 Temperature Pulse Rate [Right Pulse Oximeter] Respiratory Rate 16 16 16 Blood Pressure [Ri ght FA] Pulse Oximetry 96 Oxygen Delivery Me thod Room Air 10/29/24 19:00 10/29/24 23:00 10/30/24 07:00 Temperature 98.4 F 98.8 F Pulse Rate [Right Pulse Oximeter] 77 72 Respiratory Rate 16 16 18 Blood Pressure [Ri ght FA] 179/82 H 165/69 H Pulse Oximetry 96 95 Oxygen Delivery Me thod Room Air Room Air 10/30/24 07:00 10/30/24 07:00 Temperature Pulse Rate [Right Pulse Oximeter] 72 Respiratory Rate 18 18 Blood Pressure [Ri ght FA] Pulse Oximetry 95 Oxygen Delivery Me thod Room Air Labs Labs: Laboratory Results - last 24 hr 10/30/24 06:00 Sodium 128 L Potassium 4.2 Chloride 97 Carbon Dioxide 22 Anion Gap 9 BUN 13 Creatinine 0.5 Estimated Creat Clear 34.02 Estimated GFR 92 Glucose 127 H Calcium 9.0
--- NOTE | 2024-10-30 11:10 | PC.SOCIAL ---
Discharge planning: shoe worker and pt left a message with the office staff at [facility] where the pt has an apartment #[phone] to see if they have a copy of pt's pension statement that they could share that this worker could then include in with pt's MA application. Pt is fine with them sharing the copy of the pension statement with this worker. shoe worker will wait to hear back from [facility]. Social work to follow-up as needed.
[2024-10-30 15:00] VITALS: PULSE 72; RESP 18
--- NOTE | 2024-10-30 19:00 | PC.NURSE ---
End of Shift: Patient pleasant and cooperative, only A&O to self and place. VSS, afebrile. SpO2 maintained above 90% on RA. Pt denies pain this shift. Walked the halls three times this shift. SBA with walker. Tolerating regular diet.
[2024-10-30 20:00] VITALS: BP 170/69; PULSE 72; RESP 18; TEMP 36.8; O2SAT 96
[2024-10-30] MEDS: CITALOPRAM HYDROBROMIDE 20 MG TABLET 10 MG PO (21:08)
[2024-10-30 22:31] VITALS: PULSE 72; RESP 18
[2024-10-31] MEDS: OMEPRAZOLE 20 MG CAPSULE DR 40 MG PO (06:25)
[2024-10-31] MEDS: METOPROLOL SUCCINATE (XL) 25 MG TAB PO (07:52)
[2024-10-31] MEDS: SODIUM CHLORIDE 1 GM TABLET PO ×3 (07:52→17:54)
[2024-10-31] MEDS: QUETIAPINE 25 MG TABLET 12.5 MG PO ×2 (07:52→20:49)
[2024-10-31] MEDS: SENNOSIDES/DOCUSATE TABLET 1 TAB PO ×2 (07:52→20:49)
[2024-10-31] MEDS: AMLODIPINE 5 MG TABLET PO (07:52)
[2024-10-31 08:31] VITALS: BP 155/67; PULSE 73; RESP 20; TEMP 36.6; O2SAT 98
[2024-10-31 08:32] VITALS: RESP 20; O2SAT 98
[2024-10-31 09:14] VITALS: BMI 32.1
--- NOTE | 2024-10-31 11:11 | PC.SOCIAL ---
Discharge planning: latex foam worker received pt's pension statement from Clemencia Araujo at [facility] and then sent it to [facility] via secure email to add to pt's MA application that was submitted last Wednesday. Social work to follow-up as needed.
--- NOTE | 2024-10-31 13:22 | PM.IMPN1 ---
Assessment and Plan Assessment and plan (1) Cognitive decline: Problem comment: - MOCA on 09/07/24 was 12. It is now 9. - therapies following. - It is our team's opinion that she needs 24/7 care. Her short-term recall is poor, and she needs help with all IADLs. - prescription for four-wheeled walker given to family. Awaiting placement [facility]/memory care. municipal services manager assisting with planning. 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 - amlodipine started 10/26/24 - metoprolol xl started 10/27/24 Status: Chronic (4) GERD (gastroesophageal reflux disease): Problem comment: -PPI to continue. Status: Chronic (5) Anemia: Problem comment: Chronic Status: Inactive Plan 1. Reviewed impression, plans, recommendations with patient 2. Answered patient's questions are satisfaction 3. Patient agreeable to above stated plans and recommendations Total Time Spent Total Time Spent: 30 minutes Subjective Date Seen: 10/31/24 Interval history: Admission history of present illness: ? 84 year old woman the emergency department today with chief complaint of dizziness. She has had this chief complaint often on for some time. She has had multiple visits to the emergency department. She was admitted to the hospital on 10/16/2024 and discharged on 10/17/2024 with a similar complaint. At that time her admission serum sodium is 123. With protein supplementation and normal saline IV sodium improved to 127 with her symptoms of dizziness totally resolving. Was discharged at that time on sodium chloride 1 g p.o. t.i.d.. It is unclear if patient is taking this supplement. It is unclear how much water she is drinking at home. She lives alone. Has a son who checks on her via telephone 3 times daily and in person once a week. ?Patient readily acknowledges her memory is declining. Recent Lockhart score was 12. Unclear if it is safe for her to continue to care for herself safely in her home with current level of support. ?Previously she had similar symptoms of dizziness and she was anemic. Hemoglobin was around 7. Was transfused with packed red blood cells. Dizziness resolved. Continues to have [id number] anemia but no active GI bleed. Has not had workup for GI bleed despite recommendations for doing so.? Hospital day 9 (10/31/2024): Hyponatremia, cognitive decline, anxiety, working on a safe discharge disposition plan. Continue to wait for safe discharge disposition. Urine osmolality 283 Serum osmolality calculated at 241 Urine sodium 39 Consistent with SIADH No specific concerns or complaints at this time. Exam Narrative: Exam Narrative: I examine her in her hospital room. Appears comfortable no acute distress. Alert, oriented to self, place, in part to time, in part to situation. Continues to agree that she does need help above and beyond which she has been receiving in her independent living setting. Lungs are clear to auscultation. Heart tones with regular rhythm. Abdomen is benign. No focal motor neurologic deficits. Independent with transfer, station, gait Const: Vital Signs, click to edit/add: Vital Signs - 24 hr 10/30/24 15:00 10/30/24 20:00 10/30/24 20:00 Temperature 98.3 F Pulse Rate [Right Pulse Oximeter] 72 72 Respiratory Rate 18 18 18 Blood Pressure [Ri ght FA] 170/69 H Pulse Oximetry 96 Oxygen Delivery Me thod Room Air 10/30/24 20:00 10/30/24 22:31 10/31/24 08:31 Temperature 97.9 F Pulse Rate [Right Pulse Oximeter] 72 73 Respiratory Rate 18 18 20 Blood Pressure [Ri ght FA] 155/67 H Pulse Oximetry 96 98 Oxygen Delivery Me thod Room Air Room Air 10/31/24 08:32 Temperature Pulse Rate [Right Pulse Oximeter] Respiratory Rate 20 Blood Pressure [Ri ght FA] Pulse Oximetry 98 Oxygen Delivery Me thod Room Air
[2024-10-31 19:00] VITALS: BP 180/78; PULSE 71; RESP 18; TEMP 36.4; O2SAT 95
--- NOTE | 2024-10-31 19:17 | PC.NURSE ---
End of shift [id number] ? Pt alert, cooperative, and pleasant. A/O x4 with recent memory impairment noted. Up independently in room with walker and observed to ambulate in halls with medical staff. Tolerating RA and regular diet as well as fluid restriction per MD order. Pt offered nutritional supplement per order and became distressed stating that the previous afternoon she had one and it left her ?too full? to eat dinner. She expressed concern that she didn't eat again until breakfast and she was ?so hungry her stomach hurt?. RN provided emotional support and provided education related to nutritional supplements and meal schedules. Pt denies pain, SOB, dizziness. Appears to be resting in chair with call light within reach
[2024-10-31] MEDS: CITALOPRAM HYDROBROMIDE 20 MG TABLET 10 MG PO (20:49)
[2024-10-31 23:00] VITALS: PULSE 71; RESP 18
[2024-11-01 01:57] VITALS: BP 211/100; PULSE 109; RESP 22; O2SAT 93
--- NOTE | 2024-11-01 04:51 | PC.NURSE ---
Unwitnessed fall at 0157: Pt pressed call button, staff responded and found pt on floor. Pt states she was returning from the bathroom, went to sit on the chair and just slipped. Pt states she did not hit her head and denies pain. Two nurses assisted pt in standing and returning to the chair. notified (Tom) and stated observe the pt for now and notify of any changes.
[2024-11-01 05:20] VITALS: BP 164/71; PULSE 66; RESP 18; O2SAT 95
[2024-11-01] MEDS: OMEPRAZOLE 20 MG CAPSULE DR 40 MG PO (06:32)
--- NOTE | 2024-11-01 06:54 | PC.NURSE ---
Pt alert, oriented to self and hypertensive, otherwise vitally stable. Pt independent in room until?fall at 0157 then became SBA with FWW. Pt uses call light appropriately. 1200 FR. Pt in chair, appears to be resting, call light within reach.?
[2024-11-01 06:59] LABS: Sodium* 131 mmol/L (135-149)
[2024-11-01 07:00] VITALS: BP 163/80; PULSE 89; RESP 16; TEMP 36.9; O2SAT 94
[2024-11-01] MEDS: SODIUM CHLORIDE 1 GM TABLET PO ×3 (07:47→17:47)
[2024-11-01] MEDS: AMLODIPINE 5 MG TABLET PO (09:14)
[2024-11-01] MEDS: QUETIAPINE 25 MG TABLET 12.5 MG PO ×2 (09:14→20:08)
[2024-11-01] MEDS: SENNOSIDES/DOCUSATE TABLET 1 TAB PO ×2 (09:14→20:08)
[2024-11-01] MEDS: METOPROLOL SUCCINATE (XL) 25 MG TAB PO (09:14)
--- NOTE | 2024-11-01 10:42 | PC.SOCIAL ---
Discharge Planning: SW spoke with patient's son to see if he has heard anything from the [facility] regarding patient's MA-LTC application. Patient's son states that he hasn't heard anything yet, but he should be receiving the bank statements today, and if he does he will bring them to the hospital. SW discussed [facility]'s ability to only take a certain amount of people into their PENITENTIARY's with waiver services and so there is a chance that when the patient gets her assessments complete there may not be space. Patient's son expressed understanding and states if there isn't availability they would like places in [place] so she can be closer to him. SW to continue to support with discharge needs throughout hospitalization.
--- NOTE | 2024-11-01 13:10 | P.IMPN_ITS ---
Assessment and Plan Assessment and plan (1) Cognitive decline: Problem comment: - MOCA on 09/07/24 was 12. It is now 9. - therapies following. - It is our team's opinion that she needs 24/7 care. Her short-term recall is poor, and she needs help with all IADLs. - prescription for four-wheeled walker given to family. Awaiting placement [facility]/memory care. customer technical services manager assisting with planning. 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 - amlodipine started 10/26/24 - metoprolol xl started 10/27/24 Status: Chronic (4) GERD (gastroesophageal reflux disease): Problem comment: -PPI to continue. Status: Chronic (5) Anemia: Problem comment: Chronic Status: Inactive Plan 1. Reviewed impression with patient 2. Answered her question 3. She is agreeable Total Time Spent Total Time Spent: 20 minutes Subjective Date Seen: 11/01/24 Interval history: Admission history of present illness: ? 84 year old woman the emergency department today with chief complaint of dizziness. She has had this chief complaint often on for some time. She has had multiple visits to the emergency department. She was admitted to the hospital on 10/16/2024 and discharged on 10/17/2024 with a similar complaint. At that time her admission serum sodium is 123. With protein supplementation and normal saline IV sodium improved to 127 with her symptoms of dizziness totally resolving. Was discharged at that time on sodium chloride 1 g p.o. t.i.d.. It is unclear if patient is taking this supplement. It is unclear how much water she is drinking at home. She lives alone. Has a son who checks on her via telephone 3 times daily and in person once a week. ?Patient readily acknowledges her memory is declining. Recent Bourbon score was 12. Unclear if it is safe for her to continue to care for herself safely in her home with current level of support. ?Previously she had similar symptoms of dizziness and she was anemic. Hemoglobin was around 7. Was transfused with packed red blood cells. Dizziness resolved. Continues to have zoyo-ki-tsembxrs anemia but no active GI bleed. Has not had workup for GI bleed despite recommendations for doing so.? Hospital day 9 (10/31/2024): Hyponatremia, cognitive decline, anxiety, working on a safe discharge disposition plan. Continue to wait for safe discharge disposition. Urine osmolality 283 Serum osmolality calculated at 241 Urine sodium 39 Consistent with SIADH No specific concerns or complaints at this time. Hospital day 10 (11/01/2025). Patient has no new concerns or questions. We continue to await processing of her medical assistance application. Exam Narrative: Exam Narrative: I examine her in her hospital room. Alert, oriented to self, place, in part to time and situation. Friendly and cooperative. Ambulates independently with use of roller walker. Lungs are clear to auscultation. Heart tones regular. Abdomen benign. Const: Vital Signs, click to edit/add: Vital Signs - 24 hr 10/31/24 19:00 10/31/24 19:00 10/31/24 23:00 Temperature 97.6 F Pulse Rate [Right Pulse Oximeter] 71 71 Respiratory Rate 18 18 Blood Pressure [Ri ght FA] 180/78 H Pulse Oximetry 95 95 Oxygen Delivery Me thod Room Air Room Air 11/01/24 01:57 11/01/24 05:20 11/01/24 07:00 Temperature 98.5 F Pulse Rate [Right Pulse Oximeter] 109 H 66 89 Respiratory Rate 22 18 16 Blood Pressure [Ri ght FA] 211/100 H 164/71 H 163/80 H Pulse Oximetry 93 95 94 Oxygen Delivery Me thod Room Air 11/01/24 07:00 11/01/24 07:00 Temperature Pulse Rate [Right Pulse Oximeter] 89 Respiratory Rate 16 16 Blood Pressure [Ri ght FA] Pulse Oximetry 94 Oxygen Delivery Me thod Room Air Labs Labs: Laboratory Results - last 24 hr 11/01/24 05:50 Sodium 131 L
[2024-11-01 15:00] VITALS: PULSE 89; RESP 16
--- NOTE | 2024-11-01 19:38 | PC.NURSE ---
End of shift-- Very pleasant and cooperative, though occasionally anxious patient. Alert and oriented, though forgetful. VSS and pt is afebrile. SPO2 maintained >90% on RA. She denied any pain. LS CTA. She denied nausea and ate a regular diet without difficulty. Pt has had several visitors today. After son's visit, pt became very anxious regarding potential upcoming move. Pt was reassured, given a shower by HIGH SCHOOL ASSISTANT PRINCIPAL and offered aromatherapy. Friend came to visit this evening and pt appears much calmer following. Report to oncoming shift.
[2024-11-01 20:03] VITALS: BP 180/83; PULSE 72; RESP 16; TEMP 36.9; O2SAT 97
[2024-11-01] MEDS: CITALOPRAM HYDROBROMIDE 20 MG TABLET 10 MG PO (20:08)
[2024-11-01 20:24] VITALS: RESP 16; O2SAT 97
[2024-11-02] MEDS: polyethylene glycoL 3350 17 GM PACK PO (05:50)
[2024-11-02] MEDS: OMEPRAZOLE 20 MG CAPSULE DR 40 MG PO (06:00)
--- NOTE | 2024-11-02 06:42 | PC.NURSE ---
End of shift [id number]: A&O with some forgetfulness. Otherwise pleasant and cooperative. Using call light to go to the bathroom. Sba w/ walker. Pt refused a hospital gown overnight so she is sleeping in her own clothes. ?1200 FR.
[2024-11-02 07:00] VITALS: BP 129/56; PULSE 73; RESP 16; TEMP 36.9; O2SAT 95
[2024-11-02] MEDS: SENNOSIDES/DOCUSATE TABLET 1 TAB PO ×2 (10:30→20:22)
[2024-11-02] MEDS: SODIUM CHLORIDE 1 GM TABLET PO ×3 (10:30→17:44)
[2024-11-02] MEDS: QUETIAPINE 25 MG TABLET 12.5 MG PO ×2 (10:31→20:22)
[2024-11-02] MEDS: METOPROLOL SUCCINATE (XL) 25 MG TAB PO (10:31)
[2024-11-02] MEDS: AMLODIPINE 5 MG TABLET PO (10:31)
--- NOTE | 2024-11-02 13:57 | PC.SOCIAL ---
Discharge plan: Received call from Chastity Stone at [facility] stating [facility] has received an MA application for pt and asking if she is being discharged to a care home or assisted living from the hospital. Returned Chastity's call [phone] and left message explaining the plan for assisted living and need for waiver screening. Awaiting call back from [facility] with next steps. field ironworker to follow up as needed.
[2024-11-02 15:00] VITALS: PULSE 73; RESP 16
--- NOTE | 2024-11-02 15:12 | P.IMPN_ITS ---
Assessment and Plan Assessment and plan (1) Cognitive decline: Problem comment: - MOCA on 09/07/24 was 12. It is now 9. - therapies following. - It is our team's opinion that she needs 24/7 care. Her short-term recall is poor, and she needs help with all IADLs. - prescription for four-wheeled walker given to family. Awaiting placement [facility]/memory care. airfield services officer assisting with planning. 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 - amlodipine started 10/26/24 - metoprolol xl started 10/27/24 Status: Chronic (4) GERD (gastroesophageal reflux disease): Problem comment: -PPI to continue. Status: Chronic (5) Anemia: Problem comment: Chronic Status: Inactive Plan 20 minutes Subjective Date Seen: 11/02/24 Interval history: Admission history of present illness: ? 84 year old woman the emergency department today with chief complaint of dizziness. She has had this chief complaint often on for some time. She has had multiple visits to the emergency department. She was admitted to the hospital on 10/16/2024 and discharged on 10/17/2024 with a similar complaint. At that time her admission serum sodium is 123. With protein supplementation and normal saline IV sodium improved to 127 with her symptoms of dizziness totally resolving. Was discharged at that time on sodium chloride 1 g p.o. t.i.d.. It is unclear if patient is taking this supplement. It is unclear how much water she is drinking at home. She lives alone. Has a son who checks on her via telephone 3 times daily and in person once a week. ?Patient readily acknowledges her memory is declining. Recent Kleberg score was 12. Unclear if it is safe for her to continue to care for herself safely in her home with current level of support. ?Previously she had similar symptoms of dizziness and she was anemic. Hemoglobin was around 7. Was transfused with packed red blood cells. Dizziness resolved. Continues to have [id number] anemia but no active GI bleed. Has not had workup for GI bleed despite recommendations for doing so.? Hospital day 9 (10/31/2024): Hyponatremia, cognitive decline, anxiety, working on a safe discharge disposition plan. Continue to wait for safe discharge disposition. Urine osmolality 283 Serum osmolality calculated at 241 Urine sodium 39 Consistent with SIADH No specific concerns or complaints at this time. Hospital day 10 (11/01/2024). Patient has no new concerns or questions. We continue to await processing of her medical assistance application. Hospital day 11 (11/02/2024). Patient indicates she is doing well. Anxious to find a safe living place. Await medical assistance application processing. Exam Narrative: Exam Narrative: Examine her in her room and in the hallway. Realizes she does not remember things. Asks for help at times. Yesterday she recognize me in this morning she did not recognize me. Alert oriented to self and place. Lungs clear to auscultation. Heart tones with regular rhythm. Abdomen benign. Ambulates slowly in hallway with standby assist of 1 and use of walker. Const: Vital Signs, click to edit/add: Vital Signs - 24 hr 11/01/24 20:03 11/01/24 20:24 11/01/24 20:24 Temperature 98.5 F Pulse Rate [Right Pulse Oximeter] 72 Respiratory Rate 16 16 16 Blood Pressure [Ri ght FA] 180/83 H Pulse Oximetry 97 97 Oxygen Delivery Me thod Room Air Room Air 11/02/24 07:00 11/02/24 07:00 11/02/24 07:00 Temperature 98.4 F Pulse Rate [Right Pulse Oximeter] 73 73 Respiratory Rate 16 16 16 Blood Pressure [Ri ght FA] 129/56 L Pulse Oximetry 95 95 Oxygen Delivery Me thod Room Air Room Air
[2024-11-02 20:20] VITALS: BP 163/73; PULSE 71; RESP 16; TEMP 36.3; O2SAT 94
[2024-11-02] MEDS: CITALOPRAM HYDROBROMIDE 20 MG TABLET 10 MG PO (20:22)
[2024-11-02 20:26] VITALS: RESP 16; O2SAT 94
[2024-11-03] MEDS: OMEPRAZOLE 20 MG CAPSULE DR 40 MG PO (06:07)
--- NOTE | 2024-11-03 06:23 | PC.NURSE ---
End of shift [id number]: A&O with some forgetfulness. Otherwise pleasant and cooperative. ambulating in halls multiple times overnight. denies pain. slept in recliner. using call light appropriately. ?
[2024-11-03 07:00] VITALS: BP 135/61; PULSE 69; RESP 18; TEMP 36.6; O2SAT 96
[2024-11-03] MEDS: SODIUM CHLORIDE 1 GM TABLET PO ×2 (07:55→18:00)
[2024-11-03] MEDS: SENNOSIDES/DOCUSATE TABLET 1 TAB PO ×2 (09:47→20:04)
[2024-11-03] MEDS: QUETIAPINE 25 MG TABLET 12.5 MG PO ×2 (09:47→20:05)
[2024-11-03] MEDS: METOPROLOL SUCCINATE (XL) 25 MG TAB PO (09:47)
[2024-11-03] MEDS: AMLODIPINE 5 MG TABLET PO (09:47)
--- NOTE | 2024-11-03 14:15 | PC.SOCIAL ---
Discharge planning: Son left a copy of the bank statements needed for the MA application. joinery factory worker sent these into [facility] to include with previously sent application. Called and confirmed receipt. Spoke with son regarding d/c plan. Son is agreeable to placement at [facility] if accepted as Medical Assistance pending until pt can get into an assisted living facility under Medical Assistance waiver. Secure emailed MA application and proofs with medical information to [place] veterans' coordinator for evaluation at [facility]. Awaiting call back with decision on admit. Also left message with Padmaja at [facility] asking if they would consider a MA ending pt at their facility. joinery factory worker to follow up as needed.
[2024-11-03 15:00] VITALS: PULSE 69; RESP 18
--- NOTE | 2024-11-03 15:59 | PC.NURSE ---
Pt alert, oriented, though has periods of confusion, and vitally stable. Pt independent, walking halls. Pt reported having moderate bm during shift. Pt on 1200 FR. Denies pain. Pt in chair throughout shift, call light within reach.?
--- NOTE | 2024-11-03 16:11 | PM.IMPN1 ---
Assessment and Plan Assessment and plan (1) Cognitive decline: Problem comment: - MOCA on 09/07/24 was 12. It is now 9. - therapies following. - It is our team's opinion that she needs 24/7 care. Her short-term recall is poor, and she needs help with all IADLs. - prescription for four-wheeled walker given to family. Awaiting placement [facility]/memory care. business services tech assisting with planning. 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 - amlodipine started 10/26/24 - metoprolol xl started 10/27/24 Status: Chronic (4) GERD (gastroesophageal reflux disease): Problem comment: -PPI to continue. Status: Chronic (5) Anemia: Problem comment: Chronic Status: Inactive Plan 1. Continue to support patient as we wait for medical assistance application processing so that we can establish a safe discharge disposition plan Total Time Spent Total Time Spent: 20 minutes Subjective Date Seen: 11/03/24 Interval history: Admission history of present illness: ? 84 year old woman the emergency department today with chief complaint of dizziness. She has had this chief complaint often on for some time. She has had multiple visits to the emergency department. She was admitted to the hospital on 10/16/2024 and discharged on 10/17/2024 with a similar complaint. At that time her admission serum sodium is 123. With protein supplementation and normal saline IV sodium improved to 127 with her symptoms of dizziness totally resolving. Was discharged at that time on sodium chloride 1 g p.o. t.i.d.. It is unclear if patient is taking this supplement. It is unclear how much water she is drinking at home. She lives alone. Has a son who checks on her via telephone 3 times daily and in person once a week. ?Patient readily acknowledges her memory is declining. Recent Needmore score was 12. Unclear if it is safe for her to continue to care for herself safely in her home with current level of support. ?Previously she had similar symptoms of dizziness and she was anemic. Hemoglobin was around 7. Was transfused with packed red blood cells. Dizziness resolved. Continues to have [id number] anemia but no active GI bleed. Has not had workup for GI bleed despite recommendations for doing so.? Hospital day 9 (10/31/2024): Hyponatremia, cognitive decline, anxiety, working on a safe discharge disposition plan. Continue to wait for safe discharge disposition. Urine osmolality 283 Serum osmolality calculated at 241 Urine sodium 39 Consistent with SIADH No specific concerns or complaints at this time. Hospital day 10 (11/01/2024). Patient has no new concerns or questions. We continue to await processing of her medical assistance application. Hospital day 11 (11/02/2024). Patient indicates she is doing well. Anxious to find a safe living place. Await medical assistance application processing. Hospital day 12 (11/03/2024). Generally doing well. Needs to be redirected reoriented at times. Ambulating the [facility]strong safely now with use of walker. Continue to await medical assistance application processing in order to establish safe discharge disposition plan. Exam Narrative: Exam Narrative: I examine her in her room and in the hallways as she is ambulating. No acute distress, cooperative. Lungs are clear. Heart tones with regular rhythm. Abdomen benign. Ambulating halls with walker. Const: Vital Signs, click to edit/add: Vital Signs - 24 hr 11/02/24 20:20 11/02/24 20:26 11/02/24 20:26 Temperature 97.4 F L Pulse Rate [Right Pulse Oximeter] 71 Respiratory Rate 16 16 16 Blood Pressure [[facility] FA] 163/73 H Pulse Oximetry 94 94 Oxygen Delivery Me thod Room Air Room Air 11/03/24 07:00 11/03/24 07:00 11/03/24 07:00 Temperature 97.8 F Pulse Rate [Right Pulse Oximeter] 69 69 Respiratory Rate 18 18 Blood Pressure [[facility] FA] 135/61 Pulse Oximetry 96 96 Oxygen Delivery Me thod Room Air Room Air
[2024-11-03 19:25] VITALS: BP 151/77; PULSE 71; RESP 16; TEMP 36.6; O2SAT 96
[2024-11-03] MEDS: CITALOPRAM HYDROBROMIDE 20 MG TABLET 10 MG PO (20:04)
[2024-11-03 22:10] VITALS: PULSE 71; RESP 16
[2024-11-03 22:11] VITALS: RESP 16
--- NOTE | 2024-11-04 04:56 | PC.NURSE ---
Pt up walking halls IND with her walker. Pleasant and cooperative. Reporting zero pain. RNV.
[2024-11-04] MEDS: OMEPRAZOLE 20 MG CAPSULE DR 40 MG PO (06:09)
[2024-11-04 07:00] VITALS: BP 166/78; PULSE 66; RESP 18; TEMP 36.8; O2SAT 97
[2024-11-04] MEDS: QUETIAPINE 25 MG TABLET 12.5 MG PO ×2 (08:32→20:26)
[2024-11-04] MEDS: SENNOSIDES/DOCUSATE TABLET 1 TAB PO ×2 (08:32→20:26)
[2024-11-04] MEDS: METOPROLOL SUCCINATE (XL) 25 MG TAB PO (08:32)
[2024-11-04] MEDS: SODIUM CHLORIDE 1 GM TABLET PO ×3 (08:32→18:00)
[2024-11-04] MEDS: AMLODIPINE 5 MG TABLET PO (08:32)
--- NOTE | 2024-11-04 13:52 | PM.IMPN1 ---
Assessment and Plan Assessment and plan (1) Cognitive decline: Problem comment: - MOCA on 09/07/24 was 12. It is now 9. - therapies following. - It is our team's opinion that she needs 24/7 care. Her short-term recall is poor, and she needs help with all IADLs. - prescription for four-wheeled walker given to family. Awaiting placement [facility]/memory care. special services supervisor assisting with planning. 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 - amlodipine started 10/26/24 - metoprolol xl started 10/27/24 Status: Chronic (4) GERD (gastroesophageal reflux disease): Problem comment: -PPI to continue. Status: Chronic (5) Anemia: Problem comment: Chronic Status: Inactive Plan Awaiting placement [facility]/memory care. special services supervisor assisting with planning. MA application submitted 10/27/24 Total Time Spent Total Time Spent: Today I spent 50 minutes seeing the patient, reviewing Expanse and EPIC notes/diagnostics, discussing the care plan with our care time that includes social work, PT/OT, pharmacy, RT, nursing home and documenting my impressions and plan in the medical record. Subjective Date Seen: 11/04/24 Interval history: No events overnight. No new complaints. Pending safe discharge plan, pending placement. Exam Narrative: Exam Narrative: Physical exam GENERAL: Comfortable, no acute distress. HEAD AND NECK: Atraumatic, normocephalic CARDIOVASCULAR: RRR. Normal S1, S2. No murmurs. RESPIRATORY: Clear to auscultation B/L. Good air entry B/L. No wheezes or rhonchi. GASTROINTESTINAL: Not distended, not tender to palpation. NEUROLOGY: Alert, awake PSYCH: Normal mood, normal affect. Const: Vital Signs, click to edit/add: Vital Signs - 24 hr 11/03/24 15:00 11/03/24 19:25 11/03/24 19:25 Temperature Pulse Rate [Right Pulse Oximeter] 69 Respiratory Rate 18 16 16 Blood Pressure [Ri ght FA] Pulse Oximetry 96 Oxygen Delivery Me thod Room Air 11/03/24 19:25 11/03/24 22:10 11/03/24 22:11 Temperature 98 F Pulse Rate [Right Pulse Oximeter] 71 71 Respiratory Rate 16 16 16 Blood Pressure [Ri ght FA] 151/77 H Pulse Oximetry 96 Oxygen Delivery [place] thod Room Air 11/04/24 07:00 11/04/24 07:00 11/04/24 07:00 Temperature 98.2 F Pulse Rate [Right Pulse Oximeter] 66 66 Respiratory Rate 18 18 18 Blood Pressure [Ri ght FA] 166/78 H Pulse Oximetry 97 97 Oxygen Delivery [place] thod Room Air Room Air
--- NOTE | 2024-11-04 14:53 | PC.NURSE ---
Pt alert, oriented, though forgetful, and vitally stable. Pt stated, ?I feel more confused today.? Staff reassured and reoriented. Pt independent, walking halls. Pt stated BM.?Pt on 1200 FR. Denies pain. Pt in chair throughout shift, call light within reach.?
[2024-11-04 15:00] VITALS: PULSE 66; RESP 18
[2024-11-04 19:00] VITALS: BP 145/66; PULSE 69; RESP 20; TEMP 36.8; O2SAT 94
[2024-11-04] MEDS: CITALOPRAM HYDROBROMIDE 20 MG TABLET 10 MG PO (20:25)
[2024-11-04 21:34] VITALS: PULSE 69; RESP 20
[2024-11-05] MEDS: OMEPRAZOLE 20 MG CAPSULE DR 40 MG PO (06:06)
--- NOTE | 2024-11-05 06:12 | PC.NURSE ---
End of shift note [id number]: Pt alert & oriented to person, place and time though has intermittent forgetfulness noted and poor short-term memory recall. She did properly identify her birthday this morning though asked signwriter, Is that right? She is independent with transferring and ambulation in room and hallway using rolling walker. Pt tolerating regular diet and compliant with current FR order currently in place. Pt continent of bladder. She requests to sleep in clothes and in recliner at night with lights on per home routine. Pt has been denying pain when asked. Pt on restful night VS- afebrile and on RA throughout the shift. Call light within reach. ?
[2024-11-05 07:00] VITALS: BP 160/71; PULSE 78; RESP 18; TEMP 36.9; O2SAT 96
--- NOTE | 2024-11-05 08:39 | P.IMPN_ITS ---
Assessment and Plan Assessment and plan (1) Cognitive decline: Problem comment: - MOCA on 09/07/24 was 12. It is now 9. - therapies following. - It is our team's opinion that she needs 24/7 care. Her short-term recall is poor, and she needs help with all IADLs. - prescription for four-wheeled walker given to family. Awaiting placement [facility]/memory care. career services coordinator assisting with planning. 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 Status: Resolved (3) HTN (hypertension): Problem comment: - no further ACEI 2/2 dizziness and SIADH. - amlodipine started 10/26/24 - metoprolol xl started 10/27/24 Status: Chronic (4) GERD (gastroesophageal reflux disease): Problem comment: -PPI to continue. Status: Chronic (5) Anemia: Problem comment: Chronic Status: Inactive Plan Pending safe discharge / placement. Total Time Spent Total Time Spent: Today I spent 50 minutes seeing the patient, reviewing Expanse and EPIC notes/diagnostics, discussing the care plan with our care time that includes social work, PT/OT, pharmacy, RT, group home and documenting my impressions and plan in the medical record. Subjective Date Seen: 11/05/24 Interval history: No events overnight. Pending safe discharge placement. No new complaints. Exam Narrative: Exam Narrative: Physical exam GENERAL: Comfortable, no acute distress. HEAD AND NECK: Atraumatic, normocephalic CARDIOVASCULAR: RRR. Normal S1, S2. No murmurs. RESPIRATORY: Clear to auscultation B/L. Good air entry B/L. NEUROLOGY: Alert, awake, oriented. Normal speech. PSYCH: Normal mood, normal affect. Const: Vital Signs, click to edit/add: Vital Signs - 24 hr 11/04/24 15:00 11/04/24 19:00 11/04/24 19:00 Temperature Pulse Rate [Right Pulse Oximeter] 66 Respiratory Rate 18 20 20 Blood Pressure [[facility] FA] Pulse Oximetry 94 Oxygen Delivery Me thod Room Air 11/04/24 19:00 11/04/24 21:34 Temperature 98.2 F Pulse Rate [Right Pulse Oximeter] 69 69 Respiratory Rate 20 20 Blood Pressure [[facility] FA] 145/66 H Pulse Oximetry 94 Oxygen Delivery Me thod Room Air
[2024-11-05] MEDS: SODIUM CHLORIDE 1 GM TABLET PO ×3 (09:02→17:18)
[2024-11-05] MEDS: METOPROLOL SUCCINATE (XL) 25 MG TAB PO (09:02)
[2024-11-05] MEDS: AMLODIPINE 5 MG TABLET PO (09:03)
[2024-11-05] MEDS: SENNOSIDES/DOCUSATE TABLET 1 TAB PO ×2 (09:03→21:03)
[2024-11-05] MEDS: QUETIAPINE 25 MG TABLET 12.5 MG PO ×2 (09:03→21:02)
[2024-11-05 15:00] VITALS: PULSE 78; RESP 18
[2024-11-05 19:00] VITALS: BP 151/63; PULSE 69; RESP 18; TEMP 36.9; O2SAT 95
--- NOTE | 2024-11-05 19:00 | PC.NURSE ---
Pt pleasant and cooperative. VSS. Denies pain. Sons visited today. Up walking independently in halls, tolerating well.
[2024-11-05] MEDS: CITALOPRAM HYDROBROMIDE 20 MG TABLET 10 MG PO (21:03)
[2024-11-05] MEDS: SODIUM CHLORIDE 0.9 % (FLUSH) 10 ML SYRINGE 5 ML IVF (21:04)
[2024-11-05 22:50] VITALS: PULSE 69; RESP 18
--- NOTE | 2024-11-06 04:21 | PC.NURSE ---
Shift note: Patient is doing doing well. Ambulated independently in the hallway several times with walker. Alert and oriented. Patient had adequate sleep in the recliner. Vitally stable. Restful night sleep ensured.
[2024-11-06] MEDS: OMEPRAZOLE 20 MG CAPSULE DR 40 MG PO (06:19)
[2024-11-06 08:26] VITALS: BP 168/82; PULSE 68; RESP 18; TEMP 36.8; O2SAT 96
[2024-11-06 08:30] VITALS: PULSE 68; RESP 18
[2024-11-06] MEDS: SENNOSIDES/DOCUSATE TABLET 1 TAB PO (09:26)
[2024-11-06] MEDS: METOPROLOL SUCCINATE (XL) 25 MG TAB PO (09:26)
[2024-11-06] MEDS: AMLODIPINE 5 MG TABLET PO (09:27)
[2024-11-06] MEDS: QUETIAPINE 25 MG TABLET 12.5 MG PO ×2 (09:27→21:07)
[2024-11-06] MEDS: SODIUM CHLORIDE 1 GM TABLET PO ×3 (09:29→17:52)
--- NOTE | 2024-11-06 10:25 | P.IMPN_ITS ---
Assessment and Plan Assessment and plan (1) Cognitive decline: Problem comment: - MOCA on 09/07/24 was 12. It is now 9. - therapies following. - It is our team's opinion that she needs 24/7 care. Her short-term recall is poor, and she needs help with all IADLs. - prescription for four-wheeled walker given to family. Awaiting placement [facility]/memory care. donor services technician assisting with planning. 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 Status: Resolved (3) HTN (hypertension): Problem comment: - no further ACEI 2/2 dizziness and SIADH. - amlodipine started 10/26/24 - metoprolol xl started 10/27/24 Status: Chronic (4) GERD (gastroesophageal reflux disease): Problem comment: -PPI to continue. Status: Chronic Plan Pending safe discharge placement. Total Time Spent Total Time Spent: Today I spent 50 minutes seeing the patient, reviewing Expanse and EPIC notes/diagnostics, discussing the care plan with our care time that includes social work, PT/OT, pharmacy, RT, group home and documenting my impressions and plan in the medical record. Subjective Date Seen: 11/06/24 Interval history: No events overnight. Pending safe discharge placement. Patient feels okay she just complained about needed to sit for long time to have a bowel movement but she had 1 today morning, senna/docusate b.i.d. scheduled in addition to MiraLax p.r.n. ordered. Exam Narrative: Exam Narrative: Physical exam GENERAL: Comfortable, no acute distress. HEAD AND NECK: Atraumatic, normocephalic CARDIOVASCULAR: RRR. Normal S1, S2. No murmurs. RESPIRATORY: Clear to auscultation B/L. Good air entry B/L. NEUROLOGY: Alert, awake, oriented. Normal speech. PSYCH: Normal mood, normal affect. Const: Vital Signs, click to edit/add: Vital Signs - 24 hr 11/05/24 15:00 11/05/24 19:00 11/05/24 19:00 Temperature Pulse Rate [Right Pulse Oximeter] 78 Respiratory Rate 18 18 18 Blood Pressure [Ri ght FA] Pulse Oximetry 95 Oxygen Delivery [place] thod Room Air 11/05/24 19:00 11/05/24 22:50 11/06/24 08:26 Temperature 98.4 F Pulse Rate [Right Pulse Oximeter] 69 69 Respiratory Rate 18 18 18 Blood Pressure [Ri ght FA] 151/63 H Pulse Oximetry 95 96 Oxygen Delivery [place] thod Room Air Room Air 11/06/24 08:26 11/06/24 08:30 Temperature 98.2 F Pulse Rate [Right Pulse Oximeter] 68 68 Respiratory Rate 18 18 Blood Pressure [Ri ght FA] 168/82 H Pulse Oximetry 96 [facility]
--- NOTE | 2024-11-06 15:28 | PC.NURSE ---
end of shift/. pt has been very pleasant. she is alert to person place, she was off on day, month and year. no pain. she is Ambulated independently in the hallway with walker. she is eating, drinking and voiding. she takes pills with no probelms. bm meds are increased
[2024-11-06] MEDS: SENNOSIDES/DOCUSATE TABLET 2 TAB PO (17:52)
[2024-11-06 19:00] VITALS: BP 164/76; PULSE 70; RESP 18; TEMP 37; O2SAT 96
[2024-11-06] MEDS: CITALOPRAM HYDROBROMIDE 20 MG TABLET 10 MG PO (21:07)
[2024-11-06 23:23] VITALS: RESP 16
--- NOTE | 2024-11-06 23:27 | PC.NURSE ---
Patient alert and oriented with confusion. Ambulates with Ax1 with a walker and gait belt. Denied pain. Vital signs stable.
[2024-11-07] MEDS: OMEPRAZOLE 20 MG CAPSULE DR 40 MG PO (05:58)
--- NOTE | 2024-11-07 06:22 | PC.NURSE ---
Pt alert and oriented to self and place. Pt denies chest pain, SOB, pain, and N/V. Pt slept intermittently throughout night.?Pt reports she looking forward to discharging from the hospital.
[2024-11-07] MEDS: AMLODIPINE 5 MG TABLET PO (07:34)
[2024-11-07] MEDS: METOPROLOL SUCCINATE (XL) 25 MG TAB PO (07:34)
[2024-11-07] MEDS: SENNOSIDES/DOCUSATE TABLET 2 TAB PO (07:35)
[2024-11-07] MEDS: QUETIAPINE 25 MG TABLET 12.5 MG PO (07:35)
[2024-11-07] MEDS: SODIUM CHLORIDE 1 GM TABLET PO (07:35)
[2024-11-07 07:38] VITALS: BP 170/78; PULSE 71; RESP 16; TEMP 36.4; O2SAT 96
[2024-11-07 08:50] VITALS: O2SAT 96
--- NOTE | 2024-11-07 09:02 | PC.NURSE ---
Nurse to nurse report given to RANDY Reece at [facility]. All questions answered.
--- NOTE | 2024-11-07 09:08 | PM.DS1 ---
DS: Providers Provider Date Seen: 11/07/24 Date of admission: 10/24/24 08:54 Primary care physician: Emmy Harley MD Admitting Clinician: Nicole Alamo MD Consults: 10/23/24 15:39 Consult to Nutrition [CONS] Routine Comment: Reason for consult:: Miscellaneous Consult to Physical Therapy [CONS] Routine Comment: Reason(s) for PT Consult:: Evaluate and Treat Any Restrictions?:: No Restrictions Consult to Marine Oiler [CONS] Routine Comment: Reason for Consult:: Discharge Planning Needs 10/23/24 15:40 Consult to Occupational Therapy [CONS] Routine Comment: Reason(s) for OT Consult:: Evaluate and Treat Any Restrictions?:: No Restrictions Attending Physician on discharge: Marcelina Rae MD DS: Diagnosis Discharge Diagnosis (1) Cognitive decline: Status: Chronic Problem details: - MOCA on 09/07/24 was 12. It is now 9. - therapies following. - It is our team's opinion that she needs 24/7 care. Her short-term recall is poor, and she needs help with all IADLs. - prescription for four-wheeled walker given to family. Awaiting placement [facility]/memory care. greeter guest services assisting with planning. 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 (3) HTN (hypertension): Status: Chronic Problem details: - no further ACEI 2/2 dizziness and SIADH. - amlodipine started 10/26/24 - metoprolol xl started 10/27/24 (4) GERD (gastroesophageal reflux disease): Status: Chronic Problem details: -PPI to continue. DS: Summary Hospital Course Hospital Course: Audra Araujo is a 84 year old woman the emergency department today with chief complaint of dizziness. She has had this chief complaint often on for some time. She has had multiple visits to the emergency department. She was admitted to the hospital on 10/16/2024 and discharged on 10/17/2024 with a similar complaint. MRI brain 09/07/24 reassuring (recommend outpatient CTA to assess for possible aneurysm). Pt presented w/ hyponatremia, but resolved subsequently. For hyponatremia, we stopped lisinopril given possibility of this medicine causing dizziness and SIADH. Patient does not appear capable of safely able to care for self at her home with current level of support. MOCA on 09/07/24 was 12. SW met with patient's son to discuss assisted living and provide information about [facility] options. Son states he actually thinks she is likely ready for it as her memory keeps declining. SW to helped family with [facility] application and submitted it to the [facility]. Pt got acceped at [facility]/ [facility]. Status at Discharge Functional status at discharge: uses cane/walker Overall status at discharge: patient is back to baseline Time Spent with Patient Time attestation: Total time spent providing and/or coordinating discharge services: 45 min Exam Narrative: Exam Narrative: Physical exam GENERAL: Comfortable, no acute distress. HEAD AND NECK: Atraumatic, normocephalic CARDIOVASCULAR: RRR. Normal S1, S2. No murmurs. RESPIRATORY: Clear to auscultation B/L. Good air entry B/L. No wheezes or rhonchi. GASTROINTESTINAL: Not distended, not tender to palpation. NEUROLOGY: Alert, awake. Normal speech. PSYCH: Normal mood, normal affect. Const: Vital Signs, click to edit/add: Vital Signs - 24 hr 11/06/24 19:00 11/06/24 23:23 11/07/24 07:38 Temperature 98.6 F 97.6 F Pulse Rate [Right Pulse Oximeter] 70 71 Respiratory Rate 18 16 16 Blood Pressure [Ri ght FA] 164/76 H 170/78 H Pulse Oximetry 96 96 Oxygen Delivery Me thod Room Air Room Air 11/07/24 08:50 Temperature Pulse Rate [Right Pulse Oximeter] Respiratory Rate Blood Pressure [Ri ght FA] Pulse Oximetry 96 Oxygen Delivery Me thod Room Air DS: Data Data Completed and Pending Completed studies during hospitalization: Procedures Inspection of Upper Intestinal Tract, Via Natural or Artificial Opening Endoscopic (09/07/24) Discharge Plan Discharge Disposition: [facility] Date of Admission: 10/24/24 08:54 Attending Provider on Discharge: Marcelina Rae Primary Care Provider: Emmy Harley Condition: Stable Anticipated Discharge Date/Time: 11/07/24 08:57 Discharge Medications: New quetiapine 25 mg Tablet 12.5 mg PO BID 30 Days Qty: 30 1RF polyethylene glycol 3350 [Miralax] 17 gram Powder In Packet 17 g PO DAILY PRN15 Days Qty: 15 1RF sennosides-docusate sodium [Stool Softener-Laxative] 8.6-50 mg Tablet 2 tab PO 09,18 30 Days Qty: 120 0RF amlodipine 5 mg Tablet 5 mg PO DAILY 30 Days Qty: 30 1RF citalopram 20 mg Tablet 10 mg PO HS 30 Days Qty: 15 1RF omeprazole 20 mg Capsule,Delayed Release(Dr/Ec) 40 mg PO DAILY@0700 30 Days Qty: 30 1RF metoprolol succinate 25 mg Tablet Extended Release 24 Hr 25 mg PO DAILY 30 Days Qty: 30 1RF Continued Vitron-C 65 mg iron- 125 mg tablet,delayed release (DR/EC) 1 tab PO BID Qty: 60 0RF multivitamin Tablet 1 tab PO DAILY PreserVision AREDS-2 250-90-40-1 mg capsule 1 tab PO BID sodium chloride 1,000 mg Tablet,Soluble 1,000 mg PO TIDWM Qty: 90 0RF Discontinued sertraline 50 mg tablet 50 mg PO QAM lisinopril 10 mg tablet 10 mg PO DAILY Qty: 30 0RF Discharge Orders: Discharge Order (Routine); Ordered 11/07/24 Ordered By: Marcelina Rae Activity Level: Activity as Tolerated Discharge Diet: Heart Healthy (2 gm sodium, low fat) Follow Up Appointments: Emmy Harley MD [Primary Care Provider] - [facility] Discharge Potential: Good Length of Stay: <30 days Can use facility standing orders?: Yes Code Status: Full Code TEDs: Bilateral Knee Rehab Potential: Good Oxygen: No Urinary Catheter: No Signature: Kyra
--- NOTE | 2024-11-07 09:27 | PC.SOCIAL ---
Discharge planning: Discharge orders were secure emailed to Grant Bangura at [facility] this morning. Pt's son plans to pick her up at 10:00am and transport her there. Social work to follow-up as needed.
--- NOTE | 2024-11-07 09:48 | PC.NURSE ---
Patient discharged to [facility] with friend. All belongings sent with patient. No further questions at this time.
== END 2024-11-07 09:49 | DRG 57 ==
LOC: ED 14:01 → MEDSURG 14:25
PROVIDERS: Internal Medicine; Physician Assistant; Admitting Provider Family Medicine; Emergency Provider Student in an Organized Health Care Education/Training Program; PCP Family Medicine; Visit Provider Family Medicine
DX: G31.84 Mild cognitive impairment of uncertain or unknown etiology (principal); E22.2 Syndrome of inappropriate secretion of antidiuretic hormone; R42 Dizziness and giddiness; D64.9 Anemia, unspecified; I10 Essential (primary) hypertension; K21.00 Gastro-esophageal reflux disease with esophagitis, without bleeding; M85.80 Other specified disorders of bone density and structure, unspecified site; F41.9 Anxiety disorder, unspecified; Z87.891 Personal history of nicotine dependence
CPT/HCPCS: 36415; 70450; 70496; 70498; 74018; 80048; 81001; 82570; 83605; 83735; 83880; 83930; 83935; 84100; 84295; 84300; 84443; 84484; 85025; 85027; 87631; 93005; 97112; 97116; 97161; 97165; 97535; 99284; 99285; A9270; G0378; J7030; Q9967